=== PATIENT | female | born 1955 | race Caucasian/White ===

== ENCOUNTER → 2016-12-11 | Outpatient (CLI) | payer OTHER ==
[~2016-12-11] MED LIST: ACET500C; ACET500C OR; ALEV220C2 PO; ALEVE PM PO; ALEVE PO; BODY PO; FISH1000 OR; HAIR SKIN NAILS; HAIRTAB5 PO; LIDO1DIS2 TD; MULTIVIT OR; SKEL-29 PO; SKEL800T5; SKEL800T5 OR; SOMA250T; TRAM50TA2; TRAM50TA2 OR; TYLE325T5 PO; TYLE500T53 OR; ULTR37.52 PO; VENL37TA PO; VINEGAR PO; VOLT1GEL TOP; VOLT1GEL24 TD; ZOCO20TA; ZOCO20TA OR; ZOLO100T; [UNRECOGNIZED DRUG - CODE] PO; [UNRECOGNIZED DRUG - OTHER] OR; [UNRECOGNIZED DRUG - OTHER] PO; [UNRECOGNIZED DRUG - OTHER] PO; [UNRECOGNIZED DRUG - REMARK] PO; st johns wort PO
--- NOTE | 2016-12-17 00:45 | ECWPNPC ---
PATIENT NAME: LISA POTTS : 1955 GENDER: FEMALE VISIT DATE: 12/11/2016 DISCHARGE DATE: 12/11/16 1011 VISIT LOCKED DATE TIME: PHYSICIAN: BORA NICE RESOURCE: BORA NICE REASON FOR APPOINTMENT 1. W/C BACK PAIN HISTORY OF PRESENT ILLNESS HISTORY OF PRESENT ILLNESS: PAIN THE PATIENT DESCRIBES THE PAIN... 61 YEAR OLD FEMALE PATIENT WITH HISTORY OF CHRONIC LOW BACK PAIN. PATIENT DESCRIBES THE PAIN ACHING, SHARP, TENDER, SORE, WITH THE PAIN COMING AND GOING WITH A PAIN SCORE OF 0-3. 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 PATIENT RECEIVED A LUMBAR FACET BLOCK ON 09/11/16 AND REPORTS DOING VERY WELL FROM THE INJECTION. MRS. POTTS'Ad REPORTS HAVING INCREASED MOBILITY AND FUNCTIONALITY AND A DECREASE IN PAIN. PATIENT REPORTS DOING PHYSICAL THERAPY WHICH DOES AID IN PAIN RELIEF AND KEEPS THE PATIENT FUNCTIONAL. 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 PATIENT STATES THAT SITTING, STANDING, OR WALKING LONG DISTANCES INCREASES THE PAIN IN THE LOWER BACK BUT THE PATIENT FINDS RELIEF FROM THE MEDICATIONS ALONG WITH HEAT AND ICE. PATIENT DENIES UNEXPLAINABLE WEIGHT LOSS, FEVER, CHILLS, NEW CHANGES ON HER URINARY OR BOWEL CONTROL. FALL RISK SCREENING: SCREENING :NO FALLS IN THE PAST YEAR CURRENT MEDICATIONS TAKING VOLTAREN 1 % GEL ONE APPLICATION TRANSDERMAL QID PRN FOR PAIN, NOTES: 1 WEEK TAKING EYE DROPS EXTRA 0.05 % SOLUTION 2 DROP OPHTHALMIC TWICE A DAY AND NEEDED, NOTES: 09/11/16 0700 TAKING ACETAMINOPHEN 325 MG TABLET 1 TABLET NEEDED ORALLY EVERY 6 HRS, NOTES: > 1 WEEK TAKING ALEVE PM 220-25 MG TABLET ORALLY , NOTES: > 1 WEEK TAKING TRAMADOL-ACETAMINOPHEN 37.5-325 MG TABLET 2 TABLETS NEEDED ORALLY EVERY 6 HRS, NOTES: NONE TAKING SKELAXIN 800 MG TABLET 1 TABLET ORALLY EVERY 6 HR NEEDED TAKING VITAMIN D 59601 U TABLET ORALLY TAKING VITAMIN C 500 MG CAPSULE ORALLY TAKING MAGNESIUM 200 MG TABLET 2 TABLETS WITH A MEAL ORALLY ONCE A DAY TAKING HAIR/SKIN/NAILS TABLET 1 TAB(S) ORALLY DAILY, NOTES: NONE DISCONTINUED VALIUM 10 MG TABLET 1 ORALLY 1 TAB 1HR PRE PROC., NOTES: 0900 DISCONTINUED METAXALONE 800 MG TABLET 1 TABLET ORALLY THREE TIMES A DAY, NOTES: NONE MEDICATION LIST REVIEWED AND RECONCILED WITH THE PATIENT PAST MEDICAL HISTORY NO MEDICAL HISTORY. ALLERGIES GABAPENTIN: SWOLLEN EYE LIDS PUFFY LIPS: ALLERGY CONTRAST MEDIA: FAINT, HEAD FULLNESS, PRESSURE: ALLERGY NAPROXEN: SWOLLEN EYE LIDS PUFFY LIPS: ALLERGY SURGICAL HISTORY HYSTERCTOMY D&C BILATERAL CARPALL CONNIE FAMILY HISTORY NO FAMILY HISTORY DOCUMENTED. 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 NEW PATIENT PAIN DIARY TODAY'S VISITNOTES FROM 0-10, WHAT LEVEL IS YOUR PAIN TODAY?0 PAIN CLINIC PFS, CLERGY, PUBLIC HEALTH REFERRALS PFS REFERRAL NEEDED?NO CLERGY REFERRAL NEEDED?NO PUBLIC HEALTH REFERRAL NEEDED?NO WAS THE PROVIDER NOTIFIED OF ANY PERTINENT INFO?NO PFS REFERRAL NEEDED?NO CLERGY REFERRAL NEEDED?NO PUBLIC HEALTH REFERRAL NEEDED?NO WAS THE PROVIDER NOTIFIED OF ANY PERTINENT INFO?NO HOSPITALIZATION/MAJOR DIAGNOSTIC PROCEDURE FOR SURGERIES AFTER FALLING OUT DOORS HAD BROKEN BONES REVIEW OF SYSTEMS CONSTITUTIONAL: ANY CHANGE IN YOUR MEDICAL CONDITION? NO . CHILLS NO . FEVER NO . INFECTION: DO YOU HAVE NEW INFECTIONS? NO . DO YOU HAVE HISTORY OF MRSA? NO . MUSCULOSKELETAL: ANY NEW PATTERNS OF PAIN OR NUMBNESS? NO . GASTROENTEROLOGY: ANY NEW CHANGE IN BOWEL CONTROL? NO . GENITOURINARY: ANY NEW CHANGE IN BLADDER CONTROL? NO . IS THERE A CHANCE YOU COULD BE ? NO . HEMATOLOGY/LYMPH: DO YOU TAKE ANY BLOOD THINNERS? (FOR EXAMPLE- COUMADIN, PLAVIX, AGGRENOX, PLATEL, PRADAXA, OR XARELTO) NO . WHEN WAS YOUR LAST DOSE? DATE: TIME: . NEUROLOGY: HAVE YOU FALLEN IN THE PAST 6 MONTHS? YES, RECENTLY FELL ON DECK. NO TREATMENT WAS BRUISED. . ANY NEW EXTREMITY NUMBNESS OR WEAKNESS? NO . CARDIOLOGY: DO YOU HAVE A PACEMAKER OR DEFIBRILLATOR? NO . RESPIRATORY: HAVE YOU BEEN SICK IN THE PAST WEEK? NO . FEVER NO . FLU LIKE SYMPTOMS? NO . COUGH NO . INTEGUMENTARY: DO YOU HAVE ANY RASHES OR OPEN SORES? NO . ALLERGIC/IMMUNO: ARE YOU ALLERGIC TO SHELLFISH OR IV DYE? YES . ANY NEW ALLERGIES? NO . PSYCHIATRIC: DO YOU HAVE THOUGHTS OF HURTING YOURSELF OR SOMEONE ELSE? NO . ARE YOU ABUSED, NEGLECTED, OR IN AN UNSAFE ENVIRONMENT? NO . ENDOCRINOLOGY: ARE YOU DIABETIC? NO . OTHER: DO YOU NEED ANY PRESCRIPTIONS? NO . IF YES, PLEASE LIST: ____ . ANY NEW PROBLEMS WITH YOUR MEDICATIONS? NO . WHEN DID YOU LAST EAT? ____ . WHEN DID YOU LAST DRINK? ____ . WHAT DID YOU LAST DRINK? ____ . NAME OF PERSON DRIVING YOU HOME? ____ . DO YOU HAVE ANY OTHER QUESTIONS OR CONCERNS NO . REVIEWED BY: PROVIDER: BORA NICE MD . VITAL SIGNS WT 180 LBS, HT 63 IN, BMI 31.88 INDEX, BP 156/89 MM HG, HR 70 /MIN, RR 16 /MIN, TEMP 96%, OXYGEN SAT % 96%, NA INITIALS SC 09:31, REVIEWED BY: CM. EXAMINATION : PATIENT IS ALERT O X 3 AND COOPERATIVE. TENDERNESS IN THE LOWER BACK AND PARASPINAL MUSCLE GROUP. LEFT LEG IS WEAKER THEN THE RIGHT AT EXTENSION AND FLEXION. ABLE TO FLEX AND EXTEND BACK. MRI DONE ON 12/20/14 DOES DISC BULGES AT L1-L2 THROUGH L4-L5, DISC PROTRUSION AT L5-S1 AND FACET HYPERTROPHY. ASSESSMENTS SPONDYLOSIS WITHOUT MYELOPATHY OR RADICULOPATHY, LUMBAR REGION - M47.816 (PRIMARY) SPONDYLOSIS WITHOUT MYELOPATHY OR RADICULOPATHY, LUMBOSACRAL REGION - M47.817 TREATMENT SPONDYLOSIS WITHOUT MYELOPATHY OR RADICULOPATHY, LUMBAR REGION REFILL VOLTAREN GEL, 1 %, ONE APPLICATION, TRANSDERMAL, QID PRN FOR PAIN, 30 DAY(S), 2, REFILLS 2, NOTES: 1 WEEK NOTES: WE DISCUSSED SEVERAL ISSUES WITH MR. AMIN PAIN MANAGEMENT CASE. AT THIS TIME THE PATIENT WILL CONTINUE WITH THE SAME MEDICATION REGIME BEFORE. PATIENT USES THE VOLTAREN GEL FOR THE CHRONIC LOW BACK PAIN. PATIENT USES TRAMADOL AND SKELAXIN SPARINGLY. PATIENT DENIES ABUSE OF ANY MEDICATION, DENIES USE OF ILLEGAL SUBSTANCES, AND STATES THAT SHE IS ONLY USING THE MEDICATION FOR PAIN MANAGEMENT. PATIENT IS STILL DOING SIGNIFICANTLY WELL FROM THE LUMBAR FACET BLOCK WITH MOBILITY AND FUNCTIONALITY INCREASED AND PAIN DECREASED. AT THIS TIME THE PATIENT IS STILL HAVING MILD TWINGES OF PAIN BUT REPORTS IT IS VERY MANAGEABLE .MRS. AMIN WILL RETURN TO THE CLINIC IN 2 MONTHS TO FURTHER DISCUSS HER CASE BUT WAS ADVISED TO CALL IF PAIN RETURNS OR WORSENS. INSTRUCTIONS WERE GIVEN, QUESTIONS WERE ANSWERED, PATIENT REPORTS UNDERSTANDING AND AGREES WITH THE PLAN. I, PREETI RODNEY, DOCUMENTED THE ABOVE INFORMATION ACTING A SCRIBE FOR DR. NICE. I HAVE REVIEWED THE ABOVE DOCUMENT, WRITTEN BY PREETI LANDEROSIBChey AND I VERIFY THAT IT IS ACCURATE. PROCEDURES PN WORKMANS' COMP OPINION IN YOUR OPINION, WAS THE INCIDENT THAT THE PATIENT DESCRIBED THE COMPETENT MEDICAL CAUSE OF THIS INJURY/ILLNESS? YES ARE THE PATIENT'S COMPLAINTS CONSISTENT WITH HIS/HER HISTORY OF THE INJURY/ILLNESS? YES IS THE PATIENT'S HISTORY OF THE INJURY/ILLNESS CONSISTENT WITH YOUR OBJECTIVE FINDING? YES WHAT IS THE PERCENTAGE OF TEMPORARY IMPAIRMENT? MODERATE TO MARKED = 66.7% IS THE PATIENT WORKING? YES DOCTOR ON SITE: BORA HARRISON MD PROCEDURE CODES FA211 ESTABILISHED PATIENT [facility] FACILITY CHARGE G8427 DOC MEDS VERIFIED W/PT OR RE G8730 PAIN ASSESS POS TOOL F/U PLAN DOC FOLLOW UP 2 MONTHS ELECTRONICALLY SIGNED BY BORA NICE MD ON 12/16/2016 AT 10:19 PM EST DISCLAIMER : THIS IS A VISIT SUMMARY EXTRACTED FROM THE [employer] CHART. IT IS NOT A COPY OF THE [employer] PROGRESS NOTE. PEDRO
== END ==
LOC: M PAIN 09:00
PROVIDERS: ATTEND Anesthesiology
DX: Z09 Encounter for follow-up examination after completed treatment for conditions other than malignant neoplasm (principal); G89.29 Other chronic pain; M47.816 Spondylosis without myelopathy or radiculopathy, lumbar region; M47.817 Spondylosis without myelopathy or radiculopathy, lumbosacral region; Z91.041 Radiographic dye allergy status; Z88.8 Allergy status to other drugs, medicaments and biological substances; Z79.1 Long term (current) use of non-steroidal anti-inflammatories (NSAID); Z79.891 Long term (current) use of opiate analgesic; Z79.899 Other long term (current) drug therapy

== ENCOUNTER → 2017-02-19 | Outpatient (CLI) | payer OTHER ==
--- NOTE | 2017-03-01 | ECWPNPC ---
PATIENT NAME: LISA POTTS : 1955 GENDER: FEMALE VISIT DATE: 02/19/2017 DISCHARGE DATE: 02/19/17 1541 VISIT LOCKED DATE TIME: PHYSICIAN: BORA NICE RESOURCE: BORA NICE REASON FOR APPOINTMENT 1. W/C LOW BACK PAIN HISTORY OF PRESENT ILLNESS GENERAL: 61 YEAR OLD FEMALE PATIENT WITH HISTORY OF CHRONIC LOW BACK PAIN. PATIENT DESCRIBES THE PAIN ACHING, TENDER, AND SORE WITH A PAIN SCORE OF 4-6/10. 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 PATIENT RECEIVED A LUMBAR FACET BLOCK ON 09/11/16 AND STATES THAT SHE IS STILL GETTING RELIEF FROM THE INJECTION. MRS. POTTS STATES THAT HER MOBILITY AND FUNCTIONALITY INCREASED AFTER THE INJECTION AND SHE IS STILL GET PAIN RELIEF. CURRENTLY THE PATIENT IS USING SKELAXIN AND TRAMADOL TO AID IN PAIN RELIEF BUT STATES SHE USES THE MEDICATION SPARINGLY AND IT DOES KEEP HER MOBILE AND FUNCTIONAL WHEN THE PAIN GETS SEVERE. PATIENT DOES USE ALEVE DAILY AT THIS TIME AND STATES THAT IT DOES AID IN PAIN RELIEF. PATIENT DENIES UNEXPLAINABLE WEIGHT LOSS, FEVER, CHILLS, NEW CHANGES ON HER URINARY OR BOWEL CONTROL. CURRENT MEDICATIONS TAKING EYE DROPS EXTRA 0.05 % SOLUTION 2 DROP OPHTHALMIC TWICE A DAY AND NEEDED, NOTES: 09/11/16 0700 TAKING ACETAMINOPHEN 325 MG TABLET 1 TABLET NEEDED ORALLY EVERY 6 HRS, NOTES: > 1 WEEK TAKING ALEVE PM 220-25 MG TABLET ORALLY , NOTES: > 1 WEEK TAKING TRAMADOL-ACETAMINOPHEN 37.5-325 MG TABLET 2 TABLETS NEEDED ORALLY EVERY 6 HRS, NOTES: NONE TAKING SKELAXIN 800 MG TABLET 1 TABLET ORALLY EVERY 6 HR NEEDED TAKING VITAMIN D 18998 U TABLET ORALLY TAKING VITAMIN C 500 MG CAPSULE ORALLY TAKING MAGNESIUM 200 MG TABLET 2 TABLETS WITH A MEAL ORALLY ONCE A DAY TAKING HAIR/SKIN/NAILS TABLET 1 TAB(S) ORALLY DAILY, NOTES: NONE TAKING VOLTAREN 1 % GEL ONE APPLICATION TRANSDERMAL QID PRN FOR PAIN, NOTES: 1 WEEK PAST MEDICAL HISTORY NO MEDICAL HISTORY. ALLERGIES GABAPENTIN: SWOLLEN EYE LIDS PUFFY LIPS: ALLERGY CONTRAST MEDIA: FAINT, HEAD FULLNESS, PRESSURE: ALLERGY NAPROXEN: SWOLLEN EYE LIDS PUFFY LIPS: ALLERGY SURGICAL HISTORY HYSTERCTOMY D&C BILATERAL CARPALL CONNIE FAMILY HISTORY NO FAMILY HISTORY DOCUMENTED. 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 NEW PATIENT PAIN DIARY TODAY'S VISITNOTES FROM 0-10, WHAT LEVEL IS YOUR PAIN TODAY?0 PAIN CLINIC PFS, CLERGY, PUBLIC HEALTH REFERRALS PFS REFERRAL NEEDED?NO CLERGY REFERRAL NEEDED?NO PUBLIC HEALTH REFERRAL NEEDED?NO WAS THE PROVIDER NOTIFIED OF ANY PERTINENT INFO?NO PFS REFERRAL NEEDED?NO CLERGY REFERRAL NEEDED?NO PUBLIC HEALTH REFERRAL NEEDED?NO WAS THE PROVIDER NOTIFIED OF ANY PERTINENT INFO?NO HOSPITALIZATION/MAJOR DIAGNOSTIC PROCEDURE FOR SURGERIES AFTER FALLING OUT DOORS HAD BROKEN BONES VITAL SIGNS WT 200.4 LBS, HT 63 IN, BMI 35.50 INDEX, BP 150/70 MM HG, HR 85 /MIN, RR 16 /MIN, TEMP 96.4 F, OXYGEN SAT % 94%, NA INITIALS AW 1:28, REVIEWED BY: AMANDA. EXAMINATION GENERAL: PATIENT IS ALERT O X 3 AND COOPERATIVE. TENDERNESS IN THE LOWER BACK AND PARASPINAL MUSCLE GROUP. LIMPING FROM RIGHT LEG. RIGHT LEG IS WEAKER THEN THE LEFT AT EXTENSION AND FLEXION. ABLE TO FLEX 80 DEGREES AND EXTEND 5 DEGREES WITH DISCOMFORT. MRI DONE ON 12/20/14 DOES DISC BULGES AT L1-L2 THROUGH L4-L5, DISC PROTRUSION AT L5-S1 AND FACET HYPERTROPHY. ASSESSMENTS SPONDYLOSIS WITHOUT MYELOPATHY OR RADICULOPATHY, LUMBOSACRAL REGION - M47.817 (PRIMARY) SPONDYLOSIS WITHOUT MYELOPATHY OR RADICULOPATHY, LUMBAR REGION - M47.816 TREATMENT SPONDYLOSIS WITHOUT MYELOPATHY OR RADICULOPATHY, LUMBOSACRAL REGION NOTES: WE DISCUSSED SEVERAL ISSUES WITH MRS. POTTS'S PAIN MANAGEMENT CASE. PATIENT WILL START CYMBALTA FOR THE NEUROPATHIC PAIN DOWN LEGS. PATIENT WAS ADVISED TO START WITH A LOW DOSE AT NIGHT AND TO DISCONTINUE THE MEDICATION IS SHE HAS ANY ADVERSE SIDE EFFECTS. AT THIS TIME THE PATIENT STATES THAT SHE DOES NOT WANT TO MOVE FORWARD WITH AN INJECTION AT THIS TIME DUE TO STILL RECEIVING RELIEF FROM THE PREVIOUS INJECTION IN AUGUST. PATIENT WILL RETURN TO THE CLINIC IN 1 MONTH TO DISCUSS HOW THE MEDICATION IS AIDING WITH PAIN RELIEF. PATIENT WAS ADVISED TO CALL IF PAIN SIGNIFICANTLY WORSENS. INSTRUCTIONS WERE GIVEN, QUESTIONS WERE ANSWERED, PATIENT REPORTS UNDERSTANDING AND AGREES WITH THE PLAN. I, PREETI RODNEY, DOCUMENTED THE ABOVE INFORMATION ACTING A SCRIBE FOR DR. NICE. I HAVE REVIEWED THE ABOVE DOCUMENT, WRITTEN BY PREETI VILLA AND I VERIFY THAT IT IS ACCURATE. OTHERS START CYMBALTA CAPSULE DELAYED RELEASE PARTICLES, 30 MG, 1 CAPSULE, ORALLY WITH FOOD ( WORKERS COMPENSATION), TWICE A DAY, 30 DAY(S), 60, REFILLS 2 PROCEDURES PN WORKMANS' COMP OPINION IN YOUR OPINION, WAS THE INCIDENT THAT THE PATIENT DESCRIBED THE COMPETENT MEDICAL CAUSE OF THIS INJURY/ILLNESS? YES ARE THE PATIENT'S COMPLAINTS CONSISTENT WITH HIS/HER HISTORY OF THE INJURY/ILLNESS? YES IS THE PATIENT'S HISTORY OF THE INJURY/ILLNESS CONSISTENT WITH YOUR OBJECTIVE FINDING? YES WHAT IS THE PERCENTAGE OF TEMPORARY IMPAIRMENT? MODERATE TO MARKED = 66.7% IS THE PATIENT WORKING? YES DOCTOR ON SITE: BORA HARRISON MD PROCEDURE CODES FA211 ESTABILISHED PATIENT [facility] FACILITY CHARGE G8427 DOC MEDS VERIFIED W/PT OR RE G9284 PAIN ASSESS POS TOOL F/U PLAN DOC DISPOSITION & COMMUNICATION FOLLOW UP 4 WEEKS ELECTRONICALLY SIGNED BY BORA NICE MD ON 02/28/2017 AT 09:09 PM EDT DISCLAIMER : THIS IS A VISIT SUMMARY EXTRACTED FROM THE [employer] CHART. IT IS NOT A COPY OF THE [employer] PROGRESS NOTE. MTDD
== END | disposition home or self-care (01) ==
LOC: M PAIN 13:20
PROVIDERS: ATTEND Anesthesiology
DX: Z09 Encounter for follow-up examination after completed treatment for conditions other than malignant neoplasm (principal); G89.29 Other chronic pain; M47.817 Spondylosis without myelopathy or radiculopathy, lumbosacral region; M47.816 Spondylosis without myelopathy or radiculopathy, lumbar region; Z88.8 Allergy status to other drugs, medicaments and biological substances; Z91.041 Radiographic dye allergy status

== ENCOUNTER → 2017-04-13 | Outpatient (CLI) | payer OTHER ==
--- NOTE | 2017-04-25 23:24 | ECWPNPC ---
PATIENT NAME: LISA POTTS : 1955 GENDER: FEMALE VISIT DATE: 04/13/2017 DISCHARGE DATE: 04/13/17 1730 VISIT LOCKED DATE TIME: PHYSICIAN: BORA NICE RESOURCE: BOAR NICE REASON FOR APPOINTMENT 1. NECK/SHOUDLERS W/C HISTORY OF PRESENT ILLNESS HISTORY OF PRESENT ILLNESS: PAIN THE PATIENT DESCRIBES THE PAIN... 61 YEAR OLD FEMALE PATIENT WITH HISTORY OF CHRONIC NECK AND SHOULDER PAIN. PATIENT DESCRIBES THE PAIN ACHING, SHARP, TENDER, SORE, AND SHOOTING WITH A PAIN SCORE OF 5+/10. PATIENT WAS HURT IN A WORK RELATED INJURY ON 05/01/2008 WHILE WORKING AT [employer]. PATIENT HAS RECEIVED TRIGGER POINT INJECTIONS IN THE PAST AND REPORTS HAVING VERY GOOD RELIEF FROM THE INJECTION. AT THIS TIME THE PATIENT IS NOT USING ANY MEDICATION FOR THIS PAIN. PATIENT HAS NO RECEIVED ANY SURGERY FOR THIS. MRS. POTTS REPORTS PHYSICAL THERAPY AIDING IN PAIN RELIEF AND INCREASED MOBILITY AND FUNCTIONALITY IN HER SHOULDER AND NECK AREA. PATIENT DENIES UNEXPLAINABLE WEIGHT LOSS, FEVER, CHILLS, NEW CHANGES ON HER URINARY OR BOWEL CONTROL. FALL RISK SCREENING: SCREENING :NO FALLS IN THE PAST YEAR CURRENT MEDICATIONS TAKING EYE DROPS EXTRA 0.05 % SOLUTION 2 DROP OPHTHALMIC TWICE A DAY AND NEEDED, NOTES: 09/11/16 0700 TAKING ACETAMINOPHEN 325 MG TABLET 1 TABLET NEEDED ORALLY EVERY 6 HRS, NOTES: > 1 WEEK TAKING ALEVE PM 220-25 MG TABLET ORALLY , NOTES: > 1 WEEK TAKING VITAMIN D 61088 U TABLET ORALLY TAKING VITAMIN C 500 MG CAPSULE ORALLY TAKING MAGNESIUM 200 MG TABLET 2 TABLETS WITH A MEAL ORALLY ONCE A DAY TAKING CLARITIN 10 MG TABLET 1 TABLET ORALLY ONCE A DAY TAKING VOLTAREN 1 % GEL 1 STRIP TRANSDERMAL QID PRN FOR PAIN, NOTES: 1 WEEK NOT-TAKING CYMBALTA 30 MG CAPSULE DELAYED RELEASE PARTICLES 1 CAPSULE ORALLY WITH FOOD ( WORKERS COMPENSATION) TWICE A DAY NOT-TAKING TRAMADOL-ACETAMINOPHEN 37.5-325 MG TABLET 2 TABLETS NEEDED ORALLY EVERY 6 HRS, NOTES: NONE NOT-TAKING SKELAXIN 800 MG TABLET 1 TABLET ORALLY EVERY 6 HR NEEDED NOT-TAKING HAIR/SKIN/NAILS TABLET 1 TAB(S) ORALLY DAILY, NOTES: NONE MEDICATION LIST REVIEWED AND RECONCILED WITH THE PATIENT PAST MEDICAL HISTORY NO MEDICAL HISTORY. ALLERGIES GABAPENTIN: SWOLLEN EYE LIDS PUFFY LIPS: ALLERGY CONTRAST MEDIA: FAINT, HEAD FULLNESS, PRESSURE: ALLERGY NAPROXEN: SWOLLEN EYE LIDS PUFFY LIPS: ALLERGY SURGICAL HISTORY HYSTERCTOMY D&C BILATERAL CARPALL CONNIE FAMILY HISTORY NO FAMILY HISTORY DOCUMENTED. 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 NEW PATIENT PAIN DIARY TODAY'S VISITNOTES FROM 0-10, WHAT LEVEL IS YOUR PAIN TODAY?0 PAIN CLINIC PFS, CLERGY, PUBLIC HEALTH REFERRALS PFS REFERRAL NEEDED?NO CLERGY REFERRAL NEEDED?NO PUBLIC HEALTH REFERRAL NEEDED?NO WAS THE PROVIDER NOTIFIED OF ANY PERTINENT INFO?NO PFS REFERRAL NEEDED?NO CLERGY REFERRAL NEEDED?NO PUBLIC HEALTH REFERRAL NEEDED?NO WAS THE PROVIDER NOTIFIED OF ANY PERTINENT INFO?NO HOSPITALIZATION/MAJOR DIAGNOSTIC PROCEDURE FOR SURGERIES AFTER FALLING OUT DOORS HAD BROKEN BONES REVIEW OF SYSTEMS CONSTITUTIONAL: ANY CHANGE IN YOUR MEDICAL CONDITION? NO . CHILLS NO . FEVER NO . INFECTION: DO YOU HAVE NEW INFECTIONS? NO . DO YOU HAVE HISTORY OF MRSA? NO . MUSCULOSKELETAL: ANY NEW PATTERNS OF PAIN OR NUMBNESS? NO . GASTROENTEROLOGY: ANY NEW CHANGE IN BOWEL CONTROL? NO . GENITOURINARY: ANY NEW CHANGE IN BLADDER CONTROL? NO . IS THERE A CHANCE YOU COULD BE ? NO . HEMATOLOGY/LYMPH: DO YOU TAKE ANY BLOOD THINNERS? (FOR EXAMPLE- COUMADIN, PLAVIX, AGGRENOX, PLATEL, PRADAXA, OR XARELTO) NO . WHEN WAS YOUR LAST DOSE? DATE: TIME: . NEUROLOGY: HAVE YOU FALLEN IN THE PAST 6 MONTHS? YES . ANY NEW EXTREMITY NUMBNESS OR WEAKNESS? NO . CARDIOLOGY: DO YOU HAVE A PACEMAKER OR DEFIBRILLATOR? NO . RESPIRATORY: HAVE YOU BEEN SICK IN THE PAST WEEK? NO . FEVER NO . FLU LIKE SYMPTOMS? NO . COUGH NO . INTEGUMENTARY: DO YOU HAVE ANY RASHES OR OPEN SORES? NO . ALLERGIC/IMMUNO: ARE YOU ALLERGIC TO SHELLFISH OR IV DYE? YES . ANY NEW ALLERGIES? NO . PSYCHIATRIC: DO YOU HAVE THOUGHTS OF HURTING YOURSELF OR SOMEONE ELSE? NO . ARE YOU ABUSED, NEGLECTED, OR IN AN UNSAFE ENVIRONMENT? NO . ENDOCRINOLOGY: ARE YOU DIABETIC? NO . OTHER: DO YOU NEED ANY PRESCRIPTIONS? NO . IF YES, PLEASE LIST: ____ . ANY NEW PROBLEMS WITH YOUR MEDICATIONS? NO . WHEN DID YOU LAST EAT? ____ . WHEN DID YOU LAST DRINK? ____ . WHAT DID YOU LAST DRINK? ____ . NAME OF PERSON DRIVING YOU HOME? ____ . DO YOU HAVE ANY OTHER QUESTIONS OR CONCERNS NO . REVIEWED BY: PROVIDER: BORA NICE MD . VITAL SIGNS WT 196.0 LBS, HT 63 IN, BMI 34.72 INDEX, BP 137/71 MM HG, HR 82 /MIN, RR 16 /MIN, TEMP 96.4 F, OXYGEN SAT % 96%, NA INITIALS TL 1551, REVIEWED BY: CL. EXAMINATION : PATIENT IS ALERT O X 3 AND COOPERATIVE. TENDERNESS IN THE CERVICAL AREA AND PARASPINAL MUSCLE GROUP. PATIENT ABLE TO EXTEND AND FLEX THE NECK 45 DEGREES. PATIENT ABLE TO ABDUCT ARMS WITH DIFFICULTIES. 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 BANDS OF TISSUE, RESTRICTION OF MOVEMENT, AND PRESENCE OF TRIGGER POINTS IN THE CERVICAL AREA AND SHOULDER AREA. CERVICAL MRI DONE ON 10/08/15 SHOWS DEGENERATIVE SPONDYLOSIS CHANGES AND DISC BULGES AT C6-C7 AND C5-C6. 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 POTTS' PAIN MANAGEMENT CASE. AT THIS TIME THE PATIENT REPORTS THE PAIN RETURNING FROM THE PREVIOUS TRIGGER POINT INJECTION. AFTER VIEWING THE PATIENT AND WHERE THE PATIENT STATES HER PAIN IS. I WOULD LIKE TO MOVE FORWARD WITH A TRIGGER POINT INJECTION IN THE CERVICAL AND SHOULDER AREA. WE DISCUSSED THE RISKS, BENENFITS, AND ALTNERATIVES OF THE INJECTION AND THE PATIENT WOULD LIKE TO PROCEED AT THIS TIME. INSTRUCTIONS WERE GIVEN, QUESTIONS WERE ANSWERED, PATIENT REPORTS UNDERSTANDING AND AGREES WITH THE PLAN. I, PREETI RODNEY, DOCUMENTED THE ABOVE INFORMATION ACTING A SCRIBE FOR DR. NICE. I HAVE REVIEWED THE ABOVE DOCUMENT, WRITTEN BY PREETI VILLA AND I VERIFY THAT IT IS ACCURATE. PROCEDURES PN WORKMANS' COMP OPINION IN YOUR OPINION, WAS THE INCIDENT THAT THE PATIENT DESCRIBED THE COMPETENT MEDICAL CAUSE OF THIS INJURY/ILLNESS? YES ARE THE PATIENT'S COMPLAINTS CONSISTENT WITH HIS/HER HISTORY OF THE INJURY/ILLNESS? YES IS THE PATIENT'S HISTORY OF THE INJURY/ILLNESS CONSISTENT WITH YOUR OBJECTIVE FINDING? YES WHAT IS THE PERCENTAGE OF TEMPORARY IMPAIRMENT? MODERATE TO MARKED = 66.7% IS THE PATIENT WORKING? NO DOCTOR ON SITE: BORA HARRISON MD PROCEDURE CODES FA211 ESTABILISHED PATIENT [facility] FACILITY CHARGE G8427 DOC MEDS VERIFIED W/PT OR RE G8730 PAIN ASSESS POS TOOL F/U PLAN DOC DISPOSITION & COMMUNICATION FOLLOW UP 3 WEEKS ELECTRONICALLY SIGNED BY BORA NICE MD ON 04/25/2017 AT 05:54 PM EDT DISCLAIMER : THIS IS A VISIT SUMMARY EXTRACTED FROM THE [employer] CHART. IT IS NOT A COPY OF THE [employer] PROGRESS NOTE. PEDRO
== END ==
LOC: M PAIN 15:50
PROVIDERS: ATTEND Anesthesiology
DX: M79.1 Myalgia (principal); M50.122 Cervical disc disorder at C5-C6 level with radiculopathy; M50.123 Cervical disc disorder at C6-C7 level with radiculopathy; Z79.899 Other long term (current) drug therapy; Z88.8 Allergy status to other drugs, medicaments and biological substances; Z88.6 Allergy status to analgesic agent; Z91.041 Radiographic dye allergy status

== ENCOUNTER → 2017-04-13 | Outpatient (CLI) | payer OTHER ==
--- NOTE | 2017-04-25 23:34 | ECWPNPC ---
PATIENT NAME: LISA POTTS : 1955 GENDER: FEMALE VISIT DATE: 04/13/2017 DISCHARGE DATE: 04/13/17 1536 VISIT LOCKED DATE TIME: PHYSICIAN: BORA NICE RESOURCE: BORA NICE REASON FOR APPOINTMENT 1. W/C LOW BACK HISTORY OF PRESENT ILLNESS HISTORY OF PRESENT ILLNESS: PAIN THE PATIENT DESCRIBES THE PAIN... 61 YEAR OLD FEMALE PATIENT WITH HISTORY OF CHRONIC LOW BACK PAIN. PATIENT DESCRIBES THE PAIN ACHING, TENDER, AND SORE WITH A PAIN SCORE OF 5+/10. 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 PATIENT RECEIVED A LUMBAR FACET BLOCK ON 09/11/16 AND STATES THAT THE PAIN IS STARTING TO INCREASE SINCE THE INJECTION BUT HAD SEVERAL MONTHS OF DECREASED PAIN AND INCREASED MOBILITY AND FUNCTIONALITY. CURRENTLY THE PATIENT IS USING SKELAXIN AND TRAMADOL TO AID IN PAIN RELIEF BUT STATES SHE USES THE MEDICATION SPARINGLY AND IT DOES KEEP HER MOBILE AND FUNCTIONAL WHEN THE PAIN GETS SEVERE. PATIENT DOES USE ALEVE DAILY AT THIS TIME AND STATES THAT IT DOES AID IN PAIN RELIEF. PATIENT DENIES UNEXPLAINABLE WEIGHT LOSS, FEVER, CHILLS, NEW CHANGES ON HER URINARY OR BOWEL CONTROL. FALL RISK SCREENING: SCREENING :NO FALLS IN THE PAST YEAR CURRENT MEDICATIONS TAKING EYE DROPS EXTRA 0.05 % SOLUTION 2 DROP OPHTHALMIC TWICE A DAY AND NEEDED, NOTES: 09/11/16 0700 TAKING ACETAMINOPHEN 325 MG TABLET 1 TABLET NEEDED ORALLY EVERY 6 HRS, NOTES: > 1 WEEK TAKING ALEVE PM 220-25 MG TABLET ORALLY , NOTES: > 1 WEEK TAKING VITAMIN D 96411 U TABLET ORALLY TAKING VITAMIN C 500 MG CAPSULE ORALLY TAKING MAGNESIUM 200 MG TABLET 2 TABLETS WITH A MEAL ORALLY ONCE A DAY TAKING VOLTAREN 1 % GEL ONE APPLICATION TRANSDERMAL QID PRN FOR PAIN, NOTES: 1 WEEK TAKING CLARITIN 10 MG TABLET 1 TABLET ORALLY ONCE A DAY NOT-TAKING CYMBALTA 30 MG CAPSULE DELAYED RELEASE PARTICLES 1 CAPSULE ORALLY WITH FOOD ( WORKERS COMPENSATION) TWICE A DAY NOT-TAKING TRAMADOL-ACETAMINOPHEN 37.5-325 MG TABLET 2 TABLETS NEEDED ORALLY EVERY 6 HRS, NOTES: NONE NOT-TAKING SKELAXIN 800 MG TABLET 1 TABLET ORALLY EVERY 6 HR NEEDED NOT-TAKING HAIR/SKIN/NAILS TABLET 1 TAB(S) ORALLY DAILY, NOTES: NONE MEDICATION LIST REVIEWED AND RECONCILED WITH THE PATIENT PAST MEDICAL HISTORY NO MEDICAL HISTORY. ALLERGIES GABAPENTIN: SWOLLEN EYE LIDS PUFFY LIPS: ALLERGY CONTRAST MEDIA: FAINT, HEAD FULLNESS, PRESSURE: ALLERGY NAPROXEN: SWOLLEN EYE LIDS PUFFY LIPS: ALLERGY SURGICAL HISTORY HYSTERCTOMY D&C BILATERAL CARPALL CONNIE FAMILY HISTORY NO FAMILY HISTORY DOCUMENTED. 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 NEW PATIENT PAIN DIARY TODAY'S VISITNOTES FROM 0-10, WHAT LEVEL IS YOUR PAIN TODAY?0 PAIN CLINIC PFS, CLERGY, PUBLIC HEALTH REFERRALS PFS REFERRAL NEEDED?NO CLERGY REFERRAL NEEDED?NO PUBLIC HEALTH REFERRAL NEEDED?NO WAS THE PROVIDER NOTIFIED OF ANY PERTINENT INFO?NO PFS REFERRAL NEEDED?NO CLERGY REFERRAL NEEDED?NO PUBLIC HEALTH REFERRAL NEEDED?NO WAS THE PROVIDER NOTIFIED OF ANY PERTINENT INFO?NO HOSPITALIZATION/MAJOR DIAGNOSTIC PROCEDURE FOR SURGERIES AFTER FALLING OUT DOORS HAD BROKEN BONES REVIEW OF SYSTEMS CONSTITUTIONAL: ANY CHANGE IN YOUR MEDICAL CONDITION? NO . CHILLS NO . FEVER NO . INFECTION: DO YOU HAVE NEW INFECTIONS? NO . DO YOU HAVE HISTORY OF MRSA? NO . MUSCULOSKELETAL: ANY NEW PATTERNS OF PAIN OR NUMBNESS? YES . GASTROENTEROLOGY: ANY NEW CHANGE IN BOWEL CONTROL? NO . GENITOURINARY: ANY NEW CHANGE IN BLADDER CONTROL? NO . IS THERE A CHANCE YOU COULD BE ? NO . HEMATOLOGY/LYMPH: DO YOU TAKE ANY BLOOD THINNERS? (FOR EXAMPLE- COUMADIN, PLAVIX, AGGRENOX, PLATEL, PRADAXA, OR XARELTO) NO . WHEN WAS YOUR LAST DOSE? DATE: TIME: . NEUROLOGY: HAVE YOU FALLEN IN THE PAST 6 MONTHS? YES . ANY NEW EXTREMITY NUMBNESS OR WEAKNESS? NO . CARDIOLOGY: DO YOU HAVE A PACEMAKER OR DEFIBRILLATOR? NO . RESPIRATORY: HAVE YOU BEEN SICK IN THE PAST WEEK? NO . FEVER NO . FLU LIKE SYMPTOMS? NO . COUGH NO . INTEGUMENTARY: DO YOU HAVE ANY RASHES OR OPEN SORES? NO . ALLERGIC/IMMUNO: ARE YOU ALLERGIC TO SHELLFISH OR IV DYE? YES . ANY NEW ALLERGIES? NO . PSYCHIATRIC: DO YOU HAVE THOUGHTS OF HURTING YOURSELF OR SOMEONE ELSE? NO . ARE YOU ABUSED, NEGLECTED, OR IN AN UNSAFE ENVIRONMENT? NO . ENDOCRINOLOGY: ARE YOU DIABETIC? NO . OTHER: DO YOU NEED ANY PRESCRIPTIONS? NO . IF YES, PLEASE LIST: ____ . ANY NEW PROBLEMS WITH YOUR MEDICATIONS? NO . WHEN DID YOU LAST EAT? ____ . WHEN DID YOU LAST DRINK? ____ . WHAT DID YOU LAST DRINK? ____ . NAME OF PERSON DRIVING YOU HOME? ____ . DO YOU HAVE ANY OTHER QUESTIONS OR CONCERNS NO . REVIEWED BY: PROVIDER: BORA NICE MD . VITAL SIGNS WT 196.0 LBS, HT 63 IN, BMI 34.72 INDEX, BP 137/71 MM HG, HR 82 /MIN, RR 16 /MIN, TEMP 96.4 F, OXYGEN SAT % 96%, NA INITIALS SC 14:09, REVIEWED BY: CL. EXAMINATION : PATIENT IS ALERT O X 3 AND COOPERATIVE. TENDERNESS IN THE LOWER BACK AND PARASPINAL MUSCLE GROUP. LIMPING FROM RIGHT LEG. RIGHT LEG IS WEAKER THEN THE LEFT AT EXTENSION AND FLEXION. ABLE TO FLEX 80 DEGREES AND EXTEND 5 DEGREES WITH DISCOMFORT. MRI DONE ON 12/20/14 DOES DISC BULGES AT L1-L2 THROUGH L4-L5, DISC PROTRUSION AT L5-S1 AND FACET HYPERTROPHY. 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 POTTS' PAIN MANAGEMENT CASE. AT THIS TIME THE PATIENT WILL CONTINUE TO USE SKELAXIN AND TRAMADOL FOR PAIN MANAGEMENT. PATIENT USES SKELAXIN FOR THE MUSCLE SPASMS AND TRAMADOL FOR THE SOMATIC PAIN. PATIENT DENIES ABUSE OF ANY MEDICATION, DENIES USE OF ILLEGAL SUBSTANCES, AND STATES THAT SHE IS ONLY USING THE MEDICATION FOR PAIN MANAGEMENT. MRS. POTTS REPORTS THE PAIN STARTING TO RETURN IN THE LOWER BACK FROM THE LUMBAR FACET BLOCK DONE ON 09/11/16. AFTER VIEWING THE MRI AND THE PAIN DOWN THE LEG I WOULD LIKE TO MOVE FORWARD WITH A LUMBAR EPIDURAL. WE DISCUSSED THE RISKS, BENENFITS, AND ALTNERATIVES OF THE INJECTION AND THE PATIENT WOULD LIKE TO PROCEED AT THIS TIME. INSTRUCTIONS WERE GIVEN, QUESTIONS WERE ANSWERED, PATIENT REPORTS UNDERSTANDING AND AGREES WITH THE PLAN. I, PREETI RODNEY, DOCUMENTED THE ABOVE INFORMATION ACTING A SCRIBE FOR DR. NICE. I HAVE REVIEWED THE ABOVE DOCUMENT, WRITTEN BY PREETI VILLA AND I VERIFY THAT IT IS ACCURATE. SPONDYLOSIS WITHOUT MYELOPATHY OR RADICULOPATHY, LUMBAR REGION REFILL VOLTAREN GEL, 1 %, 1 STRIP, TRANSDERMAL, QID PRN FOR PAIN, 30 DAY(S), 2, REFILLS 2, NOTES: 1 WEEK PROCEDURES PN WORKMANS' COMP OPINION IN YOUR OPINION, WAS THE INCIDENT THAT THE PATIENT DESCRIBED THE COMPETENT MEDICAL CAUSE OF THIS INJURY/ILLNESS? YES ARE THE PATIENT'S COMPLAINTS CONSISTENT WITH HIS/HER HISTORY OF THE INJURY/ILLNESS? YES IS THE PATIENT'S HISTORY OF THE INJURY/ILLNESS CONSISTENT WITH YOUR OBJECTIVE FINDING? YES WHAT IS THE PERCENTAGE OF TEMPORARY IMPAIRMENT? MODERATE TO MARKED = 66.7% IS THE PATIENT WORKING? YES DOCTOR ON SITE: BORA HARRISON MD PROCEDURE CODES FA211 ESTABILISHED PATIENT [facility] FACILITY CHARGE G8427 DOC MEDS VERIFIED W/PT OR RE G8730 PAIN ASSESS POS TOOL F/U PLAN DOC DISPOSITION & COMMUNICATION FOLLOW UP LESI AFTER APPROVAL ELECTRONICALLY SIGNED BY BORA NICE MD ON 04/25/2017 AT 05:55 PM EDT DISCLAIMER : THIS IS A VISIT SUMMARY EXTRACTED FROM THE [employer] CHART. IT IS NOT A COPY OF THE [employer] PROGRESS NOTE. MTDGrant
== END ==
LOC: M PAIN 14:00
PROVIDERS: ATTEND Anesthesiology
DX: M47.816 Spondylosis without myelopathy or radiculopathy, lumbar region (principal); M51.17 Intervertebral disc disorders with radiculopathy, lumbosacral region; M51.16 Intervertebral disc disorders with radiculopathy, lumbar region; Z79.899 Other long term (current) drug therapy; Z88.8 Allergy status to other drugs, medicaments and biological substances; Z88.6 Allergy status to analgesic agent; Z91.041 Radiographic dye allergy status

== ENCOUNTER → 2017-07-09 | Outpatient (CLI) | payer OTHER ==
[~2017-07-09] MED LIST changes: -SKEL-29 PO; +SKEL800T97 PO; -ULTR37.52 PO; +ULTR37.54 PO; +VOLT1GEL15 TD; -VOLT1GEL24 TD
--- NOTE | 2017-07-26 23:23 | ECWPNPC ---
PATIENT NAME: LISA POTTS : 1955 GENDER: FEMALE VISIT DATE: 07/09/2017 DISCHARGE DATE: 07/09/17 1418 VISIT LOCKED DATE TIME: PHYSICIAN: BORA NICE RESOURCE: BORA NICE REASON FOR APPOINTMENT 1. LOW BACK W/C HISTORY OF PRESENT ILLNESS HISTORY OF PRESENT ILLNESS: PAIN THE PATIENT DESCRIBES THE PAIN... 61 YEAR OLD FEMALE PATIENT WITH HISTORY OF CHRONIC LOW BACK PAIN. PATIENT DESCRIBES THE PAIN ACHING, BURNING, SHARP,SORE, TENDER, THROBBING, HAVING THIS PAIN ALL THE TIME BUT SOME TIMES THE PAIN WILL COME AND GO. PATIENT HAS A PAIN SCORE OF 7+/10 AT TODAYS VISIT. PATIENT REPORTS THAT SHE WILL GET PAIN THAT RADIATES DOWN HER LEGS FROM HER BACK BUT SAYS THAT IT IS MOSTLY DOWN THE LEFT LEG WHEN THAT HAPPENS. 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 PATIENT RECEIVED A LUMBAR FACET BLOCK ON 09/11/16 AND STATES THAT THE PAIN IS STARTING TO INCREASE SINCE THE INJECTION BUT HAD SEVERAL MONTHS OF DECREASED PAIN AND INCREASED MOBILITY AND FUNCTIONALITY. CURRENTLY THE PATIENT IS USING SKELAXIN AND TRAMADOL TO AID IN PAIN RELIEF BUT STATES SHE USES THE MEDICATION SPARINGLY AND IT DOES KEEP HER MOBILE AND FUNCTIONAL WHEN THE PAIN GETS SEVERE. PATIENT DOES USE ALEVE DAILY AT THIS TIME AND STATES THAT IT DOES AID IN PAIN RELIEF. MRS. POTTS REPORTS PHYSICAL THERAPY HAS AIDED IN PAIN RELIEF IN THE PAST. PATIENT DENIES UNEXPLAINABLE WEIGHT LOSS, FEVER, CHILLS, NEW CHANGES ON HER URINARY OR BOWEL CONTROL. FALL RISK SCREENING: SCREENING :NO FALLS IN THE PAST YEAR CURRENT MEDICATIONS TAKING EYE DROPS EXTRA 0.05 % SOLUTION 2 DROP OPHTHALMIC TWICE A DAY AND NEEDED, NOTES: 09/11/16 0700 TAKING ACETAMINOPHEN 325 MG TABLET 1 TABLET NEEDED ORALLY EVERY 6 HRS TAKING ALEVE PM 220-25 MG TABLET ORALLY TAKING VITAMIN D 80037 U TABLET ORALLY TAKING VITAMIN C 500 MG CAPSULE ORALLY TAKING MAGNESIUM 200 MG TABLET 2 TABLETS WITH A MEAL ORALLY ONCE A DAY TAKING CLARITIN 10 MG TABLET 1 TABLET ORALLY ONCE A DAY TAKING VOLTAREN 1 % GEL 1 STRIP TRANSDERMAL QID PRN FOR PAIN TAKING TRAMADOL-ACETAMINOPHEN 37.5-325 MG TABLET 2 TABLETS NEEDED ORALLY EVERY 6 HRS, NOTES: NOT USING CURRENTLY TAKING SKELAXIN 800 MG TABLET 1 TABLET ORALLY EVERY 6 HR NEEDED, NOTES: NOT USING CURRENTLY NOT-TAKING CYMBALTA 30 MG CAPSULE DELAYED RELEASE PARTICLES 1 CAPSULE ORALLY WITH FOOD ( WORKERS COMPENSATION) TWICE A DAY NOT-TAKING HAIR/SKIN/NAILS TABLET 1 TAB(S) ORALLY DAILY, NOTES: NONE MEDICATION LIST REVIEWED AND RECONCILED WITH THE PATIENT PAST MEDICAL HISTORY NO MEDICAL HISTORY. ALLERGIES GABAPENTIN: SWOLLEN EYE LIDS PUFFY LIPS: ALLERGY CONTRAST MEDIA: FAINT, HEAD FULLNESS, PRESSURE: ALLERGY NAPROXEN: SWOLLEN EYE LIDS PUFFY LIPS: ALLERGY REVIEW OF SYSTEMS REVIEWED BY: PROVIDER: BORA NICE MD . CONSTITUTIONAL: ANY CHANGE IN YOUR MEDICAL CONDITION? NO . CHILLS NO . FEVER NO . INFECTION: DO YOU HAVE NEW INFECTIONS? NO . DO YOU HAVE HISTORY OF MRSA? NO . MUSCULOSKELETAL: ANY NEW PATTERNS OF PAIN OR NUMBNESS? YES . GASTROENTEROLOGY: ANY NEW CHANGE IN BOWEL CONTROL? NO . GENITOURINARY: ANY NEW CHANGE IN BLADDER CONTROL? NO . IS THERE A CHANCE YOU COULD BE ? NO . HEMATOLOGY/LYMPH: DO YOU TAKE ANY BLOOD THINNERS? (FOR EXAMPLE- COUMADIN, PLAVIX, AGGRENOX, PLATEL, PRADAXA, OR XARELTO) NO . WHEN WAS YOUR LAST DOSE? DATE: TIME: . NEUROLOGY: HAVE YOU FALLEN IN THE PAST 6 MONTHS? YES . ANY NEW EXTREMITY NUMBNESS OR WEAKNESS? NO . CARDIOLOGY: DO YOU HAVE A PACEMAKER OR DEFIBRILLATOR? NO . RESPIRATORY: HAVE YOU BEEN SICK IN THE PAST WEEK? NO . FEVER NO . FLU LIKE SYMPTOMS? NO . COUGH NO . INTEGUMENTARY: DO YOU HAVE ANY RASHES OR OPEN SORES? NO . ALLERGIC/IMMUNO: ARE YOU ALLERGIC TO SHELLFISH OR IV DYE? YES, IV DYE . ANY NEW ALLERGIES? NO . PSYCHIATRIC: DO YOU HAVE THOUGHTS OF HURTING YOURSELF OR SOMEONE ELSE? NO . ARE YOU ABUSED, NEGLECTED, OR IN AN UNSAFE ENVIRONMENT? NO . ENDOCRINOLOGY: ARE YOU DIABETIC? NO . OTHER: DO YOU NEED ANY PRESCRIPTIONS? NO . IF YES, PLEASE LIST: UNKNOWN . ANY NEW PROBLEMS WITH YOUR MEDICATIONS? NO . WHEN DID YOU LAST EAT? ____ . WHEN DID YOU LAST DRINK? ____ . WHAT DID YOU LAST DRINK? ____ . NAME OF PERSON DRIVING YOU HOME? ____ . DO YOU HAVE ANY OTHER QUESTIONS OR CONCERNS NO . VITAL SIGNS WT 190 LBS, HT 63 IN, BMI 33.65 INDEX, BP 154/80 MM HG, HR 66 /MIN, RR 16 /MIN, TEMP 97.3 F, OXYGEN SAT % 96%, NA INITIALS AW 1308, REVIEWED BY: NL. EXAMINATION : PATIENT IS ALERT O X 3 AND COOPERATIVE. TENDERNESS IN THE LOW BACK AREA (L5 S1) AND PARASPINAL MUSCLE GROUP. PATIENT IS SEEN WALKING WITH A LIMP FROM THE LEFT LEG. LEFT LEG IS WEAKER THAN THE RIGHT LEG WITH EXTENSION AND FLEXION. PATIENT HAS DIFFICULTY LAYING ON HER BACK IN THE PRONE POSITION TO WHERE SHE HAS TO KEEP HER RIGHT LEG BENT IN ORDER TO LAY ON HER BACK. STRAIGHT LEG RAISING LEFT LEG AT 45 DEGREES. LUMBAR MRI DONE ON 12/20/2014 SHOWS THAT THERE IS DISC DESSICATION NOTED FROM L1-2 THROUGH L4-5. DISC BULGES AT L1-2 AND L2-3 WITH MINIMAL COMPRESSION OF THE ANTERIOR THECAL SAC. MINIMAL CENTRAL CANAL STENOSIS L3-4 CONTRIBUTED TO BY DISC BULGE, FACET JOINT HYPERTROPHY AND LIGAMENTUM FLAVUM HYPERTROPHY. ALSO MODERATE CENTRAL CANAL STENOSIS AT L4-5 CONTRIBUTED TO BY FACET OSTEOARTHRITIS, LIGAMENTUM FLAVUM HYPERTROPHY AND DIFFUSE BULGING DISC. THERE IS ALSO A MINIMAL DIS BULGE AT L5-S1 WITH A SMALL RIGHT FORAMINAL DISC PROTRUSION. ASSESSMENTS RADICULOPATHY, LUMBOSACRAL REGION - M54.17 (PRIMARY) MYALGIA - M79.1 TREATMENT RADICULOPATHY, LUMBOSACRAL REGION CLINICAL NOTES: WE DISCUSSED SEVERAL ISSUES WITH MRS. POTTS' PAIN MANAGEMENT CASE. PATIENT WILL CONTINUE WITH THE SAME MEDICATION REGIME BEFORE. PATIENT IS USING TRAMADOL NEEDED FOR THE SOMATIC PAIN AND THE SKELAXIN FOR THE MUSCLE SPASMS. I WILL ALSO PRESCRIBE GABAPENTIN FOR THE NEUROPATHIC PAIN. PATIENT WAS ADVISED TO STOP MEDICATION IS SHE HAS ANY ADVERSE SIDE EFFECTS. PATIENT DENIES ABUSE OF ANY MEDICATION, DENIES USE OF ILLEGAL SUBSTANCES, AND STATES SHE IS ONLY USING THE MEDICATION FOR PAIN MANAGEMENT. AT THIS TIME THE PATIENT REPORTS THE PAIN RETURNING FROM THE PREVIOUS TRIGGER POINT INJECTION. AFTER VIEWING THE PATIENT AND WHERE THE PATIENT STATES HER PAIN IS. I WOULD LIKE TO MOVE FORWARD WITH A LUMBAR EPIDURAL STEROID INJECTION. WE DISCUSSED THE RISKS, BENEFITS, AND ALTERNATIVES OF THE LESI AND THE PATIENT WOULD LIKE TO PROCEED AT THIS TIME. INSTRUCTIONS WERE GIVEN, QUESTIONS WERE ANSWERED, PATIENT REPORTS UNDERSTANDING AND AGREES WITH THE PLAN. IMELCHOR, DOCUMENTED THE ABOVE INFORMATION ACTING A SCRIBE FOR DR. NICE. I HAVE REVIEWED THE ABOVE DOCUMENT, WRITTEN BY MELCHOR DELUCA SCRIBE AND I VERIFY THAT IT IS ACCURATE. OTHERS START GABAPENTIN CAPSULE, 300 MG, 1 CAPSULE, ORALLY FOR PAIN, THREE TIMES A DAY, 30 DAY(S), 90, REFILLS 1 PROCEDURES PN WORKMANS' COMP OPINION IN YOUR OPINION, WAS THE INCIDENT THAT THE PATIENT DESCRIBED THE COMPETENT MEDICAL CAUSE OF THIS INJURY/ILLNESS? YES ARE THE PATIENT'S COMPLAINTS CONSISTENT WITH HIS/HER HISTORY OF THE INJURY/ILLNESS? YES IS THE PATIENT'S HISTORY OF THE INJURY/ILLNESS CONSISTENT WITH YOUR OBJECTIVE FINDING? YES WHAT IS THE PERCENTAGE OF TEMPORARY IMPAIRMENT? MODERATE TO MARKED = 66.7% IS THE PATIENT WORKING? NO DOCTOR ON SITE: BORA HARRISON MD PREVENTIVE MEDICINE DISCUSSED LE AND PREPROCEDURE CARE / PT EXPRESSED UNDERSTANDING. PROCEDURE CODES FA211 ESTABILISHED PATIENT [facility] FACILITY CHARGE 86235 OFFICE/OUTPATIENT VISIT EST G8427 DOC MEDS VERIFIED W/PT OR RE G8730 PAIN ASSESS POS TOOL F/U PLAN DOC DISPOSITION & COMMUNICATION FOLLOW UP 2 MONTHS ELECTRONICALLY SIGNED BY BORA NICE MD ON 07/26/2017 AT 08:40 PM EDT DISCLAIMER : THIS IS A VISIT SUMMARY EXTRACTED FROM THE [employer] CHART. IT IS NOT A COPY OF THE [employer] PROGRESS NOTE. PEDRO
== END ==
LOC: M PAIN 12:45
PROVIDERS: ATTEND Anesthesiology
DX: M54.17 Radiculopathy, lumbosacral region (principal); M79.1 Myalgia; G89.29 Other chronic pain; Z79.891 Long term (current) use of opiate analgesic; Z79.899 Other long term (current) drug therapy; Z91.041 Radiographic dye allergy status

== ENCOUNTER → 2017-08-18 | Outpatient (CLI) | payer OTHER ==
[~2017-08-18] MED LIST changes: +ISOVUE-M 300 61% 15ML VIAL (Q9967) As Ordered ONE; +LIDOCAINE 1% SDV INJ 30 ML VIAL As Ordered ONE; +diazePAM 5 MG TAB As Ordered ONE; +methylPREDNISolone SUSP 40 MG/ML (DEPO-medrol) VIAL (J1030) As Ordered ONE; +oxyCODONE 5MG TAB As Ordered ONE
--- NOTE | 2017-08-19 09:26 | REP ---
FLUOROSCOPIC GUIDED SPINE INJECTION: All imaging was reviewed with Dr. Mccrary prior to dictation. The portable C-arm was provided in the OR for Dr. Bynum for fluoroscopic guidance. One intraoperative fluoroscopic spot film was obtained using last image hold technology for needle placement verification for lumbar epidural spine injection. The films are on the PAC system and are available for review. 29 seconds of fluoroscopy time were utilized for this procedure. Reviewed by DAWIT Whatley 08/19/2017 09:47 AEdited and Signed by Rogelio Mccrary MD 08/19/2017 08:00 P
--- NOTE | 2017-08-31 00:30 | ECWPNPC ---
PATIENT NAME: LISA POTTS : 1955 GENDER: FEMALE VISIT DATE: 08/18/2017 DISCHARGE DATE: 08/18/17 1705 VISIT LOCKED DATE TIME: PHYSICIAN: BORA NICE RESOURCE: BORA NICE REASON FOR APPOINTMENT 1. TRACEYI W/C HISTORY OF PRESENT ILLNESS HISTORY OF PRESENT ILLNESS: PAIN THE PATIENT DESCRIBES THE PAIN... FALL RISK SCREENING: SCREENING :NO FALLS IN THE PAST YEAR CURRENT MEDICATIONS TAKING EYE DROPS EXTRA 0.05 % SOLUTION 2 DROP OPHTHALMIC TWICE A DAY AND NEEDED, NOTES: 1300 TAKING ACETAMINOPHEN 325 MG TABLET 1 TABLET NEEDED ORALLY EVERY 6 HRS, NOTES: 0430 TAKING ALEVE PM 220-25 MG TABLET ORALLY , NOTES: 2 WEEKS AGO TAKING VOLTAREN 1 % GEL 1 STRIP TRANSDERMAL QID PRN FOR PAIN, NOTES: 1 WEEK AGO NOT-TAKING VITAMIN D 14061 U TABLET ORALLY NOT-TAKING VITAMIN C 500 MG CAPSULE ORALLY NOT-TAKING MAGNESIUM 200 MG TABLET 2 TABLETS WITH A MEAL ORALLY ONCE A DAY NOT-TAKING CLARITIN 10 MG TABLET 1 TABLET ORALLY ONCE A DAY NOT-TAKING TRAMADOL-ACETAMINOPHEN 37.5-325 MG TABLET 2 TABLETS NEEDED ORALLY EVERY 6 HRS, NOTES: NOT USING CURRENTLY NOT-TAKING SKELAXIN 800 MG TABLET 1 TABLET ORALLY EVERY 6 HR NEEDED, NOTES: NOT USING CURRENTLY NOT-TAKING GABAPENTIN 300 MG CAPSULE 1 CAPSULE ORALLY FOR PAIN THREE TIMES A DAY NOT-TAKING CYMBALTA 30 MG CAPSULE DELAYED RELEASE PARTICLES 1 CAPSULE ORALLY WITH FOOD ( WORKERS COMPENSATION) TWICE A DAY NOT-TAKING HAIR/SKIN/NAILS TABLET 1 TAB(S) ORALLY DAILY, NOTES: NONE MEDICATION LIST REVIEWED AND RECONCILED WITH THE PATIENT PAST MEDICAL HISTORY MEDICAL HISTORY VERIFIED. ALLERGIES GABAPENTIN: SWOLLEN EYE LIDS PUFFY LIPS: ALLERGY CONTRAST MEDIA: FAINT, HEAD FULLNESS, PRESSURE: ALLERGY NAPROXEN: SWOLLEN EYE LIDS PUFFY LIPS: ALLERGY REVIEW OF SYSTEMS REVIEWED BY: PROVIDER: . CONSTITUTIONAL: ANY CHANGE IN YOUR MEDICAL CONDITION? NO . CHILLS NO . FEVER NO . INFECTION: DO YOU HAVE NEW INFECTIONS? NO . DO YOU HAVE HISTORY OF MRSA? NO . MUSCULOSKELETAL: ANY NEW PATTERNS OF PAIN OR NUMBNESS? YES . GASTROENTEROLOGY: ANY NEW CHANGE IN BOWEL CONTROL? NO . GENITOURINARY: ANY NEW CHANGE IN BLADDER CONTROL? NO . IS THERE A CHANCE YOU COULD BE ? NO . HEMATOLOGY/LYMPH: DO YOU TAKE ANY BLOOD THINNERS? (FOR EXAMPLE- COUMADIN, PLAVIX, AGGRENOX, PLATEL, PRADAXA, OR XARELTO) NO . WHEN WAS YOUR LAST DOSE? DATE: TIME: . NEUROLOGY: HAVE YOU FALLEN IN THE PAST 6 MONTHS? NO . ANY NEW EXTREMITY NUMBNESS OR WEAKNESS? NO . CARDIOLOGY: DO YOU HAVE A PACEMAKER OR DEFIBRILLATOR? NO . RESPIRATORY: HAVE YOU BEEN SICK IN THE PAST WEEK? NO . FEVER NO . FLU LIKE SYMPTOMS? NO . COUGH NO . INTEGUMENTARY: DO YOU HAVE ANY RASHES OR OPEN SORES? NO . ALLERGIC/IMMUNO: ARE YOU ALLERGIC TO SHELLFISH OR IV DYE? YES . ANY NEW ALLERGIES? NO . PSYCHIATRIC: DO YOU HAVE THOUGHTS OF HURTING YOURSELF OR SOMEONE ELSE? NO . ARE YOU ABUSED, NEGLECTED, OR IN AN UNSAFE ENVIRONMENT? NO . ENDOCRINOLOGY: ARE YOU DIABETIC? NO . OTHER: DO YOU NEED ANY PRESCRIPTIONS? NO . IF YES, PLEASE LIST: ____ . ANY NEW PROBLEMS WITH YOUR MEDICATIONS? NO . WHEN DID YOU LAST EAT? ____0700 . WHEN DID YOU LAST DRINK? ____1100 . WHAT DID YOU LAST DRINK? ____WATER . NAME OF PERSON DRIVING YOU HOME? ____TREVA POTTS . DO YOU HAVE ANY OTHER QUESTIONS OR CONCERNS NO . VITAL SIGNS WT 190.6 LBS, HT 63 IN, BMI 33.76 INDEX, BP 145/70 MM HG, HR 69 /MIN, RR 16 /MIN, TEMP 98.1 F, OXYGEN SAT % 96, SAFE IN ENV? (Y/N) YES, NA INITIALS MP 1507, REVIEWED BY: AMANDA. ASSESSMENTS INTERVERTEBRAL DISC DISORDER WITH RADICULOPATHY OF LUMBAR REGION - M51.16 (PRIMARY) PROCEDURES PRE PROCEDURE DIAGNOSIS LUMBAR DISC DISORDER WITH RADICULOPATHY POST PROCEDURE DIAGNOSIS LUMBAR DISC DISORDER WITH RADICULOPATHY PROCEDURE LUMBAR EPIDURAL STEROID INJECTION UNDER FLUOROSCOPIC GUIDANCE SURGEON DR. BORA NICE STRUCTURED CABLING TECHNICIAN NONE ANESTHESIA LOCAL PRE PROCEDURE NOTE THE PATIENT HAS A HISTORY OF CHRONIC LOW BACK PAIN. I EVALUATE THE PATIENT AND REVIEWED THE CHART. I WENT OVER THE RISKS, ALTERNATIVES, AND BENEFITS ASSOCIATED WITH THIS PROCEDURE. THE PATIENT WOULD LIKE TO PROCEED AND GIVE CONSENT TO PERFORMED THE PROCEDURE. THE PATIENT DENIES UNEXPLAINABLE WEIGHT LOSS, FEVER, CHILLS, OR NEW CHANGES IN URINARY OR BOWEL CONTROL. DESCRIPTION OF PROCEDURE THE PATIENT WAS BROUGHT TO THE PROCEDURE ROOM AND PLACED IN THE PRONE POSITION. THE LUMBOSACRAL AREA WAS CLEANED WITH BETADINE SOLUTION AND DRAPED ASEPTICALLY. THE PROCEDURE WAS DONE UNDER STERILE CONDITIONS. I CHECKED LATERALITY AND THE LEVEL WHERE THE PROCEDURE WAS GOING TO BE PERFORMED WITH THE PATIENT AND THE SUPPORTING STAFF AT THE MOMENT OF THE TIME OUT IN THE PROCEDURE ROOM. UNDER FLUOROSCOPIC GUIDANCE, THE TARGET POINT WAS SELECTED AT THE INTERLAMINAR LEVEL OF L4-L5. LIDOCAINE WAS USED TO NUMB THE SKIN AND THE SUBCUTANEOUS TISSUE BELOW IT. EPIDURAL TUOHY NEEDLE, 17-GAUGE, WAS ADVANCED UNDER FLUOROSCOPIC GUIDANCE AND FOLLOWING PATIENT FEEDBACK UNTIL THE EPIDURAL SPACE WAS REACHED, 7 CM DEEP INTO THE SKIN BY THE LOSS OF RESISTANCE TECHNIQUE. ISOVUE M DYE 30%, 0.25 ML, WAS INJECTED SHOWING ADEQUATE SPREAD OF THE DYE. THEN, A SOLUTION OF 3 ML OF NORMAL SALINE WITH DEPO-MEDROL 60 MG WAS INJECTED SLOWLY FOLLOWING PATIENT FEEDBACK. THERE WAS NO EVIDENCE OF BLOOD, PARESTHESIA OR CEREBROSPINAL FLUID DURING THE PROCEDURE. THE PATIENT WAS SENT TO THE RECOVERY ROOM. THE PATIENT WAS MOVING THE EXTREMITIES AND DOING WELL. THERE WAS NO COMPLICATION DURING THE PROCEDURE. FLUOROSCOPY TIME WAS 29 SECONDS. POST PROCEDURE NOTE THE PATIENT WILL BE SEEN IN A FOLLOW UP IN THE NEXT FEW WEEKS. INSTRUCTIONS WERE GIVEN, QUESTIONS WERE ANSWERED, AND THE PATIENT EXPRESSED UNDERSTANDING AND AGREES WITH THE PLAN. I, PREETI RODNEY, DOCUMENTED THE ABOVE INFORMATION ACTING A SCRIBE FOR DR. NICE. I, DR. NICE, HAVE REVIEWED THE ABOVE DOCUMENT, SCRIBED BY PREETI RODNEY, AND I VERIFY THAT IT IS ACCURATE PN WORKMANS' COMP OPINION IN YOUR OPINION, WAS THE INCIDENT THAT THE PATIENT DESCRIBED THE COMPETENT MEDICAL CAUSE OF THIS INJURY/ILLNESS? YES ARE THE PATIENT'S COMPLAINTS CONSISTENT WITH HIS/HER HISTORY OF THE INJURY/ILLNESS? YES IS THE PATIENT'S HISTORY OF THE INJURY/ILLNESS CONSISTENT WITH YOUR OBJECTIVE FINDING? YES WHAT IS THE PERCENTAGE OF TEMPORARY IMPAIRMENT? MODERATE TO MARKED = 66.7% IS THE PATIENT WORKING? NO DOCTOR ON SITE: BORA HARRISON MD DIAGNOSTIC IMAGING [facility] FLUORO GUIDE SPINE INJECTION (PAIN)[id number] PROCEDURE CODES 34447 LUMBAR/SACRAL W/ IMAGING 6045F RADXPS IN END [id number] PXD DISPOSITION & COMMUNICATION FOLLOW UP 3 WEEKS ELECTRONICALLY SIGNED BY BORA NICE MD ON 08/30/2017 AT 03:30 PM EDT DISCLAIMER : THIS IS A VISIT SUMMARY EXTRACTED FROM THE [employer] CHART. IT IS NOT A COPY OF THE [employer] PROGRESS NOTE. PEDRO
== END ==
LOC: M PAIN 15:00
PROVIDERS: ATTEND Anesthesiology
DX: G89.29 Other chronic pain (principal); M51.16 Intervertebral disc disorders with radiculopathy, lumbar region; Z79.899 Other long term (current) drug therapy; Z88.8 Allergy status to other drugs, medicaments and biological substances; Z91.041 Radiographic dye allergy status
CPT/HCPCS: 62323; J1030; Q9967

== ENCOUNTER → 2017-09-09 | Outpatient (CLI) | payer OTHER ==
[~2017-09-09] MED LIST changes: -ISOVUE-M 300 61% 15ML VIAL (Q9967) As Ordered ONE; -LIDOCAINE 1% SDV INJ 30 ML VIAL As Ordered ONE; -diazePAM 5 MG TAB As Ordered ONE; -methylPREDNISolone SUSP 40 MG/ML (DEPO-medrol) VIAL (J1030) As Ordered ONE; -oxyCODONE 5MG TAB As Ordered ONE
--- NOTE | 2017-09-10 00:22 | ECWPNPC ---
PATIENT NAME: LISA POTTS : 1955 GENDER: FEMALE VISIT DATE: 09/09/2017 DISCHARGE DATE: 09/09/17 1115 VISIT LOCKED DATE TIME: PHYSICIAN: BAMBI ALVAREZ RESOURCE: BAMBI ALVAREZ REASON FOR APPOINTMENT 1. WC, BACK HISTORY OF PRESENT ILLNESS HISTORY OF PRESENT ILLNESS: HERE FOR POST PROCEDURE F/U.HAD LESI L4/5 ON 08-18-17.REPORTS MINIMAL IMPROVEMENT IN INTENSITY OF PAIN THAT CONTINUES TODAY.CHIEF AREA OF PAIN IS LEFT LOW BACK.RATING PAIN VAS 7-10/10 VAS. 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 PAIN THE PATIENT DESCRIBES THE PAIN... FALL RISK SCREENING: SCREENING :NO FALLS IN THE PAST YEAR CURRENT MEDICATIONS TAKING EYE DROPS EXTRA 0.05 % SOLUTION 2 DROP OPHTHALMIC TWICE A DAY AND NEEDED TAKING ALEVE PM 220-25 MG TABLET 1 TAB ORALLY BID TAKING VOLTAREN 1 % GEL 1 STRIP TRANSDERMAL QID PRN FOR PAIN TAKING SKELAXIN 800 MG TABLET 1 TABLET ORALLY EVERY 6 HR NEEDED NOT-TAKING ACETAMINOPHEN 325 MG TABLET 1 TABLET NEEDED ORALLY EVERY 6 HRS NOT-TAKING VITAMIN D 34878 U TABLET ORALLY NOT-TAKING VITAMIN C 500 MG CAPSULE ORALLY NOT-TAKING MAGNESIUM 200 MG TABLET 2 TABLETS WITH A MEAL ORALLY ONCE A DAY NOT-TAKING CLARITIN 10 MG TABLET 1 TABLET ORALLY ONCE A DAY NOT-TAKING TRAMADOL-ACETAMINOPHEN 37.5-325 MG TABLET 2 TABLETS NEEDED ORALLY EVERY 6 HRS, NOTES: NOT USING CURRENTLY NOT-TAKING GABAPENTIN 300 MG CAPSULE 1 CAPSULE ORALLY FOR PAIN THREE TIMES A DAY NOT-TAKING CYMBALTA 30 MG CAPSULE DELAYED RELEASE PARTICLES 1 CAPSULE ORALLY WITH FOOD ( WORKERS COMPENSATION) TWICE A DAY NOT-TAKING HAIR/SKIN/NAILS TABLET 1 TAB(S) ORALLY DAILY, NOTES: NONE MEDICATION LIST REVIEWED AND RECONCILED WITH THE PATIENT ALLERGIES GABAPENTIN: SWOLLEN EYE LIDS PUFFY LIPS: ALLERGY CONTRAST MEDIA: FAINT, HEAD FULLNESS, PRESSURE: ALLERGY NAPROXEN: SWOLLEN EYE LIDS PUFFY LIPS: ALLERGY SOCIAL HISTORY GENERAL: TOBACCO USE ARE YOU A:NONSMOKER ALCOHOL SCREENING POINTS3 INTERPRETATIONPOSITIVE RECREATIONAL DRUG USE DRUG USE?NO AMISH [id number] ZOROASTRIAN LANGUAGE LANGUAGES SPOKEN:JAPANESE LEARNING BARRIERS / SPECIAL NEEDS BARRIERS TO LEARNING?NO HEARING IMPAIRED?NO VISION IMPAIRED?YES :CORRECTIVE LENSES COGNITIVELY IMPAIRED?NO READINESS TO LEARN?YES LEARNING PREFERENCES?NO LEARNING CAPABILITIES PRESENT?YES EMOTIONAL BARRIERS?NO SPECIAL DEVICES?NO INSULATION HOSEMAN NEEDED?NO NEW PATIENT PAIN DIARY TODAY'S VISITNOTES FROM 0-10, WHAT LEVEL IS YOUR PAIN TODAY?0 PAIN CLINIC PFS, CLERGY, PUBLIC HEALTH REFERRALS PFS REFERRAL NEEDED?NO CLERGY REFERRAL NEEDED?NO PUBLIC HEALTH REFERRAL NEEDED?NO WAS THE PROVIDER NOTIFIED OF ANY PERTINENT INFO?NO HAS THE PATIENT BEEN EDUCATED REGARDING HIS/HER PLAN OF CARE?YES HAS THE PATIENT BEEN EDUCATED REGARDING PAIN, THE RISK FOR PAIN, THE IMPORTANCE OF EFFECTIVE PAIN MANAGEMENT, AND THE PAIN ASSESSMENT PROCESS?YES REVIEW OF SYSTEMS REVIEWED BY: PROVIDER: BAMBI SOMERS . CONSTITUTIONAL: ANY CHANGE IN YOUR MEDICAL CONDITION? NO . CHILLS NO . FEVER NO . INFECTION: DO YOU HAVE NEW INFECTIONS? NO . DO YOU HAVE HISTORY OF MRSA? NO . MUSCULOSKELETAL: ANY NEW PATTERNS OF PAIN OR NUMBNESS? YES, TINGLING, PAIN IN LOWER BACK ESPECIALLY ON LEFT SIDE . GASTROENTEROLOGY: ANY NEW CHANGE IN BOWEL CONTROL? NO . GENITOURINARY: ANY NEW CHANGE IN BLADDER CONTROL? NO . IS THERE A CHANCE YOU COULD BE ? NO . HEMATOLOGY/LYMPH: DO YOU TAKE ANY BLOOD THINNERS? (FOR EXAMPLE- COUMADIN, PLAVIX, AGGRENOX, PLATEL, PRADAXA, OR XARELTO) NO . WHEN WAS YOUR LAST DOSE? DATE: TIME: . NEUROLOGY: HAVE YOU FALLEN IN THE PAST 6 MONTHS? YES, TRIPPED AND FELL IN MARCH . ANY NEW EXTREMITY NUMBNESS OR WEAKNESS? NO . CARDIOLOGY: DO YOU HAVE A PACEMAKER OR DEFIBRILLATOR? NO . RESPIRATORY: HAVE YOU BEEN SICK IN THE PAST WEEK? NO . FEVER NO . FLU LIKE SYMPTOMS? NO . COUGH NO . INTEGUMENTARY: DO YOU HAVE ANY RASHES OR OPEN SORES? NO . ALLERGIC/IMMUNO: ARE YOU ALLERGIC TO SHELLFISH OR IV DYE? YES . ANY NEW ALLERGIES? NO . PSYCHIATRIC: DO YOU HAVE THOUGHTS OF HURTING YOURSELF OR SOMEONE ELSE? NO . ARE YOU ABUSED, NEGLECTED, OR IN AN UNSAFE ENVIRONMENT? NO . ENDOCRINOLOGY: ARE YOU DIABETIC? NO . OTHER: DO YOU NEED ANY PRESCRIPTIONS? NO . IF YES, PLEASE LIST: ____ . ANY NEW PROBLEMS WITH YOUR MEDICATIONS? NO . WHEN DID YOU LAST EAT? ____ . WHEN DID YOU LAST DRINK? ____ . WHAT DID YOU LAST DRINK? ____ . NAME OF PERSON DRIVING YOU HOME? ____ . DO YOU HAVE ANY OTHER QUESTIONS OR CONCERNS NO . VITAL SIGNS WT 190 LBS, HT 63 IN, BMI 33.65 INDEX, BP 170/77 MM HG, REPEAT BP 156/80 MM HG, HR 77 /MIN, RR 16 /MIN, TEMP 97.4 F, OXYGEN SAT % 100%, SAFE IN ENV? (Y/N) YES, NA INITIALS AW 1016, REVIEWED BY: CS. EXAMINATION GENERAL EXAMINATION: GENERAL APPEARANCE:AWAKE,ALERT,NO ACUTE DISTRESS.. PSYCHAFFECT FLAT. LUNGS:LUNG PRICE ARE CLEAR TO AUSCULTATION BILATERALLY. GOOD MOVEMENT OF AIR. HEART:S1, S2 IN A REGULAR RATE AND RHYTHM. NO SIGNIFICANT MURMURS, RUBS OR GALLOPS NOTED. LUMBAR SACRAL SPINEMUSCLE STRENGTH TESTING 5/5 BILATERAL, PALPATION: NEGATIVE FOR PAIN OVER L/S SPINE. POSITIVE FOR PAIN OVER L/S PARASPINALS. NEUROLOGIC EXAM:NORMAL SENSATION TO LIGHT TOUCH LOWER EXTREMITIES, DTRS 1-2+ IN ALL 4 EXTREMITIES. 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 WITHOUT [id number] NOTES: W/C REQUEST L4/5-L5/S1 DIAGNOSTIC BLOCK,MRI L/S SPINE/PT 2XWK X 6WK. PREVENTIVE MEDICINE PAIN CLINIC TEACHING: PROCEDURE TEACHING PRE-PROCEDURE TEACHING DONE. QUESTIONS ANSWERED AND PATIENT VERBALIZES UNDERSTANDING. PATIENT HAS HAD THIS PROCEDURE IN THE PAST AND REFUSES ANY FURTHER TEACHING HANDOUTS.. PROCEDURE CODES FA211 ESTABILISHED PATIENT [facility] CHARGE DISPOSITION & COMMUNICATION FOLLOW UP 2WK POST DIAGNOSTIC LUMBAR BLOCK (REASON: W/C REQUEST L4/5-L5/S1 DIAGNOSTIC BLOCK,MRI L/S SPINE/PT 2XWK X 6WK) ELECTRONICALLY SIGNED BY LIZBET SUE ON 09/09/2017 AT 04:38 PM EDT DISCLAIMER : THIS IS A VISIT SUMMARY EXTRACTED FROM THE [employer] CHART. IT IS NOT A COPY OF THE [employer] PROGRESS NOTE. PEDRO
== END ==
LOC: M PAIN 10:00
PROVIDERS: ATTEND Nurse Practitioner Family
DX: G89.29 Other chronic pain (principal); M47.27 Other spondylosis with radiculopathy, lumbosacral region; M51.16 Intervertebral disc disorders with radiculopathy, lumbar region; M79.1 Myalgia; Z88.8 Allergy status to other drugs, medicaments and biological substances; Z88.6 Allergy status to analgesic agent; Z79.1 Long term (current) use of non-steroidal anti-inflammatories (NSAID); Z79.899 Other long term (current) drug therapy; Z91.041 Radiographic dye allergy status

== ENCOUNTER → 2017-10-29 | Outpatient (CLI) | payer OTHER | LOC: M PAIN 09:45 | DX: G89.29 Other chronic pain (principal); M47.27 Other spondylosis with radiculopathy, lumbosacral region; M51.16 Intervertebral disc disorders with radiculopathy, lumbar region; M79.1 Myalgia; Z88.8 Allergy status to other drugs, medicaments and biological substances; Z91.041 Radiographic dye allergy status; Z79.1 Long term (current) use of non-steroidal anti-inflammatories (NSAID); Z79.899 Other long term (current) drug therapy | CPT/HCPCS: G0463 ==

== ENCOUNTER → 2017-12-10 | Outpatient (CLI) | payer OTHER | LOC: M PAIN 09:30 | DX: G89.29 Other chronic pain (principal); M47.27 Other spondylosis with radiculopathy, lumbosacral region; M51.16 Intervertebral disc disorders with radiculopathy, lumbar region; M79.1 Myalgia; Z79.899 Other long term (current) drug therapy; Z88.8 Allergy status to other drugs, medicaments and biological substances; Z91.041 Radiographic dye allergy status | CPT/HCPCS: G0463 ==

== ENCOUNTER → 2017-12-29 | Outpatient (CLI) | payer OTHER ==
[~2017-12-29] MED LIST changes: -ACET500C; -ACET500C OR; -ALEV220C2 PO; -ALEVE PM PO; -ALEVE PO; -BODY PO; +BUPIVACAINE HCL 0.25% 30 ML VIAL As Ordered; -FISH1000 OR; -HAIR SKIN NAILS; -HAIRTAB5 PO; +ISOVUE-M 300 61% 15ML VIAL (Q9967) As Ordered; -LIDO1DIS2 TD; +LIDOCAINE 1% SDV INJ 30 ML VIAL As Ordered; -MULTIVIT OR; -SKEL800T5; -SKEL800T5 OR; -SKEL800T97 PO; -SOMA250T; -TRAM50TA2; -TRAM50TA2 OR; -TYLE325T5 PO; -TYLE500T53 OR; -ULTR37.54 PO; -VENL37TA PO; -VINEGAR PO; -VOLT1GEL TOP; -VOLT1GEL15 TD; -ZOCO20TA; -ZOCO20TA OR; -ZOLO100T; -[UNRECOGNIZED DRUG - CODE] PO; -[UNRECOGNIZED DRUG - OTHER] OR; -[UNRECOGNIZED DRUG - OTHER] PO; -[UNRECOGNIZED DRUG - OTHER] PO; -[UNRECOGNIZED DRUG - REMARK] PO; -st johns wort PO
== END ==
LOC: M PAIN 10:00
DX: G89.29 Other chronic pain (principal); M47.816 Spondylosis without myelopathy or radiculopathy, lumbar region; M47.817 Spondylosis without myelopathy or radiculopathy, lumbosacral region; Z88.8 Allergy status to other drugs, medicaments and biological substances; Z79.1 Long term (current) use of non-steroidal anti-inflammatories (NSAID); Z79.899 Other long term (current) drug therapy; Z91.041 Radiographic dye allergy status
CPT/HCPCS: 64493

== ENCOUNTER → 2018-01-18 | Outpatient (CLI) | payer OTHER | LOC: M PAIN 10:45 | DX: M47.27 Other spondylosis with radiculopathy, lumbosacral region (principal); M51.16 Intervertebral disc disorders with radiculopathy, lumbar region; M79.1 Myalgia; Z79.891 Long term (current) use of opiate analgesic; Z79.899 Other long term (current) drug therapy; Z88.8 Allergy status to other drugs, medicaments and biological substances; Z91.041 Radiographic dye allergy status | CPT/HCPCS: G0463 ==

== ENCOUNTER → 2018-03-09 | Outpatient (CLI) | payer OTHER ==
[~2018-03-09] MED LIST changes: -ISOVUE-M 300 61% 15ML VIAL (Q9967) As Ordered
== END | disposition home or self-care (01) ==
LOC: M PAIN 08:30
DX: G89.29 Other chronic pain (principal); M47.816 Spondylosis without myelopathy or radiculopathy, lumbar region; M47.817 Spondylosis without myelopathy or radiculopathy, lumbosacral region; Z79.899 Other long term (current) drug therapy; Z88.8 Allergy status to other drugs, medicaments and biological substances; Z91.041 Radiographic dye allergy status
CPT/HCPCS: 64493

== ENCOUNTER → 2018-04-05 | Outpatient (CLI) | payer OTHER | LOC: M PAIN 10:30 | DX: G89.29 Other chronic pain (principal); M47.27 Other spondylosis with radiculopathy, lumbosacral region; M51.16 Intervertebral disc disorders with radiculopathy, lumbar region; M79.1 Myalgia; Z79.891 Long term (current) use of opiate analgesic; Z79.899 Other long term (current) drug therapy; Z91.041 Radiographic dye allergy status; Z88.6 Allergy status to analgesic agent; Z88.8 Allergy status to other drugs, medicaments and biological substances | CPT/HCPCS: G0463 ==

== ENCOUNTER → 2018-05-31 | Outpatient (CLI) | payer OTHER | LOC: M PAIN 10:45 | DX: M47.27 Other spondylosis with radiculopathy, lumbosacral region (principal); M51.16 Intervertebral disc disorders with radiculopathy, lumbar region; M79.1 Myalgia; Z79.899 Other long term (current) drug therapy; Z88.8 Allergy status to other drugs, medicaments and biological substances; Z91.041 Radiographic dye allergy status | CPT/HCPCS: G0463 ==

== ENCOUNTER → 2018-07-06 | Outpatient (CLI) | payer OTHER | LOC: M PAIN 08:30 | DX: M54.2 Cervicalgia (principal); Z79.1 Long term (current) use of non-steroidal anti-inflammatories (NSAID); Z79.899 Other long term (current) drug therapy; Z88.8 Allergy status to other drugs, medicaments and biological substances; Z91.041 Radiographic dye allergy status | CPT/HCPCS: G0463 ==

== ENCOUNTER → 2018-08-26 | Outpatient (CLI) | payer OTHER | LOC: M PAIN 09:00 | DX: M47.27 Other spondylosis with radiculopathy, lumbosacral region (principal); M51.16 Intervertebral disc disorders with radiculopathy, lumbar region; M79.10 Myalgia, unspecified site; Z79.891 Long term (current) use of opiate analgesic; Z79.899 Other long term (current) drug therapy; Z88.6 Allergy status to analgesic agent; Z88.8 Allergy status to other drugs, medicaments and biological substances; Z91.041 Radiographic dye allergy status | CPT/HCPCS: G0463 ==

== ENCOUNTER → 2018-10-06 | Outpatient (CLI) | payer OTHER ==
[~2018-10-06] MED LIST changes: +BUPIVACAINE HCL 0.25% 10 ML VIAL As Ordered; -LIDOCAINE 1% SDV INJ 30 ML VIAL As Ordered; +TRIAMCINOLONE ACETONIDE SUSP 40 MG/ML VIAL (J3301) As Ordered
== END ==
LOC: M PAIN 11:30
DX: M79.18 Myalgia, other site (principal); M54.5 Low back pain; Z79.899 Other long term (current) drug therapy; Z88.8 Allergy status to other drugs, medicaments and biological substances; Z91.041 Radiographic dye allergy status
CPT/HCPCS: J3301

== ENCOUNTER → 2019-02-01 | Outpatient (CLI) | payer OTHER ==
[~2019-02-01] MED LIST changes: +ACET500C; +ACET500C OR; +ALEV220C2 PO; +ALEVE PM PO; +ALEVE PO; +BODY PO; -BUPIVACAINE HCL 0.25% 10 ML VIAL As Ordered; -BUPIVACAINE HCL 0.25% 30 ML VIAL As Ordered; +FISH1000 OR; +HAIR SKIN NAILS; +HAIRTAB5 PO; +LIDO1DIS2 TD; +LIDOCAINE 1% MDV 20ML VIAL As Ordered ONE; +MULTIVIT OR; +SKEL800T5; +SKEL800T5 OR; +SKEL800T97 PO; +SOMA250T; +TRAM50TA2; +TRAM50TA2 OR; -TRIAMCINOLONE ACETONIDE SUSP 40 MG/ML VIAL (J3301) As Ordered; +TRIAMCINOLONE ACETONIDE SUSP 40 MG/ML VIAL (J3301) As Ordered ONE; +TYLE325T5 PO; +TYLE500T53 OR; +ULTR37.54 PO; +VENL37TA PO; +VINEGAR PO; +VOLT1GEL TOP; +VOLT1GEL15 TD; +ZOCO20TA; +ZOCO20TA OR; +ZOLO100T; +[UNRECOGNIZED DRUG - CODE] PO; +[UNRECOGNIZED DRUG - OTHER] OR; +[UNRECOGNIZED DRUG - OTHER] PO; +[UNRECOGNIZED DRUG - OTHER] PO; +[UNRECOGNIZED DRUG - REMARK] PO; +st johns wort PO
--- NOTE | 2019-02-01 21:50 | REP ---
ULTRASOUND-GUIDED LEFT BICEPS TENDON INJECTION The procedure was performed under the direct supervision of Dr. Atkinson The risks and benefits of the procedure were explained to the patient and informed consent was obtained. The left biceps tendon was localized using ultrasound guidance. The skin was prepped and draped in a sterile fashion. 1% lidocaine was used as a local anesthetic. Using ultrasound guidance a 22-gauge needle was inserted and advanced into the biceps tendon. 6 ml of a solution containing 5 ml of 1% lidocaine and 1 ml of Kenalog 40 mg injected. The needle was then removed. The patient tolerated the procedure well and there were no immediate complications. Reviewed by DAWIT Paz 02/01/2019 04:26 P Electronically Signed by Kasi Atkinson MD 02/01/2019 09:41 P
== END ==
LOC: M RADPRO 12:05
PROVIDERS: ATTEND Orthopaedic Surgery
DX: S46.122A Laceration of muscle, fascia and tendon of long head of biceps, left arm, initial encounter (principal); Y92.89 Other specified places as the place of occurrence of the external cause; Y93.89 Activity, other specified; X58.XXXA Exposure to other specified factors, initial encounter; Y99.8 Other external cause status
CPT/HCPCS: 20551; 76942; J3301

== ENCOUNTER → 2019-03-07 | Outpatient (CLI) | payer OTHER ==
[~2019-03-07] MED LIST changes: -LIDOCAINE 1% MDV 20ML VIAL As Ordered ONE; -TRIAMCINOLONE ACETONIDE SUSP 40 MG/ML VIAL (J3301) As Ordered ONE
--- NOTE | 2019-03-09 01:04 | ECWPNPC ---
PATIENT NAME: LISA OPTTS : 1955 GENDER: FEMALE VISIT DATE: 03/07/2019 DISCHARGE DATE: 03/07/19 1537 VISIT LOCKED DATE TIME: PHYSICIAN: BREEZY SCHMITZ RESOURCE: BREEZY SCHMITZ REASON FOR APPOINTMENT 1. W/C POST PROC HISTORY OF PRESENT ILLNESS HISTORY OF PRESENT ILLNESS: PAIN THE PATIENT DESCRIBES THE PAIN... 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 SHE WENT TO ED AT [facility] AND WAS TREATED [facility] IM TORADOL AND ATIVAN AND WAS DISCHARGED HOME ON ORAL PAIN MEDICATION.PATIENT SAYS HER PAIN IS 5/10 TODAY. SHE SAYS SHE HAS INTERMITTENT RADICULOPATHY IN RIGHT LEG. PT SAYS SHE HAS REFILL OF TRAMADOL- ACTEMINOPHEN AND SKALEXIN AT HOME AND USES ONLY WHEN NEEDED. FALL RISK SCREENING: SCREENING :NO FALLS REPORTED IN THE LAST YEAR CURRENT MEDICATIONS TAKING VITAMIN D 1 TABLET 5000 UNITS ORALLY BID TAKING EYE DROPS EXTRA 0.05 % SOLUTION 2 DROP OPHTHALMIC TWICE A DAY AND NEEDED TAKING OMEGA 3 1000 MG CAPSULE 1 CAPSULE ORALLY ONCE A DAY TAKING ALEVE 220 MG TABLET 1 TABLET WITH FOOD OR MILK NEEDED ORALLY EVERY 12 HRS TAKING MULTI FOR HER 50+ - TABLET 1 TAB ORALLY BID TAKING ALEVE PM 220-25 MG TABLET 1 TAB ORALLY BEFORE BEDTIME NEEDED TAKING VOLTAREN 1 % GEL 1 STRIP TRANSDERMAL QID PRN FOR PAIN TAKING SKELAXIN 800 MG TABLET 1 TABLET ORALLY EVERY 6 HR NEEDED TAKING TRAMADOL-ACETAMINOPHEN 37.5-325 MG TABLET 2 TABLETS NEEDED ORALLY EVERY 6 HRS PRN MDD 2 NOT-TAKING VITAMIN C 500 MG CAPSULE ORALLY NOT-TAKING MAGNESIUM 200 MG TABLET 2 TABLETS WITH A MEAL ORALLY ONCE A DAY NOT-TAKING ACETAMINOPHEN 325 MG TABLET 1 TABLET NEEDED ORALLY EVERY 6 HRS NOT-TAKING CLARITIN 10 MG TABLET 1 TABLET ORALLY ONCE A DAY MEDICATION LIST REVIEWED AND RECONCILED WITH THE PATIENT PAST MEDICAL HISTORY CHRONIC BACK PAIN BILATERAL NECK AND SHOULDER PAIN ALLERGIES GABAPENTIN: SWOLLEN EYE LIDS PUFFY LIPS - ALLERGY CONTRAST MEDIA: FAINT, HEAD FULLNESS, PRESSURE - ALLERGY NAPROXEN: SWOLLEN EYE LIDS PUFFY LIPS - ALLERGY PENICILLIN (FOR ALLERGIES USE ONLY): ABD. PAIN - SIDE EFFECTS SURGICAL HISTORY HYSTERCTOMY D&C BILATERAL CARPALL TUNNEL COLONOSCOPY 08/04/18 FAMILY HISTORY FATHER: , DIAGNOSED WITH CANCER, DIABETES, HYPERTENSION MOTHER: ALIVE 1 SON(S) , 2 DAUGHTER(S) . DAD-HAIRY CELL LEUKEMIA \NOLDEST DAUGHTER-SMOKER, ALCHOHOLIC, DEPRESSION. SOCIAL HISTORY GENERAL: TOBACCO USE ARE YOU A: NONSMOKER . LATEX QUESTIONNAIRE LATEX ALLERGY : HAVE YOU EVER DEVELOPED ANY TYPE OF REACTION AFTER HANDLING LATEX PRODUCTS SUCH RUBBER GLOVES, CONDOMS, DIAPHRAGMS, BALLOONS, SOCKS, OR UNDERWEAR?NO LATEX ALLERGY : HAVE YOU EVER DEVELOPED ANY TYPE OF REACTION DURING OR AFTER DENTAL APPOINTMENT, VAGINAL/RECTAL EXAMINATION, SURGICAL PROCEDURE, OR ANY OTHER EXPOSURE?NO LATEX RISK : HAVE YOU EVER HAD ANY DIFFICULTY BREATHING OR HIVES AFTER EATING OR HANDLING ANY FRUITS, OR VEGETABLES; SUCH KIWI, BANANAS, STONE FRUITS, OR CHESTNUTSNO LATEX RISK : DO YOU HAVE A PREVIOUS PERSONAL HISTORY OF MORE THAN NINE SURGERIES, SPINA BIFIDA, OR REPEATED CATHERTIZATIONS? NO LATEX RISK : ARE YOU FREQUENTLY EXPOSED TO LATEX PRODUCTS IN YOUR OCCUPATION?NO DATE ASKED : 03/07/2019 ALCOHOL SCREENING DID YOU HAVE A DRINK CONTAINING ALCOHOL IN THE PAST YEAR?YES HOW OFTEN DID YOU HAVE A DRINK CONTAINING ALCOHOL IN THE PAST YEAR?TWO TO FOUR TIMES A MONTH (2 POINTS) HOW MANY DRINKS DID YOU HAVE ON A TYPICAL DAY WHEN YOU WERE DRINKING IN THE PAST YEAR?3 OR 4 (1 POINT) HOW OFTEN DID YOU HAVE SIX OR MORE DRINKS ON ONE OCCASION IN THE PAST YEAR?NEVER (0 POINTS) POINTS3 INTERPRETATIONPOSITIVE RECREATIONAL DRUG USE DRUG USE?NO CAFFEINE CAFFEINE USE?YES HOW OFTEN AND HOW MUCH? 2 CUPS PER DAY MORAVIAN [id number] LANGUAGE LANGUAGES SPOKEN:SRI LANKAN EDUCATION LEVEL OF EDUCATION:HIGH SCHOOL LEARNING BARRIERS / SPECIAL NEEDS BARRIERS TO LEARNING?NO HEARING IMPAIRED?NO VISION IMPAIRED?YES :CORRECTIVE LENSES COGNITIVELY IMPAIRED?NO READINESS TO LEARN?YES LEARNING PREFERENCES?NO LEARNING CAPABILITIES PRESENT?YES EMOTIONAL BARRIERS?NO SPECIAL DEVICES?NO STRATIGRAPHER NEEDED?NO DOMESTIC VIOLENCE DO YOU FEEL SAFE IN YOUR ENVIRONMENT?YES NEW PATIENT PAIN DIARY FROM 0-10, WHAT LEVEL IS YOUR PAIN TODAY? 5. PAIN CLINIC PFS, CLERGY, PUBLIC HEALTH REFERRALS PFS REFERRAL NEEDED?NO CLERGY REFERRAL NEEDED?NO PUBLIC HEALTH REFERRAL NEEDED?NO WAS THE PROVIDER NOTIFIED OF ANY PERTINENT INFO? N/A HAS THE PATIENT BEEN EDUCATED REGARDING HIS/HER PLAN OF CARE?YES HAS THE PATIENT BEEN EDUCATED REGARDING PAIN, THE RISK FOR PAIN, THE IMPORTANCE OF EFFECTIVE PAIN MANAGEMENT, AND THE PAIN ASSESSMENT PROCESS?YES ADVANCE DIRECTIVE ADVANCE DIRECTIVE DISCUSSED WITH PATIENT:YES 03/07/19 PT DOES NOT HAVE ANY ADVANCED DIRECTIVES AND DECLINES INFROMATION ON HCP AT THIS TIME. STATES SHE ALREADY HAS THE INFORMATION ON HCP, ASSISTANCE OFFERED IN COMPLETING IT IF SHE WANTED HELP. AD REVIEWED 05/18/18 1450 LAS08/26/18 0930 REVIEWED WITH PT. AD10/06/18 1225 REVIEWED WITH PT. AD. HOSPITALIZATION/MAJOR DIAGNOSTIC PROCEDURE FOR SURGERIES AFTER FALLING OUT DOORS HAD BROKEN BONES REVIEW OF SYSTEMS REVIEWED BY: PROVIDER: MAX Ritchie CONSTITUTIONAL: ANY CHANGE IN YOUR MEDICAL CONDITION? NO . CHILLS NO . FEVER NO . INFECTION: DO YOU HAVE NEW INFECTIONS? NO . DO YOU HAVE HISTORY OF MRSA? NO . MUSCULOSKELETAL: ANY NEW PATTERNS OF PAIN OR NUMBNESS? YES, HAS HAD INTERMITTENT BURNING SENSATION RIGHT SIDE OF BACK FOR THE PAST COUPLE OF MONTHS. SHARP PAIN LEFT LOW BACK X 1 . GASTROENTEROLOGY: ANY NEW CHANGE IN BOWEL CONTROL? NO . GENITOURINARY: ANY NEW CHANGE IN BLADDER CONTROL? NO . IS THERE A CHANCE YOU COULD BE ? NO . HEMATOLOGY/LYMPH: DO YOU TAKE ANY BLOOD THINNERS? (FOR EXAMPLE- COUMADIN, PLAVIX, AGGRENOX, PLATEL, PRADAXA, OR XARELTO) NO . WHEN WAS YOUR LAST DOSE? DATE: TIME: . NEUROLOGY: HAVE YOU FALLEN IN THE PAST 12 MONTHS? NO . ANY NEW EXTREMITY NUMBNESS OR WEAKNESS? YES, SOMETIMES AFTER SITTING AND GETTING UP HER RIGHT LEG IS NUMB AND SHE DOESN'T HAVE ANY STRENGTH IN IT. . CARDIOLOGY: DO YOU HAVE A PACEMAKER OR DEFIBRILLATOR? NO . RESPIRATORY: HAVE YOU BEEN SICK IN THE PAST WEEK? NO . FEVER NO . FLU LIKE SYMPTOMS? NO . COUGH NO . INTEGUMENTARY: DO YOU HAVE ANY RASHES OR OPEN SORES? NO . ALLERGIC/IMMUNO: ARE YOU ALLERGIC TO IV DYE? YES . ANY NEW ALLERGIES? NO . PSYCHIATRIC: DO YOU HAVE THOUGHTS OF HURTING YOURSELF OR SOMEONE ELSE? NO . ARE YOU ABUSED, NEGLECTED, OR IN AN UNSAFE ENVIRONMENT? NO . ENDOCRINOLOGY: ARE YOU DIABETIC? NO . OTHER: DO YOU NEED ANY PRESCRIPTIONS? NO . IF YES, PLEASE LIST: ____ . ANY NEW PROBLEMS WITH YOUR MEDICATIONS? NO . WHEN DID YOU LAST EAT? ____ . WHEN DID YOU LAST DRINK? ____ . WHAT DID YOU LAST DRINK? ____ . NAME OF PERSON DRIVING YOU HOME? ____ . DO YOU HAVE ANY OTHER QUESTIONS OR CONCERNS NO . VITAL SIGNS WT 199 LBS, HT 63 IN, BMI 35.25 INDEX, BP 136/75 MM HG, HR 81 /MIN, RR 16 /MIN, TEMP 98.1 F, OXYGEN SAT % 93%, SAFE IN ENV? (Y/N) Y, NA INITIALS AW 1445, REVIEWED BY: MADHURI. EXAMINATION GENERAL EXAMINATION: GENERAL APPEARANCE:NO ACUTE DISTRESS, WELL NOURISHED AND HYDRATED. PSYCHAPPROPRIATE MOOD AND AFFECT . LUNGS:CLEAR TO AUSCULTATION BILATERALLY, NO WHEEZES, RHONCHI, RALES. HEART:NO MURMURS, REGULAR RATE AND RHYTHM. BACK: NORMAL ALIGNMENT. NO SCARS OR LESIONS LIMITED ROM TENDER TO PALPATION ALONG LUMBAR PARASPINAL MUCLES SLR NEG BILATERAL. 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 ADVISED TO CONTACT CINIC IF SYMPTOMS WORSENS OR CHANGES.ISTOP REGISTRY REVIEWED AND DEMONSTRATES COMPLLIANCE. (REF # [id number] ). PROCEDURE CODES FA211 ESTABILISHED PATIENT [facility] CHARGE DISPOSITION & COMMUNICATION FOLLOW UP 3 MONTHS ELECTRONICALLY SIGNED BY LIZBET VANG ON 03/08/2019 AT 08:21 AM EDT DISCLAIMER : THIS IS A VISIT SUMMARY EXTRACTED FROM THE [employer] CHART. IT IS NOT A COPY OF THE [employer] PROGRESS NOTE. PEDRO
== END ==
LOC: M PAIN 14:30
PROVIDERS: ATTEND Nurse Practitioner Family
DX: M43.06 Spondylolysis, lumbar region (principal); Z88.8 Allergy status to other drugs, medicaments and biological substances; Z91.041 Radiographic dye allergy status; Z88.0 Allergy status to penicillin; Z88.6 Allergy status to analgesic agent; Z79.899 Other long term (current) drug therapy

== ENCOUNTER → 2019-05-01 | Outpatient (CLI) | payer OTHER ==
--- NOTE | 2019-05-11 02:11 | ECWPNPC ---
PATIENT NAME: LISA POTTS : 1955 GENDER: FEMALE VISIT DATE: 05/01/2019 DISCHARGE DATE: 05/01/19 1354 VISIT LOCKED DATE TIME: PHYSICIAN: BAMBI ALVAREZ RESOURCE: BAMBI ALVAREZ REASON FOR APPOINTMENT 1. W/C BACK PAIN HISTORY OF PRESENT ILLNESS HISTORY OF PRESENT ILLNESS: HERE FOR F/U OF CHRONIC LOW BACK PAIN. THIS IS A WORK RELATED INJURY WITH DOI:2007. PAIN HAS BEEN AGGRAVATED LATELY AND PER THE PATIENT THE PAIN WAS SO BAD THAT SHE HAD AN ER VISIT A MONTH AGO. RATING PAIN VAS 8/10 .PATIENT DESCRIBES THE PAIN CONSTANT ACHING, BURNING, SORE, TENDER, SHARP AND SHOOTING. PATIENT REPORTS THAT SHE CONTINUES TO DO STRETCHING AND HOME EXERCISE AT HOME. PATIENT REPORTS THAT SHE IS HAVING DIFFICULTY PERFORMING HER ACTIVITIES OF DAILY LIVING DUE TO THE INCREASE IN HER PAIN. REVIEWED MRI AND DISCUSSED TREATMENT OPTIONS. PAIN THE PATIENT DESCRIBES THE PAIN... FALL RISK SCREENING: SCREENING :NO FALLS REPORTED IN THE LAST YEAR CURRENT MEDICATIONS TAKING VITAMIN D 1 TABLET 5000 UNITS ORALLY BID TAKING EYE DROPS EXTRA 0.05 % SOLUTION 2 DROP OPHTHALMIC TWICE A DAY AND NEEDED TAKING OMEGA 3 1000 MG CAPSULE 1 CAPSULE ORALLY ONCE A DAY TAKING ALEVE 220 MG TABLET 1 TABLET WITH FOOD OR MILK NEEDED ORALLY EVERY 12 HRS TAKING MULTI FOR HER 50+ - TABLET 1 TAB ORALLY BID TAKING ALEVE PM 220-25 MG TABLET 1 TAB ORALLY BEFORE BEDTIME NEEDED TAKING VOLTAREN 1 % GEL 1 STRIP TRANSDERMAL QID PRN FOR PAIN TAKING SKELAXIN 800 MG TABLET 1 TABLET ORALLY EVERY 6 HR NEEDED TAKING TRAMADOL-ACETAMINOPHEN 37.5-325 MG TABLET 2 TABLETS NEEDED ORALLY EVERY 6 HRS PRN MDD 2 NOT-TAKING VITAMIN C 500 MG CAPSULE ORALLY NOT-TAKING MAGNESIUM 200 MG TABLET 2 TABLETS WITH A MEAL ORALLY ONCE A DAY NOT-TAKING ACETAMINOPHEN 325 MG TABLET 1 TABLET NEEDED ORALLY EVERY 6 HRS NOT-TAKING CLARITIN 10 MG TABLET 1 TABLET ORALLY ONCE A DAY MEDICATION LIST REVIEWED AND RECONCILED WITH THE PATIENT PAST MEDICAL HISTORY CHRONIC BACK PAIN BILATERAL NECK AND SHOULDER PAIN ALLERGIES GABAPENTIN: SWOLLEN EYE LIDS PUFFY LIPS - ALLERGY CONTRAST MEDIA: FAINT, HEAD FULLNESS, PRESSURE - ALLERGY NAPROXEN: SWOLLEN EYE LIDS PUFFY LIPS - ALLERGY PENICILLIN (FOR ALLERGIES USE ONLY): ABD. PAIN - SIDE EFFECTS SURGICAL HISTORY HYSTERCTOMY D&C BILATERAL CARPALL TUNNEL COLONOSCOPY 08/04/18 FAMILY HISTORY FATHER: , DIAGNOSED WITH DIABETES, HYPERTENSION, CANCER MOTHER: ALIVE 1 SON(S) , 2 DAUGHTER(S) . DAD-HAIRY CELL LEUKEMIA \NOLDEST DAUGHTER-SMOKER, ALCHOHOLIC, DEPRESSION. SOCIAL HISTORY GENERAL: TOBACCO USE ARE YOU A: NONSMOKER. EDUCATION LEVEL OF EDUCATION:HIGH SCHOOL LANGUAGE LANGUAGES SPOKEN:ARABIC DOMESTIC VIOLENCE DO YOU FEEL SAFE IN YOUR ENVIRONMENT?YES NEW PATIENT PAIN DIARY FROM 0-10, WHAT LEVEL IS YOUR PAIN TODAY? 5. RECREATIONAL DRUG USE DRUG USE?NO LEARNING BARRIERS / SPECIAL NEEDS BARRIERS TO LEARNING?NO HEARING IMPAIRED?NO VISION IMPAIRED?YES :CORRECTIVE LENSES COGNITIVELY IMPAIRED?NO READINESS TO LEARN?YES LEARNING PREFERENCES?NO LEARNING CAPABILITIES PRESENT?YES EMOTIONAL BARRIERS?NO SPECIAL DEVICES?NO FREIGHT CAR BUILDER NEEDED?NO PAIN CLINIC PFS, CLERGY, PUBLIC HEALTH REFERRALS PFS REFERRAL NEEDED?NO CLERGY REFERRAL NEEDED?NO PUBLIC HEALTH REFERRAL NEEDED?NO WAS THE PROVIDER NOTIFIED OF ANY PERTINENT INFO? N/A HAS THE PATIENT BEEN EDUCATED REGARDING HIS/HER PLAN OF CARE?YES HAS THE PATIENT BEEN EDUCATED REGARDING PAIN, THE RISK FOR PAIN, THE IMPORTANCE OF EFFECTIVE PAIN MANAGEMENT, AND THE PAIN ASSESSMENT PROCESS?YES LATEX QUESTIONNAIRE LATEX ALLERGY : HAVE YOU EVER DEVELOPED ANY TYPE OF REACTION AFTER HANDLING LATEX PRODUCTS SUCH RUBBER GLOVES, CONDOMS, DIAPHRAGMS, BALLOONS, SOCKS, OR UNDERWEAR?NO LATEX ALLERGY : HAVE YOU EVER DEVELOPED ANY TYPE OF REACTION DURING OR AFTER DENTAL APPOINTMENT, VAGINAL/RECTAL EXAMINATION, SURGICAL PROCEDURE, OR ANY OTHER EXPOSURE?NO LATEX RISK : HAVE YOU EVER HAD ANY DIFFICULTY BREATHING OR HIVES AFTER EATING OR HANDLING ANY FRUITS, OR VEGETABLES; SUCH KIWI, BANANAS, STONE FRUITS, OR CHESTNUTSNO LATEX RISK : DO YOU HAVE A PREVIOUS PERSONAL HISTORY OF MORE THAN NINE SURGERIES, SPINA BIFIDA, OR REPEATED CATHERTIZATIONS? NO LATEX RISK : ARE YOU FREQUENTLY EXPOSED TO LATEX PRODUCTS IN YOUR OCCUPATION?NO DATE ASKED : 03/07/2019 CAFFEINE CAFFEINE USE?YES HOW OFTEN AND HOW MUCH? 2 CUPS PER DAY ADVANCE DIRECTIVE ADVANCE DIRECTIVE DISCUSSED WITH PATIENT:YES 05-01-19PT DOES NOT HAVE ANY ADVANCED DIRECTIVES AND DECLINES INFROMATION ON HCP AT THIS TIME. STATES SHE ALREADY HAS THE INFORMATION ON HCP, ASSISTANCE OFFERED IN COMPLETING IT IF SHE WANTED HELP. BV [facility] [id number] HINDUISM ALCOHOL SCREENING DID YOU HAVE A DRINK CONTAINING ALCOHOL IN THE PAST YEAR?YES HOW OFTEN DID YOU HAVE A DRINK CONTAINING ALCOHOL IN THE PAST YEAR?TWO TO FOUR TIMES A MONTH (2 POINTS) HOW MANY DRINKS DID YOU HAVE ON A TYPICAL DAY WHEN YOU WERE DRINKING IN THE PAST YEAR?3 OR 4 (1 POINT) HOW OFTEN DID YOU HAVE SIX OR MORE DRINKS ON ONE OCCASION IN THE PAST YEAR?NEVER (0 POINTS) POINTS3 INTERPRETATIONPOSITIVE REVIEWED 05/18/18 1450 LAS08/26/18 0930 REVIEWED WITH PT. AD10/06/18 1225 REVIEWED WITH PT. AD05/01/19 1309 REVIEWED WITH PT BV. HOSPITALIZATION/MAJOR DIAGNOSTIC PROCEDURE FOR SURGERIES AFTER FALLING OUT DOORS HAD BROKEN BONES REVIEW OF SYSTEMS REVIEWED BY: PROVIDER: BAMBI SOMERS . CONSTITUTIONAL: ANY CHANGE IN YOUR MEDICAL CONDITION? NO . CHILLS NO . FEVER NO . INFECTION: DO YOU HAVE NEW INFECTIONS? NO . DO YOU HAVE HISTORY OF MRSA? NO . MUSCULOSKELETAL: ANY NEW PATTERNS OF PAIN OR NUMBNESS? YES, INCREASING PAIN IN LEFT SIDE . GASTROENTEROLOGY: ANY NEW CHANGE IN BOWEL CONTROL? NO . GENITOURINARY: ANY NEW CHANGE IN BLADDER CONTROL? NO . IS THERE A CHANCE YOU COULD BE ? NO . HEMATOLOGY/LYMPH: DO YOU TAKE ANY BLOOD THINNERS? (FOR EXAMPLE- COUMADIN, PLAVIX, AGGRENOX, PLATEL, PRADAXA, OR XARELTO) NO . WHEN WAS YOUR LAST DOSE? DATE: TIME: . NEUROLOGY: HAVE YOU FALLEN IN THE PAST 12 MONTHS? NO . ANY NEW EXTREMITY NUMBNESS OR WEAKNESS? YES, PT STATES IN THE MONTH SHE HAS NOTICED INTERMITTENT NUMBNESS IN LEFT LEG THAT TRAVELS DOWN INTO LEFT FOOT . CARDIOLOGY: DO YOU HAVE A PACEMAKER OR DEFIBRILLATOR? NO . RESPIRATORY: HAVE YOU BEEN SICK IN THE PAST WEEK? NO . FEVER NO . FLU LIKE SYMPTOMS? NO . COUGH NO . INTEGUMENTARY: DO YOU HAVE ANY RASHES OR OPEN SORES? NO . ALLERGIC/IMMUNO: ARE YOU ALLERGIC TO IV DYE? YES . ANY NEW ALLERGIES? NO . PSYCHIATRIC: DO YOU HAVE THOUGHTS OF HURTING YOURSELF OR SOMEONE ELSE? NO . ARE YOU ABUSED, NEGLECTED, OR IN AN UNSAFE ENVIRONMENT? NO . ENDOCRINOLOGY: ARE YOU DIABETIC? NO . OTHER: DO YOU NEED ANY PRESCRIPTIONS? NO . IF YES, PLEASE LIST: ____ . ANY NEW PROBLEMS WITH YOUR MEDICATIONS? NO . WHEN DID YOU LAST EAT? ____ . WHEN DID YOU LAST DRINK? ____ . WHAT DID YOU LAST DRINK? ____ . NAME OF PERSON DRIVING YOU HOME? ____ . DO YOU HAVE ANY OTHER QUESTIONS OR CONCERNS NO . VITAL SIGNS WT 197 LBS, HT 63 IN, BMI 34.89 INDEX, BP 142/84 MM HG, HR 64 /MIN, RR 16 /MIN, TEMP 97.6 F, OXYGEN SAT % 96%, NA INITIALS AW 1303, REVIEWED BY: BV. EXAMINATION GENERAL EXAMINATION: GENERAL APPEARANCE: ALERT,NO DISTRESS . PSYCH AFFECT NORMAL . LUNGS: LUNG SOUNDS ARE CLEAR . HEART: HEART RATE REGULAR . MUSCULOSKELETAL: MST 5/5 BILAT. LOWER EXTREMITIES . LUMBAR SACRAL SPINE TENDERNESS BILAT. SIJ L>R.POSITIVE PATRICKS TESTING L>R.. DIAGNOSTIC TESTS REVIEWEDMRI L/S SPINE-09/17/17. ASSESSMENTS BILATERAL SACROILIITIS - M46.1 (PRIMARY) SPONDYLOSIS OF LUMBOSACRAL REGION WITHOUT MYELOPATHY OR RADICULOPATHY - M47.817 TREATMENT BILATERAL SACROILIITIS CONTINUE TRAMADOL-ACETAMINOPHEN TABLET, 37.5-325 MG, 2 TABLETS NEEDED, ORALLY, EVERY 6 HRS PRN MDD 2 CONTINUE SKELAXIN TABLET, 800 MG, 1 TABLET, ORALLY, EVERY 6 HR NEEDED CONTINUE VOLTAREN GEL, 1 %, 1 STRIP, TRANSDERMAL, QID PRN FOR PAIN NOTES: W/C BILAT SIJ. PROCEDURES PN WORKMANS' COMP OPINION IN YOUR OPINION, WAS THE INCIDENT THAT THE PATIENT DESCRIBED THE COMPETENT MEDICAL CAUSE OF THIS INJURY/ILLNESS? YES ARE THE PATIENT'S COMPLAINTS CONSISTENT WITH HIS/HER HISTORY OF THE INJURY/ILLNESS? YES IS THE PATIENT'S HISTORY OF THE INJURY/ILLNESS CONSISTENT WITH YOUR OBJECTIVE FINDING? YES WHAT IS THE PERCENTAGE OF TEMPORARY IMPAIRMENT? MODERATE TO MARKED = 66.7% IS THE PATIENT WORKING? NO DOCTOR ON SITE: BORA HARRISON MD PREVENTIVE MEDICINE PAIN CLINIC TEACHING: PROCEDURE TEACHING PT GIVEN WRITEN AND VERBAL PRE-PROCEDURE INSTRUCTIONS. PT VERBALIZES UNDERSTANDING OF ALL INSTRUCTIONS. ROSINA RIVERA 05/01/2019 1:57:21 PM > . PROCEDURE CODES FA211 ESTABILISHED PATIENT [facility] CHARGE DISPOSITION & COMMUNICATION FOLLOW UP POST (REASON: W/C BILAT SIJ) ELECTRONICALLY SIGNED BY BAMBI SOMERS, SUPERANNUATION FUNDS MANAGER ON 05/09/2019 AT 02:31 PM EDT DISCLAIMER : THIS IS A VISIT SUMMARY EXTRACTED FROM THE [employer] [facility] [employer] CHART. IT IS NOT A COPY OF THE [employer] PROGRESS NOTE. PEDRO
== END ==
LOC: M PAIN 13:15
PROVIDERS: ATTEND Nurse Practitioner Family
DX: M46.1 Sacroiliitis, not elsewhere classified (principal); M47.817 Spondylosis without myelopathy or radiculopathy, lumbosacral region; G89.29 Other chronic pain; Z79.891 Long term (current) use of opiate analgesic; Z79.899 Other long term (current) drug therapy; Z88.0 Allergy status to penicillin; Z88.8 Allergy status to other drugs, medicaments and biological substances

== ENCOUNTER → 2019-07-26 | Outpatient (CLI) | payer OTHER ==
[~2019-07-26] MED LIST changes: +BUPIVACAINE HCL 0.25% 30 ML VIAL As Ordered ONE; +ISOVUE-M 300 61% 15ML VIAL (Q9967) As Ordered ONE; +LIDOCAINE 1% SDV INJ 30 ML VIAL As Ordered ONE; +TRIAMCINOLONE ACETONIDE SUSP 40 MG/ML VIAL (J3301) As Ordered ONE; +diazePAM 5 MG TAB As Ordered ONE; +oxyCODONE 5MG TAB As Ordered ONE
--- NOTE | 2019-07-26 15:47 | REP ---
C-ARM VIEWS SACROILIAC JOINTS: Clinical history: Pain. Two C-Arm views of sacroiliac joints performed. Needle was seen overlying each sacroiliac joint. Injection performed by Dr. Bynum. 17 seconds fluoroscopy time utilized. Electronically Signed by Rogelio Mccrary MD 07/26/2019 04:06 P
--- NOTE | 2019-08-09 00:24 | ECWPNPC ---
PATIENT NAME: LISA POTTS : 1955 GENDER: FEMALE VISIT DATE: 07/26/2019 DISCHARGE DATE: 07/26/19 1553 VISIT LOCKED DATE TIME: PHYSICIAN: BORA NICE MD RESOURCE: BORA NICE MD REASON FOR APPOINTMENT 1. W/C BILAT SPENSER HISTORY OF PRESENT ILLNESS HISTORY OF PRESENT ILLNESS: PAIN THE PATIENT DESCRIBES THE PAIN... FALL RISK SCREENING: SCREENING :NO FALLS REPORTED IN THE LAST YEAR CURRENT MEDICATIONS TAKING VITAMIN D 1 TABLET 5000 UNITS ORALLY BID TAKING EYE DROPS EXTRA 0.05 % SOLUTION 2 DROP OPHTHALMIC TWICE A DAY AND NEEDED TAKING OMEGA 3 1000 MG CAPSULE 1 CAPSULE ORALLY ONCE A DAY TAKING ALEVE 220 MG TABLET 1 TABLET WITH FOOD OR MILK NEEDED ORALLY EVERY 12 HRS TAKING MULTI FOR HER 50+ - TABLET 1 TAB ORALLY BID TAKING TRAMADOL-ACETAMINOPHEN 37.5-325 MG TABLET 2 TABLETS NEEDED ORALLY EVERY 6 HRS PRN MDD 2 TAKING SKELAXIN 800 MG TABLET 1 TABLET ORALLY EVERY 6 HR NEEDED TAKING VOLTAREN 1 % GEL 1 STRIP TRANSDERMAL QID PRN FOR PAIN NOT-TAKING ALEVE PM 220-25 MG TABLET 1 TAB ORALLY BEFORE BEDTIME NEEDED UNKNOWN VITAMIN C 500 MG CAPSULE ORALLY UNKNOWN MAGNESIUM 200 MG TABLET 2 TABLETS WITH A MEAL ORALLY ONCE A DAY UNKNOWN ACETAMINOPHEN 325 MG TABLET 1 TABLET NEEDED ORALLY EVERY 6 HRS UNKNOWN CLARITIN 10 MG TABLET 1 TABLET ORALLY ONCE A DAY MEDICATION LIST REVIEWED AND RECONCILED WITH THE PATIENT PAST MEDICAL HISTORY CHRONIC BACK PAIN BILATERAL NECK AND SHOULDER PAIN ALLERGIES GABAPENTIN: SWOLLEN EYE LIDS PUFFY LIPS - ALLERGY CONTRAST MEDIA: FAINT, HEAD FULLNESS, PRESSURE - ALLERGY NAPROXEN: SWOLLEN EYE LIDS PUFFY LIPS - ALLERGY PENICILLIN (FOR ALLERGIES USE ONLY): ABD. PAIN - SIDE EFFECTS SURGICAL HISTORY HYSTERCTOMY D&C BILATERAL CARPALL TUNNEL COLONOSCOPY 08/04/18 FAMILY HISTORY FATHER: , DIAGNOSED WITH DIABETES, HYPERTENSION, OTHER MALIGNANT NEOPLASM OF UNSPECIFIED SITE MOTHER: ALIVE 1 SON(S) , 2 DAUGHTER(S) . DAD-HAIRY CELL LEUKEMIA \NOLDEST DAUGHTER-SMOKER, ALCHOHOLIC, DEPRESSION. SOCIAL HISTORY GENERAL: TOBACCO USE ARE YOU A: NONSMOKER. EDUCATION LEVEL OF EDUCATION:HIGH SCHOOL LANGUAGE LANGUAGES SPOKEN:ARGENTINE DOMESTIC VIOLENCE DO YOU FEEL SAFE IN YOUR ENVIRONMENT?YES NEW PATIENT PAIN DIARY FROM 0-10, WHAT LEVEL IS YOUR PAIN TODAY? 5. RECREATIONAL DRUG USE DRUG USE?NO LEARNING BARRIERS / SPECIAL NEEDS BARRIERS TO LEARNING?NO HEARING IMPAIRED?NO VISION IMPAIRED?YES COGNITIVELY IMPAIRED?NO :CORRECTIVE LENSES READINESS TO LEARN?YES LEARNING PREFERENCES?NO LEARNING CAPABILITIES PRESENT?YES EMOTIONAL BARRIERS?NO SPECIAL DEVICES?NO BASTING CLEANER NEEDED?NO PAIN CLINIC PFS, CLERGY, PUBLIC HEALTH REFERRALS PFS REFERRAL NEEDED?NO CLERGY REFERRAL NEEDED?NO PUBLIC HEALTH REFERRAL NEEDED?NO WAS THE PROVIDER NOTIFIED OF ANY PERTINENT INFO? N/A HAS THE PATIENT BEEN EDUCATED REGARDING HIS/HER PLAN OF CARE?YES HAS THE PATIENT BEEN EDUCATED REGARDING PAIN, THE RISK FOR PAIN, THE IMPORTANCE OF EFFECTIVE PAIN MANAGEMENT, AND THE PAIN ASSESSMENT PROCESS?YES LATEX QUESTIONNAIRE LATEX ALLERGY : HAVE YOU EVER DEVELOPED ANY TYPE OF REACTION AFTER HANDLING LATEX PRODUCTS SUCH RUBBER GLOVES, CONDOMS, DIAPHRAGMS, BALLOONS, SOCKS, OR UNDERWEAR?NO LATEX ALLERGY : HAVE YOU EVER DEVELOPED ANY TYPE OF REACTION DURING OR AFTER DENTAL APPOINTMENT, VAGINAL/RECTAL EXAMINATION, SURGICAL PROCEDURE, OR ANY OTHER EXPOSURE?NO DATE ASKED : 03/07/2019 LATEX RISK : HAVE YOU EVER HAD ANY DIFFICULTY BREATHING OR HIVES AFTER EATING OR HANDLING ANY FRUITS, OR VEGETABLES; SUCH KIWI, BANANAS, STONE FRUITS, OR CHESTNUTSNO LATEX RISK : DO YOU HAVE A PREVIOUS PERSONAL HISTORY OF MORE THAN NINE SURGERIES, SPINA BIFIDA, OR REPEATED CATHERIZATIONS? NO LATEX RISK : ARE YOU FREQUENTLY EXPOSED TO LATEX PRODUCTS IN YOUR OCCUPATION?NO CAFFEINE CAFFEINE USE?YES HOW OFTEN AND HOW MUCH? 2 CUPS PER DAY ADVANCE DIRECTIVE ADVANCE DIRECTIVE DISCUSSED WITH PATIENT:YES 05-01-19PT DOES NOT HAVE ANY ADVANCED DIRECTIVES AND DECLINES INFROMATION ON HCP AT THIS TIME. STATES SHE ALREADY HAS THE INFORMATION ON HCP, ASSISTANCE OFFERED IN COMPLETING IT IF SHE WANTED HELP. BV BAHAI [id number] CHEONDOISM ALCOHOL SCREENING DID YOU HAVE A DRINK CONTAINING ALCOHOL IN THE PAST YEAR?YES HOW OFTEN DID YOU HAVE SIX OR MORE DRINKS ON ONE OCCASION IN THE PAST YEAR?NEVER (0 POINTS) HOW MANY DRINKS DID YOU HAVE ON A TYPICAL DAY WHEN YOU WERE DRINKING IN THE PAST YEAR?3 OR 4 (1 POINT) HOW OFTEN DID YOU HAVE A DRINK CONTAINING ALCOHOL IN THE PAST YEAR?TWO TO FOUR TIMES A MONTH (2 POINTS) POINTS3 INTERPRETATIONPOSITIVE REVIEWED 05/18/18 0010 LAS08/26/18 0930 REVIEWED WITH PT. AD10/06/18 1225 REVIEWED WITH PT. AD05/01/19 1309 REVIEWED WITH PT BV. HOSPITALIZATION/MAJOR DIAGNOSTIC PROCEDURE FOR SURGERIES AFTER FALLING OUT DOORS HAD BROKEN BONES REVIEW OF SYSTEMS REVIEWED BY: PROVIDER: . CONSTITUTIONAL: ANY CHANGE IN YOUR MEDICAL CONDITION? NO . CHILLS NO . FEVER NO . INFECTION: DO YOU HAVE NEW INFECTIONS? NO . DO YOU HAVE HISTORY OF MRSA? NO . MUSCULOSKELETAL: ANY NEW PATTERNS OF PAIN OR NUMBNESS? INCREASED PAIN MORE ON LEFT . GASTROENTEROLOGY: ANY NEW CHANGE IN BOWEL CONTROL? NO . GENITOURINARY: ANY NEW CHANGE IN BLADDER CONTROL? NO . IS THERE A CHANCE YOU COULD BE ? NO . HEMATOLOGY/LYMPH: DO YOU TAKE ANY BLOOD THINNERS? (FOR EXAMPLE- COUMADIN, PLAVIX, AGGRENOX, PLATEL, PRADAXA, OR XARELTO) NO . WHEN WAS YOUR LAST DOSE? DATE: TIME: . NEUROLOGY: HAVE YOU FALLEN IN THE PAST 12 MONTHS? NO . ANY NEW EXTREMITY NUMBNESS OR WEAKNESS? NO . CARDIOLOGY: DO YOU HAVE A PACEMAKER OR DEFIBRILLATOR? NO . RESPIRATORY: HAVE YOU BEEN SICK IN THE PAST WEEK? NO . FEVER NO . FLU LIKE SYMPTOMS? NO . COUGH NO . INTEGUMENTARY: DO YOU HAVE ANY RASHES OR OPEN SORES? NO . ALLERGIC/IMMUNO: ARE YOU ALLERGIC TO IV DYE? YES . ANY NEW ALLERGIES? NO . PSYCHIATRIC: DO YOU HAVE THOUGHTS OF HURTING YOURSELF OR SOMEONE ELSE? NO . ARE YOU ABUSED, NEGLECTED, OR IN AN UNSAFE ENVIRONMENT? NO . ENDOCRINOLOGY: ARE YOU DIABETIC? NO . OTHER: DO YOU NEED ANY PRESCRIPTIONS? NO . IF YES, PLEASE LIST: ____ . ANY NEW PROBLEMS WITH YOUR MEDICATIONS? NO . WHEN DID YOU LAST EAT? ____ . WHEN DID YOU LAST DRINK? ____ . WHAT DID YOU LAST DRINK? ____ . NAME OF PERSON DRIVING YOU HOME? ____ . DO YOU HAVE ANY OTHER QUESTIONS OR CONCERNS NO . VITAL SIGNS WT 190.6 LBS, HT 63 IN, BMI 33.76 INDEX, BP 176/79 MM HG, HR 66 /MIN, RR 16 /MIN, TEMP 97.5 F, OXYGEN SAT % 99%, NA INITIALS SC 14:16. ASSESSMENTS BILATERAL SACROILIITIS - M46.1 (PRIMARY) TREATMENT BILATERAL [facility]CROILIITIS [facility] GUIDANCE (PAIN)[id number] PROCEDURES PN WORKMANS' COMP OPINION IN YOUR OPINION, WAS THE INCIDENT THAT THE PATIENT DESCRIBED THE COMPETENT MEDICAL CAUSE OF THIS INJURY/ILLNESS? YES ARE THE PATIENT'S COMPLAINTS CONSISTENT WITH HIS/HER HISTORY OF THE INJURY/ILLNESS? YES IS THE PATIENT'S HISTORY OF THE INJURY/ILLNESS CONSISTENT WITH YOUR OBJECTIVE FINDING? YES WHAT IS THE PERCENTAGE OF TEMPORARY IMPAIRMENT? MODERATE TO MARKED = 66.7% IS THE PATIENT WORKING? NO DOCTOR ON SITE: BORA HARRISON MD PN SI PRE PROCEDURE DIAGNOSIS SACROILIITIS, SACROILIAC JOINT DYSFUNCTION POST PROCEDURE DIAGNOSIS SACROILIITIS, SACROILIAC JOINT DYSFUNCTION PROCEDURE BILATERAL SACROILIAC JOINT BLOCK SURGEON DR. BORA NICE TOW MOTOR DRIVER NONE ANESTHESIA LOCAL PRE PROCEDURE NOTE PATIENT WITH HISTORY OF CHRONIC LOW BACK PAIN. I EVALUATED THE PATIENT AND REVIEWED THE CHART. I WENT OVER THE RISKS, ALTERNATIVES, AND BENEFITS ASSOCIATED WITH THIS PROCEDURE. THE PATIENT WOULD LIKE TO PROCEED AND GAVE CONSENT TO PERFORM THE PROCEDURE. THE PATIENT DENIES UNEXPLAINABLE WEIGHT LOSS, FEVER, CHILLS, OR NEW CHANGES IN URINARY OR BOWEL CONTROL DESCRIPTION OF PROCEDURE THE PATIENT WAS BROUGHT TO THE PROCEDURE ROOM AND PLACED IN THE PRONE POSITION. THE LUMBOSACRAL AREA WAS CLEANED WITH CHLORAPREP SOLUTION AND DRAPED ASEPTICALLY. THE PROCEDURE WAS DONE UNDER STERILE CONDITIONS. I CHECKED LATERALITY AND THE LEVEL WHERE THE PROCEDURE WAS GOING TO BE PERFORMED WITH THE PATIENT AND THE SUPPORTING STAFF AT THE MOMENT OF THE TIME OUT IN THE PROCEDURE ROOM. UNDER FLUOROSCOPIC GUIDANCE, TARGET POINT WAS SELECTED AT THE LOWER BORDER OF THE RIGHT AND LEFT SACROILIAC JOINT. TARGET POINT WAS SELECTED AFTER MEDIAL ROTATION AND TILT OF THE MAGNIFIER OF THE C-ARM. LIDOCAINE WAS USED TO NUMB THE SKIN AND SUBCUTANEOUS TISSUE BELOW IT. A SPINAL NEEDLE, 22-GAUGE, WAS ADVANCED UNDER FLUOROSCOPIC GUIDANCE AND FOLLOWING PATIENT FEEDBACK UNTIL THE TARGET AREA WAS TOUCHED. THE POSITION OF THE NEEDLE WAS VERIFIED WITH AP AND LATERAL VIEWS. AFTER PROPER POSITION OF THE NEEDLE WAS ACHIEVED, ISOVUE M DYE 30%, 0.25 ML, WAS INJECTED SHOWING SPREAD OF THE DYE. THEN, A SOLUTION OF 30 MG OF KENALOG WAS INJECTED IN RIGHT AND LEFT JOINT WITH 3 ML OF BUPIVACAINE 0.125%. THERE WAS NO EVIDENCE OF BLOOD, PARESTHESIA OR CEREBROSPINAL FLUID DURING THE PROCEDURE. THE PATIENT WAS SENT TO THE RECOVERY ROOM. THE PATIENT WAS MOVING THE EXTREMITIES AND DOING WELL. THERE WAS NO COMPLICATION DURING THE PROCEDURE. FLUOROSCOPY TIME WAS 17 SECONDS POST PROCEDURE NOTE THE PATIENT WILL BE SEEN IN A FOLLOW UP IN THE NEXT FEW WEEKS. INSTRUCTIONS WERE GIVEN, QUESTIONS WERE ANSWERED, AND THE PATIENT EXPRESSED UNDERSTANDING AND AGREED WITH THE PLAN. I, ANA BALDWIN, DOCUMENTED THE ABOVE INFORMATION ACTING A SCRIBE FOR DR. NICE. I HAVE REVIEWED THE ABOVE DOCUMENT, WRITTEN BY ANA BALDWIN SCRIBChey AND I VERIFY THAT IT IS ACCURATE. PROCEDURE CODES [id number] INJECT SACROILIAC JOINT, MODIFIERS: 50 [id number] RADXPS IN END [id number] DISPOSITION & COMMUNICATION FOLLOW UP 3 WEEKS ELECTRONICALLY SIGNED BY BORA NICE MD, MD ON 08/08/2019 AT 10:45 AM EDT DISCLAIMER : THIS IS A VISIT SUMMARY EXTRACTED FROM THE [employer] CHART. IT IS NOT A COPY OF THE [employer] PROGRESS NOTE. MTDD
== END ==
LOC: M PAIN 14:15
PROVIDERS: ATTEND Anesthesiology
DX: M46.1 Sacroiliitis, not elsewhere classified (principal); M54.2 Cervicalgia; M19.011 Primary osteoarthritis, right shoulder; M19.012 Primary osteoarthritis, left shoulder; Z79.1 Long term (current) use of non-steroidal anti-inflammatories (NSAID); Z79.891 Long term (current) use of opiate analgesic; Z79.899 Other long term (current) drug therapy; Z88.0 Allergy status to penicillin; Z88.8 Allergy status to other drugs, medicaments and biological substances; Z91.041 Radiographic dye allergy status
CPT/HCPCS: G0260; J3301; Q9967

== ENCOUNTER → 2019-08-15 | Outpatient (CLI) | payer OTHER ==
[~2019-08-15] MED LIST changes: -BUPIVACAINE HCL 0.25% 30 ML VIAL As Ordered ONE; -ISOVUE-M 300 61% 15ML VIAL (Q9967) As Ordered ONE; -LIDOCAINE 1% SDV INJ 30 ML VIAL As Ordered ONE; -TRIAMCINOLONE ACETONIDE SUSP 40 MG/ML VIAL (J3301) As Ordered ONE; -diazePAM 5 MG TAB As Ordered ONE; -oxyCODONE 5MG TAB As Ordered ONE
--- NOTE | 2019-08-18 00:13 | ECWPNPC ---
PATIENT NAME: LISA POTTS : 1955 GENDER: FEMALE VISIT DATE: 08/15/2019 DISCHARGE DATE: 08/15/19 1013 VISIT LOCKED DATE TIME: PHYSICIAN: MEGAN PALACIO RESOURCE: MEGAN PALACIO REASON FOR APPOINTMENT 1. POST SIJ HISTORY OF PRESENT ILLNESS HISTORY OF PRESENT ILLNESS: PAIN THE PATIENT DESCRIBES THE PAIN... 63-YEAR-OLD FEMALE IN FOR POST BILATERAL SIJ FOLLOW-UP. SHE RATED HER PAIN PREPROCEDURE AT A 10 OUT OF 10 AND POSTPROCEDURE AT A 3 OUT OF 10. THE REDUCTION IN PAIN LASTED APPROXIMATELY 2 WEEKS. SHE RATES HER PAIN CURRENTLY AT A 5-7 OUT OF 10 AND DESCRIBES IT ACHING, AND SORE. FALL RISK SCREENING: SCREENING :NO FALLS REPORTED IN THE LAST YEAR CURRENT MEDICATIONS TAKING VITAMIN D 1 TABLET 5000 UNITS ORALLY BID TAKING EYE DROPS EXTRA 0.05 % SOLUTION 2 DROP OPHTHALMIC TWICE A DAY AND NEEDED TAKING OMEGA 3 1000 MG CAPSULE 1 CAPSULE ORALLY ONCE A DAY TAKING ALEVE 220 MG TABLET 1 TABLET WITH FOOD OR MILK NEEDED ORALLY EVERY 12 HRS TAKING MULTI FOR HER 50+ - TABLET 1 TAB ORALLY BID TAKING TRAMADOL-ACETAMINOPHEN 37.5-325 MG TABLET 2 TABLETS NEEDED ORALLY EVERY 6 HRS PRN MDD 2 TAKING SKELAXIN 800 MG TABLET 1 TABLET ORALLY EVERY 6 HR NEEDED TAKING VOLTAREN 1 % GEL 1 STRIP TRANSDERMAL QID PRN FOR PAIN NOT-TAKING ALEVE PM 220-25 MG TABLET 1 TAB ORALLY BEFORE BEDTIME NEEDED NOT-TAKING VITAMIN C 500 MG CAPSULE ORALLY NOT-TAKING MAGNESIUM 200 MG TABLET 2 TABLETS WITH A MEAL ORALLY ONCE A DAY NOT-TAKING ACETAMINOPHEN 325 MG TABLET 1 TABLET NEEDED ORALLY EVERY 6 HRS NOT-TAKING CLARITIN 10 MG TABLET 1 TABLET ORALLY ONCE A DAY MEDICATION LIST REVIEWED AND RECONCILED WITH THE PATIENT PAST MEDICAL HISTORY CHRONIC BACK PAIN BILATERAL NECK AND SHOULDER PAIN ALLERGIES GABAPENTIN: SWOLLEN EYE LIDS PUFFY LIPS - ALLERGY CONTRAST MEDIA: FAINT, HEAD FULLNESS, PRESSURE - ALLERGY NAPROXEN: SWOLLEN EYE LIDS PUFFY LIPS - ALLERGY PENICILLIN (FOR ALLERGIES USE ONLY): ABD. PAIN - SIDE EFFECTS SEASONAL ALLERGIES: CONGESTION - ALLERGY SURGICAL HISTORY HYSTERCTOMY D&C BILATERAL CARPALL TUNNEL COLONOSCOPY 08/04/18 FAMILY HISTORY FATHER: , DIAGNOSED WITH DIABETES, HYPERTENSION, OTHER MALIGNANT NEOPLASM OF UNSPECIFIED SITE MOTHER: ALIVE 1 SON(S) , 2 DAUGHTER(S) . DAD-HAIRY CELL LEUKEMIA \NOLDEST DAUGHTER-SMOKER, ALCHOHOLIC, DEPRESSION. SOCIAL HISTORY GENERAL: TOBACCO USE ARE YOU A: NONSMOKER. EDUCATION LEVEL OF EDUCATION:HIGH SCHOOL LANGUAGE LANGUAGES SPOKEN:CZECH DOMESTIC VIOLENCE DO YOU FEEL SAFE IN YOUR ENVIRONMENT?YES NEW PATIENT PAIN DIARY FROM 0-10, WHAT LEVEL IS YOUR PAIN TODAY? 5. 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NO LATEX ALLERGY : HAVE YOU EVER DEVELOPED ANY TYPE OF REACTION DURING OR AFTER DENTAL APPOINTMENT, VAGINAL/RECTAL EXAMINATION, SURGICAL PROCEDURE, OR ANY OTHER EXPOSURE?NO LATEX RISK : HAVE YOU EVER HAD ANY DIFFICULTY BREATHING OR HIVES AFTER EATING OR HANDLING ANY FRUITS, OR VEGETABLES; SUCH KIWI, BANANAS, STONE FRUITS, OR CHESTNUTSNO LATEX RISK : DO YOU HAVE A PREVIOUS PERSONAL HISTORY OF MORE THAN NINE SURGERIES, SPINA BIFIDA, OR REPEATED CATHERIZATIONS? NO LATEX RISK : ARE YOU FREQUENTLY EXPOSED TO LATEX PRODUCTS IN YOUR OCCUPATION?NO DATE ASKED : 08/15/2019 CAFFEINE CAFFEINE USE?YES HOW OFTEN AND HOW MUCH? 2 CUPS PER DAY ADVANCE DIRECTIVE ADVANCE DIRECTIVE DISCUSSED WITH PATIENT:YES PT DOES NOT HAVE ANY ADVANCED DIRECTIVES AND DECLINES INFROMATION ON HCP AT THIS TIME. STATES SHE ALREADY HAS THE INFORMATION ON HCP, ASSISTANCE OFFERED IN COMPLETING IT IF SHE WANTED HELP. EPISCOPALIAN [id number] CHEONDOISM ALCOHOL SCREENING DID YOU HAVE A DRINK CONTAINING ALCOHOL IN THE PAST YEAR?YES HOW OFTEN DID YOU HAVE SIX OR MORE DRINKS ON ONE OCCASION IN THE PAST YEAR?NEVER (0 POINTS) HOW MANY DRINKS DID YOU HAVE ON A TYPICAL DAY WHEN YOU WERE DRINKING IN THE PAST YEAR?3 OR 4 (1 POINT) HOW OFTEN DID YOU HAVE A DRINK CONTAINING ALCOHOL IN THE PAST YEAR?TWO TO FOUR TIMES A MONTH (2 POINTS) POINTS3 INTERPRETATIONPOSITIVE REVIEWED 05/18/18 1450 LAS08/26/18 0930 REVIEWED WITH PT. AD10/06/18 1225 REVIEWED WITH PT. AD05/01/19 1309 REVIEWED WITH PT BV. HOSPITALIZATION/MAJOR DIAGNOSTIC PROCEDURE FOR SURGERIES AFTER FALLING OUT DOORS HAD BROKEN BONES REVIEW OF SYSTEMS REVIEWED BY: PROVIDER: TYRON SOMERS-C . CONSTITUTIONAL: ANY CHANGE IN YOUR MEDICAL CONDITION? NO . CHILLS NO . FEVER NO . INFECTION: DO YOU HAVE NEW INFECTIONS? NO . DO YOU HAVE HISTORY OF MRSA? NO . MUSCULOSKELETAL: ANY NEW PATTERNS OF PAIN OR NUMBNESS? NO . GASTROENTEROLOGY: ANY NEW CHANGE IN BOWEL CONTROL? NO . GENITOURINARY: ANY NEW CHANGE IN BLADDER CONTROL? NO . IS THERE A CHANCE YOU COULD BE ? NO . HEMATOLOGY/LYMPH: DO YOU TAKE ANY BLOOD THINNERS? (FOR EXAMPLE- COUMADIN, PLAVIX, AGGRENOX, PLATEL, PRADAXA, OR XARELTO) NO . WHEN WAS YOUR LAST DOSE? DATE: TIME: . NEUROLOGY: HAVE YOU FALLEN IN THE PAST 12 MONTHS? NO . ANY NEW EXTREMITY NUMBNESS OR WEAKNESS? NO . CARDIOLOGY: DO YOU HAVE A PACEMAKER OR DEFIBRILLATOR? NO . RESPIRATORY: HAVE YOU BEEN SICK IN THE PAST WEEK? NO . FEVER NO . FLU LIKE SYMPTOMS? NO . COUGH NO . INTEGUMENTARY: DO YOU HAVE ANY RASHES OR OPEN SORES? NO . ALLERGIC/IMMUNO: ARE YOU ALLERGIC TO IV DYE? NO . ANY NEW ALLERGIES? YES, SEASONAL ALLERGIES . PSYCHIATRIC: DO YOU HAVE THOUGHTS OF HURTING YOURSELF OR SOMEONE ELSE? NO . ARE YOU ABUSED, NEGLECTED, OR IN AN UNSAFE ENVIRONMENT? NO . ENDOCRINOLOGY: ARE YOU DIABETIC? NO . OTHER: DO YOU NEED ANY PRESCRIPTIONS? NO . IF YES, PLEASE LIST: ____ . ANY NEW PROBLEMS WITH YOUR MEDICATIONS? NO . WHEN DID YOU LAST EAT? ____ . WHEN DID YOU LAST DRINK? ____ . WHAT DID YOU LAST DRINK? ____ . NAME OF PERSON DRIVING YOU HOME? ____ . DO YOU HAVE ANY OTHER QUESTIONS OR CONCERNS NO . VITAL SIGNS WT 189.4 LBS, HT 63 IN, BMI 33.55 INDEX, BP 171/82 MM HG, HR 71 /MIN, RR 16 /MIN, TEMP 96.6 F, OXYGEN SAT % 97%, SAFE IN ENV? (Y/N) Y, NA INITIALS AW 0934, REVIEWED BY: NAVEEN. EXAMINATION GENERAL EXAMINATION: GENERALNO ACUTE DISTRESS, WELL NOURISHED AND HYDRATED. PSYCHAPPROPRIATE MOOD AND AFFECT . LUNGS:CLEAR TO AUSCULTATION BILATERALLY, NO WHEEZES, RHONCHI, RALES. HEART:NO MURMURS, REGULAR RATE AND RHYTHM. ASSESSMENTS BILATERAL SACROILIITIS - M46.1 (PRIMARY) TREATMENT BILATERAL SACROILIITIS START MELOXICAM TABLET, 7.5 MG, 1 TABLET, ORALLY, ONCE A DAY, 30 DAY(S), 30 STOP ALEVE TABLET, 220 MG, 1 TABLET WITH FOOD OR MILK NEEDED, ORALLY, EVERY 12 HRS NOTES: REVIEWED PLAN OF CARE WITH PT AND REVIEWED WRITTEN MATERIALS ON MELOXICAM, PT ACKNOWLEDGED UNDERSTANDING. CLINICAL NOTES: 63-YEAR-OLD FEMALE IN FOR POST BILATERAL SIJ FOLLOW-UP. GIVEN PRESENTING SYMPTOMS RECOMMENDED STARTING MELOXICAM 7.5 MG DAILY WITH FOLLOW-UP IN ONE MONTH TO DETERMINE EFFICACY OF TREATMENT. SHE HAS BEEN ON NAPROXEN IN THE PAST WITHOUT MEDICATION REACTION AND WAS INSTRUCTED TO STOP MEDICATION SHOULD SHE EXPERIENCE A REACTION. PATIENT WAS ENCOURAGED NOT TO TAKE OTHER NSAID'S WHILE ON THE MELOXICAM. SHE ADMITTED TO SOME NEW ONSET INTEMITTENT WEAKNESS WITH WALKING AND REFERRAL TO ORTHO FOR FURTHER EVAL WAS RECOMMENDED PATIENT HAS EXPRESSED UNDERSTANDING OF AND WAS IN AGREEMENT WITH TREATMENT PLAN. GIVEN TIME TO ASK QUESTIONS AND EXPRESSED CONCERNS.. PREVENTIVE MEDICINE PAIN CLINIC TEACHING: THE PATIENT HAS BEEN EDUCATED REGARDING HIS/HER PLAN OF CARE : YES, DISTRIBUTED AND REVIEWED WRITTEN MATERIALS FOR MELOXICAM, PT ACKNOWLEDGED UNDERSTANDING THE PATIENT HAS BEEN EDUCATED REGARDING PAIN, THE RISK FOR PAIN, THE IMPORTANCE OF EFFECTIVE PAIN MANAGEMENT, AND THE PAIN ASSESSMENT PROCESS. : YES PROCEDURE CODES FA211 ESTABILISHED PATIENT [facility] CHARGE DISPOSITION & COMMUNICATION FOLLOW UP 4 WEEKS (REASON: MEDICATION CHANGE ) ELECTRONICALLY SIGNED BY LIZBET PONCE ON 08/17/2019 AT 08:24 AM EDT DISCLAIMER : THIS IS A VISIT SUMMARY EXTRACTED FROM THE [employer] CHART. IT IS NOT A COPY OF THE [employer] PROGRESS NOTE. PEDRO
== END ==
LOC: M PAIN 09:30
PROVIDERS: ATTEND Family Medicine
DX: M46.1 Sacroiliitis, not elsewhere classified (principal); Z88.0 Allergy status to penicillin; Z88.6 Allergy status to analgesic agent; Z88.8 Allergy status to other drugs, medicaments and biological substances; Z91.041 Radiographic dye allergy status; Z79.899 Other long term (current) drug therapy

== ENCOUNTER → 2019-09-20 | Outpatient (CLI) | payer OTHER ==
--- NOTE | 2019-09-22 01:49 | ECWPNPC ---
PATIENT NAME: LISA POTTS : 1955 GENDER: FEMALE VISIT DATE: 09/20/2019 DISCHARGE DATE: 09/20/19 1034 VISIT LOCKED DATE TIME: PHYSICIAN: MEGAN PALACIO RESOURCE: MEGAN PALACIO REASON FOR APPOINTMENT 1. W/C MED CHANGE HISTORY OF PRESENT ILLNESS HISTORY OF PRESENT ILLNESS: HERE FOR F/U OF CHRONIC LOW BACK PAIN. THIS IS A WORK RELATED INJURY WITH DOI:2008. RATING PAIN VAS 7-10/10. PATIENT DESCRIBES THE PAIN CONSTANT ACHING, STABBING, BURNING, SORE, TENDER, SHARP AND SHOOTING. PATIENT REPORTS THAT SHE IS HAVING DIFFICULTY PERFORMING HER ACTIVITIES OF DAILY LIVING DUE TO THE INCREASE IN HER PAIN. PATIENT HAD A RADIOFREQUENCY PERFORMED ON 05/18/2018 WHICH GAVE HER GREATER THAN 75% IMPROVEMENT IN HER PAIN. PATIENT REPORTS THAT AFTER THE RADIOFREQUENCY SHE GAINED INCREASED FUNCTIONALITY WAS ABLE TO WALK, MOVE AND DO MORE. PAIN THE PATIENT DESCRIBES THE PAIN... THE PATIENT DESCRIBES THE PAIN... FALL RISK SCREENING: SCREENING :NO FALLS REPORTED IN THE LAST YEAR CURRENT MEDICATIONS TAKING VITAMIN D 1 TABLET 5000 UNITS ORALLY BID TAKING EYE DROPS EXTRA 0.05 % SOLUTION 2 DROP OPHTHALMIC TWICE A DAY AND NEEDED TAKING OMEGA 3 1000 MG CAPSULE 1 CAPSULE ORALLY ONCE A DAY TAKING MULTI FOR HER 50+ - TABLET 1 TAB ORALLY BID TAKING TRAMADOL-ACETAMINOPHEN 37.5-325 MG TABLET 2 TABLETS NEEDED ORALLY EVERY 6 HRS PRN MDD 2 TAKING SKELAXIN 800 MG TABLET 1 TABLET ORALLY EVERY 6 HR NEEDED TAKING VOLTAREN 1 % GEL 1 STRIP TRANSDERMAL QID PRN FOR PAIN TAKING MELOXICAM 7.5 MG TABLET 1 TABLET ORALLY ONCE A DAY TAKING COLLAGEN 500 MG CAPSULE 2 TABLETS ORALLY 2-3X/WEEK X 4 WEEKS NOT-TAKING ALEVE PM 220-25 MG TABLET 1 TAB ORALLY BEFORE BEDTIME NEEDED NOT-TAKING VITAMIN C 500 MG CAPSULE ORALLY NOT-TAKING MAGNESIUM 200 MG TABLET 2 TABLETS WITH A MEAL ORALLY ONCE A DAY NOT-TAKING ACETAMINOPHEN 325 MG TABLET 1 TABLET NEEDED ORALLY EVERY 6 HRS NOT-TAKING CLARITIN 10 MG TABLET 1 TABLET ORALLY ONCE A DAY MEDICATION LIST REVIEWED AND RECONCILED WITH THE PATIENT PAST MEDICAL HISTORY CHRONIC BACK PAIN BILATERAL NECK AND SHOULDER PAIN ALLERGIES GABAPENTIN: SWOLLEN EYE LIDS PUFFY LIPS - ALLERGY CONTRAST MEDIA: FAINT, HEAD FULLNESS, PRESSURE - ALLERGY NAPROXEN: SWOLLEN EYE LIDS PUFFY LIPS - ALLERGY PENICILLIN (FOR ALLERGIES USE ONLY): ABD. PAIN - SIDE EFFECTS SEASONAL ALLERGIES: CONGESTION - ALLERGY SURGICAL HISTORY HYSTERCTOMY D&C BILATERAL CARPALL TUNNEL COLONOSCOPY 08/04/18 FAMILY HISTORY FATHER: , DIAGNOSED WITH DIABETES, HYPERTENSION, OTHER MALIGNANT NEOPLASM OF UNSPECIFIED SITE MOTHER: ALIVE 1 SON(S) , 2 DAUGHTER(S) . DAD-HAIRY CELL LEUKEMIA \NOLDEST DAUGHTER-SMOKER, ALCHOHOLIC, DEPRESSION. SOCIAL HISTORY GENERAL: TOBACCO USE ARE YOU A: NONSMOKER. EDUCATION LEVEL OF EDUCATION:HIGH SCHOOL LANGUAGE LANGUAGES SPOKEN:LAO DOMESTIC VIOLENCE DO YOU FEEL SAFE IN YOUR ENVIRONMENT?YES NEW PATIENT PAIN DIARY FROM 0-10, WHAT LEVEL IS YOUR PAIN TODAY? 5. 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NO LATEX ALLERGY : HAVE YOU EVER DEVELOPED ANY TYPE OF REACTION DURING OR AFTER DENTAL APPOINTMENT, VAGINAL/RECTAL EXAMINATION, SURGICAL PROCEDURE, OR ANY OTHER EXPOSURE?NO LATEX RISK : HAVE YOU EVER HAD ANY DIFFICULTY BREATHING OR HIVES AFTER EATING OR HANDLING ANY FRUITS, OR VEGETABLES; SUCH KIWI, BANANAS, STONE FRUITS, OR CHESTNUTSNO LATEX RISK : DO YOU HAVE A PREVIOUS PERSONAL HISTORY OF MORE THAN NINE SURGERIES, SPINA BIFIDA, OR REPEATED CATHERIZATIONS? NO LATEX RISK : ARE YOU FREQUENTLY EXPOSED TO LATEX PRODUCTS IN YOUR OCCUPATION?NO DATE ASKED : 08/15/2019 CAFFEINE CAFFEINE USE?YES HOW OFTEN AND HOW MUCH? 2 CUPS PER DAY ADVANCE DIRECTIVE ADVANCE DIRECTIVE DISCUSSED WITH PATIENT:YES PT DOES NOT HAVE ANY ADVANCED DIRECTIVES AND DECLINES INFROMATION ON HCP AT THIS TIME. STATES SHE ALREADY HAS THE INFORMATION ON HCP, ASSISTANCE OFFERED IN COMPLETING IT IF SHE WANTED HELP. MU-ISM [id number] GNOSTICISM ALCOHOL SCREENING DID YOU HAVE A DRINK CONTAINING ALCOHOL IN THE PAST YEAR?YES HOW OFTEN DID YOU HAVE SIX OR MORE DRINKS ON ONE OCCASION IN THE PAST YEAR?NEVER (0 POINTS) HOW MANY DRINKS DID YOU HAVE ON A TYPICAL DAY WHEN YOU WERE DRINKING IN THE PAST YEAR?3 OR 4 (1 POINT) HOW OFTEN DID YOU HAVE A DRINK CONTAINING ALCOHOL IN THE PAST YEAR?TWO TO FOUR TIMES A MONTH (2 POINTS) POINTS3 INTERPRETATIONPOSITIVE REVIEWED 05/18/18 1450 LAS08/26/18 0930 REVIEWED WITH PT. AD10/06/18 1225 REVIEWED WITH PT. AD05/01/19 1309 REVIEWED WITH PT BVREVIEWED WITH PATIENT 09/20/19 0951 JS. HOSPITALIZATION/MAJOR DIAGNOSTIC PROCEDURE FOR SURGERIES AFTER FALLING OUT DOORS HAD BROKEN BONES REVIEW OF SYSTEMS REVIEWED BY: PROVIDER: TYRON SOMERS-Jeb . CONSTITUTIONAL: ANY CHANGE IN YOUR MEDICAL CONDITION? NO . CHILLS NO . FEVER NO . INFECTION: DO YOU HAVE NEW INFECTIONS? NO . DO YOU HAVE HISTORY OF MRSA? NO . MUSCULOSKELETAL: ANY NEW PATTERNS OF PAIN OR NUMBNESS? NO . GASTROENTEROLOGY: ANY NEW CHANGE IN BOWEL CONTROL? NO . GENITOURINARY: ANY NEW CHANGE IN BLADDER CONTROL? NO . IS THERE A CHANCE YOU COULD BE ? NO . HEMATOLOGY/LYMPH: DO YOU TAKE ANY BLOOD THINNERS? (FOR EXAMPLE- COUMADIN, PLAVIX, AGGRENOX, PLATEL, PRADAXA, OR XARELTO) NO . WHEN WAS YOUR LAST DOSE? DATE: TIME: . NEUROLOGY: HAVE YOU FALLEN IN THE PAST 12 MONTHS? NO . ANY NEW EXTREMITY NUMBNESS OR WEAKNESS? YES, INCREASED WEAKNESS TO BILATERAL ARMS . CARDIOLOGY: DO YOU HAVE A PACEMAKER OR DEFIBRILLATOR? NO . RESPIRATORY: HAVE YOU BEEN SICK IN THE PAST WEEK? YES, STATES HEAD COLD RECENTLY . FEVER NO . FLU LIKE SYMPTOMS? NO . COUGH NO . INTEGUMENTARY: DO YOU HAVE ANY RASHES OR OPEN SORES? NO . ALLERGIC/IMMUNO: ARE YOU ALLERGIC TO IV DYE? YES . ANY NEW ALLERGIES? NO . PSYCHIATRIC: DO YOU HAVE THOUGHTS OF HURTING YOURSELF OR SOMEONE ELSE? NO . ARE YOU ABUSED, NEGLECTED, OR IN AN UNSAFE ENVIRONMENT? NO . ENDOCRINOLOGY: ARE YOU DIABETIC? NO . OTHER: DO YOU NEED ANY PRESCRIPTIONS? NO . IF YES, PLEASE LIST: ____ . ANY NEW PROBLEMS WITH YOUR MEDICATIONS? NO . WHEN DID YOU LAST EAT? ____ . WHEN DID YOU LAST DRINK? ____ . WHAT DID YOU LAST DRINK? ____ . NAME OF PERSON DRIVING YOU HOME? ____ . DO YOU HAVE ANY OTHER QUESTIONS OR CONCERNS YES, STATES SHE IS HURTING SO BAD . VITAL SIGNS WT 192.0 LBS, HT 63 IN, BMI 34.01 INDEX, BP 178/88 MM HG, REPEAT BP 166/88 MANUAL, HR 75 /MIN, RR 18 /MIN, TEMP 97.0 F, OXYGEN SAT % 98%, SAFE IN ENV? (Y/N) YES, NA INITIALS AW 0938, REVIEWED BY: JS. EXAMINATION GENERAL EXAMINATION: GENERALNO ACUTE DISTRESS, WELL NOURISHED AND HYDRATED. PSYCHAPPROPRIATE MOOD AND AFFECT . LUNGS:CLEAR TO AUSCULTATION BILATERALLY, NO WHEEZES, RHONCHI, RALES. HEART:NO MURMURS, REGULAR RATE AND RHYTHM. BACK:POINT TENDER ALONG LUMBAR SPINE, SURROUNDING SKIN SHOWS NO ERYTHEMA, ECCHYMOSIS, INCREASED WARMTH, AND/OR SKIN ERUPTIONS NOTED. POSITIVE BILATERAL MODIFIED SLR . MUSCULOSKELETAL:EQUAL STRENGTH OF LOWER EXTREMITY IS BILATERALLY . ASSESSMENTS SPONDYLOSIS OF LUMBOSACRAL REGION WITHOUT MYELOPATHY OR RADICULOPATHY - M47.817 (PRIMARY) TREATMENT SPONDYLOSIS OF LUMBOSACRAL REGION WITHOUT MYELOPATHY OR RADICULOPATHY INCREASE MELOXICAM TABLET, 15 MG, 1 TABLET, ORALLY, ONCE A DAY, 30 DAYS, 30 NOTES: DIAGNOSTIC FACET BLOCK #2 LEFT SIDE L3-L4 L4-L5. CLINICAL NOTES: 63-YEAR-OLD FEMALE IN FOR WORKER'S COMP. CHRONIC PAIN FOLLOW-UP. GIVEN PRESENTING SYMPTOMS AND RESULTS OF PHYSICAL EXAMINATION RECOMMENDED DIAGNOSTIC FACET BLOCK L3 L4-L5. FURTHER RECOMMENDED INCREASING MELOXICAM TO 15 MG DAILY. PATIENT HAS EXPRESSED UNDERSTANDING OF AND WAS IN AGREEMENT WITH TREATMENT PLAN. GIVEN TIME TO ASK QUESTIONS AND EXPRESS CONCERNS. PROCEDURES PN WORKMANS' COMP OPINION IN YOUR OPINION, WAS THE INCIDENT THAT THE PATIENT DESCRIBED THE COMPETENT MEDICAL CAUSE OF THIS INJURY/ILLNESS? YES ARE THE PATIENT'S COMPLAINTS CONSISTENT WITH HIS/HER HISTORY OF THE INJURY/ILLNESS? YES IS THE PATIENT'S HISTORY OF THE INJURY/ILLNESS CONSISTENT WITH YOUR OBJECTIVE FINDING? YES WHAT IS THE PERCENTAGE OF TEMPORARY IMPAIRMENT? MODERATE TO MARKED = 66.7% IS THE PATIENT WORKING? NO DOCTOR ON SITE: BORA HARRISON MD PROCEDURE CODES FA211 ESTABILISHED PATIENT [facility] CHARGE DISPOSITION & COMMUNICATION FOLLOW UP POSTPROCEDURE (REASON: DIAGNOSTIC FACET BLOCK #2 LEFT SIDE L3-L4 L4-L5) ELECTRONICALLY SIGNED BY LIZBET PONCE ON 09/21/2019 AT 08:26 AM EDT DISCLAIMER : THIS IS A VISIT SUMMARY EXTRACTED FROM THE [employer] CHART. IT IS NOT A COPY OF THE [employer] PROGRESS NOTE. MTDD
== END ==
LOC: M PAIN 09:30
PROVIDERS: ATTEND Family Medicine
DX: M47.817 Spondylosis without myelopathy or radiculopathy, lumbosacral region (principal); M54.2 Cervicalgia; Z79.891 Long term (current) use of opiate analgesic; Z79.899 Other long term (current) drug therapy; Z79.1 Long term (current) use of non-steroidal anti-inflammatories (NSAID); Z88.0 Allergy status to penicillin; Z88.6 Allergy status to analgesic agent; Z91.041 Radiographic dye allergy status; Z88.8 Allergy status to other drugs, medicaments and biological substances; J30.2 Other seasonal allergic rhinitis

== ENCOUNTER → 2019-11-02 | Outpatient (CLI) | payer OTHER ==
[~2019-11-02] MED LIST changes: +BUPIVACAINE HCL 0.25% 30 ML VIAL As Ordered ONE; +ISOVUE-M 300 61% 15ML VIAL (Q9967) As Ordered ONE; +LIDOCAINE 1% SDV INJ 30 ML VIAL As Ordered ONE
--- NOTE | 2019-11-02 15:53 | REP ---
Partial lumbar spine series: Single view. History: Lumbar facet block for pain. 22 seconds of fluoroscopy time is reported. Findings: A single last image hold fluoroscopically obtained spot radiographs of the lumbar spine documents various needle positions associated with lumbar facet injection procedure. Left-sided. Electronically Signed by Bran Wallace MD 11/02/2019 03:54 P
--- NOTE | 2019-11-08 01:43 | ECWPNPC ---
PATIENT NAME: LISA POTTS : 1955 GENDER: FEMALE VISIT DATE: 11/02/2019 DISCHARGE DATE: 11/02/19 1452 VISIT LOCKED DATE TIME: PHYSICIAN: BORA NICE MD RESOURCE: BORA NICE MD REASON FOR APPOINTMENT 1. W/C, DIAGNOSTIC FACET BLOCK #1 LEFT SIDE L4-L5 L5-S1 HISTORY OF PRESENT ILLNESS HISTORY OF PRESENT ILLNESS: PAIN THE PATIENT DESCRIBES THE PAIN... FALL RISK SCREENING: SCREENING :NO FALLS REPORTED IN THE LAST YEAR CURRENT MEDICATIONS TAKING VITAMIN D 1 TABLET 5000 UNITS ORALLY DAILY, NOTES: 10/31/19 TAKING EYE DROPS EXTRA 0.05 % SOLUTION 2 DROP OPHTHALMIC TWICE A DAY AND NEEDED, NOTES: 11/02/19 AM TAKING OMEGA 3 1000 MG CAPSULE 1 CAPSULE ORALLY ONCE A DAY, NOTES: 10/31/19 TAKING MULTI FOR HER 50+ - TABLET 1 TAB ORALLY BID, NOTES: 10/31/19 TAKING TRAMADOL-ACETAMINOPHEN 37.5-325 MG TABLET 2 TABLETS NEEDED ORALLY EVERY 6 HRS PRN MDD 2, NOTES: NONE LATELY TAKING SKELAXIN 800 MG TABLET 1 TABLET ORALLY EVERY 6 HR NEEDED, NOTES: NONE LATELY TAKING VOLTAREN 1 % GEL 1 STRIP TRANSDERMAL QID PRN FOR PAIN, NOTES: LAST WEEK TAKING COLLAGEN 500 MG CAPSULE 2 TABLETS ORALLY DAILY, NOTES: 10/30/19 TAKING MELOXICAM 7.5 MG TABLET DISINTEGRATING 1 TABLET ORALLY ONCE A DAY, NOTES: LAST WEEK NOT-TAKING ALEVE PM 220-25 MG TABLET 1 TAB ORALLY BEFORE BEDTIME NEEDED NOT-TAKING VITAMIN C 500 MG CAPSULE ORALLY NOT-TAKING MAGNESIUM 200 MG TABLET 2 TABLETS WITH A MEAL ORALLY ONCE A DAY NOT-TAKING ACETAMINOPHEN 325 MG TABLET 1 TABLET NEEDED ORALLY EVERY 6 HRS NOT-TAKING CLARITIN 10 MG TABLET 1 TABLET ORALLY ONCE A DAY MEDICATION LIST REVIEWED AND RECONCILED WITH THE PATIENT PAST MEDICAL HISTORY CHRONIC BACK PAIN BILATERAL NECK AND SHOULDER PAIN ALLERGIES GABAPENTIN: SWOLLEN EYE LIDS PUFFY LIPS - ALLERGY CONTRAST MEDIA: FAINT, HEAD FULLNESS, PRESSURE - ALLERGY NAPROXEN: SWOLLEN EYE LIDS PUFFY LIPS - ALLERGY PENICILLIN (FOR ALLERGIES USE ONLY): ABD. PAIN - SIDE EFFECTS SEASONAL ALLERGIES: CONGESTION - ALLERGY SURGICAL HISTORY HYSTERCTOMY D&C BILATERAL CARPAL TUNNEL COLONOSCOPY 08/04/18 FAMILY HISTORY FATHER: , DIAGNOSED WITH DIABETES, HYPERTENSION, OTHER MALIGNANT NEOPLASM OF UNSPECIFIED SITE MOTHER: ALIVE 1 SON(S) , 2 DAUGHTER(S) . DAD-HAIRY CELL LEUKEMIA \NOLDEST DAUGHTER-SMOKER, ALCHOHOLIC, DEPRESSION. SOCIAL HISTORY GENERAL: TOBACCO USE ARE YOU A: NONSMOKER. EDUCATION LEVEL OF EDUCATION:HIGH SCHOOL LANGUAGE LANGUAGES SPOKEN:MACEDONIAN DOMESTIC VIOLENCE DO YOU FEEL SAFE IN YOUR ENVIRONMENT?YES NEW PATIENT PAIN DIARY FROM 0-10, WHAT LEVEL IS YOUR PAIN TODAY? 5. RECREATIONAL DRUG USE DRUG USE?NO LEARNING BARRIERS / SPECIAL NEEDS CHANGE FROM LAST VISIT?NO BARRIERS TO LEARNING?NO HEARING IMPAIRED?NO VISION IMPAIRED?YES :CORRECTIVE LENSES COGNITIVELY IMPAIRED?NO READINESS TO LEARN?YES LEARNING PREFERENCES?NO LEARNING CAPABILITIES PRESENT?YES EMOTIONAL BARRIERS?NO SPECIAL DEVICES?NO APPAREL PATTERNMAKER NEEDED?NO PAIN CLINIC PFS, CLERGY, PUBLIC HEALTH REFERRALS PFS REFERRAL NEEDED?NO CLERGY REFERRAL NEEDED?NO PUBLIC HEALTH REFERRAL NEEDED?NO WAS THE PROVIDER NOTIFIED OF ANY PERTINENT INFO?YES N/A HAS THE PATIENT BEEN EDUCATED REGARDING HIS/HER PLAN OF CARE?YES HAS THE PATIENT BEEN EDUCATED REGARDING PAIN, THE RISK FOR PAIN, THE IMPORTANCE OF EFFECTIVE PAIN MANAGEMENT, AND THE PAIN ASSESSMENT PROCESS?YES LATEX QUESTIONNAIRE LATEX ALLERGY : HAVE YOU EVER DEVELOPED ANY TYPE OF REACTION AFTER HANDLING LATEX PRODUCTS SUCH RUBBER GLOVES, CONDOMS, DIAPHRAGMS, BALLOONS, SOCKS, OR UNDERWEAR?NO LATEX ALLERGY : HAVE YOU EVER DEVELOPED ANY TYPE OF REACTION DURING OR AFTER DENTAL APPOINTMENT, VAGINAL/RECTAL EXAMINATION, SURGICAL PROCEDURE, OR ANY OTHER EXPOSURE?NO LATEX RISK : HAVE YOU EVER HAD ANY DIFFICULTY BREATHING OR HIVES AFTER EATING OR HANDLING ANY FRUITS, OR VEGETABLES; SUCH KIWI, BANANAS, STONE FRUITS, OR CHESTNUTSNO LATEX RISK : DO YOU HAVE A PREVIOUS PERSONAL HISTORY OF MORE THAN NINE SURGERIES, SPINA BIFIDA, OR REPEATED CATHERIZATIONS? NO LATEX RISK : ARE YOU FREQUENTLY EXPOSED TO LATEX PRODUCTS IN YOUR OCCUPATION?NO DATE ASKED : 08/15/2019 CAFFEINE CAFFEINE USE?YES HOW OFTEN AND HOW MUCH? 2 CUPS PER DAY ADVANCE DIRECTIVE ADVANCE DIRECTIVE DISCUSSED WITH PATIENT:YES 10/24/19 PT DOES NOT HAVE ANY ADVANCED DIRECTIVES AND DECLINES INFROMATION ON HCP AT THIS TIME. STATES SHE ALREADY HAS THE INFORMATION ON HCP, ASSISTANCE OFFERED IN COMPLETING IT IF SHE WANTED HELP. JS WORSHIP [id number] LATTER-DAY ALCOHOL SCREENING DID YOU HAVE A DRINK CONTAINING ALCOHOL IN THE PAST YEAR?YES HOW OFTEN DID YOU HAVE SIX OR MORE DRINKS ON ONE OCCASION IN THE PAST YEAR?NEVER (0 POINTS) HOW MANY DRINKS DID YOU HAVE ON A TYPICAL DAY WHEN YOU WERE DRINKING IN THE PAST YEAR?3 OR 4 (1 POINT) HOW OFTEN DID YOU HAVE A DRINK CONTAINING ALCOHOL IN THE PAST YEAR?TWO TO FOUR TIMES A MONTH (2 POINTS) POINTS3 INTERPRETATIONPOSITIVE REVIEWED 05/18/18 1450 LAS08/26/18 0930 REVIEWED WITH PT. AD10/06/18 1225 REVIEWED WITH PT. AD05/01/19 1309 REVIEWED WITH PT BVREVIEWED WITH PATIENT 09/20/19 0951 JSPRE-SCREENING PHONE CALL COMPLETED 10/24/19 1221 JS. HOSPITALIZATION/MAJOR DIAGNOSTIC PROCEDURE FOR SURGERIES AFTER FALLING OUT DOORS HAD BROKEN BONES CHILD REVIEW OF SYSTEMS REVIEWED BY: PROVIDER: . CONSTITUTIONAL: ANY CHANGE IN YOUR MEDICAL CONDITION? NO . CHILLS NO . FEVER NO . INFECTION: DO YOU HAVE NEW INFECTIONS? NO . DO YOU HAVE HISTORY OF MRSA? NO . MUSCULOSKELETAL: ANY NEW PATTERNS OF PAIN OR NUMBNESS? YES . GASTROENTEROLOGY: ANY NEW CHANGE IN BOWEL CONTROL? NO . GENITOURINARY: ANY NEW CHANGE IN BLADDER CONTROL? NO . IS THERE A CHANCE YOU COULD BE ? NO . HEMATOLOGY/LYMPH: DO YOU TAKE ANY BLOOD THINNERS? (FOR EXAMPLE- COUMADIN, PLAVIX, AGGRENOX, PLATEL, PRADAXA, OR XARELTO) NO . WHEN WAS YOUR LAST DOSE? DATE: TIME: . NEUROLOGY: HAVE YOU FALLEN IN THE PAST 12 MONTHS? NO . ANY NEW EXTREMITY NUMBNESS OR WEAKNESS? NO . CARDIOLOGY: DO YOU HAVE A PACEMAKER OR DEFIBRILLATOR? NO . RESPIRATORY: HAVE YOU BEEN SICK IN THE PAST WEEK? NO . FEVER NO . FLU LIKE SYMPTOMS? NO . COUGH NO . INTEGUMENTARY: DO YOU HAVE ANY RASHES OR OPEN SORES? NO . ALLERGIC/IMMUNO: ARE YOU ALLERGIC TO IV DYE? YES . ANY NEW ALLERGIES? NO . PSYCHIATRIC: DO YOU HAVE THOUGHTS OF HURTING YOURSELF OR SOMEONE ELSE? NO . ARE YOU ABUSED, NEGLECTED, OR IN AN UNSAFE ENVIRONMENT? NO . ENDOCRINOLOGY: ARE YOU DIABETIC? NO . OTHER: DO YOU NEED ANY PRESCRIPTIONS? NO . IF YES, PLEASE LIST: ____ . ANY NEW PROBLEMS WITH YOUR MEDICATIONS? NO . WHEN DID YOU LAST EAT? 11/01/191999 . WHEN DID YOU LAST DRINK? 11/02/19 0900 . WHAT DID YOU LAST DRINK? WATER . NAME OF PERSON DRIVING YOU HOME? TREVA . DO YOU HAVE ANY OTHER QUESTIONS OR CONCERNS NO . VITAL SIGNS WT 191.8 LBS, HT 63 IN, BMI 33.97 INDEX, BP 162/83 MM HG, HR 65 /MIN, RR 16 /MIN, TEMP 98.5 F, OXYGEN SAT % 99%, NA INITIALS 11:36, REVIEWED BY: EM. ASSESSMENTS SPONDYLOSIS WITHOUT MYELOPATHY OR RADICULOPATHY, LUMBAR REGION - M47.816 (PRIMARY) SPONDYLOSIS WITHOUT MYELOPATHY OR RADICULOPATHY, LUMBOSACRAL REGION - M47.817 PROCEDURES PN WORKMANS' COMP OPINION IN YOUR OPINION, WAS THE INCIDENT THAT THE PATIENT DESCRIBED THE COMPETENT MEDICAL CAUSE OF THIS INJURY/ILLNESS? YES ARE THE PATIENT'S COMPLAINTS CONSISTENT WITH HIS/HER HISTORY OF THE INJURY/ILLNESS? YES IS THE PATIENT'S HISTORY OF THE INJURY/ILLNESS CONSISTENT WITH YOUR OBJECTIVE FINDING? YES WHAT IS THE PERCENTAGE OF TEMPORARY IMPAIRMENT? MODERATE TO MARKED = 66.7% IS THE PATIENT WORKING? NO DOCTOR ON SITE: BORA HARRISON MD PN LUMBAR FACET BLOCK DIAGNOSTIC PRE PROCEDURE DIAGNOSIS LUMBAR SPONDYLOSIS, LUMBOSACRAL SPONDYLOSIS POST PROCEDURE DIAGNOSIS LUMBAR SPONDYLOSIS, LUMBOSACRAL SPONDYLOSIS PROCEDURE LEFT L4-L5 AND LEFT L5-S1 FACET BLOCK DIAGNOSTIC NUMBER [address] BORA NICE PIERCING ARTIST NONE ANESTHESIA LOCAL PRE PROCEDURE NOTE THE PATIENT WITH HISTORY OF CHRONIC LOW BACK PAIN. I EVALUATED THE PATIENT AND REVIEWED THE CHART. I WENT OVER THE RISKS, ALTERNATIVES, AND BENEFITS ASSOCIATED WITH THIS PROCEDURE. THE PATIENT WOULD LIKE TO PROCEED AND GAVE CONSENT TO PERFORM THE PROCEDURE. AGREED WITH THE PATIENT WE ARE DOING THIS PROCEDURE TO DETERMINE IF THE PATIENT IS A CANDIDATE FOR A RADIOFREQUENCY ABLATION OF THE FACETS JOINTS. THE PATIENT DENIES UNEXPLAINABLE WEIGHT LOSS, FEVER, CHILLS, OR NEW CHANGES IN URINARY OR BOWEL CONTROL DESCRIPTION OF PROCEDURE THE PATIENT WAS BROUGHT TO THE PROCEDURE ROOM AND PLACED IN THE PRONE POSITION. THE LUMBOSACRAL AREA WAS CLEANED WITH CHLORAPREP SOLUTION AND DRAPED ASEPTICALLY. THE PROCEDURE WAS DONE UNDER STERILE CONDITIONS. I CHECKED LATERALITY AND THE LEVEL WHERE THE PROCEDURE WAS GOING TO BE PERFORMED WITH THE PATIENT AND THE SUPPORTING STAFF AT THE MOMENT OF THE TIME OUT IN THE PROCEDURE ROOM. UNDER FLUOROSCOPIC GUIDANCE, TARGETS WERE SELECTED AT THE INTERSECTION OF THE LEFT TRANSVERSE PROCESS OF L4, L5, AND ALA OF S1 WITH ITS RESPECTIVE SUPERIOR ARTICULAR PROCESS. LIDOCAINE WAS USED TO NUMB THE SKIN AND THE SUBCUTANEOUS TISSUE BELOW IT. SPINAL NEEDLE, 22-GAUGE WAS ADVANCED UNDER FLUOROSCOPIC GUIDANCE AND FOLLOWING PATIENT FEEDBACK UNTIL THE TARGETS WERE REACHED. POSITION OF THE NEEDLES WAS VERIFIED WITH AP AND LATERAL VIEWS. THEN A SOLUTION OF 0.4 ML OF BUPIVACAINE 0.25% WAS INJECTED AT EACH SITE. THERE WAS NO EVIDENCE OF BLOOD, PARESTHESIA OR CEREBROSPINAL FLUID DURING THE PROCEDURE. THE PATIENT WAS SENT TO THE RECOVERY ROOM. THE PATIENT WAS MOVING THE EXTREMITIES AND DOING WELL. THERE WAS NO COMPLICATION DURING THE PROCEDURE. FLUOROSCOPY TIME WAS 22 SECONDS POST PROCEDURE NOTE THE PATIENT WILL DOCUMENT HIS PAIN LEVEL AND RESPONSE TO THIS PROCEDURE EVERY 30 MINUTES. THE PATIENT WILL BE SEEN IN A FOLLOW UP IN THE NEXT FEW WEEKS. I AM LOOKING FOR LONG LASTING PAIN RELIEF WITH THIS INTERVENTION. FURTHER DETERMINATION FOR HIS CASE WILL BE DONE AT THE NEXT VISIT. INSTRUCTIONS WERE GIVEN, QUESTIONS WERE ANSWERED, AND THE PATIENT EXPRESSED UNDERSTANDING AND AGREED WITH THE PLAN. I, ANA BALDWIN, DOCUMENTED THE ABOVE INFORMATION ACTING A SCRIBE FOR DR. NICE. I HAVE REVIEWED THE ABOVE DOCUMENT, WRITTEN BY ANA VILLA AND I VERIFY THAT IT IS ACCURATE. DIAGNOSTIC IMAGING [facility] FACET BLOCK (PAIN)[id number] PROCEDURE CODES 38846 INJ PARAVERT F JNT L/S 1 LEV, MODIFI[place]: [place] 98283 INJ PARAVERT F JNT L/S 2 LEV, MODIFIERS: LT 6045F RADXPS IN END [id number] PXD DISPOSITION & COMMUNICATION FOLLOW UP 3 WEEKS ELECTRONICALLY SIGNED BY BORA NICE MD, MD ON 11/07/2019 AT 03:33 PM EST DISCLAIMER : THIS IS A VISIT SUMMARY EXTRACTED FROM THE [employer] CHART. IT IS NOT A COPY OF THE [facility] PROGRESS NOTE. MTDD
== END ==
LOC: M PAIN 11:15
PROVIDERS: ATTEND Anesthesiology
DX: M47.816 Spondylosis without myelopathy or radiculopathy, lumbar region (principal); M47.817 Spondylosis without myelopathy or radiculopathy, lumbosacral region; Z88.0 Allergy status to penicillin; Z88.6 Allergy status to analgesic agent; Z88.8 Allergy status to other drugs, medicaments and biological substances; Z91.041 Radiographic dye allergy status; Z79.899 Other long term (current) drug therapy

== ENCOUNTER → 2019-11-30 | Outpatient (CLI) | payer OTHER ==
[~2019-11-30] MED LIST changes: -BUPIVACAINE HCL 0.25% 30 ML VIAL As Ordered ONE; -ISOVUE-M 300 61% 15ML VIAL (Q9967) As Ordered ONE; -LIDOCAINE 1% SDV INJ 30 ML VIAL As Ordered ONE
--- NOTE | 2019-12-02 03:00 | ECWPNPC ---
PATIENT NAME: LISA POTTS : 1955 GENDER: FEMALE VISIT DATE: 11/30/2019 DISCHARGE DATE: 11/30/19 1022 VISIT LOCKED DATE TIME: PHYSICIAN: MEGAN PALACIO RESOURCE: MEGAN PALACIO REASON FOR APPOINTMENT 1. W/C LOW BACK HISTORY OF PRESENT ILLNESS HISTORY OF PRESENT ILLNESS: PAIN THE PATIENT DESCRIBES THE PAIN... 63-YEAR-OLD FEMALE IN FOR WORKER'S COMP. CHRONIC PAIN FOLLOW-UP. PATIENT RECENTLY HAD A DIAGNOSTIC FACET BLOCK #2 ON THE LEFT SIDE. PATIENT REPORTS GREATER THAN 80% PAIN RELIEF FOR APPROXIMATELY 5 HOURS. SHE RATES HER PAIN CURRENTLY AT A 4-10 OUT OF 10 AND DESCRIBES IT ACHING, BURNING, SORE, TENDER, AND SHOOTING. PATIENT WAS HURT IN A WORK RELATED INJURY BACK IN 2007. FALL RISK SCREENING: SCREENING :NO FALLS REPORTED IN THE LAST YEAR CURRENT MEDICATIONS TAKING VITAMIN D 1 TABLET 5000 UNITS ORALLY DAILY TAKING EYE DROPS EXTRA 0.05 % SOLUTION 2 DROP OPHTHALMIC TWICE A DAY AND NEEDED TAKING OMEGA 3 1000 MG CAPSULE 1 CAPSULE ORALLY ONCE A DAY TAKING MULTI FOR HER 50+ - TABLET 1 TAB ORALLY BID TAKING VOLTAREN 1 % GEL 1 STRIP TRANSDERMAL QID PRN FOR PAIN TAKING COLLAGEN 500 MG CAPSULE 2 TABLETS ORALLY DAILY TAKING TRAMADOL-ACETAMINOPHEN 37.5-325 MG TABLET 2 TABLETS NEEDED ORALLY EVERY 6 HRS PRN MDD 2 TAKING SKELAXIN 800 MG TABLET 1 TABLET ORALLY EVERY 6 HR NEEDED TAKING ALEVE PM 220-25 MG TABLET 1 TAB ORALLY BEFORE BEDTIME NEEDED NOT-TAKING MELOXICAM 7.5 MG TABLET DISINTEGRATING 1 TABLET ORALLY ONCE A DAY NOT-TAKING VITAMIN C 500 MG CAPSULE ORALLY NOT-TAKING MAGNESIUM 200 MG TABLET 2 TABLETS WITH A MEAL ORALLY ONCE A DAY NOT-TAKING ACETAMINOPHEN 325 MG TABLET 1 TABLET NEEDED ORALLY EVERY 6 HRS NOT-TAKING CLARITIN 10 MG TABLET 1 TABLET ORALLY ONCE A DAY MEDICATION LIST REVIEWED AND RECONCILED WITH THE PATIENT PAST MEDICAL HISTORY CHRONIC BACK PAIN BILATERAL NECK AND SHOULDER PAIN ALLERGIES GABAPENTIN: SWOLLEN EYE LIDS PUFFY LIPS - ALLERGY CONTRAST MEDIA: FAINT, HEAD FULLNESS, PRESSURE - ALLERGY NAPROXEN: SWOLLEN EYE LIDS PUFFY LIPS - ALLERGY PENICILLIN (FOR ALLERGIES USE ONLY): ABD. PAIN - SIDE EFFECTS SEASONAL ALLERGIES: CONGESTION - ALLERGY SURGICAL HISTORY HYSTERCTOMY D&C BILATERAL CARPAL TUNNEL COLONOSCOPY 08/04/18 FAMILY HISTORY FATHER: , DIAGNOSED WITH DIABETES, HYPERTENSION, OTHER MALIGNANT NEOPLASM OF UNSPECIFIED SITE MOTHER: ALIVE 1 SON(S) , 2 DAUGHTER(S) . DAD-HAIRY CELL LEUKEMIA \NOLDEST DAUGHTER-SMOKER, ALCHOHOLIC, DEPRESSION. SOCIAL HISTORY GENERAL: TOBACCO USE ARE YOU A: NONSMOKER. EDUCATION LEVEL OF EDUCATION:HIGH SCHOOL LANGUAGE LANGUAGES SPOKEN:SYRIAC DOMESTIC VIOLENCE DO YOU FEEL SAFE IN YOUR ENVIRONMENT?YES NEW PATIENT PAIN DIARY FROM 0-10, WHAT LEVEL IS YOUR PAIN TODAY? 5. RECREATIONAL DRUG USE DRUG USE?NO LEARNING BARRIERS / SPECIAL NEEDS CHANGE FROM LAST VISIT?NO BARRIERS TO LEARNING?NO HEARING IMPAIRED?NO VISION IMPAIRED?YES COGNITIVELY IMPAIRED?NO :CORRECTIVE LENSES READINESS TO LEARN?YES LEARNING PREFERENCES?NO LEARNING CAPABILITIES PRESENT?YES EMOTIONAL BARRIERS?NO SPECIAL DEVICES?NO AIRCRAFT LAUNCH AND RECOVERY TECHNICIAN NEEDED?NO PAIN CLINIC PFS, CLERGY, PUBLIC HEALTH REFERRALS PFS REFERRAL NEEDED?NO CLERGY REFERRAL NEEDED?NO PUBLIC HEALTH REFERRAL NEEDED?NO WAS THE PROVIDER NOTIFIED OF ANY PERTINENT INFO?YES N/A HAS THE PATIENT BEEN EDUCATED REGARDING HIS/HER PLAN OF CARE?YES HAS THE PATIENT BEEN EDUCATED REGARDING PAIN, THE RISK FOR PAIN, THE IMPORTANCE OF EFFECTIVE PAIN MANAGEMENT, AND THE PAIN ASSESSMENT PROCESS?YES LATEX QUESTIONNAIRE LATEX ALLERGY : HAVE YOU EVER DEVELOPED ANY TYPE OF REACTION AFTER HANDLING LATEX PRODUCTS SUCH RUBBER GLOVES, CONDOMS, DIAPHRAGMS, BALLOONS, SOCKS, OR UNDERWEAR?NO LATEX ALLERGY : HAVE YOU EVER DEVELOPED ANY TYPE OF REACTION DURING OR AFTER DENTAL APPOINTMENT, VAGINAL/RECTAL EXAMINATION, SURGICAL PROCEDURE, OR ANY OTHER EXPOSURE?NO DATE ASKED : 08/15/2019 LATEX RISK : HAVE YOU EVER HAD ANY DIFFICULTY BREATHING OR HIVES AFTER EATING OR HANDLING ANY FRUITS, OR VEGETABLES; SUCH KIWI, BANANAS, STONE FRUITS, OR CHESTNUTSNO LATEX RISK : DO YOU HAVE A PREVIOUS PERSONAL HISTORY OF MORE THAN NINE SURGERIES, SPINA BIFIDA, OR REPEATED CATHERIZATIONS? NO LATEX RISK : ARE YOU FREQUENTLY EXPOSED TO LATEX PRODUCTS IN YOUR OCCUPATION?NO CAFFEINE CAFFEINE USE?YES HOW OFTEN AND HOW MUCH? 2 CUPS PER DAY ADVANCE DIRECTIVE ADVANCE DIRECTIVE DISCUSSED WITH PATIENT:YES PT DOES NOT HAVE ANY ADVANCED DIRECTIVES AND DECLINES INFROMATION ON HCP AT THIS TIME. STATES SHE ALREADY HAS THE INFORMATION ON HCP, ASSISTANCE OFFERED IN COMPLETING IT IF SHE WANTED HELP. JAINISM [id number] AMISH ALCOHOL SCREENING DID YOU HAVE A DRINK CONTAINING ALCOHOL IN THE PAST YEAR?YES HOW OFTEN DID YOU HAVE SIX OR MORE DRINKS ON ONE OCCASION IN THE PAST YEAR?NEVER (0 POINTS) HOW MANY DRINKS DID YOU HAVE ON A TYPICAL DAY WHEN YOU WERE DRINKING IN THE PAST YEAR?3 OR 4 (1 POINT) HOW OFTEN DID YOU HAVE A DRINK CONTAINING ALCOHOL IN THE PAST YEAR?TWO TO FOUR TIMES A MONTH (2 POINTS) POINTS3 INTERPRETATIONPOSITIVE REVIEWED 05/18/18 1450 LAS08/26/18 0930 REVIEWED WITH PT. AD10/06/18 1225 REVIEWED WITH PT. AD05/01/19 1309 REVIEWED WITH PT BVREVIEWED WITH PATIENT 09/20/19 0951 JSPRE-SCREENING PHONE CALL COMPLETED 10/24/19 1221 JS. HOSPITALIZATION/MAJOR DIAGNOSTIC PROCEDURE FOR SURGERIES AFTER FALLING OUT DOORS HAD BROKEN BONES CHILD REVIEW OF SYSTEMS REVIEWED BY: PROVIDER: TYRON LARES . CONSTITUTIONAL: ANY CHANGE IN YOUR MEDICAL CONDITION? NO . CHILLS NO . FEVER NO . INFECTION: DO YOU HAVE NEW INFECTIONS? NO . DO YOU HAVE HISTORY OF MRSA? NO . MUSCULOSKELETAL: ANY NEW PATTERNS OF PAIN OR NUMBNESS? NO . GASTROENTEROLOGY: ANY NEW CHANGE IN BOWEL CONTROL? NO . GENITOURINARY: ANY NEW CHANGE IN BLADDER CONTROL? NO . IS THERE A CHANCE YOU COULD BE ? NO . HEMATOLOGY/LYMPH: DO YOU TAKE ANY BLOOD THINNERS? (FOR EXAMPLE- COUMADIN, PLAVIX, AGGRENOX, PLATEL, PRADAXA, OR XARELTO) NO . WHEN WAS YOUR LAST DOSE? DATE: TIME: . NEUROLOGY: HAVE YOU FALLEN IN THE PAST 12 MONTHS? NO . ANY NEW EXTREMITY NUMBNESS OR WEAKNESS? NO . CARDIOLOGY: DO YOU HAVE A PACEMAKER OR DEFIBRILLATOR? NO . RESPIRATORY: HAVE YOU BEEN SICK IN THE PAST WEEK? NO . FEVER NO . FLU LIKE SYMPTOMS? NO . COUGH NO . INTEGUMENTARY: DO YOU HAVE ANY RASHES OR OPEN SORES? NO . ALLERGIC/IMMUNO: ARE YOU ALLERGIC TO IV DYE? YES . ANY NEW ALLERGIES? NO . PSYCHIATRIC: DO YOU HAVE THOUGHTS OF HURTING YOURSELF OR SOMEONE ELSE? NO . ARE YOU ABUSED, NEGLECTED, OR IN AN UNSAFE ENVIRONMENT? NO . ENDOCRINOLOGY: ARE YOU DIABETIC? NO . OTHER: DO YOU NEED ANY PRESCRIPTIONS? TRAMADOL, SKELAXIN . IF YES, PLEASE LIST: ____ . ANY NEW PROBLEMS WITH YOUR MEDICATIONS? NO . WHEN DID YOU LAST EAT? ____ . WHEN DID YOU LAST DRINK? ____ . WHAT DID YOU LAST DRINK? ____ . NAME OF PERSON DRIVING YOU HOME? ____ . DO YOU HAVE ANY OTHER QUESTIONS OR CONCERNS YES, HIP PAIN . VITAL SIGNS WT 198.4 LBS, HT 63 IN, BMI 35.14 INDEX, BP 178/86 MM HG, HR 65 /MIN, RR 18 /MIN, TEMP 96.7 F, OXYGEN SAT % 97%, NA INITIALS AW 0945, REVIEWED BY: EM. EXAMINATION GENERAL EXAMINATION: GENERALNO ACUTE DISTRESS, WELL NOURISHED AND HYDRATED. PSYCHAPPROPRIATE MOOD AND AFFECT . LUNGS:CLEAR TO AUSCULTATION BILATERALLY, NO WHEEZES, RHONCHI, RALES. HEART:NO MURMURS, REGULAR RATE AND RHYTHM. BACK:POINT TENDER ALONG LUMBAR SPINE, SURROUNDING SKIN SHOWS NO ERYTHEMA, ECCHYMOSIS, INCREASED WARMTH, AND/OR SKIN ERUPTIONS NOTED. . ASSESSMENTS SPONDYLOSIS WITHOUT MYELOPATHY OR RADICULOPATHY, LUMBAR REGION - M47.816 (PRIMARY) TREATMENT SPONDYLOSIS WITHOUT MYELOPATHY OR RADICULOPATHY, LUMBAR REGION REFILL SKELAXIN TABLET, 800 MG, 1 TABLET, ORALLY, EVERY 6 HR NEEDED, 30 DAYS, 120 NOTES: RF PROCEDURE LEFT SIDE L4-L5 L5-S1. CLINICAL NOTES: 63-YEAR-OLD FEMALE IN FOR POST DIAGNOSTIC FACET BLOCK #2 FOLLOW-UP. GIVEN PRESENTING SYMPTOMS AND RESULTS OF PHYSICAL EXAMINATION RECOMMENDED SCHEDULING RADIOFREQUENCY FOR PATIENT. PATIENT HAS EXPRESSED UNDERSTANDING OF AND WAS IN AGREEMENT WITH TREATMENT PLAN. GIVEN TIME TO ASK QUESTIONS AND EXPRESS CONCERNS. PROCEDURES PN WORKMANS' COMP OPINION IN YOUR OPINION, WAS THE INCIDENT THAT THE PATIENT DESCRIBED THE COMPETENT MEDICAL CAUSE OF THIS INJURY/ILLNESS? YES ARE THE PATIENT'S COMPLAINTS CONSISTENT WITH HIS/HER HISTORY OF THE INJURY/ILLNESS? YES IS THE PATIENT'S HISTORY OF THE INJURY/ILLNESS CONSISTENT WITH YOUR OBJECTIVE FINDING? YES WHAT IS THE PERCENTAGE OF TEMPORARY IMPAIRMENT? MODERATE TO MARKED = 66.7% IS THE PATIENT WORKING? NO DOCTOR ON SITE: BORA HARRISON MD PROCEDURE CODES FA211 ESTABILISHED PATIENT [facility] CHARGE DISPOSITION & COMMUNICATION FOLLOW UP POSTPROCEDURE (REASON: RF PROCEDURE LEFT SIDE L4-L5 L5-S1) ELECTRONICALLY SIGNED BY LIZBET PONCE ON 12/01/2019 AT 02:01 PM EST DISCLAIMER : THIS IS A VISIT SUMMARY EXTRACTED FROM THE [employer] CHART. IT IS NOT A COPY OF THE [employer] PROGRESS NOTE. PEDRO
== END ==
LOC: M PAIN 09:30
PROVIDERS: ATTEND Family Medicine
DX: M47.816 Spondylosis without myelopathy or radiculopathy, lumbar region (principal)

== ENCOUNTER → 2020-01-24 | Outpatient (CLI) | payer OTHER ==
[~2020-01-24] MED LIST changes: +BUPIVACAINE HCL 0.25% 30 ML VIAL As Ordered ONE; +LIDOCAINE 1% SDV INJ 30 ML VIAL As Ordered ONE; +TRIAMCINOLONE ACETONIDE SUSP 40 MG/ML VIAL (J3301) As Ordered ONE
--- NOTE | 2020-01-24 15:25 | REP ---
C-ARM VIEWS LOWER LUMBAR SPINE: Clinical history: Pain. 7 C-Arm views of lower lumbar spine performed during injection by Dr. Bynum. Several needles are seen along the lower lumbar spine. 63 seconds fluoroscopy time utilized. Electronically Signed by Rogelio Mccrary MD 01/24/2020 04:15 P
--- NOTE | 2020-01-31 05:14 | ECWPNPC ---
PATIENT NAME: LISA POTTS : 1955 GENDER: FEMALE VISIT DATE: 01/24/2020 DISCHARGE DATE: 01/24/20 1412 VISIT LOCKED DATE TIME: PHYSICIAN: BORA NICE MD RESOURCE: BORA NICE MD REASON FOR APPOINTMENT 1. COOL RF LEFT SIDE L4-L5 L5-S1 HISTORY OF PRESENT ILLNESS HISTORY OF PRESENT ILLNESS: PAIN THE PATIENT DESCRIBES THE PAIN... FALL RISK SCREENING: SCREENING :NO FALLS REPORTED IN THE LAST YEAR CURRENT MEDICATIONS TAKING VITAMIN D 1 TABLET 5000 UNITS ORALLY DAILY, NOTES: 01/22/2020 1700 TAKING EYE DROPS EXTRA 0.05 % SOLUTION 2 DROP OPHTHALMIC TWICE A DAY AND NEEDED, NOTES: 01/24/2020 0730 TAKING OMEGA 3 1000 MG CAPSULE 1 CAPSULE ORALLY ONCE A DAY, NOTES: 01/23/2020 1700 TAKING MULTI FOR HER 50+ - TABLET 1 TAB ORALLY BID, NOTES: HAS NOT USED LATELY TAKING VOLTAREN 1 % GEL 1 STRIP TRANSDERMAL QID PRN FOR PAIN, NOTES: HAS NOT USED LATELY TAKING COLLAGEN 500 MG CAPSULE 2 TABLETS ORALLY DAILY, NOTES: HAS NOT BEEN TAKING TAKING TRAMADOL-ACETAMINOPHEN 37.5-325 MG TABLET 2 TABLETS NEEDED ORALLY EVERY 6 HRS PRN MDD 2, NOTES: DOES NOT HAVE ANYMORE TAKING ALEVE PM 220-25 MG TABLET 1 TAB ORALLY BEFORE BEDTIME NEEDED, NOTES: 4-5 DAYS AGO TAKING SKELAXIN 800 MG TABLET 1 TABLET ORALLY EVERY 6 HR NEEDED, NOTES: DOES NOT HAVE NOT-TAKING MELOXICAM 7.5 MG TABLET DISINTEGRATING 1 TABLET ORALLY ONCE A DAY NOT-TAKING VITAMIN C 500 MG CAPSULE ORALLY NOT-TAKING MAGNESIUM 200 MG TABLET 2 TABLETS WITH A MEAL ORALLY ONCE A DAY NOT-TAKING ACETAMINOPHEN 325 MG TABLET 1 TABLET NEEDED ORALLY EVERY 6 HRS NOT-TAKING CLARITIN 10 MG TABLET 1 TABLET ORALLY ONCE A DAY MEDICATION LIST REVIEWED AND RECONCILED WITH THE PATIENT PAST MEDICAL HISTORY CHRONIC BACK PAIN BILATERAL NECK AND SHOULDER PAIN ALLERGIES GABAPENTIN: SWOLLEN EYE LIDS PUFFY LIPS - ALLERGY CONTRAST MEDIA: FAINT, HEAD FULLNESS, PRESSURE - ALLERGY NAPROXEN: SWOLLEN EYE LIDS PUFFY LIPS - ALLERGY PENICILLIN (FOR ALLERGIES USE ONLY): ABD. PAIN - SIDE EFFECTS SEASONAL ALLERGIES: CONGESTION - ALLERGY SURGICAL HISTORY HYSTERCTOMY D&C BILATERAL CARPAL TUNNEL COLONOSCOPY 08/04/18 FAMILY HISTORY FATHER: , DIAGNOSED WITH HYPERTENSION, OTHER MALIGNANT NEOPLASM OF UNSPECIFIED SITE, DIABETES MOTHER: ALIVE 1 SON(S) , 2 DAUGHTER(S) . DAD-HAIRY CELL LEUKEMIA \NOLDEST DAUGHTER-SMOKER, ALCHOHOLIC, DEPRESSION. SOCIAL HISTORY GENERAL: TOBACCO USE ARE YOU A: NONSMOKER. EDUCATION LEVEL OF EDUCATION:HIGH SCHOOL LANGUAGE LANGUAGES SPOKEN:NEPALESE DOMESTIC VIOLENCE DO YOU FEEL SAFE IN YOUR ENVIRONMENT?YES NEW PATIENT PAIN DIARY FROM 0-10, WHAT LEVEL IS YOUR PAIN TODAY? 5. RECREATIONAL DRUG USE DRUG USE?NO PATIENT DENIES ABUSE OR MISSUSED OF ANY MEDICATION DENIES PATIENT DENIES USE OF ANY ILLEGAL SUBSTANCE INCLUDING MARIJUANA OR COCAINE DENIES LEARNING BARRIERS / SPECIAL NEEDS CHANGE FROM LAST VISIT?NO BARRIERS TO LEARNING?NO HEARING IMPAIRED?NO VISION IMPAIRED?YES COGNITIVELY IMPAIRED?NO :CORRECTIVE LENSES READINESS TO LEARN?YES LEARNING PREFERENCES?NO LEARNING CAPABILITIES PRESENT?YES EMOTIONAL BARRIERS?NO SPECIAL DEVICES?NO CUSTOM MOTORCYCLE PAINTER NEEDED?NO PAIN CLINIC PFS, CLERGY, PUBLIC HEALTH REFERRALS PFS REFERRAL NEEDED?NO CLERGY REFERRAL NEEDED?NO PUBLIC HEALTH REFERRAL NEEDED?NO WAS THE PROVIDER NOTIFIED OF ANY PERTINENT INFO?YES N/A HAS THE PATIENT BEEN EDUCATED REGARDING HIS/HER PLAN OF CARE?YES HAS THE PATIENT BEEN EDUCATED REGARDING PAIN, THE RISK FOR PAIN, THE IMPORTANCE OF EFFECTIVE PAIN MANAGEMENT, AND THE PAIN ASSESSMENT PROCESS?YES LATEX QUESTIONNAIRE LATEX ALLERGY : HAVE YOU EVER DEVELOPED ANY TYPE OF REACTION AFTER HANDLING LATEX PRODUCTS SUCH RUBBER GLOVES, CONDOMS, DIAPHRAGMS, BALLOONS, SOCKS, OR UNDERWEAR?NO LATEX ALLERGY : HAVE YOU EVER DEVELOPED ANY TYPE OF REACTION DURING OR AFTER DENTAL APPOINTMENT, VAGINAL/RECTAL EXAMINATION, SURGICAL PROCEDURE, OR ANY OTHER EXPOSURE?NO LATEX RISK : HAVE YOU EVER HAD ANY DIFFICULTY BREATHING OR HIVES AFTER EATING OR HANDLING ANY FRUITS, OR VEGETABLES; SUCH KIWI, BANANAS, STONE FRUITS, OR CHESTNUTSNO LATEX RISK : DO YOU HAVE A PREVIOUS PERSONAL HISTORY OF MORE THAN NINE SURGERIES, SPINA BIFIDA, OR REPEATED CATHERIZATIONS? NO LATEX RISK : ARE YOU FREQUENTLY EXPOSED TO LATEX PRODUCTS IN YOUR OCCUPATION?NO DATE ASKED : 01/15/2020 CAFFEINE CAFFEINE USE?YES HOW OFTEN AND HOW MUCH? 2 CUPS PER DAY ADVANCE DIRECTIVE ADVANCE DIRECTIVE DISCUSSED WITH PATIENT:YES PT DOES NOT HAVE ANY ADVANCED DIRECTIVES AND DECLINES INFROMATION ON HCP AT THIS TIME. STATES SHE ALREADY HAS THE INFORMATION ON HCP, ASSISTANCE OFFERED IN COMPLETING IT IF SHE WANTED HELP. MOSQUE [id number] ZOROASTRIANISM ALCOHOL SCREENING DID YOU HAVE A DRINK CONTAINING ALCOHOL IN THE PAST YEAR?YES HOW OFTEN DID YOU HAVE A DRINK CONTAINING ALCOHOL IN THE PAST YEAR?MONTHLY OR LESS (1 POINT) HOW MANY DRINKS DID YOU HAVE ON A TYPICAL DAY WHEN YOU WERE DRINKING IN THE PAST YEAR?3 OR 4 (1 POINT) HOW OFTEN DID YOU HAVE SIX OR MORE DRINKS ON ONE OCCASION IN THE PAST YEAR?NEVER (0 POINTS) POINTS2 INTERPRETATIONNEGATIVE REVIEWED 05/18/18 1450 LAS08/26/18 0930 REVIEWED WITH PT. AD10/06/18 1225 REVIEWED WITH PT. AD05/01/19 1309 REVIEWED WITH PT BVREVIEWED WITH PATIENT 09/20/19 0951 JSPRE-SCREENING PHONE CALL COMPLETED 10/24/19 1221 JSPRE PROCEDURE PHONE CALL COMPLETED 01/15/2020 1412 NLJ. HOSPITALIZATION/MAJOR DIAGNOSTIC PROCEDURE FOR SURGERIES AFTER FALLING OUT DOORS HAD BROKEN BONES CHILD REVIEW OF SYSTEMS REVIEWED BY: PROVIDER: . CONSTITUTIONAL: ANY CHANGE IN YOUR MEDICAL CONDITION? NO . CHILLS NO . FEVER NO . INFECTION: DO YOU HAVE NEW INFECTIONS? NO . DO YOU HAVE HISTORY OF MRSA? NO . MUSCULOSKELETAL: ANY NEW PATTERNS OF PAIN OR NUMBNESS? NO . GASTROENTEROLOGY: ANY NEW CHANGE IN BOWEL CONTROL? NO . GENITOURINARY: ANY NEW CHANGE IN BLADDER CONTROL? NO . IS THERE A CHANCE YOU COULD BE ? NO . HEMATOLOGY/LYMPH: DO YOU TAKE ANY BLOOD THINNERS? (FOR EXAMPLE- COUMADIN, PLAVIX, AGGRENOX, PLATEL, PRADAXA, OR XARELTO) NO . WHEN WAS YOUR LAST DOSE? DATE: TIME: . NEUROLOGY: HAVE YOU FALLEN IN THE PAST 12 MONTHS? NO . ANY NEW EXTREMITY NUMBNESS OR WEAKNESS? NO . CARDIOLOGY: DO YOU HAVE A PACEMAKER OR DEFIBRILLATOR? NO . RESPIRATORY: HAVE YOU BEEN SICK IN THE PAST WEEK? NO . FEVER NO . FLU LIKE SYMPTOMS? NO . COUGH NO . INTEGUMENTARY: DO YOU HAVE ANY RASHES OR OPEN SORES? NO . ALLERGIC/IMMUNO: ARE YOU ALLERGIC TO IV DYE? YES . ANY NEW ALLERGIES? NO . PSYCHIATRIC: DO YOU HAVE THOUGHTS OF HURTING YOURSELF OR SOMEONE ELSE? NO . ARE YOU ABUSED, NEGLECTED, OR IN AN UNSAFE ENVIRONMENT? NO . ENDOCRINOLOGY: ARE YOU DIABETIC? NO . OTHER: DO YOU NEED ANY PRESCRIPTIONS? NO . IF YES, PLEASE LIST: ____ . ANY NEW PROBLEMS WITH YOUR MEDICATIONS? NO . WHEN DID YOU LAST EAT? 01/23/2020 2200 . WHEN DID YOU LAST DRINK? 01/24/2020 0730 . WHAT DID YOU LAST DRINK? WATER . NAME OF PERSON DRIVING YOU HOME? HERB DELROY . DO YOU HAVE ANY OTHER QUESTIONS OR CONCERNS YES- CAN NOT GET PAIN MEDS . VITAL SIGNS WT 198.0 LBS, HT 63 IN, BMI 35.07 INDEX, BP 164/74 MM HG, HR 66 /MIN, RR 18 /MIN, TEMP 98.0 F, OXYGEN SAT % 98%, SAFE IN ENV? (Y/N) YES, NA INITIALS AW 1025, REVIEWED BY: DAVID. 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 PROCEDURES PN RADIOFREQUENCY PRE PROCEDURE DIAGNOSES 1. LUMBAR SPONDYLOSIS. 2. LUMBOSACRAL SPONDYLOSIS POST PROCEDURE DIAGNOSES 1. LUMBAR SPONDYLOSIS. 2. LUMBOSACRAL SPONDYLOSIS PROCEDURE LEFT L4-L5 AND LEFT L5-S1 LUMBAR FACET RADIOFREQUENCY SURGEON DR. BORA NICE GATHERING MACHINE FEEDER NONE ANESTHESIA LOCAL PRE PROCEDURE REPORT THE PATIENT HAS HISTORY OF CHRONIC LOW BACK PAIN. I EVALUATED THE PATIENT AND REVIEWED THE CHART. I WENT OVER THE RISKS, ALTERNATIVES, AND BENEFITS ASSOCIATED WITH THIS PROCEDURE. THE PATIENT WOULD LIKE TO PROCEED AND GIVES CONSENT TO PERFORM THE PROCEDURE. THE PATIENT DENIES UNEXPLAINABLE WEIGHT LOSS, FEVER, CHILLS, OR NEW CHANGES IN URINARY OR BOWEL CONTROL DESCRIPTION OF PROCEDURE THE PATIENT WAS BROUGHT TO THE PROCEDURE ROOM AND PLACED IN THE PRONE POSITION. THE LUMBOSACRAL AREA WAS CLEANED WITH CHLORAPREP SOLUTION AND DRAPED ASEPTICALLY. THE PROCEDURE WAS DONE UNDER STERILE CONDITIONS. I CHECKED LATERALITY AND THE LEVEL WHERE THE PROCEDURE WAS GOING TO BE PERFORMED WITH THE PATIENT AND THE SUPPORTING STAFF AT THE MOMENT OF THE TIME OUT IN THE PROCEDURE ROOM. UNDER FLUOROSCOPIC GUIDANCE, TARGETS WERE SELECTED AT THE INTERSECTION OF THE LEFT TRANSVERSE PROCESS OF L4, L5 AND ALA OF S1 WITH ITS RESPECTIVE SUPERIOR ARTICULAR PROCESS. LIDOCAINE WAS USED TO NUMB THE SKIN AND THE SUBCUTANEOUS TISSUE BELOW IT. RADIOFREQUENCY NEEDLES 17-GAUGE 15 CM LONG WITH 4 MM ACTIVE TIP WERE ADVANCED UNDER FLUOROSCOPIC GUIDANCE AND FOLLOWING PATIENT FEEDBACK UNTIL THE TARGET AREA WAS REACHED. POSITION OF THE NEEDLES WAS VERIFIED WITH AP AND LATERAL VIEWS. AFTER PROPER POSITION OF THE NEEDLE WAS ACHIEVED, WE WORKED WITH THE LEFT SELECTED MEDIAN BRANCHES OF L3, L4 AND THE DORSAL RAMI OF L5. WE MEASURED THE CORRESPONDING IMPEDANCES, SENSORY STIMULATION AND MOTOR RESPONSES INDICATED IN THE RADIOFREQUENCY WORKSHEET. POSITION OF THE NEEDLES WAS VERIFIED AGAIN WITH AP AND LATERAL VIEWS. LIDOCAINE 1%, 2 ML, WAS INJECTED AT EACH LEVEL. RADIOFREQUENCY WAS DONE AT EACH LEVEL USING THE [employer] SYSTEM- COOLED RF- WITH A SETTING AT THE MACHINE OF 60 DEGREES WITH A TARGET TISSUE TEMPERATURE OF 80 TO 90 DEGREES FOR A MINIMUM OF 150 SECONDS. AFTER RADIOFREQUENCY WAS DONE, THE PATIENT RECEIVED BUPIVACAINE 0.125% 1 CC WITH KENALOG 5 MG AT EACH SITE. THERE WAS NO EVIDENCE OF BLOOD, PARESTHESIA OR CEREBROSPINAL FLUID DURING THE PROCEDURE. THE PATIENT WAS SENT TO THE RECOVERY ROOM. THE PATIENT WAS MOVING THE EXTREMITIES AND DOING WELL. THERE WAS NO COMPLICATION DURING THE PROCEDURE. FLUOROSCOPY TIME WAS 1 MINUTE 3 SECONDS POST PROCEDURE NOTE THE PATIENT WILL BE SEEN IN A FOLLOW UP IN THE NEXT FEW WEEKS. INSTRUCTIONS WERE GIVEN, QUESTIONS WERE ANSWERED, AND THE PATIENT EXPRESSED UNDERSTANDING AND AGREES WITH THE PLAN. I, ANA BALDWIN, DOCUMENTED THE ABOVE INFORMATION ACTING A SCRIBE FOR DR. NICE. I HAVE REVIEWED THE ABOVE DOCUMENT, WRITTEN BY ANA VILLA AND I VERIFY THAT IT IS ACCURATE. PN WORKMANS' COMP OPINION IN YOUR OPINION, WAS THE INCIDENT THAT THE PATIENT DESCRIBED THE COMPETENT MEDICAL CAUSE OF THIS INJURY/ILLNESS? YES ARE THE PATIENT'S COMPLAINTS CONSISTENT WITH HIS/HER HISTORY OF THE INJURY/ILLNESS? YES IS THE PATIENT'S HISTORY OF THE INJURY/ILLNESS CONSISTENT WITH YOUR OBJECTIVE FINDING? YES WHAT IS THE PERCENTAGE OF TEMPORARY IMPAIRMENT? MODERATE TO MARKED = 66.7% IS THE PATIENT WORKING? NO DOCTOR ON SITE: BORA HARRISON MD PROCEDURE CODES 84040 DESTROY LUMB/SAC FACET JNT, [place]: [place] [address] DESTROY L/S FACET JNT ADDL, MODIFIERS: LT 6045F RADXPS IN END [id number] PXD DISPOSITION & COMMUNICATION FOLLOW UP 3 WEEKS ELECTRONICALLY SIGNED BY BORA NICE MD, MD ON 01/30/2020 AT 01:00 PM EDT DISCLAIMER : THIS IS A VISIT SUMMARY EXTRACTED FROM THE [employer] CHART. IT IS NOT A COPY OF THE [employer] PROGRESS NOTE. PEDRO
== END ==
LOC: M PAIN 10:30
PROVIDERS: ATTEND Anesthesiology
DX: M47.816 Spondylosis without myelopathy or radiculopathy, lumbar region (principal); M47.817 Spondylosis without myelopathy or radiculopathy, lumbosacral region
CPT/HCPCS: 64635; 64636; J3301

== ENCOUNTER → 2020-03-19 | Outpatient (CLI) | payer OTHER ==
[~2020-03-19] MED LIST changes: -BUPIVACAINE HCL 0.25% 30 ML VIAL As Ordered ONE; -LIDOCAINE 1% SDV INJ 30 ML VIAL As Ordered ONE; -TRIAMCINOLONE ACETONIDE SUSP 40 MG/ML VIAL (J3301) As Ordered ONE
--- NOTE | 2020-03-21 02:39 | ECWPNPC ---
PATIENT NAME: LISA POTTS : 1955 GENDER: FEMALE VISIT DATE: 03/19/2020 DISCHARGE DATE: 03/19/20 1228 VISIT LOCKED DATE TIME: PHYSICIAN: MEGAN PALACIO RESOURCE: MEGAN PALACIO REASON FOR APPOINTMENT 1. [phone] POST LEFT RF HISTORY OF PRESENT ILLNESS HISTORY OF PRESENT ILLNESS: PAIN THE PATIENT DESCRIBES THE PAIN... PERMISSION REQUESTED AND RECEIVED FOR PATIENT TO PERFORM TELEPHONE VISIT. 64-YEAR-OLD FEMALE IN FOR CHRONIC PAIN FOLLOW-UP. SHE RATES HER PAIN CURRENTLY AT A 3-5 OUT OF 10 AND DESCRIBES IT ACHING AND SORE. SHE FURTHER STATES THE PAIN DOES INCREASE UPON ACTIVITY. SHE WOULD LIKE TO DISCUSS MEDICATIONS TO HELP CONTROL HER SYMPTOMS. FALL RISK SCREENING: SCREENING :NO FALLS REPORTED IN THE LAST YEAR CURRENT MEDICATIONS UNKNOWN VITAMIN D 1 TABLET 5000 UNITS ORALLY DAILY UNKNOWN EYE DROPS EXTRA 0.05 % SOLUTION 2 DROP OPHTHALMIC TWICE A DAY AND NEEDED UNKNOWN OMEGA 3 1000 MG CAPSULE 1 CAPSULE ORALLY ONCE A DAY UNKNOWN MULTI FOR HER 50+ - TABLET 1 TAB ORALLY BID, NOTES: HAS NOT USED LATELY UNKNOWN VOLTAREN 1 % GEL 1 STRIP TRANSDERMAL QID PRN FOR PAIN, NOTES: HAS NOT USED LATELY UNKNOWN COLLAGEN 500 MG CAPSULE 2 TABLETS ORALLY DAILY UNKNOWN ALEVE PM 220-25 MG TABLET 1 TAB ORALLY BEFORE BEDTIME NEEDED UNKNOWN IBUPROFEN 800 MG TABLET 1 TABLET WITH FOOD OR MILK NEEDED ORALLY THREE TIMES A DAY PRN UNKNOWN SKELAXIN 800 MG TABLET 1 TABLET ORALLY EVERY 6 HR NEEDED, NOTES: DOES NOT HAVE UNKNOWN TRAMADOL-ACETAMINOPHEN 37.5-325 MG TABLET 2 TABLETS NEEDED ORALLY EVERY 6 HRS PRN MDD 2, NOTES: DOES NOT HAVE ANYMORE UNKNOWN MELOXICAM 7.5 MG TABLET DISINTEGRATING 1 TABLET ORALLY ONCE A DAY UNKNOWN VITAMIN C 500 MG CAPSULE ORALLY UNKNOWN MAGNESIUM 200 MG TABLET 2 TABLETS WITH A MEAL ORALLY ONCE A DAY UNKNOWN ACETAMINOPHEN 325 MG TABLET 1 TABLET NEEDED ORALLY EVERY 6 HRS UNKNOWN CLARITIN 10 MG TABLET 1 TABLET ORALLY ONCE A DAY MEDICATION LIST REVIEWED AND RECONCILED WITH THE PATIENT PAST MEDICAL HISTORY CHRONIC BACK PAIN BILATERAL NECK AND SHOULDER PAIN ALLERGIES GABAPENTIN: SWOLLEN EYE LIDS PUFFY LIPS - ALLERGY CONTRAST MEDIA: FAINT, HEAD FULLNESS, PRESSURE - ALLERGY NAPROXEN: SWOLLEN EYE LIDS PUFFY LIPS - ALLERGY PENICILLIN (FOR ALLERGIES USE ONLY): ABD. PAIN - SIDE EFFECTS SEASONAL ALLERGIES: CONGESTION - ALLERGY SURGICAL HISTORY HYSTERCTOMY D&C BILATERAL CARPAL TUNNEL COLONOSCOPY 08/04/18 FAMILY HISTORY FATHER: , DIAGNOSED WITH HYPERTENSION, OTHER MALIGNANT NEOPLASM OF UNSPECIFIED SITE, DIABETES MOTHER: ALIVE 1 SON(S) , 2 DAUGHTER(S) . DAD-HAIRY CELL LEUKEMIA \NOLDEST DAUGHTER-SMOKER, ALCHOHOLIC, DEPRESSION. SOCIAL HISTORY GENERAL: TOBACCO USE ARE YOU A: NONSMOKER. LATEX QUESTIONNAIRE LATEX ALLERGY : HAVE YOU EVER DEVELOPED ANY TYPE OF REACTION AFTER HANDLING LATEX PRODUCTS SUCH RUBBER GLOVES, CONDOMS, DIAPHRAGMS, BALLOONS, SOCKS, OR UNDERWEAR?NO LATEX ALLERGY : HAVE YOU EVER DEVELOPED ANY TYPE OF REACTION DURING OR AFTER DENTAL APPOINTMENT, VAGINAL/RECTAL EXAMINATION, SURGICAL PROCEDURE, OR ANY OTHER EXPOSURE?NO LATEX RISK : HAVE YOU EVER HAD ANY DIFFICULTY BREATHING OR HIVES AFTER EATING OR HANDLING ANY FRUITS, OR VEGETABLES; SUCH KIWI, BANANAS, STONE FRUITS, OR CHESTNUTSNO LATEX RISK : DO YOU HAVE A PREVIOUS PERSONAL HISTORY OF MORE THAN NINE SURGERIES, SPINA BIFIDA, OR REPEATED CATHERIZATIONS? NO LATEX RISK : ARE YOU FREQUENTLY EXPOSED TO LATEX PRODUCTS IN YOUR OCCUPATION?NO DATE ASKED : 03/18/2020 ALCOHOL SCREENING DID YOU HAVE A DRINK CONTAINING ALCOHOL IN THE PAST YEAR?YES HOW OFTEN DID YOU HAVE SIX OR MORE DRINKS ON ONE OCCASION IN THE PAST YEAR?NEVER (0 POINTS) HOW MANY DRINKS DID YOU HAVE ON A TYPICAL DAY WHEN YOU WERE DRINKING IN THE PAST YEAR?3 OR 4 (1 POINT) HOW OFTEN DID YOU HAVE A DRINK CONTAINING ALCOHOL IN THE PAST YEAR?MONTHLY OR LESS (1 POINT) POINTS2 INTERPRETATIONNEGATIVE RECREATIONAL DRUG USE DRUG USE?NO PATIENT DENIES ABUSE OR MISSUSED OF ANY MEDICATION DENIES PATIENT DENIES USE OF ANY ILLEGAL SUBSTANCE INCLUDING MARIJUANA OR COCAINE DENIES CAFFEINE CAFFEINE USE?YES HOW OFTEN AND HOW MUCH? 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 NEW PATIENT PAIN DIARY TODAY'S VISIT 03/18/2020 PATIENT DESCRIBES PAIN :ACHING, HAVE IT ALL THE TIME, IT COMES AND GOES, SHARP, STABBING, TENDER, THROBBING, SORE, SHOOTING FROM 0-10, WHAT LEVEL IS YOUR PAIN TODAY?5 PAIN CLINIC PFS, CLERGY, PUBLIC HEALTH REFERRALS PFS REFERRAL NEEDED?NO CLERGY REFERRAL NEEDED?NO PUBLIC HEALTH REFERRAL NEEDED?NO WAS THE PROVIDER NOTIFIED OF ANY PERTINENT INFO?YES N/A HAS THE PATIENT BEEN EDUCATED REGARDING HIS/HER PLAN OF CARE?YES HAS THE PATIENT BEEN EDUCATED REGARDING PAIN, THE RISK FOR PAIN, THE IMPORTANCE OF EFFECTIVE PAIN MANAGEMENT, AND THE PAIN ASSESSMENT PROCESS?YES ADVANCE DIRECTIVE ADVANCE DIRECTIVE DISCUSSED WITH PATIENT:YES PT DOES NOT HAVE ANY ADVANCED DIRECTIVES AND DECLINES INFROMATION ON HCP AT THIS TIME. STATES SHE ALREADY HAS THE INFORMATION ON HCP, ASSISTANCE OFFERED IN COMPLETING IT IF SHE WANTED HELP. HOSPITALIZATION/MAJOR DIAGNOSTIC PROCEDURE FOR SURGERIES AFTER FALLING OUT DOORS HAD BROKEN BONES CHILD REVIEW OF SYSTEMS REVIEWED BY: PROVIDER: TYRON LARES . CONSTITUTIONAL: ANY CHANGE IN YOUR MEDICAL CONDITION? NO . CHILLS NO . FEVER NO . INFECTION: DO YOU HAVE NEW INFECTIONS? YES, PT STATES THAT SHE WAS HAVING ISSUES WITH SINUS INFECTION, SORE THROAT. PT HAS NOT GONE TO GET MEDICATIONS AT THIS POINT. DS . DO YOU HAVE HISTORY OF MRSA? NO . MUSCULOSKELETAL: ANY NEW PATTERNS OF PAIN OR NUMBNESS? YES, PT STATES THAT SHE WAS HAVING ISSUES ON RIGHT SIDE AFTER DOING SOME GARDENING FOR APPROXIMATELY 1 WEEK. PAIN HAS RESOLVED SINCE. DS . GASTROENTEROLOGY: ANY NEW CHANGE IN BOWEL CONTROL? NO . GENITOURINARY: ANY NEW CHANGE IN BLADDER CONTROL? NO . IS THERE A CHANCE YOU COULD BE ? NO . HEMATOLOGY/LYMPH: DO YOU TAKE ANY BLOOD THINNERS? (FOR EXAMPLE- COUMADIN, PLAVIX, AGGRENOX, PLATEL, PRADAXA, OR XARELTO) NO . WHEN WAS YOUR LAST DOSE? DATE: TIME: . NEUROLOGY: HAVE YOU FALLEN IN THE PAST 12 MONTHS? NO . ANY NEW EXTREMITY NUMBNESS OR WEAKNESS? NO . CARDIOLOGY: DO YOU HAVE A PACEMAKER OR DEFIBRILLATOR? NO . RESPIRATORY: HAVE YOU BEEN SICK IN THE PAST WEEK? NO . FEVER NO . FLU LIKE SYMPTOMS? NO . COUGH NO . INTEGUMENTARY: DO YOU HAVE ANY RASHES OR OPEN SORES? NO . ALLERGIC/IMMUNO: ARE YOU ALLERGIC TO IV DYE? NO . ANY NEW ALLERGIES? NO . PSYCHIATRIC: DO YOU HAVE THOUGHTS OF HURTING YOURSELF OR SOMEONE ELSE? NO . ARE YOU ABUSED, NEGLECTED, OR IN AN UNSAFE ENVIRONMENT? NO . ENDOCRINOLOGY: ARE YOU DIABETIC? NO . OTHER: DO YOU NEED ANY PRESCRIPTIONS? NO . IF YES, PLEASE LIST: ____ . ANY NEW PROBLEMS WITH YOUR MEDICATIONS? NO . WHEN DID YOU LAST EAT? ____ . WHEN DID YOU LAST DRINK? ____ . WHAT DID YOU LAST DRINK? ____ . NAME OF PERSON DRIVING YOU HOME? ____ . DO YOU HAVE ANY OTHER QUESTIONS OR CONCERNS PT STATES THAT SHE HAD BURNING/FROZEN PAIN IN LOW BACK AND DOWN LEG FOR APPROXIMATELY 1 MONTH, PAIN DECREASED OVER THE NEXT MONTH. . EXAMINATION GENERAL EXAMINATION: PSYCHAPPROPRIATE MOOD AND AFFECT , ORIENTED X 3. 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 GIVEN PRESENTING SYMPTOMS RECOMMENDED MRI OF THE LUMBAR SPINE, AND STARTING TRAMADOL WITH FOLLOW-UP IN 2 MONTHS TO DETERMINE EFFICACY OF TREATMENT. PATIENT HAS EXPRESSED UNDERSTANDING OF AND WAS IN AGREEMENT WITH TREATMENT PLAN. GIVEN TIME TO ASK QUESTIONS AND EXPRESS CONCERNS. , ISTOP REGISTRY REVIEWED AND DEMONSTRATES COMPLLIANCE. (REF # [id number] ) BRINGS IN MEDICATIONS WHICH IS APPROPRIATE FOR WHAT WAS DISPENSED. RECENT URINE TOXICOLOGY REVIEWED. NO UNAUTHORIZED MEDICATIONS. NO ILLICIT SUBSTANCES AND PRESCRIBED MEDICATIONS WERE PRESENT. VISIT TO BE BILLED BASED ON TIME SPENT WITH PATIENT. TIME SPENT WITH PATIENT 11 MINUTES. SPONDYLOSIS WITHOUT MYELOPATHY OR RADICULOPATHY, LUMBAR REGION REFILL SKELAXIN TABLET, 800 MG, 1 TABLET, ORALLY, EVERY 6 HR NEEDED, 30 DAYS, 120, NOTES: DOES NOT HAVE [facility] MRI LUMBAR W/O CONTRAST (CPT 49148)[id number] PREVENTIVE MEDICINE PAIN CLINIC TEACHING: THE PATIENT HAS BEEN EDUCATED REGARDING HIS/HER PLAN OF CARE : PT HAS GIVEN CONSENT FOR PHONE VISIT AND GIVEN APPROVAL TO DISCUSS CARE. DS UNABLE TO OBTAIN VITIAL SIGNS DUE TO PHONE VISIT. NAVEEN DISPOSITION & COMMUNICATION FOLLOW UP 2 MONTHS (REASON: BACK PAIN, LUMBAR MRI ) ELECTRONICALLY SIGNED BY LIZBET PONCE ON 03/20/2020 AT 10:56 AM EDT DISCLAIMER : THIS IS A VISIT SUMMARY EXTRACTED FROM THE [employer] CHART. IT IS NOT A COPY OF THE [employer] PROGRESS NOTE. [place]
== END ==
LOC: M PAIN 11:30
PROVIDERS: ATTEND Family Medicine
DX: M46.1 Sacroiliitis, not elsewhere classified (principal); M47.816 Spondylosis without myelopathy or radiculopathy, lumbar region; G89.29 Other chronic pain; Z88.0 Allergy status to penicillin; Z88.6 Allergy status to analgesic agent; Z88.8 Allergy status to other drugs, medicaments and biological substances; Z91.041 Radiographic dye allergy status; Z79.899 Other long term (current) drug therapy

== ENCOUNTER → 2020-05-09 | Outpatient (CLI) | payer OTHER ==
--- NOTE | 2020-05-14 02:38 | ECWPNPC ---
PATIENT NAME: LISA POTTS : 1955 GENDER: FEMALE VISIT DATE: 05/09/2020 DISCHARGE DATE: 05/09/20 1019 VISIT LOCKED DATE TIME: PHYSICIAN: MEGAN PALACIO RESOURCE: MEGAN PALACIO REASON FOR APPOINTMENT 1. MRI RESULTS W/C HISTORY OF PRESENT ILLNESS GENERAL: - 64-YEAR-OLD FEMALE IN FOR WORKER'S COMP. CHRONIC PAIN FOLLOW-UP. SHE RATES HER PAIN CURRENTLY AT A 5 OUT OF 10 AND DESCRIBES IT SHARP AND SORE. SHE FEELS THE PROCEDURE SHE RECEIVED IN JANUARY CONTINUES TO HELP HER TODAY. SHE FEELS THE MEDICATIONS ARE HELPFUL. PATIENT WAS HURT IN A WORK RELATED INJURY BACK IN 2007. FALL RISK SCREENING: SCREENING :NO FALLS REPORTED IN THE LAST YEAR PAIN SCREENING: PATIENT HAS A COMPLAINT OF ACUTE OR CHRONIC PAIN :YES RIGHT SIDE LOCATION OF PAIN:LOW BACK INTENSITY OF PAIN (SCALE OF 1 TO 10):5 WHAT DOES YOUR PAIN FEEL LIKE:SHARP, SORE DURATION:CONTINOUS, CONSTANT, ALL DAY PAIN IS INCREASED BY:ACTIVITIES, PROLONGED STANDING PAIN IS DECREASED BY:USE OF PAIN MEDICATIONS ICE PACK, REST PAIN HAS INTERFERED WITH THE FOLLOWING:MOOD, RELATIONSHIP WITH OTHERS, ENJOYMENT OF LIFE PLAN/GOALS/TREATMENT/INTERVENTION/FOLLOW UP:SEE PLAN NURSING NOTE: -. PAIN CENTER INTAKE QUESTIONS: DO YOU HAVE A HISTORY OF MRSA? :NO DO YOU TAKE A BLOOD THINNERS? :NO DO YOU HAVE ANY BLEEDING DISORDERS? :NO ANY NEW NUMBNESS OR WEAKNESS IN YOUR LEGS OR ARMS? :NO ANY PACEMAKER,DEFIBRILLATOR, OR DORSAL COLUMN STIMULATOR? :NO DO YOU HAVE ANY RASHES OR OPEN SORES? :NO ARE YOU ALLERGIC TO IV DYE? :YES ARE YOU DIABETIC? :NO ANY NEW PROBLEMS WITH YOUR MEDICATIONS? :NO HAVE YOU RECEIVED A VACCINE IN THE PAST 30 DAYS? :NO DO YOU PLAN TO RECEIVE A VACCINE IN THE NEXT 21 DAYS? :NO DO YOU NEED ANY PRESCRIPTION? :NO DO YOU TAKE ANY IMMUNOSUPPRESSIVE MEDICATIONS? :NO IS THERE A CHANCE YOU COULD BE ? :NO ARE YOU BREAST FEEDING? :NO CURRENT MEDICATIONS TAKING SKELAXIN 800 MG TABLET 1 TABLET ORALLY EVERY 6 HR NEEDED, NOTES: DOES NOT HAVE TAKING TRAMADOL-ACETAMINOPHEN 37.5-325 MG TABLET 1 TABLET ORALLY DAILY NEEDED, NOTES: DOES NOT HAVE ANYMORE TAKING VITAMIN D 1 TABLET 5000 UNITS ORALLY DAILY TAKING EYE DROPS EXTRA 0.05 % SOLUTION 2 DROP OPHTHALMIC TWICE A DAY AND NEEDED TAKING OMEGA 3 1000 MG CAPSULE 1 CAPSULE ORALLY ONCE A DAY TAKING MULTI FOR HER 50+ - TABLET 1 TAB ORALLY BID, NOTES: HAS NOT USED LATELY TAKING VOLTAREN 1 % GEL 1 STRIP TRANSDERMAL QID PRN FOR PAIN, NOTES: HAS NOT USED LATELY TAKING ALEVE PM 220-25 MG TABLET 1 TAB ORALLY BEFORE BEDTIME NEEDED TAKING VITAMIN C 500 MG CAPSULE ORALLY NOT-TAKING COLLAGEN 500 MG CAPSULE 2 TABLETS ORALLY DAILY NOT-TAKING IBUPROFEN 800 MG TABLET 1 TABLET WITH FOOD OR MILK NEEDED ORALLY THREE TIMES A DAY PRN NOT-TAKING MELOXICAM 7.5 MG TABLET DISINTEGRATING 1 TABLET ORALLY ONCE A DAY NOT-TAKING MAGNESIUM 200 MG TABLET 2 TABLETS WITH A MEAL ORALLY ONCE A DAY NOT-TAKING ACETAMINOPHEN 325 MG TABLET 1 TABLET NEEDED ORALLY EVERY 6 HRS NOT-TAKING CLARITIN 10 MG TABLET 1 TABLET ORALLY ONCE A DAY MEDICATION LIST REVIEWED AND RECONCILED WITH THE PATIENT PAST MEDICAL HISTORY CHRONIC BACK PAIN BILATERAL NECK AND SHOULDER PAIN ALLERGIES GABAPENTIN: SWOLLEN EYE LIDS PUFFY LIPS - ALLERGY CONTRAST MEDIA: FAINT, HEAD FULLNESS, PRESSURE - ALLERGY NAPROXEN: SWOLLEN EYE LIDS PUFFY LIPS - ALLERGY PENICILLIN (FOR ALLERGIES USE ONLY): ABD. PAIN - SIDE EFFECTS SEASONAL ALLERGIES: CONGESTION - ALLERGY SURGICAL HISTORY HYSTERCTOMY D&C BILATERAL CARPAL TUNNEL COLONOSCOPY 08/04/18 FAMILY HISTORY FATHER: , DIAGNOSED WITH DIABETES, HYPERTENSION, OTHER MALIGNANT NEOPLASM OF UNSPECIFIED SITE MOTHER: ALIVE 1 SON(S) , 2 DAUGHTER(S) . DAD-HAIRY CELL LEUKEMIA \NOLDEST DAUGHTER-SMOKER, ALCHOHOLIC, DEPRESSION. SOCIAL HISTORY GENERAL: TOBACCO USE ARE YOU A: NONSMOKER. LATEX QUESTIONNAIRE LATEX ALLERGY : HAVE YOU EVER DEVELOPED ANY TYPE OF REACTION AFTER HANDLING LATEX PRODUCTS SUCH RUBBER GLOVES, CONDOMS, DIAPHRAGMS, BALLOONS, SOCKS, OR UNDERWEAR?NO LATEX ALLERGY : HAVE YOU EVER DEVELOPED ANY TYPE OF REACTION DURING OR AFTER DENTAL APPOINTMENT, VAGINAL/RECTAL EXAMINATION, SURGICAL PROCEDURE, OR ANY OTHER EXPOSURE?NO LATEX RISK : HAVE YOU EVER HAD ANY DIFFICULTY BREATHING OR HIVES AFTER EATING OR HANDLING ANY FRUITS, OR VEGETABLES; SUCH KIWI, BANANAS, STONE FRUITS, OR CHESTNUTSNO LATEX RISK : DO YOU HAVE A PREVIOUS PERSONAL HISTORY OF MORE THAN NINE SURGERIES, SPINA BIFIDA, OR REPEATED CATHERIZATIONS? NO LATEX RISK : ARE YOU FREQUENTLY EXPOSED TO LATEX PRODUCTS IN YOUR OCCUPATION?NO DATE ASKED : 05/09/2020 ALCOHOL SCREENING DID YOU HAVE A DRINK CONTAINING ALCOHOL IN THE PAST YEAR?YES HOW OFTEN DID YOU HAVE SIX OR MORE DRINKS ON ONE OCCASION IN THE PAST YEAR?NEVER (0 POINTS) HOW MANY DRINKS DID YOU HAVE ON A TYPICAL DAY WHEN YOU WERE DRINKING IN THE PAST YEAR?3 OR 4 (1 POINT) HOW OFTEN DID YOU HAVE A DRINK CONTAINING ALCOHOL IN THE PAST YEAR?MONTHLY OR LESS (1 POINT) POINTS2 INTERPRETATIONNEGATIVE RECREATIONAL DRUG USE DRUG USE?NO PATIENT DENIES ABUSE OR MISSUSED OF ANY MEDICATION DENIES PATIENT DENIES USE OF ANY ILLEGAL SUBSTANCE INCLUDING MARIJUANA OR COCAINE DENIES CAFFEINE CAFFEINE USE?YES HOW OFTEN AND HOW MUCH? 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 NEW PATIENT PAIN DIARY TODAY'S VISIT 03/18/2020 PATIENT DESCRIBES PAIN :ACHING, HAVE IT ALL THE TIME, IT COMES AND GOES, SHARP, STABBING, TENDER, THROBBING, SORE, SHOOTING FROM 0-10, WHAT LEVEL IS YOUR PAIN TODAY?5 PAIN CLINIC PFS, CLERGY, PUBLIC HEALTH REFERRALS PFS REFERRAL NEEDED?NO CLERGY REFERRAL NEEDED?NO PUBLIC HEALTH REFERRAL NEEDED?NO WAS THE PROVIDER NOTIFIED OF ANY PERTINENT INFO?YES N/A HAS THE PATIENT BEEN EDUCATED REGARDING HIS/HER PLAN OF CARE?YES HAS THE PATIENT BEEN EDUCATED REGARDING PAIN, THE RISK FOR PAIN, THE IMPORTANCE OF EFFECTIVE PAIN MANAGEMENT, AND THE PAIN ASSESSMENT PROCESS?YES ADVANCE DIRECTIVE ADVANCE DIRECTIVE DISCUSSED WITH PATIENT:YES PT DOES NOT HAVE ANY ADVANCED DIRECTIVES AND DECLINES INFROMATION ON HCP AT THIS TIME. STATES SHE ALREADY HAS THE INFORMATION ON HCP, ASSISTANCE OFFERED IN COMPLETING IT IF SHE WANTED HELP. HOSPITALIZATION/MAJOR DIAGNOSTIC PROCEDURE FOR SURGERIES AFTER FALLING OUT DOORS HAD BROKEN BONES CHILD REVIEW OF SYSTEMS CONSTITUTIONAL: ANY RECENT FEVER NO . CHILLS NO . WEIGHT CHANGE OF UNKNOWN REASONS NO . GASTROENTEROLOGY: NEW UNEXPLAINABLE CHANGES IN BOWEL CONTROL NO . CONSTIPATION NO . GENITOURINARY: ANY NEW CHANGE IN BLADDER CONTROL? NO . NEUROLOGY: NEW ONSET DIZZINESS OR NEUROLOGICAL CHANGES NOT MENTIONED NO . NEW NUMBNESS OR PAIN PATTERNS NOT MENTIONED AND PERTINENT TO TODAY'S VISIT NO . CARDIOLOGY: NEW CHEST PRESSURE NO . NEW CHEST PAIN NO . RESPIRATORY: UNEXPLAINABLE COUGH NO . NEW SHORTNESS OF BREATH NO . VITAL SIGNS WT 197.5 LBS, HT 63 IN, BMI 34.98 INDEX, BP 176/78 MM HG, HR 63 /MIN, RR 18 /MIN, TEMP 97.2 F, OXYGEN SAT % 98%, SAFE IN ENV? 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 EXAMINATION GENERAL EXAMINATION: GENERALNO ACUTE DISTRESS, WELL NOURISHED AND HYDRATED. PSYCHAPPROPRIATE MOOD AND AFFECT . LUNGS:CLEAR TO AUSCULTATION BILATERALLY, NO WHEEZES, RHONCHI, RALES. HEART:NO MURMURS, REGULAR RATE AND RHYTHM. ASSESSMENTS INTERVERTEBRAL DISC DISORDERS WITH RADICULOPATHY, LUMBOSACRAL REGION - M51.17 (PRIMARY) TREATMENT INTERVERTEBRAL DISC DISORDERS WITH RADICULOPATHY, LUMBOSACRAL REGION CLINICAL NOTES: 64-YEAR-OLD FEMALE IN FOR WORKER'S COMP. CHRONIC PAIN FOLLOW-UP. GIVEN PRESENTING SYMPTOMS RECOMMEND FOLLOW-UP IN ONE MONTH. PATIENT HAS EXPRESSED UNDERSTANDING OF AND WAS IN AGREEMENT WITH TREATMENT PLAN. GIVEN TIME TO ASK QUESTIONS AND EXPRESS CONCERNS. , ISTOP REGISTRY REVIEWED AND DEMONSTRATES COMPLLIANCE. (REF # [id number]) BRINGS IN MEDICATIONS WHICH IS APPROPRIATE FOR WHAT WAS DISPENSED. RECENT URINE TOXICOLOGY REVIEWED. NO UNAUTHORIZED MEDICATIONS. NO ILLICIT SUBSTANCES AND PRESCRIBED MEDICATIONS WERE PRESENT. . PROCEDURES PN WORKMANS' COMP OPINION IN YOUR OPINION, WAS THE INCIDENT THAT THE PATIENT DESCRIBED THE COMPETENT MEDICAL CAUSE OF THIS INJURY/ILLNESS? YES ARE THE PATIENT'S COMPLAINTS CONSISTENT WITH HIS/HER HISTORY OF THE INJURY/ILLNESS? YES IS THE PATIENT'S HISTORY OF THE INJURY/ILLNESS CONSISTENT WITH YOUR OBJECTIVE FINDING? YES WHAT IS THE PERCENTAGE OF TEMPORARY IMPAIRMENT? MODERATE TO MARKED = 66.7% IS THE PATIENT WORKING? NO DOCTOR ON SITE: BORA HARRISON MD PROCEDURE CODES FA211 ESTABILISHED PATIENT [facility] FACILITY CHARGE DISPOSITION & COMMUNICATION FOLLOW UP 4 WEEKS (REASON: BACK PAIN/WC) ELECTRONICALLY SIGNED BY LIZBET PONCE ON 05/13/2020 AT 08:19 AM EDT DISCLAIMER : THIS IS A VISIT SUMMARY EXTRACTED FROM THE [employer] CHART. IT IS NOT A COPY OF THE [employer] PROGRESS NOTE. PEDRO
== END ==
LOC: M PAIN 09:15
PROVIDERS: ATTEND Family Medicine
DX: M51.17 Intervertebral disc disorders with radiculopathy, lumbosacral region (principal)

== ENCOUNTER → 2020-05-21 | Outpatient (CLI) | payer OTHER ==
--- NOTE | 2020-05-23 23:35 | ECWPNPC ---
PATIENT NAME: LISA POTTS : 1955 GENDER: FEMALE VISIT DATE: 05/21/2020 DISCHARGE DATE: 05/21/20 1506 VISIT LOCKED DATE TIME: PHYSICIAN: MEGAN PALACIO RESOURCE: MEGAN PALACIO REASON FOR APPOINTMENT 1. INCREASED PAIN HISTORY OF PRESENT ILLNESS GENERAL: - 64-YEAR-OLD FEMALE IN FOR COMPLAINTS OF INCREASED PAIN. SHE RATES HER PAIN CURRENTLY AT A 10 OUT OF 10 AND DESCRIBES IT ACHING, STABBING, TENDER, AND SORE. PATIENT WAS HURT IN A WORK RELATED INJURY BACK IN 2007. FALL RISK SCREENING: SCREENING :NO FALLS REPORTED IN THE LAST YEAR PAIN SCREENING: PATIENT HAS A COMPLAINT OF ACUTE OR CHRONIC PAIN :YES LOCATION OF PAIN:LOW BACK SACROILIAC JOINT INTENSITY OF PAIN (SCALE OF 1 TO 10):10 WHAT DOES YOUR PAIN FEEL LIKE:ACHING, STABBING, TENDER, SORE DURATION:CONTINOUS, CONSTANT, ALL DAY PAIN IS INCREASED BY:ACTIVITIES MAINLY WHEN WALKING PAIN IS DECREASED BY:USE OF PAIN MEDICATIONS TRAMADOL, ICE/HEAT PAIN HAS INTERFERED WITH THE FOLLOWING:MOOD, WALKING ABILITY, HOUSEWORK, RELATIONSHIP WITH OTHERS, ENJOYMENT OF LIFE PLAN/GOALS/TREATMENT/INTERVENTION/FOLLOW UP:SEE PLAN NURSING NOTE: PT. C/O INCREASED PAIN THAT STARTED 2 WEEKS AGO-. PAIN CENTER INTAKE QUESTIONS: DO YOU HAVE A HISTORY OF MRSA? :NO DO YOU TAKE A BLOOD THINNERS? :NO DO YOU HAVE ANY BLEEDING DISORDERS? :NO ANY NEW NUMBNESS OR WEAKNESS IN YOUR LEGS OR ARMS? :NO ANY PACEMAKER,DEFIBRILLATOR, OR DORSAL COLUMN STIMULATOR? :NO DO YOU HAVE ANY RASHES OR OPEN SORES? :NO ARE YOU ALLERGIC TO IV DYE? :YES YES ARE YOU DIABETIC? :NO ANY NEW PROBLEMS WITH YOUR MEDICATIONS? :NO HAVE YOU RECEIVED A VACCINE IN THE PAST 30 DAYS? :NO DO YOU PLAN TO RECEIVE A VACCINE IN THE NEXT 21 DAYS? :NO DO YOU NEED ANY PRESCRIPTION? :NO DO YOU TAKE ANY IMMUNOSUPPRESSIVE MEDICATIONS? :NO IS THERE A CHANCE YOU COULD BE ? :NO ARE YOU BREAST FEEDING? :NO CURRENT MEDICATIONS TAKING SKELAXIN 800 MG TABLET 1 TABLET ORALLY EVERY 6 HR NEEDED, NOTES: DOES NOT HAVE TAKING TRAMADOL-ACETAMINOPHEN 37.5-325 MG TABLET 1 TABLET ORALLY DAILY NEEDED, NOTES: DOES NOT HAVE ANYMORE TAKING VITAMIN D 1 TABLET 5000 UNITS ORALLY DAILY TAKING EYE DROPS EXTRA 0.05 % SOLUTION 2 DROP OPHTHALMIC TWICE A DAY AND NEEDED TAKING OMEGA 3 1000 MG CAPSULE 1 CAPSULE ORALLY ONCE A DAY TAKING MULTI FOR HER 50+ - TABLET 1 TAB ORALLY BID, NOTES: HAS NOT USED LATELY TAKING VOLTAREN 1 % GEL 1 STRIP TRANSDERMAL QID PRN FOR PAIN, NOTES: HAS NOT USED LATELY TAKING ALEVE PM 220-25 MG TABLET 1 TAB ORALLY BEFORE BEDTIME NEEDED TAKING VITAMIN C 500 MG CAPSULE ORALLY NOT-TAKING COLLAGEN 500 MG CAPSULE 2 TABLETS ORALLY DAILY NOT-TAKING IBUPROFEN 800 MG TABLET 1 TABLET WITH FOOD OR MILK NEEDED ORALLY THREE TIMES A DAY PRN NOT-TAKING MELOXICAM 7.5 MG TABLET DISINTEGRATING 1 TABLET ORALLY ONCE A DAY NOT-TAKING MAGNESIUM 200 MG TABLET 2 TABLETS WITH A MEAL ORALLY ONCE A DAY NOT-TAKING ACETAMINOPHEN 325 MG TABLET 1 TABLET NEEDED ORALLY EVERY 6 HRS NOT-TAKING CLARITIN 10 MG TABLET 1 TABLET ORALLY ONCE A DAY MEDICATION LIST REVIEWED AND RECONCILED WITH THE PATIENT PAST MEDICAL HISTORY CHRONIC BACK PAIN BILATERAL NECK AND SHOULDER PAIN ALLERGIES GABAPENTIN: SWOLLEN EYE LIDS PUFFY LIPS - ALLERGY CONTRAST MEDIA: FAINT, HEAD FULLNESS, PRESSURE - ALLERGY NAPROXEN: SWOLLEN EYE LIDS PUFFY LIPS - ALLERGY PENICILLIN (FOR ALLERGIES USE ONLY): ABD. PAIN - SIDE EFFECTS SEASONAL ALLERGIES: CONGESTION - ALLERGY SURGICAL HISTORY HYSTERCTOMY D&C BILATERAL CARPAL TUNNEL COLONOSCOPY 08/04/18 FAMILY HISTORY FATHER: , DIAGNOSED WITH HYPERTENSION, DIABETES, OTHER MALIGNANT NEOPLASM OF UNSPECIFIED SITE MOTHER: ALIVE 1 SON(S) , 2 DAUGHTER(S) . DAD-HAIRY CELL LEUKEMIA \NOLDEST DAUGHTER-SMOKER, ALCHOHOLIC, DEPRESSION. SOCIAL HISTORY GENERAL: TOBACCO USE ARE YOU A: NONSMOKER. LATEX QUESTIONNAIRE LATEX ALLERGY : HAVE YOU EVER DEVELOPED ANY TYPE OF REACTION AFTER HANDLING LATEX PRODUCTS SUCH RUBBER GLOVES, CONDOMS, DIAPHRAGMS, BALLOONS, SOCKS, OR UNDERWEAR?NO LATEX ALLERGY : HAVE YOU EVER DEVELOPED ANY TYPE OF REACTION DURING OR AFTER DENTAL APPOINTMENT, VAGINAL/RECTAL EXAMINATION, SURGICAL PROCEDURE, OR ANY OTHER EXPOSURE?NO LATEX RISK : HAVE YOU EVER HAD ANY DIFFICULTY BREATHING OR HIVES AFTER EATING OR HANDLING ANY FRUITS, OR VEGETABLES; SUCH KIWI, BANANAS, STONE FRUITS, OR CHESTNUTSNO LATEX RISK : DO YOU HAVE A PREVIOUS PERSONAL HISTORY OF MORE THAN NINE SURGERIES, SPINA BIFIDA, OR REPEATED CATHERIZATIONS? NO LATEX RISK : ARE YOU FREQUENTLY EXPOSED TO LATEX PRODUCTS IN YOUR OCCUPATION?NO DATE ASKED : 05/21/2020 ALCOHOL SCREENING DID YOU HAVE A DRINK CONTAINING ALCOHOL IN THE PAST YEAR?YES HOW OFTEN DID YOU HAVE SIX OR MORE DRINKS ON ONE OCCASION IN THE PAST YEAR?NEVER (0 POINTS) HOW MANY DRINKS DID YOU HAVE ON A TYPICAL DAY WHEN YOU WERE DRINKING IN THE PAST YEAR?3 OR 4 (1 POINT) HOW OFTEN DID YOU HAVE A DRINK CONTAINING ALCOHOL IN THE PAST YEAR?MONTHLY OR LESS (1 POINT) POINTS2 INTERPRETATIONNEGATIVE RECREATIONAL DRUG USE DRUG USE?NO PATIENT DENIES ABUSE OR MISSUSED OF ANY MEDICATION DENIES PATIENT DENIES USE OF ANY ILLEGAL SUBSTANCE INCLUDING MARIJUANA OR COCAINE DENIES CAFFEINE CAFFEINE USE?YES HOW OFTEN AND HOW MUCH? 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 NEW PATIENT PAIN DIARY PATIENT DESCRIBES PAIN :ACHING, HAVE IT ALL THE TIME, IT COMES AND GOES, SHARP, STABBING, TENDER, THROBBING, SORE, SHOOTING FROM 0-10, WHAT LEVEL IS YOUR PAIN TODAY?5 PAIN CLINIC PFS, CLERGY, PUBLIC HEALTH REFERRALS PFS REFERRAL NEEDED?NO CLERGY REFERRAL NEEDED?NO PUBLIC HEALTH REFERRAL NEEDED?NO WAS THE PROVIDER NOTIFIED OF ANY PERTINENT INFO?YES N/A HAS THE PATIENT BEEN EDUCATED REGARDING HIS/HER PLAN OF CARE?YES HAS THE PATIENT BEEN EDUCATED REGARDING PAIN, THE RISK FOR PAIN, THE IMPORTANCE OF EFFECTIVE PAIN MANAGEMENT, AND THE PAIN ASSESSMENT PROCESS?YES ADVANCE DIRECTIVE ADVANCE DIRECTIVE DISCUSSED WITH PATIENT:YES PT DOES NOT HAVE ANY ADVANCED DIRECTIVES AND DECLINES INFROMATION ON HCP AT THIS TIME. STATES SHE ALREADY HAS THE INFORMATION ON HCP, ASSISTANCE OFFERED IN COMPLETING IT IF SHE WANTED HELP. HOSPITALIZATION/MAJOR DIAGNOSTIC PROCEDURE FOR SURGERIES AFTER FALLING OUT DOORS HAD BROKEN BONES CHILD REVIEW OF SYSTEMS CONSTITUTIONAL: ANY RECENT FEVER NO . CHILLS NO . WEIGHT CHANGE OF UNKNOWN REASONS NO . GASTROENTEROLOGY: NEW UNEXPLAINABLE CHANGES IN BOWEL CONTROL NO . CONSTIPATION NO . GENITOURINARY: ANY NEW CHANGE IN BLADDER CONTROL? NO . NEUROLOGY: NEW ONSET DIZZINESS OR NEUROLOGICAL CHANGES NOT MENTIONED NO . NEW NUMBNESS OR PAIN PATTERNS NOT MENTIONED AND PERTINENT TO TODAY'S VISIT NO . CARDIOLOGY: NEW CHEST PRESSURE NO . NEW CHEST PAIN NO . RESPIRATORY: UNEXPLAINABLE COUGH NO . NEW SHORTNESS OF BREATH NO . VITAL SIGNS WT 197.5 LBS, HT 63 IN, BMI 34.98 INDEX, BP 161/79 MM HG, HR 74 /MIN, RR 18 /MIN, TEMP 97.7 F, OXYGEN SAT % 99%, NA INITIALS AW 1434. EXAMINATION GENERAL EXAMINATION: GENERALNO ACUTE DISTRESS, WELL NOURISHED AND HYDRATED. PSYCHAPPROPRIATE MOOD AND AFFECT . LUNGS:CLEAR TO AUSCULTATION BILATERALLY, NO WHEEZES, RHONCHI, RALES. HEART:NO MURMURS, REGULAR RATE AND RHYTHM. BACK:POINT TENDER RIGHT SIJ , POSITIVE NESHA'S TEST RIGHT SIDE . ASSESSMENTS SACROILIITIS, NOT ELSEWHERE CLASSIFIED - M46.1 (PRIMARY) TREATMENT SACROILIITIS, NOT ELSEWHERE CLASSIFIED NOTES: RIGHT SIJ. CLINICAL NOTES: 64-YEAR-OLD FEMALE IN FOR INCREASED PAIN. GIVEN PRESENTING SYMPTOMS AND RESULTS OF PHYSICAL EXAMINATION RECOMMENDED RIGHT SIJ WITH POSTPROCEDURAL FOLLOW-UP. PATIENT HAS EXPRESSED UNDERSTANDING OF AND WAS IN AGREEMENT WITH TREATMENT PLAN. GIVEN TIME TO ASK QUESTIONS AND EXPRESS CONCERNS. PROCEDURES PN WORKMANS' COMP OPINION IN YOUR OPINION, WAS THE INCIDENT THAT THE PATIENT DESCRIBED THE COMPETENT MEDICAL CAUSE OF THIS INJURY/ILLNESS? YES ARE THE PATIENT'S COMPLAINTS CONSISTENT WITH HIS/HER HISTORY OF THE INJURY/ILLNESS? YES IS THE PATIENT'S HISTORY OF THE INJURY/ILLNESS CONSISTENT WITH YOUR OBJECTIVE FINDING? YES WHAT IS THE PERCENTAGE OF TEMPORARY IMPAIRMENT? MODERATE TO MARKED = 66.7% IS THE PATIENT WORKING? NO DOCTOR ON SITE: BORA HARRISON MD PROCEDURE CODES FA211 ESTABILISHED PATIENT [facility] FACILITY CHARGE DISPOSITION & COMMUNICATION FOLLOW UP POSTPROCEDURE (REASON: RIGHT SIJ) ELECTRONICALLY SIGNED BY LIZBET PONCE ON 05/23/2020 AT 07:51 AM EDT DISCLAIMER : THIS IS A VISIT SUMMARY EXTRACTED FROM THE [employer] CHART. IT IS NOT A COPY OF THE [employer] PROGRESS NOTE. PEDRO
== END ==
LOC: M PAIN 14:30
PROVIDERS: ATTEND Family Medicine
DX: M46.1 Sacroiliitis, not elsewhere classified (principal)

== ENCOUNTER → 2020-06-26 | Outpatient (POV) | payer OTHER ==
[~2020-06-26] MED LIST changes: +BUPIVACAINE HCL 0.25% 30ML VIAL ONE; +LIDOCAINE 1% SDV 30ML VIAL ONE; +TRIAMCINOLONE ACETONIDE SUSP 40 MG/ML VIAL (J3301) ONE; +diazePAM 5 MG TAB ONE
--- NOTE | 2020-08-16 08:01 | REP ---
PARTIAL SACRUM SERIES: 2-VIEWS HISTORY: Injection procedure for pain. 21 seconds of fluoroscopy time was recorded. FINDINGS: A sequence of 2 last image hold fluoroscopically obtained spot radiographs document needle position associated with bilateral SI joint injection procedure. PEDRO
== END ==
LOC: M PAIN 13:00
PROVIDERS: ATTEND Anesthesiology
DX: M46.1 Sacroiliitis, not elsewhere classified (principal)

== ENCOUNTER → 2020-07-10 | Outpatient (CLI) | payer OTHER ==
[~2020-07-10] MED LIST changes: -BUPIVACAINE HCL 0.25% 30ML VIAL ONE; -LIDOCAINE 1% SDV 30ML VIAL ONE; -TRIAMCINOLONE ACETONIDE SUSP 40 MG/ML VIAL (J3301) ONE; -diazePAM 5 MG TAB ONE
== END ==
LOC: M PAIN 13:00
PROVIDERS: ATTEND Family Medicine
DX: M46.1 Sacroiliitis, not elsewhere classified (principal)

== ENCOUNTER → 2020-09-11 | Outpatient (CLI) | payer OTHER ==
--- NOTE | 2020-09-12 09:55 | ECWPNPC ---
PATIENT NAME: LISA POTTS : 1955 GENDER: FEMALE VISIT DATE: 09/11/2020 DISCHARGE DATE: 09/11/20 1210 VISIT LOCKED DATE TIME: PHYSICIAN: MEGAN PALACIO PHYSICIAN PAGER NO: ACTIVE RESOURCE: MEGAN PALACIO REASON FOR APPOINTMENT 1. WC-LOW BACK HISTORY OF PRESENT ILLNESS GENERAL: - 64-YEAR-OLD FEMALE IN FOR WORKER'S COMP. CHRONIC PAIN FOLLOW-UP. SHE RATES HER PAIN CURRENTLY AT A 7 OUT OF 10 AND DESCRIBES IT ACHING, BURNING, SHARP, STABBING, TENDER, THROBBING, SORE, AND SHOOTING. PATIENT HAS HAD RIGHT SIJ'S IN THE PAST AND FOUND THEM BENEFICIAL AND SHE EXPERIENCED A DECREASE IN PAIN AND INCREASED FUNCTIONALITY STATUS POST PROCEDURE. WE WILL DISCUSS REPEAT PROCEDURES TODAY PATIENT HAS EXPRESSED AN INCREASE IN PAIN. PATIENT WAS HURT IN A WORK RELATED INJURY BACK IN 2007. FALL RISK SCREENING: SCREENING :NO FALLS REPORTED IN THE LAST YEAR PAIN SCREENING: PATIENT HAS A COMPLAINT OF ACUTE OR CHRONIC PAIN :YES LOCATION OF PAIN:LOW BACK INTENSITY OF PAIN (SCALE OF 1 TO 10):7 WHAT DOES YOUR PAIN FEEL LIKE:ACHING, BURNING, SHARP, STABBING, TENDER, THROBBING, SORE, SHOOTING DURATION:INTERMITTENT PAIN IS INCREASED BY:ACTIVITIES, PROLONGED STANDING PAIN IS DECREASED BY:OTHERS TRIGGER POINT STICK, ICE HELPS TO REDUCE PAIN. NURSING NOTE: -. PAIN CENTER INTAKE QUESTIONS: DO YOU HAVE A HISTORY OF MRSA? :NO DO YOU TAKE A BLOOD THINNERS? :NO DO YOU HAVE ANY BLEEDING DISORDERS? :NO ANY NEW NUMBNESS OR WEAKNESS IN YOUR LEGS OR ARMS? :YES NUMBNESS IN RIGHT LEG THAT RADIATES INTO HER RIGHT FOOT. ANY PACEMAKER,DEFIBRILLATOR, OR DORSAL COLUMN STIMULATOR? :NO DO YOU HAVE ANY RASHES OR OPEN SORES? :NO ARE YOU ALLERGIC TO IV DYE? :YES CONTRAST ARE YOU DIABETIC? :NO ANY NEW PROBLEMS WITH YOUR MEDICATIONS? :NO HAVE YOU RECEIVED A VACCINE IN THE PAST 30 DAYS? :NO DO YOU PLAN TO RECEIVE A VACCINE IN THE NEXT 21 DAYS? :NO DO YOU NEED ANY PRESCRIPTION? :YES PATIENT WANTS TO DISCUSS SKELAXIN DO YOU TAKE ANY IMMUNOSUPPRESSIVE MEDICATIONS? :NO IS THERE A CHANCE YOU COULD BE ? :NO ARE YOU BREAST FEEDING? :NO CURRENT MEDICATIONS TAKING SKELAXIN 800 MG TABLET 1 TABLET ORALLY EVERY 6 HR NEEDED, NOTES: DOES NOT HAVE TAKING TRAMADOL-ACETAMINOPHEN 37.5-325 MG TABLET 1 TABLET ORALLY DAILY NEEDED, NOTES: DOES NOT HAVE ANYMORE TAKING VITAMIN D 1 TABLET 5000 UNITS ORALLY DAILY TAKING EYE DROPS EXTRA 0.05 % SOLUTION 2 DROP OPHTHALMIC TWICE A DAY AND NEEDED TAKING OMEGA 3 1000 MG CAPSULE 1 CAPSULE ORALLY ONCE A DAY TAKING MULTI FOR HER 50+ - TABLET 1 TAB ORALLY BID, NOTES: HAS NOT USED LATELY TAKING VOLTAREN 1 % GEL 1 STRIP TRANSDERMAL QID PRN FOR PAIN, NOTES: HAS NOT USED LATELY TAKING ALEVE PM 220-25 MG TABLET 1 TAB ORALLY BEFORE BEDTIME NEEDED TAKING VITAMIN C 500 MG CAPSULE ORALLY NOT-TAKING COLLAGEN 500 MG CAPSULE 2 TABLETS ORALLY DAILY NOT-TAKING IBUPROFEN 800 MG TABLET 1 TABLET WITH FOOD OR MILK NEEDED ORALLY THREE TIMES A DAY PRN NOT-TAKING MELOXICAM 7.5 MG TABLET DISINTEGRATING 1 TABLET ORALLY ONCE A DAY NOT-TAKING MAGNESIUM 200 MG TABLET 2 TABLETS WITH A MEAL ORALLY ONCE A DAY NOT-TAKING ACETAMINOPHEN 325 MG TABLET 1 TABLET NEEDED ORALLY EVERY 6 HRS NOT-TAKING CLARITIN 10 MG TABLET 1 TABLET ORALLY ONCE A DAY MEDICATION LIST REVIEWED AND RECONCILED WITH THE PATIENT PAST MEDICAL HISTORY CHRONIC BACK PAIN BILATERAL NECK AND SHOULDER PAIN ALLERGIES GABAPENTIN: SWOLLEN EYE LIDS PUFFY LIPS - ALLERGY CONTRAST MEDIA: FAINT, HEAD FULLNESS, PRESSURE - ALLERGY NAPROXEN: SWOLLEN EYE LIDS PUFFY LIPS - ALLERGY PENICILLIN (FOR ALLERGIES USE ONLY): ABD. PAIN - SIDE EFFECTS SEASONAL ALLERGIES: CONGESTION - ALLERGY SURGICAL HISTORY HYSTERCTOMY D&C BILATERAL CARPAL TUNNEL COLONOSCOPY 08/04/18 FAMILY HISTORY FATHER: , DIAGNOSED WITH HYPERTENSION, DIABETES, OTHER MALIGNANT NEOPLASM OF UNSPECIFIED SITE MOTHER: ALIVE 1 SON(S) , 2 DAUGHTER(S) . DAD-HAIRY CELL LEUKEMIA \NOLDEST DAUGHTER-SMOKER, ALCHOHOLIC, DEPRESSION. SOCIAL HISTORY GENERAL: TOBACCO USE ARE YOU A: NONSMOKER. LATEX QUESTIONNAIRE LATEX ALLERGY : HAVE YOU EVER DEVELOPED ANY TYPE OF REACTION AFTER HANDLING LATEX PRODUCTS SUCH RUBBER GLOVES, CONDOMS, DIAPHRAGMS, BALLOONS, SOCKS, OR UNDERWEAR?NO LATEX ALLERGY : HAVE YOU EVER DEVELOPED ANY TYPE OF REACTION DURING OR AFTER DENTAL APPOINTMENT, VAGINAL/RECTAL EXAMINATION, SURGICAL PROCEDURE, OR ANY OTHER EXPOSURE?NO LATEX RISK : HAVE YOU EVER HAD ANY DIFFICULTY BREATHING OR HIVES AFTER EATING OR HANDLING ANY FRUITS, OR VEGETABLES; SUCH KIWI, BANANAS, STONE FRUITS, OR CHESTNUTSNO LATEX RISK : DO YOU HAVE A PREVIOUS PERSONAL HISTORY OF MORE THAN NINE SURGERIES, SPINA BIFIDA, OR REPEATED CATHERIZATIONS? NO LATEX RISK : ARE YOU FREQUENTLY EXPOSED TO LATEX PRODUCTS IN YOUR OCCUPATION?NO DATE ASKED : 09/11/2020 ALCOHOL SCREENING DID YOU HAVE A DRINK CONTAINING ALCOHOL IN THE PAST YEAR?YES HOW OFTEN DID YOU HAVE SIX OR MORE DRINKS ON ONE OCCASION IN THE PAST YEAR?NEVER (0 POINTS) HOW MANY DRINKS DID YOU HAVE ON A TYPICAL DAY WHEN YOU WERE DRINKING IN THE PAST YEAR?3 OR 4 (1 POINT) HOW OFTEN DID YOU HAVE A DRINK CONTAINING ALCOHOL IN THE PAST YEAR?MONTHLY OR LESS (1 POINT) POINTS2 INTERPRETATIONNEGATIVE RECREATIONAL DRUG USE DRUG USE?NO PATIENT DENIES ABUSE OR MISSUSED OF ANY MEDICATION DENIES PATIENT DENIES USE OF ANY ILLEGAL SUBSTANCE INCLUDING MARIJUANA OR COCAINE DENIES CAFFEINE CAFFEINE USE?YES HOW OFTEN AND HOW MUCH? 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 NEW PATIENT PAIN DIARY PATIENT DESCRIBES PAIN :ACHING, HAVE IT ALL THE TIME, IT COMES AND GOES, SHARP, STABBING, TENDER, THROBBING, SORE, SHOOTING FROM 0-10, WHAT LEVEL IS YOUR PAIN TODAY?5 PAIN CLINIC PFS, CLERGY, PUBLIC HEALTH REFERRALS PFS REFERRAL NEEDED?NO CLERGY REFERRAL NEEDED?NO PUBLIC HEALTH REFERRAL NEEDED?NO WAS THE PROVIDER NOTIFIED OF ANY PERTINENT INFO?YES N/A HAS THE PATIENT BEEN EDUCATED REGARDING HIS/HER PLAN OF CARE?YES HAS THE PATIENT BEEN EDUCATED REGARDING PAIN, THE RISK FOR PAIN, THE IMPORTANCE OF EFFECTIVE PAIN MANAGEMENT, AND THE PAIN ASSESSMENT PROCESS?YES ADVANCE DIRECTIVE ADVANCE DIRECTIVE DISCUSSED WITH PATIENT:YES PT DOES NOT HAVE ANY ADVANCED DIRECTIVES AND DECLINES INFROMATION ON HCP AT THIS TIME. STATES SHE ALREADY HAS THE INFORMATION ON HCP, ASSISTANCE OFFERED IN COMPLETING IT IF SHE WANTED HELP. HOSPITALIZATION/MAJOR DIAGNOSTIC PROCEDURE FOR SURGERIES AFTER FALLING OUT DOORS HAD BROKEN BONES CHILD REVIEW OF SYSTEMS CONSTITUTIONAL: ANY RECENT FEVER NO . CHILLS NO . WEIGHT CHANGE OF UNKNOWN REASONS NO . GASTROENTEROLOGY: NEW UNEXPLAINABLE CHANGES IN BOWEL CONTROL NO . CONSTIPATION NO . GENITOURINARY: ANY NEW CHANGE IN BLADDER CONTROL? NO . NEUROLOGY: NEW ONSET DIZZINESS OR NEUROLOGICAL CHANGES NOT MENTIONED NO . NEW NUMBNESS OR PAIN PATTERNS NOT MENTIONED AND PERTINENT TO TODAY'S VISIT NO . CARDIOLOGY: NEW CHEST PRESSURE NO . NEW CHEST PAIN NO . RESPIRATORY: UNEXPLAINABLE COUGH NO . NEW SHORTNESS OF BREATH NO . EXAMINATION GENERAL EXAMINATION: GENERALNO ACUTE DISTRESS, WELL NOURISHED AND HYDRATED. PSYCHAPPROPRIATE MOOD AND AFFECT . LUNGS:CLEAR TO AUSCULTATION BILATERALLY, NO WHEEZES, RHONCHI, RALES. HEART:NO MURMURS, REGULAR RATE AND RHYTHM. BACK:POINT TENDER RIGHT SIJ POSITIVE NESHA'S TEST RIGHT SIDE . ASSESSMENTS SACROILIITIS, NOT ELSEWHERE CLASSIFIED - M46.1 (PRIMARY) TREATMENT SACROILIITIS, NOT ELSEWHERE CLASSIFIED REFILL SKELAXIN TABLET, 800 MG, 1 TABLET, ORALLY, DAILY, 30 DAYS, 30, NOTES: DOES NOT HAVE NOTES: RIGHT SIJ. CLINICAL NOTES: 64-YEAR-OLD FEMALE IN FOR CHRONIC PAIN FOLLOW-UP. GIVEN PRESENTING SYMPTOMS AND RESULTS OF PHYSICAL EXAMINATION RECOMMENDED RIGHT SIJ WITH POST PROCEDURAL FOLLOW-UP. PATIENT HAS EXPRESSED UNDERSTANDING OF AND WAS IN AGREEMENT WITH TREATMENT PLAN. GIVEN TIME TO ASK QUESTIONS AND EXPRESS CONCERNS. , ISTOP REGISTRY REVIEWED AND DEMONSTRATES COMPLLIANCE. (REF # [id number] ) BRINGS IN MEDICATIONS WHICH IS APPROPRIATE FOR WHAT WAS DISPENSED. RECENT URINE TOXICOLOGY REVIEWED. NO UNAUTHORIZED MEDICATIONS. NO ILLICIT SUBSTANCES AND PRESCRIBED MEDICATIONS WERE PRESENT. PROCEDURES PN WORKMANS' COMP OPINION IN YOUR OPINION, WAS THE INCIDENT THAT THE PATIENT DESCRIBED THE COMPETENT MEDICAL CAUSE OF THIS INJURY/ILLNESS? YES ARE THE PATIENT'S COMPLAINTS CONSISTENT WITH HIS/HER HISTORY OF THE INJURY/ILLNESS? YES IS THE PATIENT'S HISTORY OF THE INJURY/ILLNESS CONSISTENT WITH YOUR OBJECTIVE FINDING? YES WHAT IS THE PERCENTAGE OF TEMPORARY IMPAIRMENT? MODERATE TO MARKED = 66.7% IS THE PATIENT WORKING? NO DOCTOR ON SITE: BORA HARRISON MD [facility] PAIN CLINIC TEACHING: THE PATIENT HAS BEEN EDUCATED REGARDING PAIN, THE RISK FOR PAIN, THE IMPORTANCE OF EFFECTIVE PAIN MANAGEMENT, AND THE PAIN ASSESSMENT PROCESS. : DISCUSSED PRE PROCEDURE INSTRUCTIONS, PATIENT CARE PLAN, AND TEACHING FOR: RIGHT SACROILIAC JOINT BLOCK, PATIENT VERBALIZES UNDERSTANDING. PROCEDURE CODES FA211 ESTABILISHED PATIENT [facility] CHARGE DISPOSITION & COMMUNICATION FOLLOW UP POSTPROCEDURE (REASON: RIGHT SIJ) ELECTRONICALLY SIGNED BY LIZBET PONCE ON 09/12/2020 AT 08:59 AM EDT DISCLAIMER : THIS IS A VISIT SUMMARY EXTRACTED FROM THE [employer] CHART. IT IS NOT A COPY OF THE [employer] PROGRESS NOTE. PEDRO
== END ==
LOC: M PAIN 11:30
PROVIDERS: ATTEND Family Medicine
DX: M46.1 Sacroiliitis, not elsewhere classified (principal); J30.2 Other seasonal allergic rhinitis; Z79.891 Long term (current) use of opiate analgesic; Z79.899 Other long term (current) drug therapy; Z88.0 Allergy status to penicillin; Z88.6 Allergy status to analgesic agent; Z88.8 Allergy status to other drugs, medicaments and biological substances; Z91.041 Radiographic dye allergy status

== ENCOUNTER → 2021-04-16 | Outpatient (CLI) | payer OTHER ==
--- NOTE | 2021-04-17 23:17 | ECWPNPC ---
PATIENT NAME: LISA POTTS : 1955 GENDER: FEMALE VISIT DATE: 04/16/2021 DISCHARGE DATE: 04/16/21 1118 VISIT LOCKED DATE TIME: PHYSICIAN: MEGAN PALACIO PHYSICIAN PAGER NO: ACTIVE RESOURCE: MEGAN PALACIO REASON FOR APPOINTMENT 1. INCREASED PAIN HISTORY OF PRESENT ILLNESS DEPRESSION SCREENING: PHQ-2 (2015 EDITION) LITTLE INTEREST OR PLEASURE IN DOING THINGS?NOT AT ALL FEELING DOWN, DEPRESSED, OR HOPELESS?SEVERAL DAYS TOTAL SCORE1 GENERAL: HPI 65-YEAR-OLD FEMALE IN FOR CHRONIC PAIN FOLLOW-UP. SHE RATES HER PAIN CURRENTLY AT A 7 OUT OF 10 AND DESCRIBES IT SORE, TENDER, STABBING, INTERMITTENT, AND CONTINUOUS. PATIENT WAS HURT IN A WORK RELATED INJURY BACK IN 2007. . -. FALL RISK SCREENING: SCREENING : NO FALLS REPORTED IN THE LAST YEAR. PAIN SCREENING: PATIENT HAS A COMPLAINT OF ACUTE OR CHRONIC PAIN :YES LOCATION OF PAIN:LOW BACK INTENSITY OF PAIN (SCALE OF 1 TO 10):7 WHAT DOES YOUR PAIN FEEL LIKE:SORE, TENDER, STABBING, INTERMITTENT, CONTINOUS NURSING NOTE: -. PAIN CENTER INTAKE QUESTIONS: DO YOU HAVE A HISTORY OF MRSA? :NO DO YOU TAKE A BLOOD THINNERS? :NO DO YOU HAVE ANY BLEEDING DISORDERS? :NO ANY NEW NUMBNESS OR WEAKNESS IN YOUR LEGS OR ARMS? :NO ANY PACEMAKER,DEFIBRILLATOR, OR DORSAL COLUMN STIMULATOR? :NO DO YOU HAVE ANY RASHES OR OPEN SORES? :NO ARE YOU ALLERGIC TO IV DYE? :NO ARE YOU DIABETIC? :NO ANY NEW PROBLEMS WITH YOUR MEDICATIONS? :NO HAVE YOU RECEIVED A VACCINE IN THE PAST 30 DAYS? :NO DO YOU PLAN TO RECEIVE A VACCINE IN THE NEXT 21 DAYS? :NO DO YOU NEED ANY PRESCRIPTION? :NO DO YOU TAKE ANY IMMUNOSUPPRESSIVE MEDICATIONS? :NO DO YOU HAVE ANY KIDNEY OR LIVER DISEASE? :NO IS THERE A CHANCE YOU COULD BE ? :NO ARE YOU BREAST FEEDING? :NO CURRENT MEDICATIONS TAKING TRAMADOL-ACETAMINOPHEN 37.5-325 MG TABLET 1 TABLET ORALLY DAILY NEEDED TAKING VITAMIN D 1 TABLET 5000 UNITS ORALLY DAILY TAKING EYE DROPS EXTRA 0.05 % SOLUTION 2 DROP OPHTHALMIC TWICE A DAY AND NEEDED TAKING OMEGA 3 1000 MG CAPSULE 1 CAPSULE ORALLY ONCE A DAY TAKING MULTI FOR HER 50+ - TABLET 1 TAB ORALLY BID, NOTES: HAS NOT USED LATELY TAKING VOLTAREN 1 % GEL 1 STRIP TRANSDERMAL QID PRN FOR PAIN, NOTES: HAS NOT USED LATELY TAKING ALEVE PM 220-25 MG TABLET 1 TAB ORALLY BEFORE BEDTIME NEEDED TAKING VITAMIN C 500 MG CAPSULE ORALLY NOT-TAKING SKELAXIN 800 MG TABLET 1 TABLET ORALLY DAILY NOT-TAKING COLLAGEN 500 MG CAPSULE 2 TABLETS ORALLY DAILY NOT-TAKING IBUPROFEN 800 MG TABLET 1 TABLET WITH FOOD OR MILK NEEDED ORALLY THREE TIMES A DAY PRN NOT-TAKING MELOXICAM 7.5 MG TABLET DISINTEGRATING 1 TABLET ORALLY ONCE A DAY NOT-TAKING MAGNESIUM 200 MG TABLET 2 TABLETS WITH A MEAL ORALLY ONCE A DAY NOT-TAKING ACETAMINOPHEN 325 MG TABLET 1 TABLET NEEDED ORALLY EVERY 6 HRS NOT-TAKING CLARITIN 10 MG TABLET 1 TABLET ORALLY ONCE A DAY MEDICATION LIST REVIEWED AND RECONCILED WITH THE PATIENT PAST MEDICAL HISTORY CHRONIC BACK PAIN BILATERAL NECK AND SHOULDER PAIN ALLERGIES GABAPENTIN: SWOLLEN EYE LIDS PUFFY LIPS - ALLERGY CONTRAST MEDIA: FAINT, HEAD FULLNESS, PRESSURE - ALLERGY NAPROXEN: SWOLLEN EYE LIDS PUFFY LIPS - ALLERGY PENICILLIN (FOR ALLERGIES USE ONLY): ABD. PAIN - SIDE EFFECTS SEASONAL ALLERGIES: CONGESTION - ALLERGY SURGICAL HISTORY HYSTERCTOMY D&C BILATERAL CARPAL TUNNEL COLONOSCOPY 08/04/18 HOSPITALIZATION/MAJOR DIAGNOSTIC PROCEDURE FOR SURGERIES AFTER FALLING OUT DOORS HAD BROKEN BONES CHILD REVIEW OF SYSTEMS CONSTITUTIONAL: ANY RECENT FEVER NO . CHILLS NO . WEIGHT CHANGE OF UNKNOWN REASONS NO . GASTROENTEROLOGY: NEW UNEXPLAINABLE CHANGES IN BOWEL CONTROL NO . CONSTIPATION NO . GENITOURINARY: ANY NEW CHANGE IN BLADDER CONTROL? NO . NEUROLOGY: NEW ONSET DIZZINESS OR NEUROLOGICAL CHANGES NOT MENTIONED NO . NEW NUMBNESS OR PAIN PATTERNS NOT MENTIONED AND PERTINENT TO TODAY'S VISIT NO . CARDIOLOGY: NEW CHEST PRESSURE NO . PATIENT DENIES NO . RESPIRATORY: UNEXPLAINABLE COUGH NO . NEW SHORTNESS OF BREATH NO . VITAL SIGNS WT 190.6 LBS, HT 63 IN, BMI 33.76 INDEX, BP 186/83 MM HG, HR 68 /MIN, RR 16 /MIN, TEMP 98.0 F, OXYGEN SAT % 95%, SAFE IN ENV? (Y/N) YES, NA INITIALS SC 10:32. EXAMINATION GENERAL EXAMINATION: GENERALNO ACUTE DISTRESS, WELL NOURISHED AND HYDRATED. PSYCHAPPROPRIATE MOOD AND AFFECT . LUNGS:CLEAR TO AUSCULTATION BILATERALLY, NO WHEEZES, RHONCHI, RALES. HEART:NO MURMURS, REGULAR RATE AND RHYTHM. BACK:BILATERAL SI JOINT TENDERNESS, POSITIVE NESHA'S TEST BILATERALLY. ASSESSMENTS SACROILIITIS, NOT ELSEWHERE CLASSIFIED - M46.1 (PRIMARY), RISK: (NULL) [facility] (CURRENT) USE OF OPIATE ANALGESIC - Z79.891 TREATMENT SACROILIITIS, NOT ELSEWHERE CLASSIFIED MEDICATION: VALIUM TAB 10MG ORALLY (DIAZEPAM) (ORDERED FOR 04/24/2021) MEDICATION: OXYCODONE HCL TAB 10MG ORALLY (ORDERED FOR 04/24/2021) NOTES: 65-YEAR-OLD FEMALE IN FOR WORKER'S COMP. CHRONIC PAIN FOLLOW-UP. GIVEN PRESENTING SYMPTOMS AND RESULTS OF PHYSICAL EXAMINATION RECOMMEND BILATERAL SACROILIAC JOINT BLOCK WITH POSTPROCEDURAL FOLLOW-UP. PATIENT HAS EXPRESSED UNDERSTANDING OF AND WAS IN AGREEMENT WITH TREATMENT PLAN. GIVEN TIME TO ASK QUESTIONS AND EXPRESS CONCERNS. ISTOP REGISTRY REVIEWED AND DEMONSTRATES COMPLLIANCE. (REF # ) BRINGS IN MEDICATIONS WHICH IS APPROPRIATE FOR WHAT WAS DISPENSED. RECENT URINE TOXICOLOGY REVIEWED. NO UNAUTHORIZED MEDICATIONS. NO ILLICIT SUBSTANCES AND PRESCRIBED MEDICATIONS WERE PRESENT. WENT OVER THE PROCEDURE WITH THE PATIENT AND GAVE HER PRINTED MATERIAL. [facility] (CURRENT) USE OF OPIATE ANALGESIC LAB: URINE TEST GROUP IAN VANEGAS 04/16/2021 10:58:01 AM > LAST DOSE TRAMADOL" SEVERAL WEEKS AGO" PROCEDURES PN WORKMANS' COMP OPINION IN YOUR OPINION, WAS THE INCIDENT THAT THE PATIENT DESCRIBED THE COMPETENT MEDICAL CAUSE OF THIS INJURY/ILLNESS? YES ARE THE PATIENT'S COMPLAINTS CONSISTENT WITH HIS/HER HISTORY OF THE INJURY/ILLNESS? YES IS THE PATIENT'S HISTORY OF THE INJURY/ILLNESS CONSISTENT WITH YOUR OBJECTIVE FINDING? YES WHAT IS THE PERCENTAGE OF TEMPORARY IMPAIRMENT? MODERATE TO MARKED = 66.7% IS THE PATIENT WORKING? NO DOCTOR ON SITE: BORA HARRISON MD PROCEDURE CODES FA211 ESTABILISHED PATIENT [facility] CHARGE DISPOSITION & COMMUNICATION FOLLOW UP POST PROCEDURE (REASON: BILATERAL SACROILIAC JOINT BLOCK ) ELECTRONICALLY SIGNED BY LIZBET PONCE ON 04/17/2021 AT 08:42 AM EDT DISCLAIMER : THIS IS A VISIT SUMMARY EXTRACTED FROM THE [employer] CHART. IT IS NOT A COPY OF THE [employer] PROGRESS NOTE. PEDRO
== END ==
LOC: M PAIN 10:15
PROVIDERS: ATTEND Family Medicine
DX: M46.1 Sacroiliitis, not elsewhere classified (principal); M54.2 Cervicalgia; J30.2 Other seasonal allergic rhinitis; M25.511 Pain in right shoulder; M25.512 Pain in left shoulder; Z79.891 Long term (current) use of opiate analgesic; Z79.899 Other long term (current) drug therapy; Z88.0 Allergy status to penicillin; Z88.6 Allergy status to analgesic agent; Z88.8 Allergy status to other drugs, medicaments and biological substances; Z91.041 Radiographic dye allergy status

== ENCOUNTER → 2021-05-29 | Outpatient (CLI) | payer OTHER | LOC: M LABSMTC 10:10 | PROVIDERS: ATTEND Anesthesiology | DX: Z01.812 Encounter for preprocedural laboratory examination (principal); Z11.52 Encounter for screening for COVID-19 ==

== ENCOUNTER → 2021-06-03 | Outpatient (CLI) | payer OTHER ==
[~2021-06-03] MED LIST changes: +BUPIVACAINE HCL 0.25% 30ML VIAL As Ordered ONE; +ISOVUE-M 300 61% 15ML VIAL As Ordered ONE; +LIDOCAINE 1% SDV 30ML VIAL As Ordered ONE; +TRIAMCINOLONE ACETONIDE SUSP 40 MG/ML VIAL (J3301) As Ordered ONE; +diazePAM 5MG TABLET As Ordered ONE; +diphenhydrAMINE 25MG CAP As Ordered ONE; +oxyCODONE 5MG TAB As Ordered ONE
--- NOTE | 2021-06-03 12:20 | REP ---
INDICATION: BILATERAL SACROILIAC JOINT BLOCK. COMPARISON: None. TECHNIQUE: Two views. 23.7 seconds of fluoroscopy time is reported. FINDINGS: A sequence of 2 last image hold fluoroscopically obtained spot radiographs of the SI joints document needle position associated with bilateral SI joint injection procedure. IMPRESSION: Procedural imaging. <Electronically signed by Eze Wallace > 06/03/21 [id number]
--- NOTE | 2021-06-07 01:22 | ECWPNPC ---
PATIENT NAME: LISA POTTS : 1955 GENDER: FEMALE VISIT DATE: 06/03/2021 DISCHARGE DATE: 06/03/21 1204 VISIT LOCKED DATE TIME: PHYSICIAN: BORA NICE MD PHYSICIAN PAGER NO: ACTIVE RESOURCE: BORA NICE MD REASON FOR APPOINTMENT 1. BILATERAL SACROILIAC JOINT BLOCK HISTORY OF PRESENT ILLNESS FALL RISK SCREENING: SCREENING : NO FALLS REPORTED IN THE LAST YEAR. PAIN SCREENING: PATIENT HAS A COMPLAINT OF ACUTE OR CHRONIC PAIN :YES LOCATION OF PAIN:LOW BACK INTENSITY OF PAIN (SCALE OF 1 TO 10):7 WHAT DOES YOUR PAIN FEEL LIKE:SORE, TENDER, STABBING, INTERMITTENT, CONTINOUS NURSING NOTE: -. PAIN CENTER INTAKE QUESTIONS: DO YOU HAVE A HISTORY OF MRSA? :NO DO YOU TAKE A BLOOD THINNERS? :NO DO YOU HAVE ANY BLEEDING DISORDERS? :NO ANY NEW NUMBNESS OR WEAKNESS IN YOUR LEGS OR ARMS? :YES STARTED THIS SPRING, "CRUNCHING, POPPING" SENSATION IN BACK PATIENT DENIES NEW TRAUMA. ANY PACEMAKER,DEFIBRILLATOR, OR DORSAL COLUMN STIMULATOR? :NO DO YOU HAVE ANY RASHES OR OPEN SORES? :NO ARE YOU ALLERGIC TO IV DYE? :YES FAINT, LIGHT HEADED, PRESSURE. ARE YOU DIABETIC? :NO ANY NEW PROBLEMS WITH YOUR MEDICATIONS? :NO HAVE YOU RECEIVED A VACCINE IN THE PAST 30 DAYS? :NO DO YOU PLAN TO RECEIVE A VACCINE IN THE NEXT 21 DAYS? :NO DO YOU TAKE ANY IMMUNOSUPPRESSIVE MEDICATIONS? :NO ANY HISTORY OF SEIZURES? :NO ANY HISTORY OF CARDIAC ISSUES OR EVENTS? :NO DO YOU HAVE ANY KIDNEY OR LIVER DISEASE? :NO DO YOU HAVE SLEEP APNEA? :NO ANY RECENT HEAD INJURY? :NO DO YOU HAVE ANY NEW INFECTIONS? :NO IS THERE A CHANCE YOU COULD BE ? :NO ARE YOU BREAST FEEDING? :NO WHEN DID YOU LAST EAT? : 06/02/2021 2100 WHEN DID YOU LAST DRINK? : 06/03/2021 0700 WHAT DID YOU LAST DRINK? : WATER NAME OF PERSON DRIVING YOU HOME? : HERB () DO YOU HAVE ANY OTHER QUESTIONS OR CONCERNS? : NO GENERAL: -. CURRENT MEDICATIONS TAKING TRAMADOL-ACETAMINOPHEN 37.5-325 MG TABLET 1 TABLET ORALLY DAILY NEEDED, NOTES: NONE LATELY TAKING VITAMIN D 1 TABLET 5000 UNITS ORALLY DAILY TAKING EYE DROPS EXTRA 0.05 % SOLUTION 2 DROP OPHTHALMIC TWICE A DAY AND NEEDED TAKING OMEGA 3 1000 MG CAPSULE 1 CAPSULE ORALLY ONCE A DAY TAKING MULTI FOR HER 50+ - TABLET 1 TAB ORALLY BID TAKING VOLTAREN 1 % GEL 1 STRIP TRANSDERMAL QID PRN FOR PAIN TAKING ALEVE PM 220-25 MG TABLET 1 TAB ORALLY BEFORE BEDTIME NEEDED, NOTES: 06/03/2021 0300 TAKING VITAMIN C 500 MG CAPSULE ORALLY TAKING MAY HAVE ULTIMATE EYE SUPPORT PO 2 TABS DAILY NOT-TAKING SKELAXIN 800 MG TABLET 1 TABLET ORALLY DAILY NOT-TAKING COLLAGEN 500 MG CAPSULE 2 TABLETS ORALLY DAILY NOT-TAKING IBUPROFEN 800 MG TABLET 1 TABLET WITH FOOD OR MILK NEEDED ORALLY THREE TIMES A DAY PRN NOT-TAKING MELOXICAM 7.5 MG TABLET DISINTEGRATING 1 TABLET ORALLY ONCE A DAY NOT-TAKING MAGNESIUM 200 MG TABLET 2 TABLETS WITH A MEAL ORALLY ONCE A DAY NOT-TAKING ACETAMINOPHEN 325 MG TABLET 1 TABLET NEEDED ORALLY EVERY 6 HRS NOT-TAKING CLARITIN 10 MG TABLET 1 TABLET ORALLY ONCE A DAY MEDICATION LIST REVIEWED AND RECONCILED WITH THE PATIENT PAST MEDICAL HISTORY CHRONIC BACK PAIN BILATERAL NECK AND SHOULDER PAIN ALLERGIES GABAPENTIN: SWOLLEN EYE LIDS PUFFY LIPS - ALLERGY CONTRAST MEDIA: FAINT, HEAD FULLNESS, PRESSURE - ALLERGY NAPROXEN: SWOLLEN EYE LIDS PUFFY LIPS - ALLERGY PENICILLIN (FOR ALLERGIES USE ONLY): ABD. PAIN - SIDE EFFECTS SEASONAL ALLERGIES: CONGESTION - ALLERGY SOCIAL HISTORY GENERAL: TOBACCO USE ARE YOU A: NONSMOKER. LATEX QUESTIONNAIRE LATEX ALLERGY : HAVE YOU EVER DEVELOPED ANY TYPE OF REACTION AFTER HANDLING LATEX PRODUCTS SUCH RUBBER GLOVES, CONDOMS, DIAPHRAGMS, BALLOONS, SOCKS, OR UNDERWEAR?NO LATEX ALLERGY : HAVE YOU EVER DEVELOPED ANY TYPE OF REACTION DURING OR AFTER DENTAL APPOINTMENT, VAGINAL/RECTAL EXAMINATION, SURGICAL PROCEDURE, OR ANY OTHER EXPOSURE?NO LATEX RISK : HAVE YOU EVER HAD ANY DIFFICULTY BREATHING OR HIVES AFTER EATING OR HANDLING ANY FRUITS, OR VEGETABLES; SUCH KIWI, BANANAS, STONE FRUITS, OR CHESTNUTSNO LATEX RISK : DO YOU HAVE A PREVIOUS PERSONAL HISTORY OF MORE THAN NINE SURGERIES, SPINA BIFIDA, OR REPEATED CATHERIZATIONS? NO LATEX RISK : ARE YOU FREQUENTLY EXPOSED TO LATEX PRODUCTS IN YOUR OCCUPATION?NO DATE ASKED : 06/02/2021 ALCOHOL SCREENING DID YOU HAVE A DRINK CONTAINING ALCOHOL IN THE PAST YEAR?YES HOW OFTEN DID YOU HAVE SIX OR MORE DRINKS ON ONE OCCASION IN THE PAST YEAR?NEVER (0 POINTS) HOW MANY DRINKS DID YOU HAVE ON A TYPICAL DAY WHEN YOU WERE DRINKING IN THE PAST YEAR?3 OR 4 (1 POINT) HOW OFTEN DID YOU HAVE A DRINK CONTAINING ALCOHOL IN THE PAST YEAR?MONTHLY OR LESS (1 POINT) POINTS2 INTERPRETATIONNEGATIVE RECREATIONAL DRUG USE DRUG USE?NO PATIENT DENIES ABUSE OR MISSUSED OF ANY MEDICATION DENIES PATIENT DENIES USE OF ANY ILLEGAL SUBSTANCE INCLUDING MARIJUANA OR COCAINE DENIES CAFFEINE CAFFEINE USE?YES HOW OFTEN AND HOW MUCH? 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 PATIENT DESCRIBES PAIN :ACHING, HAVE IT ALL THE TIME, IT COMES AND GOES, SHARP, STABBING, TENDER, THROBBING, SORE, SHOOTING FROM 0-10, WHAT LEVEL IS YOUR PAIN TODAY?5 - PFS REFERRAL NEEDED?NO CLERGY REFERRAL NEEDED?NO PUBLIC HEALTH REFERRAL NEEDED?NO WAS THE PROVIDER NOTIFIED OF ANY PERTINENT INFO?YES N/A HAS THE PATIENT BEEN EDUCATED REGARDING HIS/HER PLAN OF CARE?YES HAS THE PATIENT BEEN EDUCATED REGARDING PAIN, THE RISK FOR PAIN, THE IMPORTANCE OF EFFECTIVE PAIN MANAGEMENT, AND THE PAIN ASSESSMENT PROCESS?YES ADVANCE DIRECTIVE ADVANCE DIRECTIVE DISCUSSED WITH PATIENT:YES PT DOES NOT HAVE ANY ADVANCED DIRECTIVES AND DECLINES INFROMATION ON HCP AT THIS TIME. STATES SHE ALREADY HAS THE INFORMATION ON HCP, ASSISTANCE OFFERED IN COMPLETING IT IF SHE WANTED HELP. VITAL SIGNS WT 186.2 LBS, HT 63 IN, BMI 32.98 INDEX, BP 182/83 MM HG, HR 72 /MIN, RR 18 /MIN, TEMP 98.0 F, OXYGEN SAT % 99%, SAFE IN ENV? (Y/N) YES, NA INITIALS AW 0927, REVIEWED BY: Anuj HONEYCUTT RN. EXAMINATION GENERAL: THE PATIENT IS ALERT, ORIENTED TIMES THREE AND COOPERATIVE. LUNGS ARE CLEAR TO AUSCULTATION. HEART SHOWS REGULAR RHYTHM, NO MURMURS AND NO GALLOPS. ASSESSMENTS SACROILIITIS, NOT ELSEWHERE CLASSIFIED - M46.1 (PRIMARY) TREATMENT SACROILIITIS, NOT ELSEWHERE CLASSIFIED [facility] FLUORO GUIDANCE (PAIN)[id number] SALINE LOCKFAITH RAMOS 06/03/2021 10:46:51 AM > 22 G STARTED TO ANTERIOR RIGHT FOREARM, GOOD FLASHBACK, FLUSHES EASILY, PT DENIES PAIN. COMPLETION OF PROCEDURAL VISIT WHEN MEETS CRITERIAFAITH RAMOS 06/03/2021 12:06:20 PM > CRITERIA MET MED: PAIN BENADRYL TAB 25MG ORALLY DIPHENHYDRAMINEIAN VANEGAS 06/03/2021 10:37:15 AM > VERIFIED FAITH RAMOS 06/03/2021 10:45:58 AM > ADMINISTERED MEDICATION: PAIN VALIUM TAB 10MG ORALLY (DIAZEPAM)RADHA JOE 06/03/2021 9:56:26 AM > VERIFIED RON FLEMING 06/03/2021 10:00:51 AM > ADMINISTERED MEDICATION: PAIN OXYCODONE HCL TAB 10MG ORALLYRADHA JOE 06/03/2021 9:56:43 AM > VERIFEID RON FLEMING 06/03/2021 10:01:28 AM > ADMINISTERED OTHERS NOTES: 06/02/21 PAT COMPLETED. Wing PULIDO WHEEL FITTER. PROCEDURES PAIN NURSING RECORD PROCEDURE IN ROOM 1100, PHYSICIAN IN ROOM 1131, START 1134, FINISH 1136, PHYSICIAN OUT OF ROOM 1137, OUT OF ROOM 1145, ECG NORMAL SINUS, PATIENT SHIELDED YES, SAFETY STRAP YES, PREP CHLOROPREP Vi RAMOS RN, DRESSING TEGADERM DR. NICE LOC: 1. ALERT, ORIENTED, FAITH RAMOS 06/03/2021 11:40:34 AM > RESP: 1. REGULAR, NO DYSPNEA, FAITH RAMOS 06/03/2021 11:40:38 AM > COLOR: 1. PINK, FAITH RAMOS 06/03/2021 11:40:42 AM > SKIN: 1. WARM, DRY, FAITH RAMOS 06/03/2021 11:40:47 AM > POSITION: 1. PRONE, FAITH RAMOS 06/03/2021 11:08:39 AM > VITALS: 1015 P62 0296% R18 BP155/73 AW P66 R18 0294% BP145/70 AW 1045 P63 R18 0292 BP144/73 145/68, 56, 16, 96%, FAITH RAMOS 06/03/2021 11:08:59 AM > 155/82, 56, 16, 95%, FAITH RAMOS 06/03/2021 11:25:51 AM > 154/85, 55, 16, 95%, FAITH RAMOS 06/03/2021 11:30:24 PM > 164/87, 60, 16, 95%, FAITH RAMOS 06/03/2021 11:45:27 PM > 162/75, 60, 16, 96%, FAITH RAMOS 06/03/2021 11:50:00 PM > NOTES Vi RAMOS RN, FAITH RAMOS 06/03/2021 11:09:04 AM > COMPLETION OF PROCEDURE APPOINTMENT: POST PAIN 5, DRESSING SITE DRY AND INTACT, IV DISCONTINUED, SITE CLEAR, CATHETER INTACT, GAIT STEADY, TEACHING COMPLETED, PATIENT ACKNOWLEDGES UNDERSTANDING YES, PROCEDURE APPOINTMENT COMPLETED AT 1200 PN WORKMANS' COMP OPINION IN YOUR OPINION, WAS THE INCIDENT THAT THE PATIENT DESCRIBED THE COMPETENT MEDICAL CAUSE OF THIS INJURY/ILLNESS? YES ARE THE PATIENT'S COMPLAINTS CONSISTENT WITH HIS/HER HISTORY OF THE INJURY/ILLNESS? NO IS THE PATIENT'S HISTORY OF THE INJURY/ILLNESS CONSISTENT WITH YOUR OBJECTIVE FINDING? YES WHAT IS THE PERCENTAGE OF TEMPORARY IMPAIRMENT? MODERATE TO MARKED = 66.7% IS THE PATIENT WORKING? NO DOCTOR ON SITE: BORA HARRISON MD PN SI PRE PROCEDURE DIAGNOSIS SACROILIITIS, SACROILIAC JOINT DYSFUNCTION POST PROCEDURE DIAGNOSIS SACROILIITIS, SACROILIAC JOINT DYSFUNCTION PROCEDURE BILATERAL SACROILIAC JOINT BLOCK SURGEON DR. BORA NICE CUSTOMER ORDER CLERK NONE ANESTHESIA LOCAL PRE PROCEDURE NOTE THE PATIENT WITH HISTORY OF CHRONIC LOW BACK PAIN. I EVALUATED THE PATIENT AND REVIEWED THE CHART. I WENT OVER THE RISKS, ALTERNATIVES, AND BENEFITS ASSOCIATED WITH THIS PROCEDURE. THE PATIENT WOULD LIKE TO PROCEED AND GAVE CONSENT TO PERFORM THE PROCEDURE. THE PATIENT DENIES UNEXPLAINABLE WEIGHT LOSS, FEVER, CHILLS, OR NEW CHANGES IN URINARY OR BOWEL CONTROL. THE PATIENT IS COVID-19 NEGATIVE DESCRIPTION OF PROCEDURE THE PATIENT WAS BROUGHT TO THE PROCEDURE ROOM AND PLACED IN THE PRONE POSITION. THE LUMBOSACRAL AREA WAS CLEANED WITH CHLORAPREP SOLUTION AND DRAPED ASEPTICALLY. THE PROCEDURE WAS DONE UNDER STERILE CONDITIONS. A TIMEOUT WAS PERFORMED WHERE THE CONSENTED SITE WAS VERIFIED WITH EVERYONE IN THE ROOM. UNDER FLUOROSCOPIC GUIDANCE, THE TARGET POINT WAS SELECTED AT THE LOWER BORDER OF THE RIGHT AND LEFT SACROILIAC JOINT. TARGET POINT WAS SELECTED AFTER MEDIAL ROTATION AND TILT OF THE MAGNIFIER OR THE C-ARM. I CONFIRMED AGAIN THE SITE OF TARGET. LIDOCAINE 0.5% WAS USED TO NUMB THE SKIN AND THE SUBCUTANEOUS TISSUE BELOW IT. SPINAL NEEDLES, 22-GAUGE, WERE ADVANCED UNDER FLUOROSCOPIC GUIDANCE AND FOLLOWING PATIENT FEEDBACK UNTIL THE TARGETS WERE TOUCHED. THE POSITION OF THE NEEDLES WAS VERIFIED WITH AP AND OBLIQUE VIEWS. THE PATIENT HAS ALLERGIES TO IV DYE SO NO ISOVUE-M WAS USED. KENALOG 20 MG WAS INJECTED AT EACH SITE. THEN, A SOLUTION OF 3.0 ML OF BUPIVACAINE 0.125% WAS USED TO FLUSH EACH NEEDLE. THE MEDICATIONS WERE VERIFIED WITH THE NURSE. THERE WAS NO EVIDENCE OF BLOOD, PARESTHESIA OR CEREBROSPINAL FLUID DURING THE PROCEDURE. THE PATIENT WAS SENT TO THE RECOVERY ROOM. THE PATIENT WAS MOVING THE EXTREMITIES AND DOING WELL. THERE WERE NO COMPLICATIONS DURING THE PROCEDURE. ESTIMATED BLOOD LOSS WAS LESS THAN 5 ML. FLUOROSCOPIC TIME WAS 23 SECONDS. POST PROCEDURE NOTE DEPENDING ON THE RESULTS, CONSIDER AN EPIDURAL. LETS DISCUSS THE POSIBILITY OF USING DYE IN THE POST PROCEDURE VISIT. THE PROCEDURE DONE WAS DISCUSSED WITH THE PATIENT. THE PATIENT WILL BE SEEN IN A FOLLOW UP IN THE NEXT FEW WEEKS. I AM LOOKING FOR LONG LASTING PAIN RELIEF FOR THE PATIENT WITH THIS INTERVENTION. INSTRUCTIONS WERE GIVEN, QUESTIONS WERE ANSWERED, AND THE PATIENT EXPRESSED UNDERSTANDING AND AGREES WITH THE PLAN. I, VI SABILLON, DOCUMENTED THE ABOVE INFORMATION ACTING A SCRIBE FOR DR. NICE. I HAVE REVIEWED THE ABOVE DOCUMENT, WRITTEN BY VI SABILLON, CPHT, AND I VERIFY THAT IT IS ACCURATE PROCEDURE CODES 83052 INJECT SACROILIAC JOINT, MODIFIERS: 50 DISPOSITION & COMMUNICATION FOLLOW UP FOLLOW UP WITH PASTER OPERATOR (REASON: POST BILATERAL SACROILIAC JOINT BLOCK) ELECTRONICALLY SIGNED BY BORA NICE MD, MD ON 06/06/2021 AT 07:45 AM EDT DISCLAIMER : THIS IS A VISIT SUMMARY EXTRACTED FROM THE [employer] CHART. IT IS NOT A COPY OF THE [employer] PROGRESS NOTE. PEDRO
--- NOTE | 2021-06-07 01:24 | ECWPNPC ---
PATIENT NAME: LISA POTTS : 1955 GENDER: FEMALE VISIT DATE: 06/03/2021 DISCHARGE DATE: 06/03/21 1204 VISIT LOCKED DATE TIME: PHYSICIAN: BORA NICE MD PHYSICIAN PAGER NO: ACTIVE RESOURCE: BORA NICE MD REASON FOR APPOINTMENT 1. BILATERAL SACROILIAC JOINT BLOCK HISTORY OF PRESENT ILLNESS FALL RISK SCREENING: SCREENING : NO FALLS REPORTED IN THE LAST YEAR. PAIN SCREENING: PATIENT HAS A COMPLAINT OF ACUTE OR CHRONIC PAIN :YES LOCATION OF PAIN:LOW BACK INTENSITY OF PAIN (SCALE OF 1 TO 10):7 WHAT DOES YOUR PAIN FEEL LIKE:SORE, TENDER, STABBING, INTERMITTENT, CONTINOUS NURSING NOTE: -. PAIN CENTER INTAKE QUESTIONS: DO YOU HAVE A HISTORY OF MRSA? :NO DO YOU TAKE A BLOOD THINNERS? :NO DO YOU HAVE ANY BLEEDING DISORDERS? :NO ANY NEW NUMBNESS OR WEAKNESS IN YOUR LEGS OR ARMS? :YES STARTED THIS SPRING, "CRUNCHING, POPPING" SENSATION IN BACK PATIENT DENIES NEW TRAUMA. ANY PACEMAKER,DEFIBRILLATOR, OR DORSAL COLUMN STIMULATOR? :NO DO YOU HAVE ANY RASHES OR OPEN SORES? :NO ARE YOU ALLERGIC TO IV DYE? :YES FAINT, LIGHT HEADED, PRESSURE. ARE YOU DIABETIC? :NO ANY NEW PROBLEMS WITH YOUR MEDICATIONS? :NO HAVE YOU RECEIVED A VACCINE IN THE PAST 30 DAYS? :NO DO YOU PLAN TO RECEIVE A VACCINE IN THE NEXT 21 DAYS? :NO DO YOU TAKE ANY IMMUNOSUPPRESSIVE MEDICATIONS? :NO ANY HISTORY OF SEIZURES? :NO ANY HISTORY OF CARDIAC ISSUES OR EVENTS? :NO DO YOU HAVE ANY KIDNEY OR LIVER DISEASE? :NO DO YOU HAVE SLEEP APNEA? :NO ANY RECENT HEAD INJURY? :NO DO YOU HAVE ANY NEW INFECTIONS? :NO IS THERE A CHANCE YOU COULD BE ? :NO ARE YOU BREAST FEEDING? :NO WHEN DID YOU LAST EAT? : 06/02/2021 2100 WHEN DID YOU LAST DRINK? : 06/03/2021 0700 WHAT DID YOU LAST DRINK? : WATER NAME OF PERSON DRIVING YOU HOME? : HERB () DO YOU HAVE ANY OTHER QUESTIONS OR CONCERNS? : NO GENERAL: -. CURRENT MEDICATIONS TAKING TRAMADOL-ACETAMINOPHEN 37.5-325 MG TABLET 1 TABLET ORALLY DAILY NEEDED, NOTES: NONE LATELY TAKING VITAMIN D 1 TABLET 5000 UNITS ORALLY DAILY TAKING EYE DROPS EXTRA 0.05 % SOLUTION 2 DROP OPHTHALMIC TWICE A DAY AND NEEDED TAKING OMEGA 3 1000 MG CAPSULE 1 CAPSULE ORALLY ONCE A DAY TAKING MULTI FOR HER 50+ - TABLET 1 TAB ORALLY BID TAKING VOLTAREN 1 % GEL 1 STRIP TRANSDERMAL QID PRN FOR PAIN TAKING ALEVE PM 220-25 MG TABLET 1 TAB ORALLY BEFORE BEDTIME NEEDED, NOTES: 06/03/2021 0300 TAKING VITAMIN C 500 MG CAPSULE ORALLY TAKING MAY HAVE ULTIMATE EYE SUPPORT PO 2 TABS DAILY NOT-TAKING SKELAXIN 800 MG TABLET 1 TABLET ORALLY DAILY NOT-TAKING COLLAGEN 500 MG CAPSULE 2 TABLETS ORALLY DAILY NOT-TAKING IBUPROFEN 800 MG TABLET 1 TABLET WITH FOOD OR MILK NEEDED ORALLY THREE TIMES A DAY PRN NOT-TAKING MELOXICAM 7.5 MG TABLET DISINTEGRATING 1 TABLET ORALLY ONCE A DAY NOT-TAKING MAGNESIUM 200 MG TABLET 2 TABLETS WITH A MEAL ORALLY ONCE A DAY NOT-TAKING ACETAMINOPHEN 325 MG TABLET 1 TABLET NEEDED ORALLY EVERY 6 HRS NOT-TAKING CLARITIN 10 MG TABLET 1 TABLET ORALLY ONCE A DAY MEDICATION LIST REVIEWED AND RECONCILED WITH THE PATIENT PAST MEDICAL HISTORY CHRONIC BACK PAIN BILATERAL NECK AND SHOULDER PAIN ALLERGIES GABAPENTIN: SWOLLEN EYE LIDS PUFFY LIPS - ALLERGY CONTRAST MEDIA: FAINT, HEAD FULLNESS, PRESSURE - ALLERGY NAPROXEN: SWOLLEN EYE LIDS PUFFY LIPS - ALLERGY PENICILLIN (FOR ALLERGIES USE ONLY): ABD. PAIN - SIDE EFFECTS SEASONAL ALLERGIES: CONGESTION - ALLERGY SOCIAL HISTORY GENERAL: TOBACCO USE ARE YOU A: NONSMOKER. LATEX QUESTIONNAIRE LATEX ALLERGY : HAVE YOU EVER DEVELOPED ANY TYPE OF REACTION AFTER HANDLING LATEX PRODUCTS SUCH RUBBER GLOVES, CONDOMS, DIAPHRAGMS, BALLOONS, SOCKS, OR UNDERWEAR?NO LATEX ALLERGY : HAVE YOU EVER DEVELOPED ANY TYPE OF REACTION DURING OR AFTER DENTAL APPOINTMENT, VAGINAL/RECTAL EXAMINATION, SURGICAL PROCEDURE, OR ANY OTHER EXPOSURE?NO LATEX RISK : HAVE YOU EVER HAD ANY DIFFICULTY BREATHING OR HIVES AFTER EATING OR HANDLING ANY FRUITS, OR VEGETABLES; SUCH KIWI, BANANAS, STONE FRUITS, OR CHESTNUTSNO LATEX RISK : DO YOU HAVE A PREVIOUS PERSONAL HISTORY OF MORE THAN NINE SURGERIES, SPINA BIFIDA, OR REPEATED CATHERIZATIONS? NO LATEX RISK : ARE YOU FREQUENTLY EXPOSED TO LATEX PRODUCTS IN YOUR OCCUPATION?NO DATE ASKED : 06/02/2021 ALCOHOL SCREENING DID YOU HAVE A DRINK CONTAINING ALCOHOL IN THE PAST YEAR?YES HOW OFTEN DID YOU HAVE SIX OR MORE DRINKS ON ONE OCCASION IN THE PAST YEAR?NEVER (0 POINTS) HOW MANY DRINKS DID YOU HAVE ON A TYPICAL DAY WHEN YOU WERE DRINKING IN THE PAST YEAR?3 OR 4 (1 POINT) HOW OFTEN DID YOU HAVE A DRINK CONTAINING ALCOHOL IN THE PAST YEAR?MONTHLY OR LESS (1 POINT) POINTS2 INTERPRETATIONNEGATIVE RECREATIONAL DRUG USE DRUG USE?NO PATIENT DENIES ABUSE OR MISSUSED OF ANY MEDICATION DENIES PATIENT DENIES USE OF ANY ILLEGAL SUBSTANCE INCLUDING MARIJUANA OR COCAINE DENIES CAFFEINE CAFFEINE USE?YES HOW OFTEN AND HOW MUCH? 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 PATIENT DESCRIBES PAIN :ACHING, HAVE IT ALL THE TIME, IT COMES AND GOES, SHARP, STABBING, TENDER, THROBBING, SORE, SHOOTING FROM 0-10, WHAT LEVEL IS YOUR PAIN TODAY?5 - PFS REFERRAL NEEDED?NO CLERGY REFERRAL NEEDED?NO PUBLIC HEALTH REFERRAL NEEDED?NO WAS THE PROVIDER NOTIFIED OF ANY PERTINENT INFO?YES N/A HAS THE PATIENT BEEN EDUCATED REGARDING HIS/HER PLAN OF CARE?YES HAS THE PATIENT BEEN EDUCATED REGARDING PAIN, THE RISK FOR PAIN, THE IMPORTANCE OF EFFECTIVE PAIN MANAGEMENT, AND THE PAIN ASSESSMENT PROCESS?YES ADVANCE DIRECTIVE ADVANCE DIRECTIVE DISCUSSED WITH PATIENT:YES PT DOES NOT HAVE ANY ADVANCED DIRECTIVES AND DECLINES INFROMATION ON HCP AT THIS TIME. STATES SHE ALREADY HAS THE INFORMATION ON HCP, ASSISTANCE OFFERED IN COMPLETING IT IF SHE WANTED HELP. VITAL SIGNS WT 186.2 LBS, HT 63 IN, BMI 32.98 INDEX, BP 182/83 MM HG, HR 72 /MIN, RR 18 /MIN, TEMP 98.0 F, OXYGEN SAT % 99%, SAFE IN ENV? (Y/N) YES, NA INITIALS AW 0927, REVIEWED BY: Anuj HONEYCUTT RN. EXAMINATION GENERAL: THE PATIENT IS ALERT, ORIENTED TIMES THREE AND COOPERATIVE. LUNGS ARE CLEAR TO AUSCULTATION. HEART SHOWS REGULAR RHYTHM, NO MURMURS AND NO GALLOPS. ASSESSMENTS SACROILIITIS, NOT ELSEWHERE CLASSIFIED - M46.1 (PRIMARY) TREATMENT SACROILIITIS, NOT ELSEWHERE CLASSIFIED [facility] FLUORO GUIDANCE (PAIN)[id number] SALINE LOCKFAITH RAMOS 06/03/2021 10:46:51 AM > 22 G STARTED TO ANTERIOR RIGHT FOREARM, GOOD FLASHBACK, FLUSHES EASILY, PT DENIES PAIN. COMPLETION OF PROCEDURAL VISIT WHEN MEETS CRITERIAFAITH RAMOS 06/03/2021 12:06:20 PM > CRITERIA MET MED: PAIN BENADRYL TAB 25MG ORALLY DIPHENHYDRAMINEIAN VANEGAS 06/03/2021 10:37:15 AM > VERIFIED FAITH RAMOS 06/03/2021 10:45:58 AM > ADMINISTERED MEDICATION: PAIN VALIUM TAB 10MG ORALLY (DIAZEPAM)RADHA JOE 06/03/2021 9:56:26 AM > VERIFIED RON FLEMING 06/03/2021 10:00:51 AM > ADMINISTERED MEDICATION: PAIN OXYCODONE HCL TAB 10MG ORALLYRADHA JOE 06/03/2021 9:56:43 AM > VERIFEID RON FLEMING 06/03/2021 10:01:28 AM > ADMINISTERED OTHERS NOTES: 06/02/21 PAT COMPLETED. 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 PROCEDURES PAIN NURSING RECORD PROCEDURE IN ROOM 1100, PHYSICIAN IN ROOM 1131, START 1134, FINISH 1136, PHYSICIAN OUT OF ROOM 1137, OUT OF ROOM 1145, ECG NORMAL SINUS, PATIENT SHIELDED YES, SAFETY STRAP YES, PREP CHLOROPREP Vi RAMOS RN, DRESSING TEGADERM DR. NICE LOC: 1. ALERT, ORIENTED, FAITH RAMOS 06/03/2021 11:40:34 AM > RESP: 1. REGULAR, NO DYSPNEA, FAITH RAMOS 06/03/2021 11:40:38 AM > COLOR: 1. PINK, FAITH RAMOS 06/03/2021 11:40:42 AM > SKIN: 1. WARM, DRY, FAITH RAMOS 06/03/2021 11:40:47 AM > POSITION: 1. PRONE, FAITH RAMOS 06/03/2021 11:08:39 AM > VITALS: 1015 P62 0296% R18 BP155/73 AW P66 R18 0294% BP145/70 AW 1045 P63 R18 0292 BP144/73 145/68, 56, 16, 96%, FAITH RAMOS 06/03/2021 11:08:59 AM > 155/82, 56, 16, 95%, FAITH RAMOS 06/03/2021 11:25:51 AM > 154/85, 55, 16, 95%, FAITH RAMOS 06/03/2021 11:30:24 PM > 164/87, 60, 16, 95%, FAITH RAMOS 06/03/2021 11:45:27 PM > 162/75, 60, 16, 96%, FAITH RAMOS 06/03/2021 11:50:00 PM > NOTES Vi RAMOS RN, FAITH RAMOS 06/03/2021 11:09:04 AM > COMPLETION OF PROCEDURE APPOINTMENT: POST PAIN 5, DRESSING SITE DRY AND INTACT, IV DISCONTINUED, SITE CLEAR, CATHETER INTACT, GAIT STEADY, TEACHING COMPLETED, PATIENT ACKNOWLEDGES UNDERSTANDING YES, PROCEDURE APPOINTMENT COMPLETED AT 1200 PN WORKMANS' COMP OPINION IN YOUR OPINION, WAS THE INCIDENT THAT THE PATIENT DESCRIBED THE COMPETENT MEDICAL CAUSE OF THIS INJURY/ILLNESS? YES ARE THE PATIENT'S COMPLAINTS CONSISTENT WITH HIS/HER HISTORY OF THE INJURY/ILLNESS? NO IS THE PATIENT'S HISTORY OF THE INJURY/ILLNESS CONSISTENT WITH YOUR OBJECTIVE FINDING? YES WHAT IS THE PERCENTAGE OF TEMPORARY IMPAIRMENT? MODERATE TO MARKED = 66.7% IS THE PATIENT WORKING? NO DOCTOR ON SITE: BORA HARRISON MD PN SI PRE PROCEDURE DIAGNOSIS SACROILIITIS, SACROILIAC JOINT DYSFUNCTION POST PROCEDURE DIAGNOSIS SACROILIITIS, SACROILIAC JOINT DYSFUNCTION PROCEDURE BILATERAL SACROILIAC JOINT BLOCK SURGEON DR. BORA NICE PROPOSAL EDITOR NONE ANESTHESIA LOCAL PRE PROCEDURE NOTE THE PATIENT WITH HISTORY OF CHRONIC LOW BACK PAIN. I EVALUATED THE PATIENT AND REVIEWED THE CHART. I WENT OVER THE RISKS, ALTERNATIVES, AND BENEFITS ASSOCIATED WITH THIS PROCEDURE. THE PATIENT WOULD LIKE TO PROCEED AND GAVE CONSENT TO PERFORM THE PROCEDURE. THE PATIENT DENIES UNEXPLAINABLE WEIGHT LOSS, FEVER, CHILLS, OR NEW CHANGES IN URINARY OR BOWEL CONTROL. THE PATIENT IS COVID-19 NEGATIVE DESCRIPTION OF PROCEDURE THE PATIENT WAS BROUGHT TO THE PROCEDURE ROOM AND PLACED IN THE PRONE POSITION. THE LUMBOSACRAL AREA WAS CLEANED WITH CHLORAPREP SOLUTION AND DRAPED ASEPTICALLY. THE PROCEDURE WAS DONE UNDER STERILE CONDITIONS. A TIMEOUT WAS PERFORMED WHERE THE CONSENTED SITE WAS VERIFIED WITH EVERYONE IN THE ROOM. UNDER FLUOROSCOPIC GUIDANCE, THE TARGET POINT WAS SELECTED AT THE LOWER BORDER OF THE RIGHT AND LEFT SACROILIAC JOINT. TARGET POINT WAS SELECTED AFTER MEDIAL ROTATION AND TILT OF THE MAGNIFIER OR THE C-ARM. I CONFIRMED AGAIN THE SITE OF TARGET. LIDOCAINE 0.5% WAS USED TO NUMB THE SKIN AND THE SUBCUTANEOUS TISSUE BELOW IT. SPINAL NEEDLES, 22-GAUGE, WERE ADVANCED UNDER FLUOROSCOPIC GUIDANCE AND FOLLOWING PATIENT FEEDBACK UNTIL THE TARGETS WERE TOUCHED. THE POSITION OF THE NEEDLES WAS VERIFIED WITH AP AND OBLIQUE VIEWS. THE PATIENT HAS ALLERGIES TO IV DYE SO NO ISOVUE-M WAS USED. KENALOG 20 MG WAS INJECTED AT EACH SITE. THEN, A SOLUTION OF 3.0 ML OF BUPIVACAINE 0.125% WAS USED TO FLUSH EACH NEEDLE. THE MEDICATIONS WERE VERIFIED WITH THE NURSE. THERE WAS NO EVIDENCE OF BLOOD, PARESTHESIA OR CEREBROSPINAL FLUID DURING THE PROCEDURE. THE PATIENT WAS SENT TO THE RECOVERY ROOM. THE PATIENT WAS MOVING THE EXTREMITIES AND DOING WELL. THERE WERE NO COMPLICATIONS DURING THE PROCEDURE. ESTIMATED BLOOD LOSS WAS LESS THAN 5 ML. FLUOROSCOPIC TIME WAS 23 SECONDS. POST PROCEDURE NOTE DEPENDING ON THE RESULTS, CONSIDER AN EPIDURAL. LETS DISCUSS THE POSIBILITY OF USING DYE IN THE POST PROCEDURE VISIT. THE PROCEDURE DONE WAS DISCUSSED WITH THE PATIENT. THE PATIENT WILL BE SEEN IN A FOLLOW UP IN THE NEXT FEW WEEKS. I AM LOOKING FOR LONG LASTING PAIN RELIEF FOR THE PATIENT WITH THIS INTERVENTION. INSTRUCTIONS WERE GIVEN, QUESTIONS WERE ANSWERED, AND THE PATIENT EXPRESSED UNDERSTANDING AND AGREES WITH THE PLAN. I, VI SABILLON, DOCUMENTED THE ABOVE INFORMATION ACTING A SCRIBE FOR DR. NICE. I HAVE REVIEWED THE ABOVE DOCUMENT, WRITTEN BY VI SABILLON, SIZING MACHINE OPERATOR, AND I VERIFY THAT IT IS ACCURATE PROCEDURE CODES 07571 INJECT SACROILIAC JOINT, MODIFIERS: 50 DISPOSITION & COMMUNICATION FOLLOW UP FOLLOW UP WITH SALES EXECUTIVE (REASON: POST BILATERAL SACROILIAC JOINT BLOCK) ELECTRONICALLY SIGNED BY BORA NICE MD, MD ON 06/06/2021 AT 07:45 AM EDT DISCLAIMER : THIS IS A VISIT SUMMARY EXTRACTED FROM THE [employer] CHART. IT IS NOT A COPY OF THE [employer] PROGRESS NOTE. [place]
--- NOTE | 2021-06-07 01:27 | ECWPNPC ---
PATIENT NAME: LISA POTTS : 1955 GENDER: FEMALE VISIT DATE: 06/03/2021 DISCHARGE DATE: 06/03/21 1204 VISIT LOCKED DATE TIME: PHYSICIAN: BORA NICE MD PHYSICIAN PAGER NO: ACTIVE RESOURCE: BORA NICE MD REASON FOR APPOINTMENT 1. BILATERAL SACROILIAC JOINT BLOCK HISTORY OF PRESENT ILLNESS FALL RISK SCREENING: SCREENING : NO FALLS REPORTED IN THE LAST YEAR. PAIN SCREENING: PATIENT HAS A COMPLAINT OF ACUTE OR CHRONIC PAIN :YES LOCATION OF PAIN:LOW BACK INTENSITY OF PAIN (SCALE OF 1 TO 10):7 WHAT DOES YOUR PAIN FEEL LIKE:SORE, TENDER, STABBING, INTERMITTENT, CONTINOUS NURSING NOTE: -. PAIN CENTER INTAKE QUESTIONS: DO YOU HAVE A HISTORY OF MRSA? :NO DO YOU TAKE A BLOOD THINNERS? :NO DO YOU HAVE ANY BLEEDING DISORDERS? :NO ANY NEW NUMBNESS OR WEAKNESS IN YOUR LEGS OR ARMS? :YES STARTED THIS SPRING, "CRUNCHING, POPPING" SENSATION IN BACK PATIENT DENIES NEW TRAUMA. ANY PACEMAKER,DEFIBRILLATOR, OR DORSAL COLUMN STIMULATOR? :NO DO YOU HAVE ANY RASHES OR OPEN SORES? :NO ARE YOU ALLERGIC TO IV DYE? :YES FAINT, LIGHT HEADED, PRESSURE. ARE YOU DIABETIC? :NO ANY NEW PROBLEMS WITH YOUR MEDICATIONS? :NO HAVE YOU RECEIVED A VACCINE IN THE PAST 30 DAYS? :NO DO YOU PLAN TO RECEIVE A VACCINE IN THE NEXT 21 DAYS? :NO DO YOU TAKE ANY IMMUNOSUPPRESSIVE MEDICATIONS? :NO ANY HISTORY OF SEIZURES? :NO ANY HISTORY OF CARDIAC ISSUES OR EVENTS? :NO DO YOU HAVE ANY KIDNEY OR LIVER DISEASE? :NO DO YOU HAVE SLEEP APNEA? :NO ANY RECENT HEAD INJURY? :NO DO YOU HAVE ANY NEW INFECTIONS? :NO IS THERE A CHANCE YOU COULD BE ? :NO ARE YOU BREAST FEEDING? :NO WHEN DID YOU LAST EAT? : 06/02/2021 2100 WHEN DID YOU LAST DRINK? : 06/03/2021 0700 WHAT DID YOU LAST DRINK? : WATER NAME OF PERSON DRIVING YOU HOME? : HERB () DO YOU HAVE ANY OTHER QUESTIONS OR CONCERNS? : NO GENERAL: -. CURRENT MEDICATIONS TAKING TRAMADOL-ACETAMINOPHEN 37.5-325 MG TABLET 1 TABLET ORALLY DAILY NEEDED, NOTES: NONE LATELY TAKING VITAMIN D 1 TABLET 5000 UNITS ORALLY DAILY TAKING EYE DROPS EXTRA 0.05 % SOLUTION 2 DROP OPHTHALMIC TWICE A DAY AND NEEDED TAKING OMEGA 3 1000 MG CAPSULE 1 CAPSULE ORALLY ONCE A DAY TAKING MULTI FOR HER 50+ - TABLET 1 TAB ORALLY BID TAKING VOLTAREN 1 % GEL 1 STRIP TRANSDERMAL QID PRN FOR PAIN TAKING ALEVE PM 220-25 MG TABLET 1 TAB ORALLY BEFORE BEDTIME NEEDED, NOTES: 06/03/2021 0300 TAKING VITAMIN C 500 MG CAPSULE ORALLY TAKING MAY HAVE ULTIMATE EYE SUPPORT PO 2 TABS DAILY NOT-TAKING SKELAXIN 800 MG TABLET 1 TABLET ORALLY DAILY NOT-TAKING COLLAGEN 500 MG CAPSULE 2 TABLETS ORALLY DAILY NOT-TAKING IBUPROFEN 800 MG TABLET 1 TABLET WITH FOOD OR MILK NEEDED ORALLY THREE TIMES A DAY PRN NOT-TAKING MELOXICAM 7.5 MG TABLET DISINTEGRATING 1 TABLET ORALLY ONCE A DAY NOT-TAKING MAGNESIUM 200 MG TABLET 2 TABLETS WITH A MEAL ORALLY ONCE A DAY NOT-TAKING ACETAMINOPHEN 325 MG TABLET 1 TABLET NEEDED ORALLY EVERY 6 HRS NOT-TAKING CLARITIN 10 MG TABLET 1 TABLET ORALLY ONCE A DAY MEDICATION LIST REVIEWED AND RECONCILED WITH THE PATIENT PAST MEDICAL HISTORY CHRONIC BACK PAIN BILATERAL NECK AND SHOULDER PAIN ALLERGIES GABAPENTIN: SWOLLEN EYE LIDS PUFFY LIPS - ALLERGY CONTRAST MEDIA: FAINT, HEAD FULLNESS, PRESSURE - ALLERGY NAPROXEN: SWOLLEN EYE LIDS PUFFY LIPS - ALLERGY PENICILLIN (FOR ALLERGIES USE ONLY): ABD. PAIN - SIDE EFFECTS SEASONAL ALLERGIES: CONGESTION - ALLERGY SOCIAL HISTORY GENERAL: TOBACCO USE ARE YOU A: NONSMOKER. LATEX QUESTIONNAIRE LATEX ALLERGY : HAVE YOU EVER DEVELOPED ANY TYPE OF REACTION AFTER HANDLING LATEX PRODUCTS SUCH RUBBER GLOVES, CONDOMS, DIAPHRAGMS, BALLOONS, SOCKS, OR UNDERWEAR?NO LATEX ALLERGY : HAVE YOU EVER DEVELOPED ANY TYPE OF REACTION DURING OR AFTER DENTAL APPOINTMENT, VAGINAL/RECTAL EXAMINATION, SURGICAL PROCEDURE, OR ANY OTHER EXPOSURE?NO LATEX RISK : HAVE YOU EVER HAD ANY DIFFICULTY BREATHING OR HIVES AFTER EATING OR HANDLING ANY FRUITS, OR VEGETABLES; SUCH KIWI, BANANAS, STONE FRUITS, OR CHESTNUTSNO LATEX RISK : DO YOU HAVE A PREVIOUS PERSONAL HISTORY OF MORE THAN NINE SURGERIES, SPINA BIFIDA, OR REPEATED CATHERIZATIONS? NO LATEX RISK : ARE YOU FREQUENTLY EXPOSED TO LATEX PRODUCTS IN YOUR OCCUPATION?NO DATE ASKED : 06/02/2021 ALCOHOL SCREENING DID YOU HAVE A DRINK CONTAINING ALCOHOL IN THE PAST YEAR?YES HOW OFTEN DID YOU HAVE SIX OR MORE DRINKS ON ONE OCCASION IN THE PAST YEAR?NEVER (0 POINTS) HOW MANY DRINKS DID YOU HAVE ON A TYPICAL DAY WHEN YOU WERE DRINKING IN THE PAST YEAR?3 OR 4 (1 POINT) HOW OFTEN DID YOU HAVE A DRINK CONTAINING ALCOHOL IN THE PAST YEAR?MONTHLY OR LESS (1 POINT) POINTS2 INTERPRETATIONNEGATIVE RECREATIONAL DRUG USE DRUG USE?NO PATIENT DENIES ABUSE OR MISSUSED OF ANY MEDICATION DENIES PATIENT DENIES USE OF ANY ILLEGAL SUBSTANCE INCLUDING MARIJUANA OR COCAINE DENIES CAFFEINE CAFFEINE USE?YES HOW OFTEN AND HOW MUCH? 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 PATIENT DESCRIBES PAIN :ACHING, HAVE IT ALL THE TIME, IT COMES AND GOES, SHARP, STABBING, TENDER, THROBBING, SORE, SHOOTING FROM 0-10, WHAT LEVEL IS YOUR PAIN TODAY?5 - PFS REFERRAL NEEDED?NO CLERGY REFERRAL NEEDED?NO PUBLIC HEALTH REFERRAL NEEDED?NO WAS THE PROVIDER NOTIFIED OF ANY PERTINENT INFO?YES N/A HAS THE PATIENT BEEN EDUCATED REGARDING HIS/HER PLAN OF CARE?YES HAS THE PATIENT BEEN EDUCATED REGARDING PAIN, THE RISK FOR PAIN, THE IMPORTANCE OF EFFECTIVE PAIN MANAGEMENT, AND THE PAIN ASSESSMENT PROCESS?YES ADVANCE DIRECTIVE ADVANCE DIRECTIVE DISCUSSED WITH PATIENT:YES PT DOES NOT HAVE ANY ADVANCED DIRECTIVES AND DECLINES INFROMATION ON HCP AT THIS TIME. STATES SHE ALREADY HAS THE INFORMATION ON HCP, ASSISTANCE OFFERED IN COMPLETING IT IF SHE WANTED HELP. VITAL SIGNS WT 186.2 LBS, HT 63 IN, BMI 32.98 INDEX, BP 182/83 MM HG, HR 72 /MIN, RR 18 /MIN, TEMP 98.0 F, OXYGEN SAT % 99%, SAFE IN ENV? (Y/N) YES, NA INITIALS AW 0927, REVIEWED BY: Anuj HONEYCUTT RN. EXAMINATION GENERAL: THE PATIENT IS ALERT, ORIENTED TIMES THREE AND COOPERATIVE. LUNGS ARE CLEAR TO AUSCULTATION. HEART SHOWS REGULAR RHYTHM, NO MURMURS AND NO GALLOPS. ASSESSMENTS SACROILIITIS, NOT ELSEWHERE CLASSIFIED - M46.1 (PRIMARY) TREATMENT SACROILIITIS, NOT ELSEWHERE CLASSIFIED [facility] FLUORO GUIDANCE (PAIN)[id number] SALINE LOCKFAITH RAMOS 06/03/2021 10:46:51 AM > 22 G STARTED TO ANTERIOR RIGHT FOREARM, GOOD FLASHBACK, FLUSHES EASILY, PT DENIES PAIN. COMPLETION OF PROCEDURAL VISIT WHEN MEETS CRITERIAFAITH RAMOS 06/03/2021 12:06:20 PM > CRITERIA MET MED: PAIN BENADRYL TAB 25MG ORALLY DIPHENHYDRAMINEIAN VANEGAS 06/03/2021 10:37:15 AM > VERIFIED FAITH RAMOS 06/03/2021 10:45:58 AM > ADMINISTERED MEDICATION: PAIN VALIUM TAB 10MG ORALLY (DIAZEPAM)RADHA JOE 06/03/2021 9:56:26 AM > VERIFIED RON FLEMING 06/03/2021 10:00:51 AM > ADMINISTERED MEDICATION: PAIN OXYCODONE HCL TAB 10MG ORALLYRADHA JOE 06/03/2021 9:56:43 AM > VERIFEID RON FLEMING 06/03/2021 10:01:28 AM > ADMINISTERED OTHERS NOTES: 06/02/21 PAT COMPLETED. 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 PROCEDURES PAIN NURSING RECORD PROCEDURE IN ROOM 1100, PHYSICIAN IN ROOM 1131, START 1134, FINISH 1136, PHYSICIAN OUT OF ROOM 1137, OUT OF ROOM 1145, ECG NORMAL SINUS, PATIENT SHIELDED YES, SAFETY STRAP YES, PREP CHLOROPREP Vi RAMOS RN, DRESSING TEGADERM DR. NICE LOC: 1. ALERT, ORIENTED, FAITH RAMOS 06/03/2021 11:40:34 AM > RESP: 1. REGULAR, NO DYSPNEA, FAITH RAMOS 06/03/2021 11:40:38 AM > COLOR: 1. PINK, FAITH RAMOS 06/03/2021 11:40:42 AM > SKIN: 1. WARM, DRY, FAITH RAMOS 06/03/2021 11:40:47 AM > POSITION: 1. PRONE, FAITH RAMOS 06/03/2021 11:08:39 AM > VITALS: 1015 P62 0296% R18 BP155/73 AW P66 R18 0294% BP145/70 AW 1045 P63 R18 0292 BP144/73 145/68, 56, 16, 96%, FAITH RAMOS 06/03/2021 11:08:59 AM > 155/82, 56, 16, 95%, FAITH RAMOS 06/03/2021 11:25:51 AM > 154/85, 55, 16, 95%, FAITH RAMOS 06/03/2021 11:30:24 PM > 164/87, 60, 16, 95%, FAITH RAMOS 06/03/2021 11:45:27 PM > 162/75, 60, 16, 96%, FAITH RAMOS 06/03/2021 11:50:00 PM > NOTES Vi RAMOS RN, FAITH RAMOS 06/03/2021 11:09:04 AM > COMPLETION OF PROCEDURE APPOINTMENT: POST PAIN 5, DRESSING SITE DRY AND INTACT, IV DISCONTINUED, SITE CLEAR, CATHETER INTACT, GAIT STEADY, TEACHING COMPLETED, PATIENT ACKNOWLEDGES UNDERSTANDING YES, PROCEDURE APPOINTMENT COMPLETED AT 1200 PN WORKMANS' COMP OPINION IN YOUR OPINION, WAS THE INCIDENT THAT THE PATIENT DESCRIBED THE COMPETENT MEDICAL CAUSE OF THIS INJURY/ILLNESS? YES ARE THE PATIENT'S COMPLAINTS CONSISTENT WITH HIS/HER HISTORY OF THE INJURY/ILLNESS? NO IS THE PATIENT'S HISTORY OF THE INJURY/ILLNESS CONSISTENT WITH YOUR OBJECTIVE FINDING? YES WHAT IS THE PERCENTAGE OF TEMPORARY IMPAIRMENT? MODERATE TO MARKED = 66.7% IS THE PATIENT WORKING? NO DOCTOR ON SITE: BORA HARRISON MD PN SI PRE PROCEDURE DIAGNOSIS SACROILIITIS, SACROILIAC JOINT DYSFUNCTION POST PROCEDURE DIAGNOSIS SACROILIITIS, SACROILIAC JOINT DYSFUNCTION PROCEDURE BILATERAL SACROILIAC JOINT BLOCK SURGEON DR. BORA NICE SODDER NONE ANESTHESIA LOCAL PRE PROCEDURE NOTE THE PATIENT WITH HISTORY OF CHRONIC LOW BACK PAIN. I EVALUATED THE PATIENT AND REVIEWED THE CHART. I WENT OVER THE RISKS, ALTERNATIVES, AND BENEFITS ASSOCIATED WITH THIS PROCEDURE. THE PATIENT WOULD LIKE TO PROCEED AND GAVE CONSENT TO PERFORM THE PROCEDURE. THE PATIENT DENIES UNEXPLAINABLE WEIGHT LOSS, FEVER, CHILLS, OR NEW CHANGES IN URINARY OR BOWEL CONTROL. THE PATIENT IS COVID-19 NEGATIVE DESCRIPTION OF PROCEDURE THE PATIENT WAS BROUGHT TO THE PROCEDURE ROOM AND PLACED IN THE PRONE POSITION. THE LUMBOSACRAL AREA WAS CLEANED WITH CHLORAPREP SOLUTION AND DRAPED ASEPTICALLY. THE PROCEDURE WAS DONE UNDER STERILE CONDITIONS. A TIMEOUT WAS PERFORMED WHERE THE CONSENTED SITE WAS VERIFIED WITH EVERYONE IN THE ROOM. UNDER FLUOROSCOPIC GUIDANCE, THE TARGET POINT WAS SELECTED AT THE LOWER BORDER OF THE RIGHT AND LEFT SACROILIAC JOINT. TARGET POINT WAS SELECTED AFTER MEDIAL ROTATION AND TILT OF THE MAGNIFIER OR THE C-ARM. I CONFIRMED AGAIN THE SITE OF TARGET. LIDOCAINE 0.5% WAS USED TO NUMB THE SKIN AND THE SUBCUTANEOUS TISSUE BELOW IT. SPINAL NEEDLES, 22-GAUGE, WERE ADVANCED UNDER FLUOROSCOPIC GUIDANCE AND FOLLOWING PATIENT FEEDBACK UNTIL THE TARGETS WERE TOUCHED. THE POSITION OF THE NEEDLES WAS VERIFIED WITH AP AND OBLIQUE VIEWS. THE PATIENT HAS ALLERGIES TO IV DYE SO NO ISOVUE-M WAS USED. KENALOG 20 MG WAS INJECTED AT EACH SITE. THEN, A SOLUTION OF 3.0 ML OF BUPIVACAINE 0.125% WAS USED TO FLUSH EACH NEEDLE. THE MEDICATIONS WERE VERIFIED WITH THE NURSE. THERE WAS NO EVIDENCE OF BLOOD, PARESTHESIA OR CEREBROSPINAL FLUID DURING THE PROCEDURE. THE PATIENT WAS SENT TO THE RECOVERY ROOM. THE PATIENT WAS MOVING THE EXTREMITIES AND DOING WELL. THERE WERE NO COMPLICATIONS DURING THE PROCEDURE. ESTIMATED BLOOD LOSS WAS LESS THAN 5 ML. FLUOROSCOPIC TIME WAS 23 SECONDS. POST PROCEDURE NOTE DEPENDING ON THE RESULTS, CONSIDER AN EPIDURAL. LETS DISCUSS THE POSIBILITY OF USING DYE IN THE POST PROCEDURE VISIT. THE PROCEDURE DONE WAS DISCUSSED WITH THE PATIENT. THE PATIENT WILL BE SEEN IN A FOLLOW UP IN THE NEXT FEW WEEKS. I AM LOOKING FOR LONG LASTING PAIN RELIEF FOR THE PATIENT WITH THIS INTERVENTION. INSTRUCTIONS WERE GIVEN, QUESTIONS WERE ANSWERED, AND THE PATIENT EXPRESSED UNDERSTANDING AND AGREES WITH THE PLAN. I, VI SABILLON, DOCUMENTED THE ABOVE INFORMATION ACTING A SCRIBE FOR DR. NICE. 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 IT IS NOT A COPY OF THE [employer] PROGRESS NOTE. [place]
--- NOTE | 2021-06-07 01:29 | ECWPNPC ---
PATIENT NAME: LISA POTTS : 1955 GENDER: FEMALE VISIT DATE: 06/03/2021 DISCHARGE DATE: 06/03/21 1204 VISIT LOCKED DATE TIME: PHYSICIAN: BORA NICE MD PHYSICIAN PAGER NO: ACTIVE RESOURCE: BORA NICE MD REASON FOR APPOINTMENT 1. BILATERAL SACROILIAC JOINT BLOCK HISTORY OF PRESENT ILLNESS FALL RISK SCREENING: SCREENING : NO FALLS REPORTED IN THE LAST YEAR. PAIN SCREENING: PATIENT HAS A COMPLAINT OF ACUTE OR CHRONIC PAIN :YES LOCATION OF PAIN:LOW BACK INTENSITY OF PAIN (SCALE OF 1 TO 10):7 WHAT DOES YOUR PAIN FEEL LIKE:SORE, TENDER, STABBING, INTERMITTENT, CONTINOUS NURSING NOTE: -. PAIN CENTER INTAKE QUESTIONS: DO YOU HAVE A HISTORY OF MRSA? :NO DO YOU TAKE A BLOOD THINNERS? :NO DO YOU HAVE ANY BLEEDING DISORDERS? :NO ANY NEW NUMBNESS OR WEAKNESS IN YOUR LEGS OR ARMS? :YES STARTED THIS SPRING, "CRUNCHING, POPPING" SENSATION IN BACK PATIENT DENIES NEW TRAUMA. ANY PACEMAKER,DEFIBRILLATOR, OR DORSAL COLUMN STIMULATOR? :NO DO YOU HAVE ANY RASHES OR OPEN SORES? :NO ARE YOU ALLERGIC TO IV DYE? :YES FAINT, LIGHT HEADED, PRESSURE. ARE YOU DIABETIC? :NO ANY NEW PROBLEMS WITH YOUR MEDICATIONS? :NO HAVE YOU RECEIVED A VACCINE IN THE PAST 30 DAYS? :NO DO YOU PLAN TO RECEIVE A VACCINE IN THE NEXT 21 DAYS? :NO DO YOU TAKE ANY IMMUNOSUPPRESSIVE MEDICATIONS? :NO ANY HISTORY OF SEIZURES? :NO ANY HISTORY OF CARDIAC ISSUES OR EVENTS? :NO DO YOU HAVE ANY KIDNEY OR LIVER DISEASE? :NO DO YOU HAVE SLEEP APNEA? :NO ANY RECENT HEAD INJURY? :NO DO YOU HAVE ANY NEW INFECTIONS? :NO IS THERE A CHANCE YOU COULD BE ? :NO ARE YOU BREAST FEEDING? :NO WHEN DID YOU LAST EAT? : 06/02/2021 2100 WHEN DID YOU LAST DRINK? : 06/03/2021 0700 WHAT DID YOU LAST DRINK? : WATER NAME OF PERSON DRIVING YOU HOME? : HERB () DO YOU HAVE ANY OTHER QUESTIONS OR CONCERNS? : NO GENERAL: -. CURRENT MEDICATIONS TAKING TRAMADOL-ACETAMINOPHEN 37.5-325 MG TABLET 1 TABLET ORALLY DAILY NEEDED, NOTES: NONE LATELY TAKING VITAMIN D 1 TABLET 5000 UNITS ORALLY DAILY TAKING EYE DROPS EXTRA 0.05 % SOLUTION 2 DROP OPHTHALMIC TWICE A DAY AND NEEDED TAKING OMEGA 3 1000 MG CAPSULE 1 CAPSULE ORALLY ONCE A DAY TAKING MULTI FOR HER 50+ - TABLET 1 TAB ORALLY BID TAKING VOLTAREN 1 % GEL 1 STRIP TRANSDERMAL QID PRN FOR PAIN TAKING ALEVE PM 220-25 MG TABLET 1 TAB ORALLY BEFORE BEDTIME NEEDED, NOTES: 06/03/2021 0300 TAKING VITAMIN C 500 MG CAPSULE ORALLY TAKING MAY HAVE ULTIMATE EYE SUPPORT PO 2 TABS DAILY NOT-TAKING SKELAXIN 800 MG TABLET 1 TABLET ORALLY DAILY NOT-TAKING COLLAGEN 500 MG CAPSULE 2 TABLETS ORALLY DAILY NOT-TAKING IBUPROFEN 800 MG TABLET 1 TABLET WITH FOOD OR MILK NEEDED ORALLY THREE TIMES A DAY PRN NOT-TAKING MELOXICAM 7.5 MG TABLET DISINTEGRATING 1 TABLET ORALLY ONCE A DAY NOT-TAKING MAGNESIUM 200 MG TABLET 2 TABLETS WITH A MEAL ORALLY ONCE A DAY NOT-TAKING ACETAMINOPHEN 325 MG TABLET 1 TABLET NEEDED ORALLY EVERY 6 HRS NOT-TAKING CLARITIN 10 MG TABLET 1 TABLET ORALLY ONCE A DAY MEDICATION LIST REVIEWED AND RECONCILED WITH THE PATIENT PAST MEDICAL HISTORY CHRONIC BACK PAIN BILATERAL NECK AND SHOULDER PAIN ALLERGIES GABAPENTIN: SWOLLEN EYE LIDS PUFFY LIPS - ALLERGY CONTRAST MEDIA: FAINT, HEAD FULLNESS, PRESSURE - ALLERGY NAPROXEN: SWOLLEN EYE LIDS PUFFY LIPS - ALLERGY PENICILLIN (FOR ALLERGIES USE ONLY): ABD. PAIN - SIDE EFFECTS SEASONAL ALLERGIES: CONGESTION - ALLERGY SOCIAL HISTORY GENERAL: TOBACCO USE ARE YOU A: NONSMOKER. LATEX QUESTIONNAIRE LATEX ALLERGY : HAVE YOU EVER DEVELOPED ANY TYPE OF REACTION AFTER HANDLING LATEX PRODUCTS SUCH RUBBER GLOVES, CONDOMS, DIAPHRAGMS, BALLOONS, SOCKS, OR UNDERWEAR?NO LATEX ALLERGY : HAVE YOU EVER DEVELOPED ANY TYPE OF REACTION DURING OR AFTER DENTAL APPOINTMENT, VAGINAL/RECTAL EXAMINATION, SURGICAL PROCEDURE, OR ANY OTHER EXPOSURE?NO LATEX RISK : HAVE YOU EVER HAD ANY DIFFICULTY BREATHING OR HIVES AFTER EATING OR HANDLING ANY FRUITS, OR VEGETABLES; SUCH KIWI, BANANAS, STONE FRUITS, OR CHESTNUTSNO LATEX RISK : DO YOU HAVE A PREVIOUS PERSONAL HISTORY OF MORE THAN NINE SURGERIES, SPINA BIFIDA, OR REPEATED CATHERIZATIONS? NO LATEX RISK : ARE YOU FREQUENTLY EXPOSED TO LATEX PRODUCTS IN YOUR OCCUPATION?NO DATE ASKED : 06/02/2021 ALCOHOL SCREENING DID YOU HAVE A DRINK CONTAINING ALCOHOL IN THE PAST YEAR?YES HOW OFTEN DID YOU HAVE SIX OR MORE DRINKS ON ONE OCCASION IN THE PAST YEAR?NEVER (0 POINTS) HOW MANY DRINKS DID YOU HAVE ON A TYPICAL DAY WHEN YOU WERE DRINKING IN THE PAST YEAR?3 OR 4 (1 POINT) HOW OFTEN DID YOU HAVE A DRINK CONTAINING ALCOHOL IN THE PAST YEAR?MONTHLY OR LESS (1 POINT) POINTS2 INTERPRETATIONNEGATIVE RECREATIONAL DRUG USE DRUG USE?NO PATIENT DENIES ABUSE OR MISSUSED OF ANY MEDICATION DENIES PATIENT DENIES USE OF ANY ILLEGAL SUBSTANCE INCLUDING MARIJUANA OR COCAINE DENIES CAFFEINE CAFFEINE USE?YES HOW OFTEN AND HOW MUCH? 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 PATIENT DESCRIBES PAIN :ACHING, HAVE IT ALL THE TIME, IT COMES AND GOES, SHARP, STABBING, TENDER, THROBBING, SORE, SHOOTING FROM 0-10, WHAT LEVEL IS YOUR PAIN TODAY?5 - PFS REFERRAL NEEDED?NO CLERGY REFERRAL NEEDED?NO PUBLIC HEALTH REFERRAL NEEDED?NO WAS THE PROVIDER NOTIFIED OF ANY PERTINENT INFO?YES N/A HAS THE PATIENT BEEN EDUCATED REGARDING HIS/HER PLAN OF CARE?YES HAS THE PATIENT BEEN EDUCATED REGARDING PAIN, THE RISK FOR PAIN, THE IMPORTANCE OF EFFECTIVE PAIN MANAGEMENT, AND THE PAIN ASSESSMENT PROCESS?YES ADVANCE DIRECTIVE ADVANCE DIRECTIVE DISCUSSED WITH PATIENT:YES PT DOES NOT HAVE ANY ADVANCED DIRECTIVES AND DECLINES INFROMATION ON HCP AT THIS TIME. STATES SHE ALREADY HAS THE INFORMATION ON HCP, ASSISTANCE OFFERED IN COMPLETING IT IF SHE WANTED HELP. VITAL SIGNS WT 186.2 LBS, HT 63 IN, BMI 32.98 INDEX, BP 182/83 MM HG, HR 72 /MIN, RR 18 /MIN, TEMP 98.0 F, OXYGEN SAT % 99%, SAFE IN ENV? (Y/N) YES, NA INITIALS AW 0927, REVIEWED BY: Anuj HONEYCUTT RN. EXAMINATION GENERAL: THE PATIENT IS ALERT, ORIENTED TIMES THREE AND COOPERATIVE. LUNGS ARE CLEAR TO AUSCULTATION. HEART SHOWS REGULAR RHYTHM, NO MURMURS AND NO GALLOPS. ASSESSMENTS SACROILIITIS, NOT ELSEWHERE CLASSIFIED - M46.1 (PRIMARY) TREATMENT SACROILIITIS, NOT ELSEWHERE CLASSIFIED [facility] FLUORO GUIDANCE (PAIN)[id number] SALINE LOCKFAITH RAMOS 06/03/2021 10:46:51 AM > 22 G STARTED TO ANTERIOR RIGHT FOREARM, GOOD FLASHBACK, FLUSHES EASILY, PT DENIES PAIN. COMPLETION OF PROCEDURAL VISIT WHEN MEETS CRITERIAFAITH RAMOS 06/03/2021 12:06:20 PM > CRITERIA MET MED: PAIN BENADRYL TAB 25MG ORALLY DIPHENHYDRAMINEIAN VANEGAS 06/03/2021 10:37:15 AM > VERIFIED FAITH RAMOS 06/03/2021 10:45:58 AM > ADMINISTERED MEDICATION: PAIN VALIUM TAB 10MG ORALLY (DIAZEPAM)RADHA JOE 06/03/2021 9:56:26 AM > VERIFIED RON FLEMING 06/03/2021 10:00:51 AM > ADMINISTERED MEDICATION: PAIN OXYCODONE HCL TAB 10MG ORALLYRADHA JOE 06/03/2021 9:56:43 AM > VERIFEID RON FLEMING 06/03/2021 10:01:28 AM > ADMINISTERED OTHERS NOTES: 06/02/21 PAT COMPLETED. Wing PULIDO GAME MODERATOR. PROCEDURES PAIN NURSING RECORD PROCEDURE IN ROOM 1100, PHYSICIAN IN ROOM 1131, START 1134, FINISH 1136, PHYSICIAN OUT OF ROOM 1137, OUT OF ROOM 1145, ECG NORMAL SINUS, PATIENT SHIELDED YES, SAFETY STRAP YES, PREP CHLOROPREP Vi RAMOS RN, DRESSING TEGADERM DR. NICE LOC: 1. ALERT, ORIENTED, FAITH RAMOS 06/03/2021 11:40:34 AM > RESP: 1. REGULAR, NO DYSPNEA, FAITH RAOMS 06/03/2021 11:40:38 AM > COLOR: 1. PINK, FAITH RAMOS 06/03/2021 11:40:42 AM > SKIN: 1. WARM, DRY, FAITH RAMOS 06/03/2021 11:40:47 AM > POSITION: 1. PRONE, FAITH RAMOS 06/03/2021 11:08:39 AM > VITALS: 1015 P62 0296% R18 BP155/73 AW P66 R18 0294% BP145/70 AW 1045 P63 R18 0292 BP144/73 145/68, 56, 16, 96%, FAITH RAMOS 06/03/2021 11:08:59 AM > 155/82, 56, 16, 95%, FAITH RAMOS 06/03/2021 11:25:51 AM > 154/85, 55, 16, 95%, FAITH RAMOS 06/03/2021 11:30:24 PM > 164/87, 60, 16, 95%, FAITH RAMOS 06/03/2021 11:45:27 PM > 162/75, 60, 16, 96%, FAITH RAMOS 06/03/2021 11:50:00 PM > NOTES Vi RAMOS RN, FAITH RAMOS 06/03/2021 11:09:04 AM > COMPLETION OF PROCEDURE APPOINTMENT: POST PAIN 5, DRESSING SITE DRY AND INTACT, IV DISCONTINUED, SITE CLEAR, CATHETER INTACT, GAIT STEADY, TEACHING COMPLETED, PATIENT ACKNOWLEDGES UNDERSTANDING YES, PROCEDURE APPOINTMENT COMPLETED AT 1200 PN WORKMANS' COMP OPINION IN YOUR OPINION, WAS THE INCIDENT THAT THE PATIENT DESCRIBED THE COMPETENT MEDICAL CAUSE OF THIS INJURY/ILLNESS? YES ARE THE PATIENT'S COMPLAINTS CONSISTENT WITH HIS/HER HISTORY OF THE INJURY/ILLNESS? NO IS THE PATIENT'S HISTORY OF THE INJURY/ILLNESS CONSISTENT WITH YOUR OBJECTIVE FINDING? YES WHAT IS THE PERCENTAGE OF TEMPORARY IMPAIRMENT? MODERATE TO MARKED = 66.7% IS THE PATIENT WORKING? NO DOCTOR ON SITE: BORA HARRISON MD PN SI PRE PROCEDURE DIAGNOSIS SACROILIITIS, SACROILIAC JOINT DYSFUNCTION POST PROCEDURE DIAGNOSIS SACROILIITIS, SACROILIAC JOINT DYSFUNCTION PROCEDURE BILATERAL SACROILIAC JOINT BLOCK SURGEON DR. BORA NICE PROFESSOR OF JOURNALISM NONE ANESTHESIA LOCAL PRE PROCEDURE NOTE THE PATIENT WITH HISTORY OF CHRONIC LOW BACK PAIN. I EVALUATED THE PATIENT AND REVIEWED THE CHART. I WENT OVER THE RISKS, ALTERNATIVES, AND BENEFITS ASSOCIATED WITH THIS PROCEDURE. THE PATIENT WOULD LIKE TO PROCEED AND GAVE CONSENT TO PERFORM THE PROCEDURE. THE PATIENT DENIES UNEXPLAINABLE WEIGHT LOSS, FEVER, CHILLS, OR NEW CHANGES IN URINARY OR BOWEL CONTROL. THE PATIENT IS COVID-19 NEGATIVE DESCRIPTION OF PROCEDURE THE PATIENT WAS BROUGHT TO THE PROCEDURE ROOM AND PLACED IN THE PRONE POSITION. THE LUMBOSACRAL AREA WAS CLEANED WITH CHLORAPREP SOLUTION AND DRAPED ASEPTICALLY. THE PROCEDURE WAS DONE UNDER STERILE CONDITIONS. A TIMEOUT WAS PERFORMED WHERE THE CONSENTED SITE WAS VERIFIED WITH EVERYONE IN THE ROOM. UNDER FLUOROSCOPIC GUIDANCE, THE TARGET POINT WAS SELECTED AT THE LOWER BORDER OF THE RIGHT AND LEFT SACROILIAC JOINT. TARGET POINT WAS SELECTED AFTER MEDIAL ROTATION AND TILT OF THE MAGNIFIER OR THE C-ARM. I CONFIRMED AGAIN THE SITE OF TARGET. LIDOCAINE 0.5% WAS USED TO NUMB THE SKIN AND THE SUBCUTANEOUS TISSUE BELOW IT. SPINAL NEEDLES, 22-GAUGE, WERE ADVANCED UNDER FLUOROSCOPIC GUIDANCE AND FOLLOWING PATIENT FEEDBACK UNTIL THE TARGETS WERE TOUCHED. THE POSITION OF THE NEEDLES WAS VERIFIED WITH AP AND OBLIQUE VIEWS. THE PATIENT HAS ALLERGIES TO IV DYE SO NO ISOVUE-M WAS USED. KENALOG 20 MG WAS INJECTED AT EACH SITE. THEN, A SOLUTION OF 3.0 ML OF BUPIVACAINE 0.125% WAS USED TO FLUSH EACH NEEDLE. THE MEDICATIONS WERE VERIFIED WITH THE NURSE. THERE WAS NO EVIDENCE OF BLOOD, PARESTHESIA OR CEREBROSPINAL FLUID DURING THE PROCEDURE. THE PATIENT WAS SENT TO THE RECOVERY ROOM. THE PATIENT WAS MOVING THE EXTREMITIES AND DOING WELL. THERE WERE NO COMPLICATIONS DURING THE PROCEDURE. ESTIMATED BLOOD LOSS WAS LESS THAN 5 ML. FLUOROSCOPIC TIME WAS 23 SECONDS. POST PROCEDURE NOTE DEPENDING ON THE RESULTS, CONSIDER AN EPIDURAL. LETS DISCUSS THE POSIBILITY OF USING DYE IN THE POST PROCEDURE VISIT. THE PROCEDURE DONE WAS DISCUSSED WITH THE PATIENT. THE PATIENT WILL BE SEEN IN A FOLLOW UP IN THE NEXT FEW WEEKS. I AM LOOKING FOR LONG LASTING PAIN RELIEF FOR THE PATIENT WITH THIS INTERVENTION. INSTRUCTIONS WERE GIVEN, QUESTIONS WERE ANSWERED, AND THE PATIENT EXPRESSED UNDERSTANDING AND AGREES WITH THE PLAN. I, VI SABILLON, DOCUMENTED THE ABOVE INFORMATION ACTING A SCRIBE FOR DR. NICE. I HAVE REVIEWED THE ABOVE DOCUMENT, WRITTEN BY VI SABILLON, WIRE TWISTING MACHINE OPERATOR, AND I VERIFY THAT IT IS ACCURATE PROCEDURE CODES 01783 INJECT SACROILIAC JOINT, MODIFIERS: 50 DISPOSITION & COMMUNICATION FOLLOW UP FOLLOW UP WITH TECHNICAL MGR (REASON: POST BILATERAL SACROILIAC JOINT BLOCK) ELECTRONICALLY SIGNED BY BORA NICE MD, MD ON 06/06/2021 AT 07:45 AM EDT DISCLAIMER : THIS IS A VISIT SUMMARY EXTRACTED FROM THE [employer] CHART. IT IS NOT A COPY OF THE [employer] PROGRESS NOTE. PEDRO
== END ==
LOC: M PAIN 09:20
PROVIDERS: ATTEND Anesthesiology
DX: M46.1 Sacroiliitis, not elsewhere classified (principal); M54.2 Cervicalgia; M25.511 Pain in right shoulder; M25.512 Pain in left shoulder; Z79.891 Long term (current) use of opiate analgesic; Z79.899 Other long term (current) drug therapy; Z88.6 Allergy status to analgesic agent; Z88.8 Allergy status to other drugs, medicaments and biological substances; Z88.0 Allergy status to penicillin; Z91.041 Radiographic dye allergy status; J30.2 Other seasonal allergic rhinitis
CPT/HCPCS: G0260; J3301

== ENCOUNTER → 2021-06-18 | Outpatient (CLI) | payer OTHER ==
[~2021-06-18] MED LIST changes: -BUPIVACAINE HCL 0.25% 30ML VIAL As Ordered ONE; -ISOVUE-M 300 61% 15ML VIAL As Ordered ONE; -LIDOCAINE 1% SDV 30ML VIAL As Ordered ONE; -TRIAMCINOLONE ACETONIDE SUSP 40 MG/ML VIAL (J3301) As Ordered ONE; -diazePAM 5MG TABLET As Ordered ONE; -diphenhydrAMINE 25MG CAP As Ordered ONE; -oxyCODONE 5MG TAB As Ordered ONE
--- NOTE | 2021-06-20 01:52 | ECWPNPC ---
PATIENT NAME: LISA POTTS : 1955 GENDER: FEMALE VISIT DATE: 06/18/2021 DISCHARGE DATE: 06/18/21 1132 VISIT LOCKED DATE TIME: PHYSICIAN: MEGAN PALACIO PHYSICIAN PAGER NO: ACTIVE RESOURCE: MEGAN PALACIO REASON FOR APPOINTMENT 1. POST BILATERAL SACROILIAC JOINT BLOCK HISTORY OF PRESENT ILLNESS GENERAL: HPI 65-YEAR-OLD FEMALE IN FOR POST BILATERAL SACROILIAC JOINT BLOCK FOLLOW-UP. PATIENT FEELS HER PROCEDURE WAS SUCCESSFUL OVERALL RATING HER PAIN PREPROCEDURE AT A 10 OUT OF 10 AND POST PROCEDURE AT A 3 OUT OF 10. FURTHER STATING THE PROCEDURE CONTINUES TO HELP HER TODAY.. -. FALL RISK SCREENING: SCREENING : NO FALLS REPORTED IN THE LAST YEAR. PAIN SCREENING: PATIENT HAS A COMPLAINT OF ACUTE OR CHRONIC PAIN :YES LOCATION OF PAIN:LOW BACK, LEFT HIP, RIGHT HIP INTENSITY OF PAIN (SCALE OF 1 TO 10):4 WHAT DOES YOUR PAIN FEEL LIKE:TENDER, SORE DURATION:CONTINOUS, CONSTANT, AWAKENS FROM SLEEP PAIN IS INCREASED BY:ACTIVITIES, PROLONGED STANDING PAIN IS DECREASED BY:USE OF PAIN MEDICATIONS, SITTING, OTHERS REPOSITIONING, ICE NURSING NOTE: -. PAIN CENTER INTAKE QUESTIONS: DO YOU HAVE A HISTORY OF MRSA? :NO DO YOU TAKE A BLOOD THINNERS? :NO DO YOU HAVE ANY BLEEDING DISORDERS? :NO ANY NEW NUMBNESS OR WEAKNESS IN YOUR LEGS OR ARMS? :NO ANY PACEMAKER,DEFIBRILLATOR, OR DORSAL COLUMN STIMULATOR? :NO DO YOU HAVE ANY RASHES OR OPEN SORES? :YES HEAT RASH ON BACK ARE YOU ALLERGIC TO IV DYE? :NO ARE YOU DIABETIC? :NO ANY NEW PROBLEMS WITH YOUR MEDICATIONS? :NO HAVE YOU RECEIVED A VACCINE IN THE PAST 30 DAYS? :NO DO YOU PLAN TO RECEIVE A VACCINE IN THE NEXT 21 DAYS? :NO DO YOU NEED ANY PRESCRIPTION? :NO DO YOU TAKE ANY IMMUNOSUPPRESSIVE MEDICATIONS? :NO DO YOU HAVE ANY KIDNEY OR LIVER DISEASE? :NO IS THERE A CHANCE YOU COULD BE ? :NO ARE YOU BREAST FEEDING? :NO CURRENT MEDICATIONS TAKING TRAMADOL-ACETAMINOPHEN 37.5-325 MG TABLET 1 TABLET ORALLY DAILY NEEDED, NOTES: NONE LATELY TAKING VITAMIN D 1 TABLET 5000 UNITS ORALLY DAILY TAKING EYE DROPS EXTRA 0.05 % SOLUTION 2 DROP OPHTHALMIC TWICE A DAY AND NEEDED TAKING OMEGA 3 1000 MG CAPSULE 1 CAPSULE ORALLY ONCE A DAY TAKING MULTI FOR HER 50+ - TABLET 1 TAB ORALLY BID TAKING VOLTAREN 1 % GEL 1 STRIP TRANSDERMAL QID PRN FOR PAIN TAKING ALEVE PM 220-25 MG TABLET 1 TAB ORALLY BEFORE BEDTIME NEEDED, NOTES: 06/03/2021 0300 TAKING VITAMIN C 500 MG CAPSULE ORALLY TAKING MAY HAVE ULTIMATE EYE SUPPORT PO 2 TABS DAILY NOT-TAKING SKELAXIN 800 MG TABLET 1 TABLET ORALLY DAILY NOT-TAKING COLLAGEN 500 MG CAPSULE 2 TABLETS ORALLY DAILY NOT-TAKING IBUPROFEN 800 MG TABLET 1 TABLET WITH FOOD OR MILK NEEDED ORALLY THREE TIMES A DAY PRN NOT-TAKING MELOXICAM 7.5 MG TABLET DISINTEGRATING 1 TABLET ORALLY ONCE A DAY NOT-TAKING MAGNESIUM 200 MG TABLET 2 TABLETS WITH A MEAL ORALLY ONCE A DAY NOT-TAKING ACETAMINOPHEN 325 MG TABLET 1 TABLET NEEDED ORALLY EVERY 6 HRS NOT-TAKING CLARITIN 10 MG TABLET 1 TABLET ORALLY ONCE A DAY MEDICATION LIST REVIEWED AND RECONCILED WITH THE PATIENT PAST MEDICAL HISTORY CHRONIC BACK PAIN BILATERAL NECK AND SHOULDER PAIN ALLERGIES GABAPENTIN: SWOLLEN EYE LIDS PUFFY LIPS - ALLERGY CONTRAST MEDIA: FAINT, HEAD FULLNESS, PRESSURE - ALLERGY NAPROXEN: SWOLLEN EYE LIDS PUFFY LIPS - ALLERGY PENICILLIN (FOR ALLERGIES USE ONLY): ABD. PAIN - SIDE EFFECTS SEASONAL ALLERGIES: CONGESTION - ALLERGY SOCIAL HISTORY GENERAL: TOBACCO USE ARE YOU A: NONSMOKER. LATEX QUESTIONNAIRE LATEX ALLERGY : HAVE YOU EVER DEVELOPED ANY TYPE OF REACTION AFTER HANDLING LATEX PRODUCTS SUCH RUBBER GLOVES, CONDOMS, DIAPHRAGMS, BALLOONS, SOCKS, OR UNDERWEAR?NO LATEX ALLERGY : HAVE YOU EVER DEVELOPED ANY TYPE OF REACTION DURING OR AFTER DENTAL APPOINTMENT, VAGINAL/RECTAL EXAMINATION, SURGICAL PROCEDURE, OR ANY OTHER EXPOSURE?NO LATEX RISK : HAVE YOU EVER HAD ANY DIFFICULTY BREATHING OR HIVES AFTER EATING OR HANDLING ANY FRUITS, OR VEGETABLES; SUCH KIWI, BANANAS, STONE FRUITS, OR CHESTNUTSNO LATEX RISK : DO YOU HAVE A PREVIOUS PERSONAL HISTORY OF MORE THAN NINE SURGERIES, SPINA BIFIDA, OR REPEATED CATHERIZATIONS? NO LATEX RISK : ARE YOU FREQUENTLY EXPOSED TO LATEX PRODUCTS IN YOUR OCCUPATION?NO DATE ASKED : 06/18/2021 ALCOHOL USE: OCCASIONAL BEER. ALCOHOL SCREENING DID YOU HAVE A DRINK CONTAINING ALCOHOL IN THE PAST YEAR?YES HOW OFTEN DID YOU HAVE SIX OR MORE DRINKS ON ONE OCCASION IN THE PAST YEAR?NEVER (0 POINTS) HOW MANY DRINKS DID YOU HAVE ON A TYPICAL DAY WHEN YOU WERE DRINKING IN THE PAST YEAR?3 OR 4 (1 POINT) HOW OFTEN DID YOU HAVE A DRINK CONTAINING ALCOHOL IN THE PAST YEAR?MONTHLY OR LESS (1 POINT) POINTS2 INTERPRETATIONNEGATIVE RECREATIONAL DRUG USE DRUG USE?NO PATIENT DENIES ABUSE OR MISSUSED OF ANY MEDICATION DENIES PATIENT DENIES USE OF ANY ILLEGAL SUBSTANCE INCLUDING MARIJUANA OR COCAINE DENIES CAFFEINE CAFFEINE USE?YES HOW OFTEN AND HOW MUCH? 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 PATIENT DESCRIBES PAIN :ACHING, HAVE IT ALL THE TIME, IT COMES AND GOES, SHARP, STABBING, TENDER, THROBBING, SORE, SHOOTING FROM 0-10, WHAT LEVEL IS YOUR PAIN TODAY?5 - PFS REFERRAL NEEDED?NO CLERGY REFERRAL NEEDED?NO PUBLIC HEALTH REFERRAL NEEDED?NO WAS THE PROVIDER NOTIFIED OF ANY PERTINENT INFO?YES N/A HAS THE PATIENT BEEN EDUCATED REGARDING HIS/HER PLAN OF CARE?YES HAS THE PATIENT BEEN EDUCATED REGARDING PAIN, THE RISK FOR PAIN, THE IMPORTANCE OF EFFECTIVE PAIN MANAGEMENT, AND THE PAIN ASSESSMENT PROCESS?YES ADVANCE DIRECTIVE ADVANCE DIRECTIVE DISCUSSED WITH PATIENT:YES PT DOES NOT HAVE ANY ADVANCED DIRECTIVES AND DECLINES INFROMATION ON HCP AT THIS TIME. STATES SHE ALREADY HAS THE INFORMATION ON HCP, ASSISTANCE OFFERED IN COMPLETING IT IF SHE WANTED HELP. REVIEW OF SYSTEMS CONSTITUTIONAL: ANY RECENT FEVER NO . CHILLS NO . WEIGHT CHANGE OF UNKNOWN REASONS NO . GASTROENTEROLOGY: NEW UNEXPLAINABLE CHANGES IN BOWEL CONTROL NO . CONSTIPATION NO . GENITOURINARY: ANY NEW CHANGE IN BLADDER CONTROL? NO . NEUROLOGY: NEW ONSET DIZZINESS OR NEUROLOGICAL CHANGES NOT MENTIONED NO . NEW NUMBNESS OR PAIN PATTERNS NOT MENTIONED AND PERTINENT TO TODAY'S VISIT NO . CARDIOLOGY: NEW CHEST PRESSURE NO . PATIENT DENIES NO . RESPIRATORY: UNEXPLAINABLE COUGH NO . NEW SHORTNESS OF BREATH NO . VITAL SIGNS WT 182 LBS, HT 63 IN, BMI 32.24 INDEX, BP 178/81 MM HG, REPEAT BP 158/72 MANUAL BP, HR 60 /MIN, RR 18 /MIN, TEMP 98.1 F, OXYGEN SAT % 98%, SAFE IN ENV? (Y/N) YES, REVIEWED BY: AKASH BP RETAKEN. EXAMINATION GENERAL EXAMINATION: GENERALNO ACUTE DISTRESS, WELL NOURISHED AND HYDRATED. PSYCHAPPROPRIATE MOOD AND AFFECT . LUNGS:CLEAR TO AUSCULTATION BILATERALLY, NO WHEEZES, RHONCHI, RALES. HEART:NO MURMURS, REGULAR RATE AND RHYTHM. ASSESSMENTS OTHER CHRONIC PAIN - G89.29 (PRIMARY) SACROILIITIS, NOT ELSEWHERE CLASSIFIED - M46.1 TREATMENT OTHER CHRONIC PAIN PAIN PROCEDURE LOGDATE OF VEJNLAPVE69/13/2021ROCEDURE:BILATERAL SACROILILIAC JOINT BLOCKAMOUNT OF PRE SEDATEBENADRYL 25MG; VALIUM 10MG; OXYCODONE 10MGRESULT:PREPROCEDURE 10 OUT OF 10 POST PROCEDURE 3 OUT OF 10. CONTINUES TO HELP TODAY. SACROILIITIS, NOT ELSEWHERE CLASSIFIED NOTES: 65-YEAR-OLD FEMALE IN FOR POST BILATERAL SACROILIAC JOINT BLOCK FOLLOW-UP. GIVEN PRESENTING SYMPTOMS RECOMMEND FOLLOW-UP IN 2 MONTHS. PATIENT HAS EXPRESSED UNDERSTANDING OF AND WAS IN AGREEMENT WITH TREATMENT PLAN. GIVEN TIME TO ASK QUESTIONS AND EXPRESS CONCERNS. . PROCEDURE CODES FA211 ESTABILISHED PATIENT [facility] FACILITY CHARGE DISPOSITION & COMMUNICATION FOLLOW UP 2 MONTHS (REASON: SACROILLITIS) ELECTRONICALLY SIGNED BY LIZBET PONCE ON 06/19/2021 AT 08:12 AM EDT DISCLAIMER : THIS IS A VISIT SUMMARY EXTRACTED FROM THE [employer] CHART. IT IS NOT A COPY OF THE [employer] PROGRESS NOTE. PEDRO
== END ==
LOC: M PAIN 10:45
PROVIDERS: ATTEND Family Medicine
DX: G89.29 Other chronic pain (principal); M46.1 Sacroiliitis, not elsewhere classified; M54.2 Cervicalgia; M25.511 Pain in right shoulder; M25.512 Pain in left shoulder; Z79.891 Long term (current) use of opiate analgesic; Z79.899 Other long term (current) drug therapy; Z88.0 Allergy status to penicillin; Z88.6 Allergy status to analgesic agent; Z91.041 Radiographic dye allergy status; J30.2 Other seasonal allergic rhinitis

== ENCOUNTER → 2021-09-11 | Outpatient (CLI) | payer OTHER ==
--- NOTE | 2021-09-11 11:50 | REP ---
INDICATION: DETERMINE PROCEDURE. COMPARISON: None. TECHNIQUE: Fluoroscopy provided. FINDINGS: There is no images were obtained. IMPRESSION: 2.5 seconds fluoroscopy time utilized. <Electronically signed by Rogelio Mccrary > 09/11/21 1145
== END ==
LOC: M PAIN 09:45
PROVIDERS: ATTEND Anesthesiology
DX: M47.816 Spondylosis without myelopathy or radiculopathy, lumbar region (principal); M54.2 Cervicalgia; Z79.899 Other long term (current) drug therapy; Z88.0 Allergy status to penicillin; Z88.6 Allergy status to analgesic agent; Z88.8 Allergy status to other drugs, medicaments and biological substances; Z91.041 Radiographic dye allergy status; J30.1 Allergic rhinitis due to pollen

== ENCOUNTER → 2021-09-19 | Outpatient (CLI) | payer OTHER | LOC: M PAIN 09:15 | PROVIDERS: ATTEND Anesthesiology | DX: M79.18 Myalgia, other site (principal); M54.2 Cervicalgia; M25.511 Pain in right shoulder; M25.512 Pain in left shoulder; Z79.1 Long term (current) use of non-steroidal anti-inflammatories (NSAID); Z79.899 Other long term (current) drug therapy; Z88.0 Allergy status to penicillin; Z88.5 Allergy status to narcotic agent; Z88.8 Allergy status to other drugs, medicaments and biological substances; Z91.041 Radiographic dye allergy status; J30.1 Allergic rhinitis due to pollen ==

== ENCOUNTER → 2021-09-19 | Outpatient (CLI) | payer OTHER ==
--- NOTE | 2021-09-19 11:59 | REP ---
INDICATION: CERVICALGIA. COMPARISON: None TECHNIQUE: AP and lateral views FINDINGS: Limited evaluation of the cervical spine shows mild to moderate posterior disc space narrowing at every level. Vertebral body height and alignment appears to be within normal limits. Mild degenerative facet and uncovertebral joint changes are suspected at every level bilaterally on this limited exam. IMPRESSION: Mild chronic changes as described above. <Electronically signed by Valentín Licea > 09/19/21 [id number]
== END ==
LOC: M RAD 10:41
PROVIDERS: ATTEND Anesthesiology
DX: M54.2 Cervicalgia (principal)

== ENCOUNTER → 2021-10-13 | Outpatient (CLI) | payer OTHER ==
[~2021-10-13] MED LIST changes: +LIDOCAINE 1% MDV 20ML VIAL As Ordered ONE; +TRIAMCINOLONE ACETONIDE SUSP 40 MG/ML VIAL (J3301) As Ordered ONE
--- NOTE | 2021-10-13 16:43 | REP ---
INDICATION: STRAIN OF MUSC/TEND THE ROTATOR CUFF OF RIGHT SHOU. COMPARISON: None. TECHNIQUE: The procedure was performed under the direct supervision of Dr. Mccrary. The risks and benefits of the procedure were explained to the patient and informed consent was obtained. The right bicep tendon sheath was localized using ultrasound guidance. The skin was prepped and draped in a sterile fashion. 1% lidocaine was used as a local anesthetic. Using ultrasound guidance a 25 gauge needle was inserted and advanced into the tendon sheath. 3 mL of a solution containing 2 mL of 1% lidocaine and 1 mL of Kenalog 40 mg was injected. The needle was then removed. The patient tolerated the procedure well and there were no immediate complications. FINDINGS: None IMPRESSION: Ultrasound guidance for right bicep tendon sheath injection. <Electronically signed by Chip Canales > 10/13/21 [id number] <Electronically signed by Rogelio Mccrary > 10/13/21 [id number]
== END ==
LOC: M IRPRO 11:08
PROVIDERS: ATTEND Physician Assistant
DX: S46.011D Strain of muscle(s) and tendon(s) of the rotator cuff of right shoulder, subsequent encounter (principal)
CPT/HCPCS: 20550; 76942; J3301

== ENCOUNTER → 2021-10-20 | Outpatient (CLI) | payer OTHER ==
--- NOTE | 2021-10-20 17:17 | REP ---
INDICATION: STRAIN OF MUSC/TEND THE ROTATOR CUFF OF LEFT SHOULDER. COMPARISON: None. TECHNIQUE: The procedure was performed under the direct supervision of Dr. Mccrary. The risks and benefits of the procedure were explained to the patient and informed consent was obtained. The left bicep tendon sheath was localized using ultrasound guidance. The skin was prepped and draped in a sterile fashion. 2 mL of 1% lidocaine was used as a local anesthetic. Using ultrasound guidance a 25 gauge needle was inserted and advanced into the tendon sheath. 3 mL of a solution containing 2 mL of 1% lidocaine and 1 mL of Kenalog 40 mg was injected. The needle was then removed. The patient tolerated the procedure well and there were no immediate complications. Estimated blood loss: Less than 1 mL. FINDINGS: None IMPRESSION: Ultrasound-guided left bicep tendon injection. <Electronically signed by Chip Canales > 10/20/21 1630 <Electronically signed by Rogelio Mccrary > 10/20/21 [id number]
== END ==
LOC: M IRPRO 13:25
PROVIDERS: ATTEND Physician Assistant
DX: S46.012D Strain of muscle(s) and tendon(s) of the rotator cuff of left shoulder, subsequent encounter (principal)
CPT/HCPCS: 20550; 76942; J3301

== ENCOUNTER → 2021-10-23 | Outpatient (CLI) | payer OTHER ==
[~2021-10-23] MED LIST changes: -LIDOCAINE 1% MDV 20ML VIAL As Ordered ONE; -TRIAMCINOLONE ACETONIDE SUSP 40 MG/ML VIAL (J3301) As Ordered ONE
== END ==
LOC: M LABSMTC 10:27
PROVIDERS: ATTEND Anesthesiology
DX: Z01.812 Encounter for preprocedural laboratory examination (principal); Z11.52 Encounter for screening for COVID-19

== ENCOUNTER → 2021-10-28 | Outpatient (CLI) | payer OTHER ==
[~2021-10-28] MED LIST changes: +BUPIVACAINE HCL 0.25% 30ML VIAL As Ordered ONE; +ISOVUE-M 300 61% 15ML VIAL As Ordered ONE; +LIDOCAINE 1% SDV 30ML VIAL As Ordered ONE
== END ==
LOC: M PAIN 10:20
PROVIDERS: ATTEND Anesthesiology
DX: M47.816 Spondylosis without myelopathy or radiculopathy, lumbar region (principal); M47.817 Spondylosis without myelopathy or radiculopathy, lumbosacral region; Z79.891 Long term (current) use of opiate analgesic; Z79.899 Other long term (current) drug therapy; Z88.0 Allergy status to penicillin; Z88.6 Allergy status to analgesic agent; Z88.8 Allergy status to other drugs, medicaments and biological substances; Z91.041 Radiographic dye allergy status; J30.1 Allergic rhinitis due to pollen
CPT/HCPCS: 64493; 64494; Q9967

== ENCOUNTER → 2021-12-23 | Outpatient (CLI) | payer OTHER ==
[~2021-12-23] MED LIST changes: -BUPIVACAINE HCL 0.25% 30ML VIAL As Ordered ONE; -ISOVUE-M 300 61% 15ML VIAL As Ordered ONE; -LIDOCAINE 1% SDV 30ML VIAL As Ordered ONE
== END ==
LOC: M PAIN 09:00
PROVIDERS: ATTEND Nurse Practitioner Family
DX: G89.29 Other chronic pain (principal); M47.816 Spondylosis without myelopathy or radiculopathy, lumbar region; M47.817 Spondylosis without myelopathy or radiculopathy, lumbosacral region; Z79.899 Other long term (current) drug therapy

== ENCOUNTER → 2022-02-24 | Outpatient (CLI) | payer OTHER ==
[~2022-02-24] MED LIST changes: +ULTR1TAB PO; -ULTR37.54 PO
== END ==
LOC: M PAIN 09:15
PROVIDERS: ATTEND Nurse Practitioner Family
DX: M47.816 Spondylosis without myelopathy or radiculopathy, lumbar region (principal); M47.817 Spondylosis without myelopathy or radiculopathy, lumbosacral region; M54.2 Cervicalgia; M25.511 Pain in right shoulder; M25.512 Pain in left shoulder; J30.1 Allergic rhinitis due to pollen; Z79.891 Long term (current) use of opiate analgesic; Z79.899 Other long term (current) drug therapy; Z88.0 Allergy status to penicillin; Z88.6 Allergy status to analgesic agent; Z91.041 Radiographic dye allergy status

== ENCOUNTER → 2022-03-12 | Outpatient (CLI) | payer OTHER | LOC: M LABSMTC 10:53 | PROVIDERS: ATTEND Anesthesiology | DX: Z11.52 Encounter for screening for COVID-19 (principal) ==

== ENCOUNTER → 2022-03-21 | Outpatient (CLI) | payer OTHER | LOC: M LABSMTC 10:22 | PROVIDERS: ATTEND Anesthesiology | DX: Z01.812 Encounter for preprocedural laboratory examination (principal); Z20.822 Contact with and (suspected) exposure to COVID-19 ==

== ENCOUNTER → 2022-03-25 | Outpatient (CLI) | payer OTHER ==
[~2022-03-25] MED LIST changes: +BUPIVACAINE HCL 0.25% 10ML VIAL As Ordered ONE; +BUPIVACAINE HCL 0.25% 30ML VIAL As Ordered ONE; +TRIAMCINOLONE ACETONIDE SUSP 40 MG/ML VIAL (J3301) As Ordered ONE; +diazePAM 5MG TABLET As Ordered ONE; +oxyCODONE 5MG TAB As Ordered ONE
== END ==
LOC: M PAIN 14:00
PROVIDERS: ATTEND Anesthesiology
DX: M79.18 Myalgia, other site (principal); M54.2 Cervicalgia; M25.511 Pain in right shoulder; M25.512 Pain in left shoulder; Z79.899 Other long term (current) drug therapy; Z88.0 Allergy status to penicillin; Z88.8 Allergy status to other drugs, medicaments and biological substances; Z91.041 Radiographic dye allergy status; J30.1 Allergic rhinitis due to pollen
CPT/HCPCS: 20552; J3301

== ENCOUNTER → 2022-05-20 | Outpatient (CLI) | payer OTHER ==
[~2022-05-20] MED LIST changes: -BUPIVACAINE HCL 0.25% 10ML VIAL As Ordered ONE; -BUPIVACAINE HCL 0.25% 30ML VIAL As Ordered ONE; -TRIAMCINOLONE ACETONIDE SUSP 40 MG/ML VIAL (J3301) As Ordered ONE; -diazePAM 5MG TABLET As Ordered ONE; -oxyCODONE 5MG TAB As Ordered ONE
== END ==
LOC: M PAIN 08:45
PROVIDERS: ATTEND Anesthesiology
DX: M79.10 Myalgia, unspecified site (principal); M79.18 Myalgia, other site; M54.2 Cervicalgia; J30.1 Allergic rhinitis due to pollen; Z85.828 Personal history of other malignant neoplasm of skin; Z79.899 Other long term (current) drug therapy; Z88.0 Allergy status to penicillin; Z88.6 Allergy status to analgesic agent; Z88.8 Allergy status to other drugs, medicaments and biological substances; Z91.041 Radiographic dye allergy status

== ENCOUNTER → 2022-05-26 | Outpatient (CLI) | payer OTHER | LOC: M PAIN 10:00 | PROVIDERS: ATTEND Nurse Practitioner Family | DX: M47.816 Spondylosis without myelopathy or radiculopathy, lumbar region (principal); M47.817 Spondylosis without myelopathy or radiculopathy, lumbosacral region; M54.2 Cervicalgia; M25.511 Pain in right shoulder; J30.1 Allergic rhinitis due to pollen; M25.512 Pain in left shoulder; Z85.828 Personal history of other malignant neoplasm of skin; Z79.899 Other long term (current) drug therapy; Z88.0 Allergy status to penicillin; Z88.6 Allergy status to analgesic agent; Z88.8 Allergy status to other drugs, medicaments and biological substances; Z91.041 Radiographic dye allergy status ==

== ENCOUNTER → 2022-08-17 | Outpatient (CLI) | payer OTHER ==
[~2022-08-17] MED LIST changes: +LIDOCAINE 1% MDV 20ML VIAL As Ordered ONE; +TRIAMCINOLONE ACETONIDE SUSP 40 MG/ML VIAL (J3301) As Ordered ONE
== END ==
LOC: M IRPRO 12:55
PROVIDERS: ATTEND Physician Assistant
DX: M75.21 Bicipital tendinitis, right shoulder (principal)
CPT/HCPCS: 20550; 76942; J3301

== ENCOUNTER → 2022-08-26 | Outpatient (CLI) | payer OTHER ==
[~2022-08-26] MED LIST changes: -LIDOCAINE 1% MDV 20ML VIAL As Ordered ONE; -TRIAMCINOLONE ACETONIDE SUSP 40 MG/ML VIAL (J3301) As Ordered ONE
== END ==
LOC: M PAIN 09:30
PROVIDERS: ATTEND Nurse Practitioner Family
DX: M47.816 Spondylosis without myelopathy or radiculopathy, lumbar region (principal); M47.817 Spondylosis without myelopathy or radiculopathy, lumbosacral region; M54.2 Cervicalgia; M25.511 Pain in right shoulder; J30.1 Allergic rhinitis due to pollen; M25.512 Pain in left shoulder; Z85.828 Personal history of other malignant neoplasm of skin; Z79.899 Other long term (current) drug therapy; Z88.0 Allergy status to penicillin; Z88.6 Allergy status to analgesic agent; Z88.8 Allergy status to other drugs, medicaments and biological substances; Z91.041 Radiographic dye allergy status

== ENCOUNTER → 2022-09-16 | Outpatient (CLI) | payer OTHER | LOC: M PAIN 13:15 | PROVIDERS: ATTEND Anesthesiology | DX: M54.2 Cervicalgia (principal); M47.812 Spondylosis without myelopathy or radiculopathy, cervical region; M47.816 Spondylosis without myelopathy or radiculopathy, lumbar region; M47.817 Spondylosis without myelopathy or radiculopathy, lumbosacral region; M25.511 Pain in right shoulder; J30.1 Allergic rhinitis due to pollen; M25.512 Pain in left shoulder; Z85.828 Personal history of other malignant neoplasm of skin; Z79.899 Other long term (current) drug therapy; Z88.0 Allergy status to penicillin; Z88.6 Allergy status to analgesic agent; Z88.8 Allergy status to other drugs, medicaments and biological substances; Z91.041 Radiographic dye allergy status ==

== ENCOUNTER → 2022-12-08 | Outpatient (CLI) | payer OTHER | LOC: M PAIN 07:45 | PROVIDERS: ATTEND Anesthesiology | DX: M54.2 Cervicalgia (principal); M79.18 Myalgia, other site; M79.12 Myalgia of auxiliary muscles, head and neck; J30.1 Allergic rhinitis due to pollen; Z85.828 Personal history of other malignant neoplasm of skin; Z79.899 Other long term (current) drug therapy; Z88.0 Allergy status to penicillin; Z88.6 Allergy status to analgesic agent; Z88.8 Allergy status to other drugs, medicaments and biological substances; Z91.041 Radiographic dye allergy status ==

== ENCOUNTER → 2022-12-16 | Outpatient (CLI) | payer OTHER, MEDICARE ==
[~2022-12-16] MED LIST changes: +LIDOCAINE 1% MDV 20ML VIAL As Ordered ONE; +TRIAMCINOLONE ACETONIDE SUSP 40MG/ML 1ML VIAL As Ordered ONE
== END ==
LOC: M IRPRO 13:34
PROVIDERS: ATTEND Physician Assistant
DX: S46.011D Strain of muscle(s) and tendon(s) of the rotator cuff of right shoulder, subsequent encounter (principal); M75.21 Bicipital tendinitis, right shoulder
CPT/HCPCS: 20550; 76942; J3301

== ENCOUNTER → 2022-12-21 | Outpatient (CLI) | payer OTHER ==
[~2022-12-21] MED LIST changes: -LIDOCAINE 1% MDV 20ML VIAL As Ordered ONE; -TRIAMCINOLONE ACETONIDE SUSP 40MG/ML 1ML VIAL As Ordered ONE
== END ==
LOC: M PAIN 09:00
PROVIDERS: ATTEND Nurse Practitioner Family
DX: M79.18 Myalgia, other site (principal); M47.816 Spondylosis without myelopathy or radiculopathy, lumbar region; G89.29 Other chronic pain; Z88.0 Allergy status to penicillin; Z88.6 Allergy status to analgesic agent; Z88.8 Allergy status to other drugs, medicaments and biological substances; Z91.041 Radiographic dye allergy status; Z79.899 Other long term (current) drug therapy

== ENCOUNTER → 2023-03-03 | Outpatient (CLI) | payer OTHER | LOC: M PAIN 08:30 | PROVIDERS: ATTEND Anesthesiology | DX: M54.2 Cervicalgia (principal); M79.10 Myalgia, unspecified site; M79.18 Myalgia, other site; Z85.828 Personal history of other malignant neoplasm of skin; Z79.899 Other long term (current) drug therapy; Z88.0 Allergy status to penicillin; Z88.6 Allergy status to analgesic agent; Z88.8 Allergy status to other drugs, medicaments and biological substances; Z91.041 Radiographic dye allergy status; J30.1 Allergic rhinitis due to pollen ==

== ENCOUNTER → 2023-03-19 | Outpatient (CLI) | payer OTHER | LOC: M PAIN 09:45 | PROVIDERS: ATTEND Nurse Practitioner Family | DX: M51.16 Intervertebral disc disorders with radiculopathy, lumbar region (principal); G89.29 Other chronic pain; M54.2 Cervicalgia; M25.511 Pain in right shoulder; M25.512 Pain in left shoulder; Z79.899 Other long term (current) drug therapy; Z88.0 Allergy status to penicillin; Z88.6 Allergy status to analgesic agent; Z88.8 Allergy status to other drugs, medicaments and biological substances; Z91.041 Radiographic dye allergy status ==

== ENCOUNTER → 2023-05-10 | Outpatient (CLI) | payer MEDICARE, OTHER ==
[~2023-05-10] MED LIST changes: +LIDOCAINE 1% MDV 20ML VIAL As Ordered ONE; +TRIAMCINOLONE ACETONIDE SUSP 40MG/ML 1ML VIAL As Ordered ONE
== END ==
LOC: M IRPRO 11:43
PROVIDERS: ATTEND Physician Assistant Surgical
DX: M75.21 Bicipital tendinitis, right shoulder (principal); S46.011D Strain of muscle(s) and tendon(s) of the rotator cuff of right shoulder, subsequent encounter
CPT/HCPCS: 20550; 76942; J3301

== ENCOUNTER → 2023-07-08 | Outpatient (CLI) | payer OTHER ==
[~2023-07-08] MED LIST changes: -LIDOCAINE 1% MDV 20ML VIAL As Ordered ONE; -TRIAMCINOLONE ACETONIDE SUSP 40MG/ML 1ML VIAL As Ordered ONE
== END ==
LOC: M PAIN 11:15
PROVIDERS: ATTEND Nurse Practitioner Family
DX: M47.816 Spondylosis without myelopathy or radiculopathy, lumbar region (principal); M47.817 Spondylosis without myelopathy or radiculopathy, lumbosacral region; G89.29 Other chronic pain; M54.2 Cervicalgia; M25.511 Pain in right shoulder; M25.512 Pain in left shoulder; Z85.828 Personal history of other malignant neoplasm of skin; Z79.899 Other long term (current) drug therapy; Z88.0 Allergy status to penicillin; Z88.6 Allergy status to analgesic agent; Z88.8 Allergy status to other drugs, medicaments and biological substances; Z91.041 Radiographic dye allergy status; J30.2 Other seasonal allergic rhinitis

== ENCOUNTER → 2023-07-29 | Outpatient (CLI) | payer OTHER, MEDICARE ==
[~2023-07-29] MED LIST changes: +LIDOCAINE 1% MDV 20ML VIAL As Ordered ONE; +TRIAMCINOLONE ACETONIDE SUSP 40MG/ML 1ML VIAL As Ordered ONE
== END ==
LOC: M IRPRO 13:59
PROVIDERS: ATTEND Physician Assistant Surgical
DX: M75.22 Bicipital tendinitis, left shoulder (principal)
CPT/HCPCS: 20550; 76942; J3301

== ENCOUNTER → 2023-10-04 | Outpatient (CLI) | payer OTHER ==
[~2023-10-04] MED LIST changes: -LIDOCAINE 1% MDV 20ML VIAL As Ordered ONE; +LIDOCAINE 1% SDV 30ML VIAL As Ordered ONE; -TRIAMCINOLONE ACETONIDE SUSP 40MG/ML 1ML VIAL As Ordered ONE
== END ==
LOC: M PAIN 12:45
PROVIDERS: ATTEND Anesthesiology
DX: M47.816 Spondylosis without myelopathy or radiculopathy, lumbar region (principal); G89.29 Other chronic pain; M54.2 Cervicalgia; M25.511 Pain in right shoulder; M25.512 Pain in left shoulder; E53.8 Deficiency of other specified B group vitamins; Z79.899 Other long term (current) drug therapy; Z88.8 Allergy status to other drugs, medicaments and biological substances; Z88.0 Allergy status to penicillin; Z88.6 Allergy status to analgesic agent; Z91.041 Radiographic dye allergy status
CPT/HCPCS: 64493; 64494; J0665

== ENCOUNTER → 2023-11-02 | Outpatient (CLI) | payer OTHER ==
[~2023-11-02] MED LIST changes: -LIDOCAINE 1% SDV 30ML VIAL As Ordered ONE
== END ==
LOC: M PAIN 10:15
PROVIDERS: ATTEND Nurse Practitioner Family
DX: M47.816 Spondylosis without myelopathy or radiculopathy, lumbar region (principal); G89.29 Other chronic pain; M54.2 Cervicalgia; M25.511 Pain in right shoulder; M25.512 Pain in left shoulder; E53.8 Deficiency of other specified B group vitamins; Z79.899 Other long term (current) drug therapy; Z88.0 Allergy status to penicillin; Z88.6 Allergy status to analgesic agent; Z88.8 Allergy status to other drugs, medicaments and biological substances; Z91.041 Radiographic dye allergy status; J30.1 Allergic rhinitis due to pollen

== ENCOUNTER → 2023-12-27 | Outpatient (CLI) | payer OTHER, MEDICARE ==
[~2023-12-27] MED LIST changes: +LIDOCAINE 1% MDV 20ML VIAL As Ordered ONE; +TRIAMCINOLONE ACETONIDE SUSP 40MG/ML 1ML VIAL As Ordered ONE
== END ==
LOC: M IRPRO 12:47
PROVIDERS: ATTEND Physician Assistant
DX: M75.22 Bicipital tendinitis, left shoulder (principal)
CPT/HCPCS: 20550; 76942; J3301

== ENCOUNTER → 2024-02-01 | Outpatient (CLI) | payer OTHER ==
[~2024-02-01] MED LIST changes: -LIDOCAINE 1% MDV 20ML VIAL As Ordered ONE; -TRIAMCINOLONE ACETONIDE SUSP 40MG/ML 1ML VIAL As Ordered ONE
== END ==
LOC: M PAIN 09:15
PROVIDERS: ATTEND Nurse Practitioner Family
DX: M47.816 Spondylosis without myelopathy or radiculopathy, lumbar region (principal); G89.29 Other chronic pain; E53.8 Deficiency of other specified B group vitamins; Z79.899 Other long term (current) drug therapy; Z88.0 Allergy status to penicillin; Z88.6 Allergy status to analgesic agent; Z88.8 Allergy status to other drugs, medicaments and biological substances; Z91.041 Radiographic dye allergy status

== ENCOUNTER → 2024-05-03 | Outpatient (CLI) | payer OTHER | LOC: M PAIN 09:00 | PROVIDERS: ATTEND Anesthesiology | DX: M47.816 Spondylosis without myelopathy or radiculopathy, lumbar region (principal); G89.29 Other chronic pain; M54.2 Cervicalgia; M25.511 Pain in right shoulder; M25.512 Pain in left shoulder; E53.8 Deficiency of other specified B group vitamins; Z85.828 Personal history of other malignant neoplasm of skin; Z79.899 Other long term (current) drug therapy; Z88.0 Allergy status to penicillin; Z88.6 Allergy status to analgesic agent; Z88.8 Allergy status to other drugs, medicaments and biological substances ==

== ENCOUNTER → 2024-05-30 | Outpatient (CLI) | payer OTHER | LOC: M PAIN 16:30 | PROVIDERS: ATTEND Anesthesiology | DX: Z53.8 Procedure and treatment not carried out for other reasons (principal) ==

== ENCOUNTER → 2024-06-02 | Outpatient (CLI) | payer OTHER | LOC: M PAIN 10:00 | PROVIDERS: ATTEND Anesthesiology | DX: M51.16 Intervertebral disc disorders with radiculopathy, lumbar region (principal); G89.29 Other chronic pain; M54.2 Cervicalgia; M25.511 Pain in right shoulder; M25.512 Pain in left shoulder; E53.8 Deficiency of other specified B group vitamins; Z79.899 Other long term (current) drug therapy; Z88.0 Allergy status to penicillin; Z88.6 Allergy status to analgesic agent; Z88.8 Allergy status to other drugs, medicaments and biological substances; Z91.041 Radiographic dye allergy status | CPT/HCPCS: 76000; G0463 ==

== ENCOUNTER → 2024-08-08 | Outpatient (CLI) | payer OTHER | LOC: M PAIN 09:00 | PROVIDERS: ATTEND Nurse Practitioner Family | DX: M51.16 Intervertebral disc disorders with radiculopathy, lumbar region (principal); G89.29 Other chronic pain; M54.2 Cervicalgia; E53.8 Deficiency of other specified B group vitamins; R73.03 Prediabetes; Z79.899 Other long term (current) drug therapy; Z88.0 Allergy status to penicillin; Z88.8 Allergy status to other drugs, medicaments and biological substances; Z88.6 Allergy status to analgesic agent; Z91.041 Radiographic dye allergy status ==

== ENCOUNTER → 2024-11-07 | Outpatient (CLI) | payer OTHER | LOC: M PAIN 10:00 | PROVIDERS: ATTEND Nurse Practitioner Family | DX: M51.16 Intervertebral disc disorders with radiculopathy, lumbar region (principal); M47.816 Spondylosis without myelopathy or radiculopathy, lumbar region; G89.29 Other chronic pain; Z79.899 Other long term (current) drug therapy; Z85.828 Personal history of other malignant neoplasm of skin; Z88.0 Allergy status to penicillin; Z88.6 Allergy status to analgesic agent; Z88.8 Allergy status to other drugs, medicaments and biological substances; Z91.041 Radiographic dye allergy status; Z91.048 Other nonmedicinal substance allergy status ==